=== PATIENT | male | born 1935 | race Caucasian/White ===

== ENCOUNTER → 2016-03-30 | Outpatient (CLI) | payer OTHER ==
[~2016-03-30] MED LIST: ADAL40KI IM; AMLO2.5T PO; ASPCH81X PO; ATEN-173 PO; ATEN25TA PO; ATOR-24 PO; AZAT50TA17 PO; CHOL1TAB52 PO; CLOP1TAB15 PO; CLXOPO OP; DOCU-94 PO; FLM4 PO; IBAN150T PO; NTRGSL/4 UT; OMEP40CA PO; PANT40TA PO; PLV75 PO; POLYSOL4 OPB; PROB1TAB16 PO; PRS5 PO
[2016-03-30 12:32] LABS: CALCIUM 9.4 mg/dl (8.5-10.1)
[2016-03-30 12:42] LABS: CALCIUM URINE 5.5 mg/dl
[2016-03-31 17:39] LABS: GAMMA GLOBULIN 1.4 G/DL (0.8-1.7); TOTAL PROTEIN 6.9 G/DL (6.2-8.3)
== END | disposition home or self-care (01) ==
LOC: C.LAB1850 10:56
PROVIDERS: ATTEND Internal Medicine Rheumatology
DX: Z91.89 Other specified personal risk factors, not elsewhere classified (principal); M81.0 Age-related osteoporosis without current pathological fracture; E61.8 Deficiency of other specified nutrient elements; E55.9 Vitamin D deficiency, unspecified

== ENCOUNTER → 2016-04-11 | Day surgery (SDC) | payer OTHER ==
[2016-03-31 12:45] VITALS: BMI 23.0
[~2016-04-11] VITALS: Ht 167.6 cm; Wt 66.4 kg
[~2016-04-11] MED LIST changes: -ATEN25TA PO; +ATROPINE SULFATE 0.1 MG/ML 5ML SYR IV PRN; +EpHEDrine SULFATE INJ 50 MG/ML AMP IV PRN; +LIDOCAINE HCL 2% 2 ML VIAL (20MG/ML) ONE; -PROB1TAB16 PO; +PROPOFOL IV EMULSION 10 MG/ML 20 ML VIAL IV ONE
[2016-04-11 12:12] VITALS: Ht 167.6 cm; Wt 66.4 kg
--- NOTE | 2016-04-11 13:02 | Endo History and Physical ---
History & Physical Date of Service: Apr 11, 2016. Chief Complaint: ULCERATIVE COLITIS Referring Physician: DR MANUEL ANGEL History of Present Illness For Colonoscopy Past Medical History Hypertension Past Surgical History Hx Cardiac Surgery: Yes (HEART CATH X2, STENT X3; AORTIC VALVE REPLACEMENT) Hx Internal Defibrillator: No Hx Pacemaker: No Hx Abdominal Surgery: Yes (APPY, RONI) Hx of Implantable Prosthesis: No Hx Post-Op Nausea and Vomiting: No Hx Cancer Surgery: No Hx Thoracic Surgery: No Hx Orthopedic: No Hx Urinary Tract Surgery: Yes (KIDNEY STONE REMOVAL WITH BASKET, URINARY STRICTURE REMOVAL) Family History None Social History Smoking Status: Never Smoker Hx Substance Use: No Hx Alcohol Use: No Allergies Coded Allergies: No Known Allergies (Verified , 04/11/16) Current Medications Reported Home Medications Medications Dose Route/Sig Max Daily Dose Days Date Category Plavix (Clopidogrel Bisulfate) 75 Mg Tab 75 Mg PO DAILY 04/11/16 Reported Finasteride 5 Mg Tab 5 Mg PO QAM 03/02/16 Reported Humira Pen (Adalimumab) 40 Mg/0.8 Ml Kit 0.8 Ml IM Q2W 03/02/16 Reported Colace (Docusate Sodium) 100 Mg Cap 1 Cap PO BID 03/02/16 Reported Norvasc (Amlodipine Besylate) 2.5 Mg Tab 2.5 Mg PO BID 03/16/15 Reported Ciloxan 0.3% Oph (Ciprofloxacin Hcl (Ophth)) 0.3 % Oin 0.5 Inch OP BID 01/28/15 Reported Systane (Polyethylene Glycol-Propylene) 1 Yanira Yanira 1 Drops OPB TID 01/28/15 Reported Imuran (Azathioprine) 50 Mg Tab 50 Mg PO QAM 01/28/15 Reported Prilosec (Omeprazole) 40 Mg Capcr 40 Mg PO QAM 01/28/15 Reported Aspirin Chewable (Aspirin) 81 Mg Chew 81 Mg PO QAM 01/31/14 Reported Tamsulosin HCl 0.4 Mg Cap 0.4 Mg PO QAM 01/31/14 Reported Tenormin (Atenolol) 25 Mg Tab 25 Mg PO QAM 01/31/14 Reported Lipitor (Atorvastatin Calcium) 40 Mg Tab 40 Mg PO QAM 01/31/14 Reported Nitrostat (Nitroglycerin) 0.4 Mg Tab 0.4 Mg UT PRN 01/31/14 Reported Vital Signs Weight (Kilograms): 66.36 Height (Feet): 5 Height (Inches): 6 Date Time Temp Pulse Resp B/P Pulse Ox O2 Delivery O2 Flow Rate FiO2 04/11/16 12:11 36.5 76 20 158/80 98 Room Air Physical Exam General Appearance: WD/WN Respiratory/Chest: Respiratory effort: no dyspnea Cardiovascular: Heart Auscultation: RRR Abdomen: Inspection & Palpation: soft Assessment and Plan UC for surveillance colonoscopy
--- NOTE | 2016-04-11 13:35 | Discharge Instructions ---
Endoscopy Patient Instructions Date / Procedure(s) Performed Apr 11, 2016. Colonoscopy Allergy Information Coded Allergies: No Known Allergies (Verified , 04/11/16) Discharge Date / Findings Apr 11, 2016. diverticulosis, surveillance bx done Medication Instructions Stopped Medication(s): ASPIRIN LAST DOSE 04/08/16 CONTINUES ON PLAVIX Restart Stopped Medication(s): resume meds Reported Home Medications Medications Dose Route/Sig Max Daily Dose Days Date Category Plavix (Clopidogrel Bisulfate) 75 Mg Tab 75 Mg PO DAILY 04/11/16 Reported Finasteride 5 Mg Tab 5 Mg PO QAM 03/02/16 Reported Humira Pen (Adalimumab) 40 Mg/0.8 Ml Kit 0.8 Ml IM Q2W 03/02/16 Reported Colace (Docusate Sodium) 100 Mg Cap 1 Cap PO BID 03/02/16 Reported Norvasc (Amlodipine Besylate) 2.5 Mg Tab 2.5 Mg PO BID 03/16/15 Reported Ciloxan 0.3% Oph (Ciprofloxacin Hcl (Ophth)) 0.3 % Oin 0.5 Inch OP BID 01/28/15 Reported Systane (Polyethylene Glycol-Propylene) 1 Yanira Yanira 1 Drops OPB TID 01/28/15 Reported Imuran (Azathioprine) 50 Mg Tab 50 Mg PO QAM 01/28/15 Reported Prilosec (Omeprazole) 40 Mg Capcr 40 Mg PO QAM 01/28/15 Reported Aspirin Chewable (Aspirin) 81 Mg Chew 81 Mg PO QAM 01/31/14 Reported Tamsulosin HCl 0.4 Mg Cap 0.4 Mg PO QAM 01/31/14 Reported Tenormin (Atenolol) 25 Mg Tab 25 Mg PO QAM 01/31/14 Reported Lipitor (Atorvastatin Calcium) 40 Mg Tab 40 Mg PO QAM 01/31/14 Reported Nitrostat (Nitroglycerin) 0.4 Mg Tab 0.4 Mg UT PRN 01/31/14 Reported Provider Instructions Activity Restrictions - No exercising or heavy lifting for 24 hours. - Do not drink alcohol the day of the procedure. - Do not drive a car or operate machinery until the day after the procedure. - Do not make any important decisions or sign important papers in 24 hours after the procedure. Following Day: - Return to full activity which may include returning to work/school. Diet Start your diet with liquids and light foods (jello, soup, juice, toast). Then eat your usual diet if not nauseated. Treatment For Common After Affects For mild abdominal pain, bloating, or excessive gas: - Rest - Eat lightly - Lie on right side Follow-Up Information Follow-up with DR MANUEL ANGEL as scheduled Anesthesia Information What You Should Know You have had a procedure that required some medicine to reduce anxiety and discomfort. This treatment is called moderate sedation. After receiving the treatment, you may be sleepy, but you will be able to breathe on your own. The effects of the treatment may last for several hours. Follow these instructions along with Activity/Diet recommendations noted above: * Do NOT do anything where dizziness or clumsiness would be dangerous. * Rest quietly at home today, then you can be up and about tomorrow. * Have a responsible person stay with you the rest of today. * You may have had an I.V. today. If so, you may take the dressing off later today. Recommendations Call your doctor if: * Trouble breathing * Continuous vomiting for more than 24 hours * Temperature above 101 degrees * Severe abdominal pain or bloating * Pain not relieved by pain medicine ordered * There is increased drainage or redness from any incision * A large amount of rectal bleeding greater than 2-3 tablespoons. (If you had a polyp/s removed or have hemorrhoids, a small amount of blood - from the rectum is to be expected.) * You have any unanswered questions or concerns. IN THE EVENT OF A SERIOUS EMERGENCY, GO TO THE NEAREST EMERGENCY ROOM Your discharge instructions were prepared by provider Baltazar Worthy. Patient Instructions Signature Page Gera Wilde Patient (or Guardian) Signature/Date: I have read and understand the instructions given to me by my caregivers. Caregiver/RN/Doctor Signature/Date: The above-named patient and/or guardian has received patient instructions on this date. + Original Patient Signature Page (only) stays with chart. Please make copy for patient.
--- NOTE | 2016-04-11 13:40 | Anesthesiology Progress Note ---
Anesthesia Post Op Note Date & Time Apr 11, 2016 at 13:40 Vital Signs Pain Intensity: 0 Vital Signs Past 12 Hours Date Time Temp Pulse Resp B/P Pulse Ox O2 Delivery O2 Flow Rate FiO2 04/11/16 12:11 36.5 76 20 158/80 98 Room Air Notes Mental Status: alert / awake / arousable, participated in evaluation Pt Amnestic to Procedure: Yes Nausea / Vomiting: adequately controlled Pain: adequately controlled Airway Patency, RR, SpO2: stable & adequate BP & HR: stable & adequate Hydration State: stable & adequate Anesthetic Complications: no major complications apparent
--- NOTE | 2016-04-11 13:45 | GI REPORT ---
Procedure Date: 04/11/2016 12:59 PM Procedure: Colonoscopy Indications: Follow-up of chronic ulcerative pancolitis Medicines: Propofol total dose 280 mg IV, Lidocaine 40 mg IV Complications: No immediate complications. Estimated Blood Loss: Estimated blood loss was minimal. Procedure: Pre-Anesthesia Assessment: - Prior to the procedure, a History and Physical was performed, and patient medications, allergies and sensitivities were reviewed. The patient's tolerance of previous anesthesia was reviewed. - The risks and benefits of the procedure and the sedation options and risks were discussed with the patient. All questions were answered and informed consent was obtained. After I obtained informed consent, the scope was passed under direct vision. Throughout the procedure, the patient's blood pressure, pulse, and oxygen saturations were monitored continuously. The scope was introduced through the anus and advanced to the cecum, identified by appendiceal orifice and ileocecal valve. The On-site loaner was introduced through the anus and advanced to the cecum, identified by appendiceal orifice and ileocecal valve. The colonoscopy was technically difficult and complex due to bowel stenosis. Successful completion of the procedure was aided by changing endoscopes. The patient tolerated the procedure well. The quality of the bowel preparation was fair. Findings: A benign-appearing, intrinsic moderate stenosis was found in the sigmoid colon and was traversed. Multiple diverticula were found in the sigmoid colon. The cecum appeared normal. Biopsies were taken with a cold forceps for histology. The ascending colon appeared normal. Biopsies were taken with a cold forceps for histology. The hepatic flexure appeared normal. Biopsies were taken with a cold forceps for histology. The transverse colon appeared normal. Biopsies were taken with a cold forceps for histology. The splenic flexure appeared normal. Biopsies were taken with a cold forceps for histology. The descending colon appeared normal. Biopsies were taken with a cold forceps for histology. The sigmoid colon appeared normal. Biopsies were taken with a cold forceps for histology. The rectum appeared normal. Biopsies were taken with a cold forceps for histology. 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 - Diverticulosis in the sigmoid colon. - The cecum is normal. Biopsied. - The ascending colon is normal. Biopsied. - The hepatic flexure is normal. Biopsied. - The transverse colon is normal. Biopsied. - The splenic flexure is normal. Biopsied. - The descending colon is normal. Biopsied. - The sigmoid colon is normal. Biopsied. - The rectum is normal. Biopsied. Recommendation: - Discharge patient to home (ambulatory). - Continue present medications. - Await pathology results. - Return to primary care physician PRN. Baltazar Worthy M.D. Baltazar Worthy MD 04/11/2016 1:45:46 PM This report has been signed electronically. Note Initiated On: 04/11/2016 12:59 PM
[2016-04-11 14:07] VITALS: BP 143/63; PULSE 64; O2SAT 98
== END | disposition home or self-care (01) ==
LOC: C.GI 11:47
PROVIDERS: ATTEND Internal Medicine Gastroenterology
DX: Z09 Encounter for follow-up examination after completed treatment for conditions other than malignant neoplasm (principal); K51.00 Ulcerative (chronic) pancolitis without complications; K56.69 Other intestinal obstruction; K57.30 Diverticulosis of large intestine without perforation or abscess without bleeding; I25.10 Atherosclerotic heart disease of native coronary artery without angina pectoris; I25.2 Old myocardial infarction; E78.5 Hyperlipidemia, unspecified; I10 Essential (primary) hypertension; Z95.2 Presence of prosthetic heart valve; Z90.89 Acquired absence of other organs; Z90.49 Acquired absence of other specified parts of digestive tract; Z98.890 Other specified postprocedural states

== ENCOUNTER → 2016-04-15 | Outpatient (CLI) | payer OTHER ==
[~2016-04-15] MED LIST changes: -ATROPINE SULFATE 0.1 MG/ML 5ML SYR IV PRN; -EpHEDrine SULFATE INJ 50 MG/ML AMP IV PRN; -LIDOCAINE HCL 2% 2 ML VIAL (20MG/ML) ONE; -PLV75 PO; -PROPOFOL IV EMULSION 10 MG/ML 20 ML VIAL IV ONE
[2016-04-15 12:44] LABS: BASO % 0.3 %; BASO ABS # 0.02 K/uL (0-0.2); COMPLETE YES; EOS % 1.2 %; HEMATOCRIT 40.3 % (42-52); IG% 0.2 %; LYMPH % 17.9 %; LYMPH ABS # 1.03 K/uL (1.2-3.4); MEAN CELL VOLUME 91.2 fL (80-100); MEAN CORPUSCULAR HEMOGLOBIN 32.1 pg (25-34); MEAN CORPUSCULAR HGB CONC 35.2 g/dl (32-36); MEAN PLATELET VOLUME 9.1 fL (7.4-10.4); MONO % 10.1 %; NEUT % 70.3 %; PLATELET COUNT 113 K/uL (130-400); RED BLOOD COUNT 4.42 M/uL (4.7-6.1); WHITE BLOOD COUNT 5.77 K/uL (4.8-10.8)
[2016-04-15 12:53] LABS: BLOOD UREA NITROGEN 17 mg/dl (7-18); CALCIUM 9.2 mg/dl (8.5-10.1); CARBON DIOXIDE 31 mmol/L (21-32); CHLORIDE 103 mmol/L (98-107); GLUCOSE 96 mg/dl (70-99); POTASSIUM 4.1 mmol/L (3.5-5.1); SODIUM 141 mmol/L (136-145)
[2016-04-15 13:12] LABS: ALKALINE PHOSPHATASE 77 U/L (45-117); ALT/SGPT 18 U/L (12-78); AST/SGOT 14 U/L (15-37); CHOLESTEROL 157 mg/dl (0-200); CHOLESTEROL/HDL RATIO 2.2; HDL CHOLESTEROL 70 mg/dl; LDL CHOLESTEROL CALCULATED 70 mg/dl; TRIGLYCERIDES 87 mg/dl (0-150); VERY LOW DENSITY LIPOPROT CALC 17 mg/dl
== END | disposition home or self-care (01) ==
LOC: C.LABPBG 11:01
PROVIDERS: ATTEND Family Medicine
DX: I10 Essential (primary) hypertension (principal); K51.90 Ulcerative colitis, unspecified, without complications

== ENCOUNTER → 2016-04-19 | Outpatient (CLI) | payer OTHER | END | disposition home or self-care (01) | LOC: C.LABBC 14:33 | PROVIDERS: ATTEND Family Medicine | DX: D69.6 Thrombocytopenia, unspecified (principal) ==

== ENCOUNTER → 2016-09-26 | Outpatient (CLI) | payer OTHER ==
[2016-09-26 15:48] LABS: BASO % 0.6 %; BASO ABS # 0.03 K/uL (0-0.2); COMPLETE YES; EOS % 1.4 %; HEMATOCRIT 40.8 % (42-52); IG% 0.2 %; LYMPH % 23.3 %; LYMPH ABS # 1.16 K/uL (1.2-3.4); MEAN CELL VOLUME 93.8 fL (80-100); MEAN CORPUSCULAR HEMOGLOBIN 31.7 pg (25-34); MEAN CORPUSCULAR HGB CONC 33.8 g/dl (32-36); MONO % 12.3 %; NEUT % 62.2 %; PLATELET COUNT 130 K/uL (130-400); RED BLOOD COUNT 4.35 M/uL (4.7-6.1); WHITE BLOOD COUNT 4.97 K/uL (4.8-10.8)
== END | disposition home or self-care (01) ==
LOC: C.LAB1850 14:35
PROVIDERS: ATTEND Internal Medicine Rheumatology
DX: D69.6 Thrombocytopenia, unspecified (principal); M81.0 Age-related osteoporosis without current pathological fracture; E55.9 Vitamin D deficiency, unspecified; N25.81 Secondary hyperparathyroidism of renal origin

== ENCOUNTER → 2016-11-21 | Day surgery (SDC) | payer OTHER ==
[2016-11-10 08:40] VITALS: BMI 24.0
[~2016-11-21] VITALS: Ht 167.6 cm; Wt 68.2 kg
[~2016-11-21] MED LIST changes: -CLOP1TAB15 PO; +LIDOCAINE HCL 2% 2 ML VIAL (20MG/ML) ONE; -OMEP40CA PO; +ONDANSETRON INJ 2 MG/ML 2 ML VIAL ONE; +PROPOFOL IV EMULSION 10 MG/ML 20 ML VIAL IV ONE; -PRS5 PO
[2016-11-21 13:29] VITALS: Ht 167.6 cm; Wt 68.2 kg
--- NOTE | 2016-11-21 14:15 | Endo History and Physical ---
History & Physical Date of Service: Nov 21, 2016. Chief Complaint: Dysphagia Referring Physician: Dr. Bj Giraldo History of Present Illness For EGD Past Medical History Hypertension Past Surgical History Hx Cardiac Surgery: Yes (HEART CATH X2, STENT X3; AORTIC VALVE REPLACEMENT) Hx Internal Defibrillator: No Hx Pacemaker: No Hx Abdominal Surgery: Yes (APPY, RONI) Hx of Implantable Prosthesis: No Hx Post-Op Nausea and Vomiting: No Hx Cancer Surgery: No Hx Thoracic Surgery: No Hx Orthopedic: No Hx Urinary Tract Surgery: Yes (KIDNEY STONE REMOVAL WITH BASKET, URINARY STRICTURE REMOVAL) Family History None Social History Smoking Status: Never Smoker Hx Substance Use: No Hx Alcohol Use: No Allergies Coded Allergies: No Known Allergies (Verified , 11/10/16) Current Medications Reported Home Medications Medications Dose Route/Sig Max Daily Dose Days Date Category Boniva (Ibandronate Sodium) 150 Mg Tab 150 Mg PO MONTHLY 11/10/16 Reported D 5000 (Cholecalciferol) 5,000 Unit Tab 1 Tab PO QAM 11/10/16 Reported Protonix (Pantoprazole Sodium) 40 Mg Tab 40 Mg PO QAM 11/10/16 Reported Humira Pen (Adalimumab) 40 Mg/0.8 Ml Kit 0.8 Ml IM Q2W 03/02/16 Reported Colace (Docusate Sodium) 100 Mg Cap 1 Cap PO BID 03/02/16 Reported Norvasc (Amlodipine Besylate) 2.5 Mg Tab 2.5 Mg PO BID 03/16/15 Reported Ciloxan 0.3% Oph (Ciprofloxacin Hcl (Ophth)) 0.3 % Oin 0.5 Inch OP BID 01/28/15 Reported Systane (Polyethylene Glycol-Propylene) 1 Yanira Yanira 1 Drops OPB TID 01/28/15 Reported Imuran (Azathioprine) 50 Mg Tab 50 Mg PO QAM 01/28/15 Reported Aspirin Chewable (Aspirin) 81 Mg Chew 81 Mg PO QAM 01/31/14 Reported Tamsulosin HCl 0.4 Mg Cap 0.4 Mg PO HS 01/31/14 Reported Tenormin (Atenolol) 25 Mg Tab 0.5 Tab PO QAM 01/31/14 Reported Lipitor (Atorvastatin Calcium) 40 Mg Tab 40 Mg PO QAM 01/31/14 Reported Nitrostat (Nitroglycerin) 0.4 Mg Tab 0.4 Mg UT PRN 01/31/14 Reported Vital Signs Weight (Kilograms): 68.18 Height (Feet): 5 Height (Inches): 6 Date Time Temp Pulse Resp B/P (MAP) Pulse Ox O2 Delivery O2 Flow Rate FiO2 11/21/16 13:33 36.6 88 18 164/81 (108) 98 Room Air Physical Exam General Appearance: + thin Respiratory/Chest: Respiratory effort: no dyspnea Cardiovascular: Heart Auscultation: RRR Abdomen: Inspection & Palpation: soft Assessment and Plan Dysphagia for EGD
--- NOTE | 2016-11-21 14:41 | Discharge Instructions ---
Endoscopy Patient Instructions Date / Procedure(s) Performed Nov 21, 2016. EGD Allergy Information Coded Allergies: No Known Allergies (Verified , 11/10/16) Discharge Date / Findings Nov 21, 2016. Normal EGD Medication Instructions Restart Stopped Medication(s): resume meds Reported Home Medications Medications Dose Route/Sig Max Daily Dose Days Date Category Boniva (Ibandronate Sodium) 150 Mg Tab 150 Mg PO MONTHLY 11/10/16 Reported D 5000 (Cholecalciferol) 5,000 Unit Tab 1 Tab PO QAM 11/10/16 Reported Protonix (Pantoprazole Sodium) 40 Mg Tab 40 Mg PO QAM 11/10/16 Reported Humira Pen (Adalimumab) 40 Mg/0.8 Ml Kit 0.8 Ml IM Q2W 03/02/16 Reported Colace (Docusate Sodium) 100 Mg Cap 1 Cap PO BID 03/02/16 Reported Norvasc (Amlodipine Besylate) 2.5 Mg Tab 2.5 Mg PO BID 03/16/15 Reported Ciloxan 0.3% Oph (Ciprofloxacin Hcl (Ophth)) 0.3 % Oin 0.5 Inch OP BID 01/28/15 Reported Systane (Polyethylene Glycol-Propylene) 1 Yanira Yanira 1 Drops OPB TID 01/28/15 Reported Imuran (Azathioprine) 50 Mg Tab 50 Mg PO QAM 01/28/15 Reported Aspirin Chewable (Aspirin) 81 Mg Chew 81 Mg PO QAM 01/31/14 Reported Tamsulosin HCl 0.4 Mg Cap 0.4 Mg PO HS 01/31/14 Reported Tenormin (Atenolol) 25 Mg Tab 0.5 Tab PO QAM 01/31/14 Reported Lipitor (Atorvastatin Calcium) 40 Mg Tab 40 Mg PO QAM 01/31/14 Reported Nitrostat (Nitroglycerin) 0.4 Mg Tab 0.4 Mg UT PRN 01/31/14 Reported Provider Instructions Activity Restrictions - No exercising or heavy lifting for 24 hours. - Do not drink alcohol the day of the procedure. - Do not drive a car or operate machinery until the day after the procedure. - Do not make any important decisions or sign important papers in 24 hours after the procedure. Following Day: - Return to full activity which may include returning to work/school. Diet Start your diet with liquids and light foods (jello, soup, juice, toast). Then eat your usual diet if not nauseated. Treatment For Common After Affects For mild abdominal pain, bloating, or excessive gas: - Rest - Eat lightly - Lie on right side Follow-Up Information Follow-up with Dr. Bj Giraldo as scheduled Anesthesia Information What You Should Know You have had a procedure that required some medicine to reduce anxiety and discomfort. This treatment is called moderate sedation. After receiving the treatment, you may be sleepy, but you will be able to breathe on your own. The effects of the treatment may last for several hours. Follow these instructions along with Activity/Diet recommendations noted above: * Do NOT do anything where dizziness or clumsiness would be dangerous. * Rest quietly at home today, then you can be up and about tomorrow. * Have a responsible person stay with you the rest of today. * You may have had an I.V. today. If so, you may take the dressing off later today. Recommendations Call your doctor if: * Trouble breathing * Continuous vomiting for more than 24 hours * Temperature above 101 degrees * Severe abdominal pain or bloating * Pain not relieved by pain medicine ordered * There is increased drainage or redness from any incision * A large amount of rectal bleeding greater than 2-3 tablespoons. (If you had a polyp/s removed or have hemorrhoids, a small amount of blood - from the rectum is to be expected.) * You have any unanswered questions or concerns. IN THE EVENT OF A SERIOUS EMERGENCY, GO TO THE NEAREST EMERGENCY ROOM Your discharge instructions were prepared by provider Baltazar Worthy. Patient Instructions Signature Page Gera Wilde Patient (or Guardian) Signature/Date: I have read and understand the instructions given to me by my caregivers. Caregiver/RN/Doctor Signature/Date: The above-named patient and/or guardian has received patient instructions on this date. + Original Patient Signature Page (only) stays with chart. Please make copy for patient.
--- NOTE | 2016-11-21 14:44 | Anesthesiology Progress Note ---
Anesthesia Post Op Note Date & Time Nov 21, 2016 at 14:44 Vital Signs Pain Intensity: 0 Vital Signs Past 12 Hours Date Time Temp Pulse Resp B/P (MAP) Pulse Ox O2 Delivery O2 Flow Rate FiO2 11/21/16 13:33 36.6 88 18 164/81 (108) 98 Room Air Notes Mental Status: alert / awake / arousable, participated in evaluation Pt Amnestic to Procedure: Yes Nausea / Vomiting: adequately controlled Pain: adequately controlled Airway Patency, RR, SpO2: stable & adequate BP & HR: stable & adequate Hydration State: stable & adequate Anesthetic Complications: no major complications apparent
--- NOTE | 2016-11-21 14:49 | GI REPORT ---
Procedure Date: 11/21/2016 2:19 PM Procedure: Upper GI endoscopy Indications: Dysphagia Medicines: Zofran 4 mg IV, Propofol total dose 80 mg IV, Lidocaine 60 mg IV Complications: No immediate complications. Estimated Blood Loss: Estimated blood loss: none. Procedure: Pre-Anesthesia Assessment: - Prior to the procedure, a History and Physical was performed, and patient medications, allergies and sensitivities were reviewed. The patient's tolerance of previous anesthesia was reviewed. - The risks and benefits of the procedure and the sedation options and risks were discussed with the patient. All questions were answered and informed consent was obtained. After obtaining informed consent, the endoscope was passed under direct vision. Throughout the procedure, the patient's blood pressure, pulse, and oxygen saturations were monitored continuously. The scope was introduced through the mouth, and advanced to the second part of duodenum. The upper GI endoscopy was accomplished without difficulty. The patient tolerated the procedure well. Findings: The esophagus was normal. The stomach was normal. The examined duodenum was normal. Impression: - Normal esophagus. - Normal stomach. - Normal examined duodenum. - No specimens collected. Recommendation: - Discharge patient to home (ambulatory). - Continue present medications. - Return to primary care physician PRN. Baltazar Worthy M.D. Baltazar Worthy MD 11/21/2016 2:49:09 PM This report has been signed electronically. Note Initiated On: 11/21/2016 2:19 PM I attest to the content of the Intraoperative Record and orders documented therein, exceptions below
[2016-11-21 15:05] VITALS: BP 152/95; PULSE 75; O2SAT 96
== END | disposition home or self-care (01) ==
LOC: C.GI 12:42
PROVIDERS: ATTEND Internal Medicine Gastroenterology
DX: R13.10 Dysphagia, unspecified (principal); I25.10 Atherosclerotic heart disease of native coronary artery without angina pectoris; I10 Essential (primary) hypertension; Z95.2 Presence of prosthetic heart valve; Z90.49 Acquired absence of other specified parts of digestive tract; Z87.442 Personal history of urinary calculi; Z79.82 Long term (current) use of aspirin

== ENCOUNTER 2017-02-25 13:08 | Inpatient (IN) | payer OTHER ==
[~2017-02-25] VITALS: Ht 167.6 cm; Wt 66.4 kg
[~2017-02-25 13:08] MED LIST changes: -LIDOCAINE HCL 2% 2 ML VIAL (20MG/ML) ONE; -ONDANSETRON INJ 2 MG/ML 2 ML VIAL ONE; -PROPOFOL IV EMULSION 10 MG/ML 20 ML VIAL IV ONE
[2017-02-25] MEDS ORDERED: NITROGLYCERIN OINT 2% 1GM PACKET EXT STA (13:15)
[2017-02-25] MEDS ORDERED: NITROGLYCERIN OINT 2% 1GM PACKET ONE (13:22)
--- NOTE | 2017-02-25 13:23 | EMERGENCY ROOM VISIT NOTE ---
History Report prepared by [place]: Jose Manning Under the Supervision of: Dr. Orlando Adan M.D. First contact with patient: 13:10 Stated Complaint: FALL/CHEST PAIN History of Present Illness The patient is an 81 year old male who presents to the Emergency Room with complaints of constant chest pain beginning 1 hour ago. He currently rates his discomfort a 2/10 in severity after receiving nitroglycerin. The patient states his pain was originally a 9/10. [place] began to experience chest pain, abdominal pain, and diaphoresis. The patient notes he is currently only experiencing chest pain. He states he has a history of a stent placement and a heart valve. The patient reports he is not on Coumadin or Plavix. Source of History: patient Onset: 1 hour ago Position: chest Symptom Intensity: 9/10 Timing: constant Modifying Factors (Relieving): other (Nitroglycerin) Associated Symptoms: + diaphoresis, + chest pain, + abdominal pain Review of Systems See HPI for pertinent positives & negatives. A total of 10 systems reviewed and were otherwise negative. Past Medical & Surgical Medical Problems: (1) Bowel obstruction (2) Chest pain (3) Heart disease (4) HTN (hypertension) (5) Kidney disease (6) Skin problem (7) Stomach problems (8) Urinary problem Family History Cancer Gallbladder disease Hypertension Kidney disease Kidney stones Social History Smoking Status: Never Smoker Alcohol Use: none Marital Status: Housing Status: lives with significant other Occupation Status: retired Current/Historical Medications Scheduled Adalimumab (Humira Pen), 0.8 ML IM q2w Amlodipine (Norvasc), 2.5 MG PO BID Aspirin (Aspirin Chewable), 81 MG PO QAM Atenolol (Tenormin), 1 TAB PO QAM Cholecalciferol (Vitamin D3), 1 TAB PO DAILY Docusate Sodium (Colace), 1 CAP PO BID Ibandronate Sodium (Boniva), 150 MG PO MONTHLY Nitroglycerin (Nitrostat), 0.4 MG UT PRN Pantoprazole (Protonix), 40 MG PO QAM Polyethylene Glycol-Propylene (Systane), 1 DROPS OPB TID Tamsulosin HCl (Tamsulosin HCl), 0.4 MG PO HS Tolterodine Tartrate (Detrol LA), 1 CAP PO BID Allergies Coded Allergies: No Known Allergies (Verified , 02/25/17) Physical Exam Vital Signs Date Time Temp Pulse Resp B/P (MAP) Pulse Ox O2 Delivery O2 Flow Rate FiO2 02/25/17 15:02 83 140/70 96 Room Air 02/25/17 14:38 71 23 97 02/25/17 14:31 122/58 02/25/17 14:08 68 25 94 02/25/17 14:01 112/62 02/25/17 13:38 70 98 02/25/17 13:31 137/65 02/25/17 13:30 94 Room Air 02/25/17 13:27 36.6 86 18 135/72 94 Room Air 02/25/17 13:25 126/73 02/25/17 13:18 99 Nasal Cannula 2.0 02/25/17 13:18 93 Room Air 02/25/17 13:17 76 02/25/17 13:12 135/72 Physical Exam GENERAL: Patient is a healthy-appearing well-nourished 81 year old male. HEAD: Normocephalic atraumatic EYES: Ocular movements intact pupils equal and react to light OROPHARYNX mucous membranes are moist no exudates present no erythema or edema present NECK: Supple no nuchal rigidity CHEST: Good equal expansion LUNGS: Clear and equal to auscultation CARDIAC: Normal S1 and S2 ABDOMEN: Soft nontender no guarding BACK: No CVA tenderness EXTREMITIES: No pain upon palpation normal muscle strength in all groups no clubbing cyanosis or edema NEURO: Patient is following commands and answering questions appropriately. Alert and oriented x3 Cranial Nerves 2-12 grossly intact Medical Decision & Procedures ER Provider Diagnostic Interpretation: Radiology results as stated below per my review and radiologist interpretation: CHEST ONE VIEW PORTABLE HISTORY: Atypical CHEST PAIN COMPARISON: Chest 02/25/2017. FINDINGS: The lungs are clear. Cardiac silhouette is normal in size. No pleural effusions. No pneumothorax. IMPRESSION: No acute process. Electronically signed by: Amauri Ortiz M.D. 02/25/2017 2:16 PM Dictated Date/Time: 02/25/2017 2:15 PM CHEST CTA for PULMONARY ARTERIES CT DOSE: 282.21 mGy.cm HISTORY: Atypical chest pain. TECHNIQUE: Multiaxial CT images of the chest were performed following the intravenous administration of contrast to evaluate the pulmonary arteries. Maximal intensity projection images were also obtained. A dose lowering technique was utilized adhering to the principles of ALARA. COMPARISON STUDY: None. FINDINGS: Punctate stone within the upper pole of the left kidney. The visualized liver, spleen, and adrenal glands are unremarkable. No mediastinal or hilar lymphadenopathy. The heart is top normal in size. 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 No pleural or pericardial effusions. Normal caliber thoracic aorta with no evidence for dissection. No filling defects within the pulmonary arteries to suggest pulmonary embolus. No pneumothorax. Small linear density at the left lung apex suggestive of scarring. Groundglass densities at the lung bases likely represent mild dependent change. No focal lung consolidations to suggest pneumonia. The fractures within the visualized osseous structures. IMPRESSION: No evidence for pulmonary embolus. Electronically signed by: Amauri Ortiz M.D. 02/25/2017 3:11 PM Dictated Date/Time: 02/25/2017 3:02 PM Laboratory Results 02/25/17 12:35 Red Blood Count 4.08, Mean Corpuscular Volume 94.4, Mean Corpuscular Hemoglobin 33.3, Mean Corpuscular Hemoglobin Concent 35.3, Mean Platelet Volume 9.4, Neutrophils (%) (Auto) 54.7, Lymphocytes (%) (Auto) 31.6, Monocytes (%) (Auto) 11.1, Eosinophils (%) (Auto) 2.0, Basophils (%) (Auto) 0.3, Neutrophils # (Auto ) 3.58, Lymphocytes # (Auto) 2.07, Monocytes # (Auto) 0.73, Eosinophils # (Auto ) 0.13, Basophils # (Auto) 0.02 02/25/17 12:35 Test 02/25/17 12:35 02/25/17 13:23 02/25/17 13:25 White Blood Count 6.55 K/uL (4.8-10.8) Red Blood Count 4.08 M/uL (4.7-6.1) Hemoglobin 13.6 g/dL (14.0-18.0) Hematocrit 38.5 % (42-52) Mean Corpuscular Volume 94.4 fL (80-100) Mean Corpuscular Hemoglobin 33.3 pg (25-34) Mean Corpuscular Hemoglobin Concent 35.3 g/dl (32-36) Platelet Count 124 K/uL (130-400) Mean Platelet Volume 9.4 fL (7.4-10.4) Neutrophils (%) (Auto) 54.7 % Lymphocytes (%) (Auto) 31.6 % Monocytes (%) (Auto) 11.1 % Eosinophils (%) (Auto) 2.0 % Basophils (%) (Auto) 0.3 % Neutrophils # (Auto) 3.58 K/uL (1.4-6.5) Lymphocytes # (Auto) 2.07 K/uL (1.2-3.4) Monocytes # (Auto) 0.73 K/uL (0.11-0.59) Eosinophils # (Auto) 0.13 K/uL (0-0.5) Basophils # (Auto) 0.02 K/uL (0-0.2) RDW Standard Deviation 43.7 fL (36.4-46.3) RDW Coefficient of Variation 12.7 % (11.5-14.5) Immature Granulocyte % (Auto) 0.3 % Immature Granulocyte # (Auto) 0.02 K/uL (0.00-0.02) Est Creatinine Clear Calc Drug Dose 32.5 ml/min Estimated GFR () 46.5 Estimated GFR (Non- 40.1 BUN/Creatinine Ratio 14.4 (10-20) Calcium Level 8.7 mg/dl (8.5-10.1) Total Bilirubin 0.8 mg/dl (0.2-1) Direct Bilirubin 0.2 mg/dl (0-0.2) Aspartate Amino Transf (AST/SGOT) 14 U/L (15-37) Alanine Aminotransferase (ALT/SGPT) 15 U/L (12-78) Alkaline Phosphatase 55 U/L (45-117) Total Creatine Kinase 75 U/L (39-308) Creatine Kinase MB 1.0 ng/ml (0.5-3.6) Creatine Kinase MB Ratio 1.3 (0-3.0) Troponin I < 0.015 ng/ml (0-0.045) Total Protein 7.1 gm/dl (6.4-8.2) Albumin 3.5 gm/dl (3.4-5.0) Lipase 83 U/L (73-393) Bedside D-Dimer > 450 ng/mlFEU (0-450) Bedside Hemoglobin 12.6 g/dl (14.0-18.0) Bedside Hematocrit 37 % (42-52) Bedside Sodium 138 mEq/L (135-144) Bedside Potassium 4.3 mEq/L (3.3-5.0) Bedside Chloride 99 mEq/L (101-112) Bedside Total CO2 29 mEq/l (24-31) Anion Gap 15.0 mmol/L (16-25) Bedside Blood Urea Nitrogen 27 mg/dl (7-18) Bedside Creatinine 1.6 mg/dl (0.6-1.3) Bedside Glucose (other) 130 mg/dl (70-99) Bedside Ionized Calcium (Navya) 1.18 mmol/l (1.12-1.32) Labs reviewed by ED physician. Medications Administered Medications (Trade) Dose Ordered Sig/Nicol Route Start Time Stop Time Status Last Admin Dose Admin Nitroglycerin (Nitroglycerin 2% Oint) 1 inch Shuame-MED ONCE .ROUTE 02/25/17 13:22 02/25/17 13:23 DC 02/25/17 13:22 1 INCH ECG Indication: chest pain Rate (beats per minute): 68 Rhythm: sinus rhythm Findings: no acute ischemic change, other (premature supraventricular complexes ) ED Course 1315: Past medical records reviewed. The patient was evaluated in room B12B. A complete history and physical examination was performed. 1322: Ordered Nitroglycerin 1in EXT 1519: I discussed the patient's case with Dr. Junior [facility]. The patient will be evaluated for further management and care. Medical Decision Differential diagnosis: Etiologies such as cardiac ischemia, aortic dissection, pulmonary embolism, pneumonia, pneumothorax, musculoskeletal, infections, pericarditis, myocarditis , esophageal rupture, gastrointestinal, as well as others were entertained. This is an 81-year-old male who presents emergency department complaining of chest pain that was relieved by nitroglycerin. [place] the chest pain started. He has a significant coronary artery history therefore he was discussed with the hospitalist service. He was given nitro paste here in the emergency department. Repeat examination revealed improvement patient's symptoms. Medication Reconcilliation Current Medication List: was personally reviewed by me Blood Pressure Screening Patient's blood pressure: Normal blood pressure Blood pressure disposition: Elevated BP felt to be situational Consults Time Called: 1512 Consulting Physician: Dr. Junior [facility] Returned Call: 1519 I discussed the patient's case with Dr. Junior, [facility]. The patient will be evaluated for further management and care. Impression Primary Impression: Chest pain Scribe Attestation The scribe's documentation has been prepared under my direction and personally reviewed by me in its entirety. I confirm that the note above accurately reflects all work, treatment, procedures, and medical decision making performed by me. Departure Information Dispostion Being Evaluated By Hospitalist Referrals Rica Chavez DO (PCP) Problem Qualifiers Primary Impression: Chest pain Chest pain type: chest pain on breathing Qualified Codes: R07.1 - Chest pain on breathing
[2017-02-25 13:27] VITALS: Ht 167.6 cm; Wt 66.4 kg
[2017-02-25 13:41] LABS: BASO % 0.3 %; BASO ABS # 0.02 K/uL (0-0.2); EOS ABS # 0.13 K/uL (0-0.5); HEMATOCRIT 38.5 % (42-52); HEMOGLOBIN 13.6 g/dL (14.0-18.0); IG# 0.02 K/uL (0.00-0.02); LYMPH % 31.6 %; LYMPH ABS # 2.07 K/uL (1.2-3.4); MEAN CELL VOLUME 94.4 fL (80-100); MEAN CORPUSCULAR HEMOGLOBIN 33.3 pg (25-34); MEAN CORPUSCULAR HGB CONC 35.3 g/dl (32-36); MEAN PLATELET VOLUME 9.4 fL (7.4-10.4); MONO % 11.1 %; MONO ABS # 0.73 K/uL (0.11-0.59); NEUT % 54.7 %; NEUT ABS # 3.58 K/uL (1.4-6.5); PLATELET COUNT 124 K/uL (130-400); RED CELL DISTRIBUTION WIDTH CV 12.7 % (11.5-14.5); RED CELL DISTRIBUTION WIDTH SD 43.7 fL (36.4-46.3); WHITE BLOOD COUNT 6.55 K/uL (4.8-10.8)
[2017-02-25 13:46] LABS: ISTAT CREATININE 1.6 mg/dl (0.6-1.3); ISTAT IONIZED CALCIUM 1.18 mmol/l (1.12-1.32); ISTAT POTASSIUM 4.3 mEq/L (3.3-5.0)
[2017-02-25 14:00] LABS: ALBUMIN 3.5 gm/dl (3.4-5.0); ALT/SGPT 15 U/L (12-78); BLOOD UREA NITROGEN 23 mg/dl (7-18); CALCIUM 8.7 mg/dl (8.5-10.1); CARBON DIOXIDE 28 mmol/L (21-32); CREATININE 1.58 mg/dl (0.60-1.40); GLUCOSE 123 mg/dl (70-99); LIPASE 83 U/L (73-393); POTASSIUM 4.2 mmol/L (3.5-5.1); SODIUM 136 mmol/L (136-145)
[2017-02-25 14:06] LABS: ALKALINE PHOSPHATASE 55 U/L (45-117); AST/SGOT 14 U/L (15-37); TOTAL PROTEIN 7.1 gm/dl (6.4-8.2)
[2017-02-25] MEDS ORDERED: OPTIRAY 320 IV PRN (14:15)
--- NOTE | 2017-02-25 14:18 | DIAGNOSTIC IMAGING REPORT ---
CHEST ONE VIEW PORTABLE HISTORY: Atypical CHEST PAIN COMPARISON: Chest 02/25/2017. FINDINGS: The lungs are clear. Cardiac silhouette is normal in size. No pleural effusions. No pneumothorax. IMPRESSION: No acute process. Electronically signed by: Amauri Ortiz M.D. 02/25/2017 2:16 PM Dictated Date/Time: 02/25/2017 2:15 PM
[2017-02-25] MEDS ORDERED: DTRSR/2 PO (14:47)
[2017-02-25] MEDS ORDERED: CHOL20007 PO (14:47)
--- NOTE | 2017-02-25 15:12 | DIAGNOSTIC IMAGING REPORT ---
CHEST CTA for PULMONARY ARTERIES CT DOSE: 282.21 mGy.cm HISTORY: Atypical chest pain. TECHNIQUE: Multiaxial CT images of the chest were performed following the intravenous administration of contrast to evaluate the pulmonary arteries. Maximal intensity projection images were also obtained. A dose lowering technique was utilized adhering to the principles of ALARA. COMPARISON STUDY: None. FINDINGS: Punctate stone within the upper pole of the left kidney. The visualized liver, spleen, and adrenal glands are unremarkable. No mediastinal or hilar lymphadenopathy. The heart is top normal in size. 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 No pleural or pericardial effusions. Normal caliber thoracic aorta with no evidence for dissection. No filling defects within the pulmonary arteries to suggest pulmonary embolus. No pneumothorax. Small linear density at the left lung apex suggestive of scarring. Groundglass densities at the lung bases likely represent mild dependent change. No focal lung consolidations to suggest pneumonia. The fractures within the visualized osseous structures. IMPRESSION: No evidence for pulmonary embolus. Electronically signed by: Amauri Ortiz M.D. 02/25/2017 3:11 PM Dictated Date/Time: 02/25/2017 3:02 PM
[2017-02-25] MEDS ORDERED: MoRPHine SULFATE 2 MG/ML CARP IV PRN (15:30)
[2017-02-25] MEDS ORDERED: ONDANSETRON INJ 2 MG/ML 2 ML VIAL IV PRN (15:30)
[2017-02-25 16:39] VITALS: BP 159/79; PULSE 72; TEMP 36.4; O2SAT 96
[2017-02-25 17:00] VITALS: BP 159/79; TEMP 36.4; O2SAT 96
[2017-02-25] MEDS ORDERED: NITROGLYCERIN OINT 2% 1GM PACKET EXT SCH (18:00)
[2017-02-25] MEDS ORDERED: NURSING VERBAL MED ORDER ONE (18:30)
--- NOTE | 2017-02-25 18:48 | History and Physical ---
History & Physical Date & Time of Service: Feb 25, 2017 at 18:18 Chief Complaint: Chest Pain Primary Care Physician: No Doctor, Assigned History of Present Illness Source: patient, spouse, hospital records 81 yo male with history of CAD with three stents, one remotely at [place] and two more recently prior to TAVR procedure. The patient never had an AR, he just had anginal symptoms and was set up for heart catheterizations. He follows with Dr. Lyon. 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 He has been doing well from a cardiac standpoint, does not typically have anginal symptoms. This morning he [place] back, roughly 3 /4 of a mile and then shoveled a short sidewalk when he got back. He never had any chest pain or pressure while exerting himself. He went inside and ate some lunch and then shortly after eating he developed crushing discomfort with diaphoresis. No associated nausea or dyspnea, the pain did not radiate to his jaw or arm. He took a baby aspirin with no relief. No relief initially with 2 sublingual nitros and then after 3rd nitro he had complete relief. He called EMS and was brought to the ED. He does admit so some occasional chest pressure that he always though was more like reflux. The other day he took a lot of Maalox but it offered no relief and then he tried a nitroglycerin tab and it gave him relief. In the ED his vitals were stable and his lab work was normal, including troponin of < 0.015. EKG showed NSR without ischemic changes. Past Medical/Surgical History CAD with h/o three stents TAVR Ulcerative colitis Medical Problems: (1) Heart disease Status: Chronic (2) HTN (hypertension) Status: Chronic (3) Kidney disease Status: Resolved (4) Skin problem Status: Resolved (5) Stomach problems Status: Resolved (6) Urinary problem Status: Resolved Family History Cancer Gallbladder disease Hypertension Kidney disease Kidney stones Social History Smoking Status: Never Smoker Alcohol Use: none Marital Status: Housing status: lives with significant other Occupational Status: retired Multi-Drug Resistant Organisms History of MDRO: No Allergies Coded Allergies: No Known Allergies (Verified , 02/25/17) Home Medications Scheduled Adalimumab (Humira Pen), 0.8 ML IM q2w Amlodipine (Norvasc), 2.5 MG PO BID Aspirin (Aspirin Chewable), 81 MG PO QAM Atenolol (Tenormin), 1 TAB PO QAM Cholecalciferol (Vitamin D3), 1 TAB PO DAILY Docusate Sodium (Colace), 1 CAP PO BID Ibandronate Sodium (Boniva), 150 MG PO MONTHLY Nitroglycerin (Nitrostat), 0.4 MG UT PRN Pantoprazole (Protonix), 40 MG PO QAM Polyethylene Glycol-Propylene (Systane), 1 DROPS OPB TID Tamsulosin HCl (Tamsulosin HCl), 0.4 MG PO HS Tolterodine Tartrate (Detrol LA), 1 CAP PO BID Review of Systems Constitutional: + sweats, No fever, No chills, No weight loss, No weakness, No fatigue, No problem reported Eyes: No worsening of vision, No eye pain, No redness, No discharge, No diplopia, No problem reported ENT: No hearing loss, No unusual epistaxis, No nasal symptoms, No sore throat, No tinnitus, No dental problems, No trouble swallowing, No problem reported Respiratory: No cough, No sputum, No wheezing, No shortness of breath, No dyspnea on exertion, No dyspnea at rest, No hemoptysis, No problem reported Cardiovascular: + chest pain (described more as pressure), No orthopnea, No PND , No edema, No claudication, No palpitations, No problem reported Abdomen: No pain, No nausea, No vomiting, No diarrhea, No constipation, No GI bleeding, No problem reported Musculoskeletal: No joint pain, No muscle pain, No swelling, No calf pain, No problem reported Genitourinary - Male: No hematuria, No dysuria, No urinary frequency, No urinary urgency Neurologic: No memory loss, No paralysis, No weakness, No numbness/tingling, No vertigo, No balance problems, No problem reported Psychiatric: No depression symptoms, No anhedonism, No anxiety, No insomnia, No substance abuse, No problem reported Endocrine: No fatigue, No excessive thirst, No excessive urination, No problem reported Hematologic / Lymphatic: No abnormal bleeding/bruising, No clotting problems, No swollen lymph nodes, No night sweats, No problem reported Integumentary: No rash, No itch, No new/changing skin lesions, No color change , No bleeding, No problem reported Allergic / Immunologic: No environmental allergies, No seasonal allergies, No pet sensitivities, No food allergies, No hives, No frequent infections, No poor healing, No prolonged convalescence, No problem reported Physical Exam Vital Signs Date Time Temp Pulse Resp B/P (MAP) Pulse Ox O2 Delivery O2 Flow Rate FiO2 02/25/17 17:15 Room Air 02/25/17 17:00 36.4 18 159/79 (105) 96 Room Air 02/25/17 17:00 96 Room Air 02/25/17 16:39 36.4 72 18 159/79 96 Room Air 02/25/17 16:39 78 122/63 92 02/25/17 15:35 101/61 02/25/17 15:33 78 96/59 91 Room Air 02/25/17 15:02 83 140/70 96 Room Air 02/25/17 14:38 71 23 97 02/25/17 14:31 122/58 02/25/17 14:08 68 25 94 02/25/17 14:01 112/62 02/25/17 13:38 70 98 02/25/17 13:31 137/65 02/25/17 13:30 94 Room Air 02/25/17 13:27 36.6 86 18 135/72 94 Room Air 02/25/17 13:25 126/73 02/25/17 13:18 99 Nasal Cannula 2.0 02/25/17 13:18 93 Room Air 02/25/17 13:17 76 02/25/17 13:12 135/72 General Appearance: WD/WN, no apparent distress Head: normocephalic, atraumatic Eyes: normal inspection, EOMI, sclerae normal ENT: normal ENT inspection, hearing grossly normal, pharynx normal Neck: supple, no adenopathy, no JVD, trachea midline Respiratory/Chest: chest non-tender, lungs clear, normal breath sounds, no respiratory distress, no accessory muscle use Cardiovascular: regular rate, rhythm, no edema, no gallop, no JVD, no murmur, normal peripheral pulses Abdomen/GI: normal bowel sounds, non tender, soft, no organomegaly Back: normal inspection, no CVA tenderness, no muscle spasm, normal range of motion Extremities/Musculoskelatal: normal inspection, no calf tenderness, normal capillary refill, no pedal edema, normal range of motion, pelvis stable Neurologic/Psych: online user experience strategist II-XII nml as tested, no motor/sensory deficits, alert, normal mood/affect, normal reflexes, oriented x 3 Skin: normal color, warm/dry, no rash Diagnostics Laboratory Results Results Past 24 Hours Test 02/25/17 12:35 02/25/17 13:23 02/25/17 13:25 02/25/17 17:44 Range/Units White Blood Count 6.55 4.8-10.8 K/uL Red Blood Count 4.08 4.7-6.1 M/uL Hemoglobin 13.6 14.0-18.0 g/dL Hematocrit 38.5 42-52 % Mean Corpuscular Volume 94.4 80-100 fL Mean Corpuscular Hemoglobin 33.3 25-34 pg Mean Corpuscular Hemoglobin Concent 35.3 32-36 g/dl Platelet Count 124 130-400 K/uL Mean Platelet Volume 9.4 7.4-10.4 fL Neutrophils (%) (Auto) 54.7 % Lymphocytes (%) (Auto) 31.6 % Monocytes (%) (Auto) 11.1 % Eosinophils (%) (Auto) 2.0 % Basophils (%) (Auto) 0.3 % Neutrophils # (Auto) 3.58 1.4-6.5 K/uL Lymphocytes # (Auto) 2.07 1.2-3.4 K/uL Monocytes # (Auto) 0.73 0.11-0.59 K/uL Eosinophils # (Auto) 0.13 0-0.5 K/uL Basophils # (Auto) 0.02 0-0.2 K/uL RDW Standard Deviation 43.7 36.4-46.3 fL RDW Coefficient of Variation 12.7 11.5-14.5 % Immature Granulocyte % (Auto) 0.3 % Immature Granulocyte # (Auto) 0.02 0.00-0.02 K/uL Sodium Level 136 136-145 mmol/L Potassium Level 4.2 3.5-5.1 mmol/L Chloride Level 102 98-107 mmol/L Carbon Dioxide Level 28 21-32 mmol/L Anion Gap 6.0 15.0 16-25 mmol/L Blood Urea Nitrogen 23 7-18 mg/dl Creatinine 1.58 0.60-1.40 mg/dl Est Creatinine Clear Calc Drug Dose 32.5 ml/min Estimated GFR () 46.5 Estimated GFR (Non- 40.1 BUN/Creatinine Ratio 14.4 10-20 Random Glucose 123 70-99 mg/dl Calcium Level 8.7 8.5-10.1 mg/dl Total Bilirubin 0.8 0.2-1 mg/dl Direct Bilirubin 0.2 0-0.2 mg/dl Aspartate Amino Transf (AST/SGOT) 14 15-37 U/L Alanine Aminotransferase (ALT/SGPT) 15 12-78 U/L Alkaline Phosphatase 55 45-117 U/L Total Creatine Kinase 75 39-308 U/L Creatine Kinase MB 1.0 0.5-3.6 ng/ml Creatine Kinase MB Ratio 1.3 0-3.0 Troponin I < 0.015 0-0.045 ng/ml Total Protein 7.1 6.4-8.2 gm/dl Albumin 3.5 3.4-5.0 gm/dl Lipase 83 73-393 U/L Bedside D-Dimer > 450 0-450 ng/mlFEU Bedside Hemoglobin 12.6 14.0-18.0 g/dl Bedside Hematocrit 37 42-52 % Bedside Sodium 138 135-144 mEq/L Bedside Potassium 4.3 3.3-5.0 mEq/L Bedside Chloride 99 101-112 mEq/L Bedside Total CO2 29 24-31 mEq/l Bedside Blood Urea Nitrogen 27 7-18 mg/dl Bedside Creatinine 1.6 0.6-1.3 mg/dl Bedside Glucose (other) 130 70-99 mg/dl Bedside Ionized Calcium (Navya) 1.18 1.12-1.32 mmol/l Diagnostic Radiology CTA chest - no PE CXR normal Normal EKG Impression Assessment and Plan 81 yo male who presents with chest pain, pressure after eating and with recent exertion - Chest pain/pressure: initial EKG and troponin negative for ischemia will repeat troponin at 2000 and then 0400 repeat EKG in the AM check resting echocardiogram consult cardiology to see tomorrow since pain improved with nitro, will treat with 2% q6 continue aspirin and Atenolol patient does not take statin according to med rec could represent severe GERD since the pain started after eating will rule out cardiac etiology first - HTN, ulcerative colitis, CKD stage III all chronic and stable Level of Care Telemetry Advanced Directives Existing Living Will: Yes Existing Power of Continuous Loft Operator: Yes ([employer]-daughter) Resuscitation Status FULL RESUSCITATION VTE Prophylaxis VTE Risk Assessment Done? Y/N: Yes Risk Level: Moderate Given or contraindicated: Enoxaparin (Lovenox)SQ
[2017-02-25] MEDS: NITROGLYCERIN OINT 2% 1GM PACKET EXT SCH (20:14)
[2017-02-25] MEDS: TAMSULOSIN HCL 0.4 MG CAP PO SCH (20:17)
[2017-02-25] MEDS: AMLODIPINE BESYLATE 5 MG TAB PO SCH (20:19)
[2017-02-25 20:20] VITALS: BP 119/72; PULSE 85; TEMP 36.7; O2SAT 93
[2017-02-25] MEDS: TOLTERODINE TARTRATE LA 2 MG CAPCR PO SCH (20:20)
[2017-02-25 21:10] LABS: PTT PATIENT 24.5 SECONDS (21.0-31.0)
[2017-02-25] MEDS: ZOLPIDEM TARTRATE 5 MG TAB PO PRN (23:06)
[2017-02-25] MEDS: ACETAMINOPHEN 325 MG TAB PO PRN (23:07)
[2017-02-25 23:22] VITALS: BP 114/67; PULSE 82; TEMP 36.6; O2SAT 93
[2017-02-26] VITALS (7 sets, daily range): BP systolic 95–144; BP diastolic 39–82; PULSE 65–80; TEMP 36.6–36.9; O2SAT 94–96
[2017-02-26] MEDS: NITROGLYCERIN OINT 2% 1GM PACKET EXT SCH ×5 (01:22→20:26)
[2017-02-26] MEDS ORDERED: GUAIFENESIN SUGAR FREE 100 MG/5 ML UDC PO STA (02:16)
[2017-02-26] MEDS ORDERED: GUAIFENESIN SUGAR FREE 100 MG/5 ML UDC PO PRN (02:30)
[2017-02-26 04:28] LABS: BASO % 0.3 %; BASO ABS # 0.02 K/uL (0-0.2); EOS % 1.6 %; EOS ABS # 0.12 K/uL (0-0.5); HEMATOCRIT 36.8 % (42-52); HEMOGLOBIN 12.7 g/dL (14.0-18.0); IG# 0.01 K/uL (0.00-0.02); LYMPH % 21.2 %; LYMPH ABS # 1.56 K/uL (1.2-3.4); MEAN CELL VOLUME 94.4 fL (80-100); MEAN CORPUSCULAR HEMOGLOBIN 32.6 pg (25-34); MEAN CORPUSCULAR HGB CONC 34.5 g/dl (32-36); MEAN PLATELET VOLUME 8.9 fL (7.4-10.4); MONO % 10.9 %; NEUT % 65.9 %; NEUT ABS # 4.85 K/uL (1.4-6.5); PLATELET COUNT 110 K/uL (130-400); RED CELL DISTRIBUTION WIDTH CV 12.6 % (11.5-14.5); RED CELL DISTRIBUTION WIDTH SD 43.1 fL (36.4-46.3); WHITE BLOOD COUNT 7.36 K/uL (4.8-10.8)
[2017-02-26 04:49] LABS: CALCIUM 8.3 mg/dl (8.5-10.1); CREATININE 1.54 mg/dl (0.60-1.40)
[2017-02-26] MEDS: PANTOprazole SOD 40 MG TAB PO SCH (07:53)
[2017-02-26] MEDS: TOLTERODINE TARTRATE LA 2 MG CAPCR PO SCH ×2 (07:53→20:27)
[2017-02-26] MEDS: ASPIRIN 81 MG ECTAB PO SCH (07:54)
[2017-02-26] MEDS: AMLODIPINE BESYLATE 5 MG TAB PO SCH ×2 (07:54→20:28)
[2017-02-26] MEDS: ENOXAPARIN 40 MG/0.4 ML SYR SC SCH (07:58)
--- NOTE | 2017-02-26 12:02 | ECHOCARDIOGRAM REPORT ---
*NOTICE TO RECEIVING CONSTITUTION PARTY AGENCY This information is strictly Confidential and protected under [place] law. [place] law prohibits you from making any further disclosure of this information unless further disclosure is expressly permitted by the written consent of the person to whom it pertains or is authorized by law. A general authorization for the release of medical or other information is not sufficient for this purpose. Hospital accepts no responsibility if the information is made available to any other person, INCLUDING THE PATIENT. Interpretation Summary * Name: MIGUEL GARZA Study Date: 02/26/2017 09:51 AM BP: 124/73 mmHg * Patient Location: [facility] HR: 83 * : 1935 (M/d/yyyy) Gender: Male Height: 66 in * Age: 81 yrs Ethnicity: [place] Weight: 148 lb * Ordering Physician: Andrew Junior * Referring Physician: Self, Referred * Performed By: Rodrigo Longo RDCS * * Reason For Study: Chest pian * BSA: 1.8 m2 * -- Conclusions -- * 1. Normal left ventricular size and systolic function. EF 55-60%. No regional wall motion abnormalities. No left ventricular hypertrophy. Type 1 diastolic dysfunction. * 2. S/P (TAVR) bioprosthetic aortic valve with acceptable transvalvular gradient/velocity. Mild perivalvular leak. * 3. Normal estimated right ventricular systolic pressure; 21 mmHg. * 4. No prior study available for comparison. Procedure Details * A complete two-dimensional transthoracic echocardiogram was performed (2D, M-mode, Doppler and color flow Doppler). * The study was technically adequate. Left Ventricle * Normal left ventricular size and systolic function. EF 55-60%. No regional wall motion abnormalities. No left ventricular hypertrophy. Type 1 diastolic dysfunction. Right Ventricle * The right ventricle is normal in size and function. * The right ventricular systolic function is normal as assessed by tricuspid annular plane systolic excursion (TAPSE) (normal >1.5 cm). Atria * The left atrial size is normal. * Right atrial size is normal. * There is no evidence of atrial septal defect, but resolution does not allow assessment for a patent foramen ovale. Mitral Valve * The mitral valve leaflets appear normal. There is no evidence of stenosis, fluttering, or prolapse. * There is trace mitral regurgitation. Tricuspid Valve * The tricuspid valve is not well visualized, but is grossly normal. * There is no tricuspid stenosis. * There is trace tricuspid regurgitation. Aortic Valve * s/p (TAVR) bioprosthetic aortic valve with acceptable transvalvular gradient/velocity. Mild perivalvular leak. * No hemodynamically significant valvular aortic stenosis. Pulmonic Valve * The pulmonary valve is inadequately visualized, but the Doppler data is adequate for interpretation. * There is no pulmonic valvular stenosis. * Trace pulmonic valvular regurgitation. Great Vessels * The aortic root is normal size. * Aortic arch of normal dimension. * Normal pulmonary venous flow pattern. Pericardium/Pleural * There is no pericardial effusion. Great Vessels * Normal inferior vena cava size and collapsability with sniff indicates a normal right atrial pressure of 3 mmHg MMode 2D Measurements and Calculations IVSd 0.98 cm IVSs 1.5 cm LVIDd 4.7 cm LVIDs 3.0 cm LVPWd 1.0 cm LVPWs 1.4 cm IVS/LVPW 0.96 FS 35.4 % EDV(Teich) 101.3 ml ESV(Teich) 35.6 ml EF(Teich) 64.9 % EDV(cubed) 102.4 ml ESV(cubed) 27.6 ml EF(cubed) 73.1 % % IVS thick 49.5 % % LVPW thick 36.1 % LV mass(C)d 162.9 grams LV mass(C)dI 92.5 grams/m\S\2 LV mass(C)s 145.9 grams LV mass(C)sI 82.9 grams/m\S\2 SV(Teich) 65.7 ml SI(Teich) 37.3 ml/m\S\2 SV(cubed) 74.9 ml SI(cubed) 42.5 ml/m\S\2 Ao root diam 3.1 cm Ao root area 7.7 cm\S\2 LA dimension 3.9 cm asc Aorta Diam 3.5 cm LA/Ao 1.2 LVOT diam 2.3 cm LVOT area 4.2 cm\S\2 LVAd ap4 25.1 cm\S\2 LVLd ap4 8.2 cm EDV(MOD-sp4) 63.4 ml EDV(sp4-el) 64.9 ml LVAs ap4 14.7 cm\S\2 LVLs ap4 6.4 cm ESV(MOD-sp4) 27.8 ml ESV(sp4-el) 28.9 ml EF(MOD-sp4) 56.2 % EF(sp4-el) 55.5 % LVAd ap2 23.8 cm\S\2 LVLd ap2 7.9 cm EDV(MOD-sp2) 57.3 ml EDV(sp2-el) 60.5 ml LVAs ap2 13.8 cm\S\2 LVLs ap2 6.8 cm ESV(MOD-sp2) 24.1 ml ESV(sp2-el) 23.9 ml EF(MOD-sp2) 58.0 % EF(sp2-el) 60.4 % LVLd %diff -3.47 % EDV(MOD-bp) 59.4 ml LVLs %diff 6.1 % ESV(MOD-bp) 25.7 ml EF(MOD-bp) 56.7 % SV(MOD-sp4) 35.6 ml SI(MOD-sp4) 20.2 ml/m\S\2 SV(MOD-sp2) 33.2 ml SI(MOD-sp2) 18.9 ml/m\S\2 SV(MOD-bp) 33.7 ml SI(MOD-bp) 19.1 ml/m\S\2 SV(sp4-el) 36.0 ml SI(sp4-el) 20.5 ml/m\S\2 SV(sp2-el) 36.5 ml SI(sp2-el) 20.7 ml/m\S\2 Doppler Measurements and Calculations MV E max kole 60.9 cm/sec MV A max kole 82.5 cm/sec MV E/A 0.74 MV dec time 0.23 sec Ao V2 max 223.9 cm/sec Ao max PG 20.1 mmHg Ao max PG (full) 14.9 mmHg Ao V2 mean 158.7 cm/sec Ao mean PG 11.5 mmHg Ao mean PG (full) 9.0 mmHg Ao V2 VTI 51.4 cm BRYAN(I,A) 2.0 cm\S\2 BRYAN(I,D) 2.0 cm\S\2 BRYAN(V,A) 2.1 cm\S\2 BRYAN(V,D) 2.1 cm\S\2 AI max kole 436.5 cm/sec AI max PG 76.4 mmHg AI dec slope 247.6 cm/sec\S\2 AI P1/2t 516.3 msec LV V1 max PG 5.1 mmHg LV V1 mean PG 2.5 mmHg LV V1 max 113.5 cm/sec LV V1 mean 70.9 cm/sec LV V1 VTI 25.0 cm SV(Ao) 395.9 ml SI(Ao) 224.9 ml/m\S\2 SV(LVOT) 104.7 ml SI(LVOT) 59.5 ml/m\S\2 PA V2 max 80.9 cm/sec PA max PG 2.6 mmHg TR max kole 214.1 cm/sec RVSP(TR) 21.4 mmHg RAP systole 3.0 mmHg
[2017-02-26] MEDS: ACETAMINOPHEN 325 MG TAB PO PRN ×2 (13:46→23:18)
[2017-02-26] MEDS: SODIUM CHLOR 0.45% + 20MEQ KCL 1,000 ML IV SCH ×2 (14:59→23:19)
--- NOTE | 2017-02-26 15:22 | CARDIOLOGY CONSULTATION ---
DATE OF CONSULTATION: 02/26/2017 TIME: 14:26 p.m. CONSULTING PHYSICIAN: Dr. Andrew Junior. REASON FOR CONSULTATION: Chest pain and history of CAD. PRIMARY BUSINESS INTELLIGENCE CONSULTANT: Dr. Lyon, [facility]. HISTORY OF PRESENT ILLNESS: Mr. Wilde is a pleasant 81-year-old gentleman with history significant for CAD status post PCI and TAVR as well as hypertension and dyslipidemia. He states that he has undergone PCI on 3 separate occasions. One was several years ago at [place] and then, in June 2013, he underwent PCI of PDA at [place] and then, in July of 2013, PCI of mid LAD in [place]. He then underwent TAVR in September of 2015 at [facility] and had nonobstructive CAD, and cardiac catheterization done at that time. He states that he typically walks 1.5-2 miles per day with his dog and does so without exertional symptoms. Yesterday, he walked approximately 1 mile and then shoveled snow for approximately 20 feet. He states that he simply walked behind the shovel mostly pushing the snow. He then went in his house and ate a bowl of soup. Within 10 minutes of going in the house, however, he developed chest pain. He states that the chest pain was severe and involved his entire chest. It felt like a squeezing sensation and he felt woozy. He had diaphoresis, stating that he was drenching wet. He took nitroglycerin x1 without relief. He took a second one without relief. After the third nitroglycerin, every 5 minutes, his pain resolved. There was no associated shortness of breath and no radiation of the pain. He did notice afterwards, however, that his abdomen had a burning sensation across his entire abdomen. By the time he arrived to the Emergency Department, he was completely chest pain free. He has not had any recurrent chest pain, but he did have one episode of epigastric discomfort for approximately 1 minute last night. This was mild compared to his presenting symptoms. He did recall that 2 or 3 nights prior to presentation around bedtime, he had abdominal discomfort and took Mylanta without any relief. He took nitroglycerin, however, and his symptoms resolved. He does not recall having chest pain like he did yesterday, any time in the past. He denies syncope, palpitations, edema, orthopnea, shortness of breath. He denies any recent fevers, chills, melena, hematochezia, hematuria, or other bleeding. He currently feels well. REVIEW OF SYSTEMS: As above and review of systems otherwise negative/unremarkable. PAST MEDICAL HISTORY: 1. CAD status post PCI at [place] many years ago without details available at this time. He underwent PDA PCI in June 2013 and mid LAD PCI in July 2013. 2. Severe aortic stenosis, status post TAVR with a 26-mm pericardial valve in September 2015 at [facility] with resulting mild paravalvular leak. 3. Ulcerative colitis. 4. Dyslipidemia. 5. Hypertension. 6. Acute kidney injury at the time of severe dehydration related to the fluid in 2012. 7. Mild paravalvular leak involving the aortic valve. HOME MEDICATIONS: Include aspirin 81 mg daily, Lipitor 40 mg daily, atenolol. Please see full list. INPATIENT MEDICATIONS: Include aspirin 81 mg daily, atenolol 25 mg daily, amlodipine 2.5 mg p.o. b.i.d., Protonix 40 mg daily, tamsulosin 0.4 mg at bedtime. ALLERGIES: No known drug allergies. SOCIAL HISTORY: Denies tobacco, alcohol or drug abuse. He is a retired schoolteacher. He lives at home with his . They have 3 children. FAMILY HISTORY: Father from heart disease at the age of 45. He also had a stroke in his 30s. PHYSICAL EXAMINATION: VITAL SIGNS: Temperature 36.7 degrees, heart rate 69 beats per minute, respiration rate 20, blood pressure 143/72 mmHg; however, his blood pressure has mostly been normotensive with some mild hypotension as well while hospitalized. Oxygen saturation 94% on room air. Weight is 66.3 kg. GENERAL: No acute distress. He is alert and oriented. HEENT: Anicteric sclerae. NECK: No appreciable JVD. No bruits. Normal carotid upstrokes bilaterally. CARDIAC EXAMINATION: PMI was nonpalpable. There was no ventricular heave. Regular, normal S1, S2, 1/6 early peaking systolic ejection murmur best heard at the right upper sternal border. No diastolic murmur heard at this time. No rubs or gallops. LUNGS: Clear to auscultation bilaterally without wheezes, rales or rhonchi. ABDOMEN: Soft, nontender, nondistended, normoactive bowel sounds, no bruits. EXTREMITIES: No cyanosis or edema. 2+ radial pulses bilaterally. 2+ dorsalis pedis pulses bilaterally. No palpable cords. CHEST: Nontender to palpation. PSYCHIATRIC: Affect appears appropriate. LABORATORY DATA: White blood cell count is 7.36, hemoglobin 12.7, platelets 110. Sodium 134, potassium 4, BUN 27, creatinine 1.54. Initial troponin was undetectable and has since increased to 0.145. INR 1. D-dimer greater than 450. CTA of the chest on 02/25/2017 reported no evidence for pulmonary embolism. Echocardiogram on 02/26/2017: Normal LV size and systolic function. EF 55%-60%. Normal wall motion. No LVH. Type 1 diastolic dysfunction. Bioprosthetic aortic valve with acceptable gradients. Mild paravalvular leak. RVSP 21 mmHg. Presenting ECG, sinus rhythm at 79 beats per minute. PACs. No dynamic ST/T wave abnormalities. ASSESSMENT AND PLAN: 1. Coronary artery disease with angina: His symptoms are concerning for angina as he does have mildly elevated troponins; however, they are not at the level of myocardial infarction. For any recurrent pain or significant increase in troponin, we would recommend starting a heparin drip if no contraindications. Continue aspirin 81 mg daily. Recommend restarting his home dose of atorvastatin, high-intensity statin therapy. We would recommend titration of beta yoshi. Can continue amlodipine. Continue aspirin 81 mg daily indefinitely given his prior percutaneous coronary intervention. 2. Elevated troponin: Not diagnostic of myocardial infarction, but it has become more elevated throughout his hospital stay. Given his angina and elevated troponin, we would recommend cardiac catheterization. Risks and benefits were discussed with him. Therefore, we even discussed the risks; however, he stated that he does not think that he would want to undergo a cardiac catheterization at his age. The rationale was discussed with him. Titrating beta yoshi as noted above. We would keep n.p.o. after midnight with hydration, which has already been ordered by Dr. Aviles, and after he meets with Dr. Lyon, his primary refinery operator vapor recovery unit tomorrow, if he decides to undergo cardiac catheterization, he would be prepared. Otherwise, if he prefers medical therapy, hopefully he has relief of his symptoms with titration of beta yoshi. 3. Hypertension: Blood pressure is slightly elevated now, but it has been mostly normotensive. Recommend titration of beta yoshi as above for coronary artery disease. 4. Aortic valve replacement: Appropriately functioning on echo with mild paravalvular leak, which is reported and known previously. This would not account for his symptoms. 5. Dyslipidemia: Recommend restarting his home dose of atorvastatin. DISPOSITION: The patient care has been discussed with Dr. Aviles, with the primary hospitalist service. Dr. Lyon will resume his cardiology care tomorrow. Thank for allowing me to participate in the care of Mr. Wilde.
--- NOTE | 2017-02-26 15:37 | Progress Note ---
Subjective Date of Service: Feb 26, 2017. Subjective Pt evaluation today including: conversation w/ patient, physical exam, chart review, lab review, review of studies, conversation w/ senior staff consultant, review of inpatient medication list feeling ok no further cp notes that he had indigestion a few weeks ago but in hindsight it didn't go away until he took nitro also notes that he's been way more fatigued the last week or so normally quite active Problem List Medical Problems: (1) Abdominal pain Status: Acute (2) HTN (hypertension) Status: Acute (3) Vomiting Status: Acute Review of Systems .all other ROS otherwise negative except for as above Objective Vital Signs Date Time Temp Pulse Resp B/P (MAP) Pulse Ox O2 Delivery O2 Flow Rate FiO2 02/26/17 15:05 36.7 69 20 144/82 (102) 95 Room Air 02/26/17 12:00 Room Air 02/26/17 10:58 36.7 69 20 143/72 (95) 94 Room Air 02/26/17 08:00 Room Air 02/26/17 07:15 36.9 72 20 124/73 (90) 96 Room Air 02/26/17 04:05 Room Air 02/26/17 03:46 36.8 78 18 104/64 (77) 94 Room Air 02/26/17 01:27 80 95/58 (70) 95/39 (57) 02/26/17 00:05 Room Air 02/25/17 23:22 36.6 82 18 114/67 (83) 93 Room Air 02/25/17 20:20 36.7 85 18 119/72 (88) 93 Room Air 02/25/17 20:05 Room Air 02/25/17 17:15 Room Air 02/25/17 17:00 36.4 18 159/79 (105) 96 Room Air 02/25/17 17:00 96 Room Air 02/25/17 16:39 36.4 72 18 159/79 96 Room Air 02/25/17 16:39 78 122/63 92 02/25/17 15:35 101/61 02/25/17 15:33 78 96/59 91 Room Air Physical Exam General Appearance: no apparent distress Eyes: EOMI ENT: hearing grossly normal Neck: trachea midline Respiratory/Chest: no respiratory distress, no accessory muscle use Extremities: normal range of motion Neurologic/Psychiatric: sweat band separator II-XII nml as tested, alert, normal mood/affect Skin: normal color, warm/dry Laboratory Results Last 24 Hours Test 02/25/17 20:08 02/26/17 04:14 Prothrombin Time 10.7 SECONDS Prothromb Time International Ratio 1.0 Activated Partial Thromboplast Time 24.5 SECONDS Partial Thromboplastin Ratio 0.9 Troponin I 0.050 ng/ml 0.145 ng/ml White Blood Count 7.36 K/uL Red Blood Count 3.90 M/uL Hemoglobin 12.7 g/dL Hematocrit 36.8 % Mean Corpuscular Volume 94.4 fL Mean Corpuscular Hemoglobin 32.6 pg Mean Corpuscular Hemoglobin Concent 34.5 g/dl Platelet Count 110 K/uL Mean Platelet Volume 8.9 fL Neutrophils (%) (Auto) 65.9 % Lymphocytes (%) (Auto) 21.2 % Monocytes (%) (Auto) 10.9 % Eosinophils (%) (Auto) 1.6 % Basophils (%) (Auto) 0.3 % Neutrophils # (Auto) 4.85 K/uL Lymphocytes # (Auto) 1.56 K/uL Monocytes # (Auto) 0.80 K/uL Eosinophils # (Auto) 0.12 K/uL Basophils # (Auto) 0.02 K/uL RDW Standard Deviation 43.1 fL RDW Coefficient of Variation 12.6 % Immature Granulocyte % (Auto) 0.1 % Immature Granulocyte # (Auto) 0.01 K/uL Sodium Level 134 mmol/L Potassium Level 4.0 mmol/L Chloride Level 101 mmol/L Carbon Dioxide Level 29 mmol/L Anion Gap 4.0 mmol/L Blood Urea Nitrogen 27 mg/dl Creatinine 1.54 mg/dl Est Creatinine Clear Calc Drug Dose 33.4 ml/min Estimated GFR () 48.0 Estimated GFR (Non- 41.4 BUN/Creatinine Ratio 17.7 Random Glucose 89 mg/dl Calcium Level 8.3 mg/dl Assessment and Plan NSTEMI/unstable angina -hx and enzymes quite compatible with CAD manifestations -discussed LH - wants to discuss further w primary commercial loan underwriter but leaning enough to cath will prehydrate due to CKD and make NPO p MN -change atenolol to metoprolol; already is on statin. possibly ACEi (if renal function can tolerate) or long acting nitrates would be of benefit as well -currently pain free and stable CKD3 - give gentle IVF in preparation for possible LHC HTN - meds as per CAD as above DVT proph - lovenox
[2017-02-26] MEDS: ZOLPIDEM TARTRATE 5 MG TAB PO PRN (20:26)
[2017-02-26] MEDS: TAMSULOSIN HCL 0.4 MG CAP PO SCH (20:27)
[2017-02-26] MEDS ORDERED: METOPROLOL SUCC 25MG EXT REL TAB PO ONE (21:00)
[2017-02-26] MEDS ORDERED: ATORVASTATIN 40 MG TAB PO SCH (21:00)
[2017-02-27] VITALS (15 sets, daily range): BP systolic 115–156; BP diastolic 62–78; PULSE 66–78; TEMP 36.6–36.9; O2SAT 93–97
[2017-02-27] MEDS: NITROGLYCERIN OINT 2% 1GM PACKET EXT SCH ×2 (00:49→08:22)
[2017-02-27 06:27] LABS: CALCIUM 8.4 mg/dl (8.5-10.1); CREATININE 1.41 mg/dl (0.60-1.40); POTASSIUM 4.3 mmol/L (3.5-5.1)
[2017-02-27] MEDS: ASPIRIN 81 MG ECTAB PO SCH ×2 (07:26→09:30)
[2017-02-27] MEDS: METOPROLOL SUCC 50MG EXT REL TAB PO SCH ×2 (07:26→09:31)
[2017-02-27] MEDS: AMLODIPINE BESYLATE 5 MG TAB PO SCH ×2 (07:26→09:31)
[2017-02-27] MEDS: ENOXAPARIN 40 MG/0.4 ML SYR SC SCH (07:26)
[2017-02-27] MEDS: TOLTERODINE TARTRATE LA 2 MG CAPCR PO SCH ×2 (07:26→09:30)
[2017-02-27] MEDS: PANTOprazole SOD 40 MG TAB PO SCH (07:26)
--- NOTE | 2017-02-27 09:07 | Cardiology Follow-Up ---
Subjective General Date of Service: Feb 27, 2017. Pt evaluation today including: conversation w/ patient, chart review, lab review, review of studies, conversation w/ eco industrial development consultant History of Present Illness The patient is a 81 year old male CP and epigastric pain Allergies Coded Allergies: No Known Allergies (Verified , 02/25/17) Social History Smoking Status: Never Smoker Hx Tobacco Use In Past Year?: No Hx Alcohol Use - Type And Amou: No Hx Substance Use - Type And Am: No Problem List Medical Problems: (1) Abdominal pain Status: Acute (2) HTN (hypertension) Status: Acute (3) Vomiting Status: Acute Review of Systems Respiratory: No cough, No shortness of breath, No dyspnea at rest Cardiac: No chest pain, No edema, No palpitations Additional ROS Details: Dysuria Physical Exam Vital Signs Last Vital Signs Documentation Date Time Temp Pulse Resp B/P (MAP) Pulse Ox O2 Delivery O2 Flow Rate FiO2 02/27/17 07:21 36.9 71 18 133/72 (92) 93 Room Air 02/25/17 13:18 2.0 Physical Exam Constitutional: General Apperance: heathly-appearing Level of Distress: NAD Psychiatric: Mental Status: active & alert, normal mood, normal affect Orientation: to time, to place, to person Lungs: Auscultation: pertinent finding (coarse BS right base that did not diminish with deep breath) Cardiovascular: Heart Auscultation: RRR, no rubs, no gallops, I/ JIGAR Abdomen: Bowel Sounds: normal Inspection & Palpation: soft, non-distended, no tenderness, guarding & rebound Extremities: no edema Assessment and Plan Assessment and Plan IMpression: 1. CP with minimal troponin spill--? cardiac vs GERD with esophageal spasm 1A. CAD status post PCI at [place] many years ago. 1B. PCI of the PDA in June 2013 and mid LAD PCI in July 2013. 1C. No progression of CAD by cath pre TAVR in 2015 2. Severe aortic stenosis, status post TAVR with a 26-mm pericardial valve in September 2015 at [facility] with resulting mild paravalvular leak. 3. Ulcerative colitis. 4. Dyslipidemia. 5. Hypertension. 6. Acute kidney injury at the time of severe dehydration related to the fluid in 2012. 7. Mild paravalvular leak involving the aortic valve. 8. Normal LV fxn with no RWMA 9. EAP CLINICIAN 1.5 with CKF stage III Plan for cath this am prehydrated Risks and benefits discussed in detail with patient, no dye allergy If cath unchanged ? all esophageal spasm as he ate soup on Monday and was eating beef jerky all week Recent EGD was normal. NTG will Tx esophageal spasm and CAD Increase Protonix to BID UA and C&S with burning urine Laboratory Results Last 24 Hours Test 02/26/17 20:45 02/27/17 05:28 Troponin I 0.057 ng/ml Sodium Level 135 mmol/L Potassium Level 4.3 mmol/L Chloride Level 104 mmol/L Carbon Dioxide Level 27 mmol/L Anion Gap 4.0 mmol/L Blood Urea Nitrogen 23 mg/dl Creatinine 1.41 mg/dl Est Creatinine Clear Calc Drug Dose 36.4 ml/min Estimated GFR () 53.4 Estimated GFR (Non- 46.1 BUN/Creatinine Ratio 16.4 Random Glucose 97 mg/dl Calcium Level 8.4 mg/dl
[2017-02-27] MEDS: SODIUM CHLOR 0.45% + 20MEQ KCL 1,000 ML IV SCH (09:17)
[2017-02-27] MEDS ORDERED: FENTANYL CITRATE INJ 50 MCG/1 ML 2 ML VIAL ONE (09:18)
[2017-02-27] MEDS ORDERED: MIDAZOLAM HCL 1 MG/ML 2ML VIAL ONE (09:18)
[2017-02-27] MEDS ORDERED: NITROGLYCERIN/D5W 100MCG/ML 20ML SYR ONE (09:19)
[2017-02-27] MEDS ORDERED: HEPARIN SOD (PORCINE) 1000 UNIT/ML 10 ML VIAL ONE (09:19)
[2017-02-27] MEDS ORDERED: NiCARDipine HCL INJ 2.5 MG/ML 10 ML AMP ONE (09:19)
--- NOTE | 2017-02-27 10:29 | Procedure Note ---
Pre-Mod Sedation Assessment General Date of Moderate Sedation: Feb 27, 2017. Vital Signs: Vital Signs Past 12 Hours Date Time Temp Pulse Resp B/P (MAP) Pulse Ox O2 Delivery O2 Flow Rate FiO2 02/27/17 07:21 36.9 71 18 133/72 (92) 93 Room Air 02/27/17 06:26 Room Air 02/27/17 04:59 36.7 73 20 115/62 (79) 96 Room Air 02/27/17 04:05 Room Air 02/27/17 00:45 71 146/78 (100) 02/27/17 00:05 Room Air 02/27/17 00:05 Room Air 02/26/17 23:17 36.8 65 20 120/64 (82) 95 Room Air Review Cardiovascular: regular rate, rhythm, no edema Abdomen: normal bowel sounds, non tender Lungs: chest non-tender, lungs clear Pre-Sedation Airway Assessment Oral Cavity: Dentures, WNL Able to Visualize Vocal Cords: No Short Thick Neck: No Hx of Sleep Apnea: No Smoking Status: Never Smoker Mallampati Classification: Class III ASA Classification: Class III Procedure Planning Contraindications-for Mod Sed: None Yes Notes The planned sedation has been discussed with the patient and consent obtained. I have identified the patient, determined the appropriateness of sedation and have assessed the patient immediately prior to the procedure. All medicine(s) and interventions are by my order.
--- NOTE | 2017-02-27 10:50 | Procedure Note ---
Post-Mod Sedation Assessment General Date of Moderate Sedation Feb 27, 2017. Vital Signs: Vital Signs Past 12 Hours Date Time Temp Pulse Resp B/P (MAP) Pulse Ox O2 Delivery O2 Flow Rate FiO2 02/27/17 07:21 36.9 71 18 133/72 (92) 93 Room Air 02/27/17 06:26 Room Air 02/27/17 04:59 36.7 73 20 115/62 (79) 96 Room Air 02/27/17 04:05 Room Air 02/27/17 00:45 71 146/78 (100) 02/27/17 00:05 Room Air 02/27/17 00:05 Room Air 02/26/17 23:17 36.8 65 20 120/64 (82) 95 Room Air Review - Discharge Criteria Vital Signs Stable: Yes Alert/Oriented/Conversant: Yes Returned to Baseline Mental St: Yes Nausea Absent/Minimal: Yes Pain/Discomfort/Absent/Minimal: Yes Normal/Baseline Respirations: Yes Active Bleeding?: No Pt Received D/C Instructions: N/A Prescriptions Given: None Specific Proced. D/C Criteria Distal Pulses Present (Cardiac: Yes Groin site assessed-Card Cath: N/A Voided Prior To Discharge: N/A Discharged Patients Adult Escort/Transportation: Yes
[2017-02-27] MEDS ORDERED: SODIUM CHLORIDE 0.9% 1000ML 1,000 ML IV SCH (11:02)
--- NOTE | 2017-02-27 11:02 | Cardiac Catheterization ---
Procedure Note Procedure Date Feb 27, 2017. Pre-Procedure Diagnosis Non STEMI AUC Score 8 Post-Procedure Diagnosis Moderate CAD Procedure(s) Performed Coronary Angiography Internet Salesperson Romaine Country Manager(s) Phyllis Estimated Blood Loss 10 Medication(s) Fentanyl, Heparin, Nitroglycerin, Versed, Lidocaine 1% Summary of Findings Indication: High-risk NSTEMI Access: 6Fr slender right radial artery Catheters: [place] Findings: LM - Luminal irregularities LAD - 20% proximal stenosis; early-mid segment calcified with 30-40% stenosis; patent mid LAD stent with mild in-stent restenosis. 2nd diagonal with 30% ostial stenosis. Circumflex - Small caliber vessel, gives off 2 OMs. Luminal irregularities. RCA - Dominant, large caliber vessel, calcified diffuse 30-40% mid segment disease; patent mid PDA stent with minimal in-stent restenosis. Arterial Closure: TR Band Summary: 1. Mild-moderate non-obstructive coronary artery disease - Patent mid LAD and PDA stents Recommendations: Continued ASCVD risk factor modification ASA, antihypertensives and statin per Dr. Lyon. Hemodynamics Rest Ao: 93// Final Ao: // LV: -- Recommendations Medical therapy and/or Counseling Specimens None Radiation Exposure (mGy) 581 Contrast (mls) 35 Visi Fluids (cc crystalloids) 42 Drains None Anesthesia Moderate Procedural Complication(s) None Disposition PCU ACC Data Cardiac Status Clinical evaluation leading to the procedure CAD Presntation: Non STEMI Anginal Classification: CCS IV Heart Failure: No, NYHA Class: CCS I Cardiogenic Shock w/in 24Hrs: No Cardiac Arrest w/in 24Hrs: No Imaging studies past 6 months: Yes Stress studies past 6 months: No Diagnostic Status: Elective Closure Device Percutaneous Entry Location: Radial Closure Device: Radial Band Recommendations: Medical therapy and/or Counseling Intraprocedure Events Significant Dissection: No Perforation: No
[2017-02-27] MEDS ORDERED: ACETAMINOPHEN 325 MG TAB PO PRN (11:15)
[2017-02-27] MEDS ORDERED: NURSING VERBAL MED ORDER ONE (15:00)
--- NOTE | 2017-02-27 16:38 | Discharge Summary ---
Discharge Summary Date of Service Feb 27, 2017. Discharge Summary Admission Date: Feb 25, 2017 at 15:28 Discharge Date: Feb 27, 2017 Discharge Disposition: Home Principal Diagnosis: Mild-moderate non-obstructive coronary artery disease Procedures: Procedure Note Procedure Date Feb 27, 2017. Pre-Procedure Diagnosis Non STEMI AUC Score 8 Post-Procedure Diagnosis Moderate CAD Procedure(s) Performed Coronary Angiography [employer] Ins[employer] Mechanic(s) Phyllis Estimated Blood Loss 10 Medication(s) Fentanyl, Heparin, Nitroglycerin, Versed, Lidocaine 1% Summary of Findings Indication: High-risk NSTEMI Access: 6Fr slender right radial artery Catheters: [place] Findings: LM - Luminal irregularities LAD - 20% proximal stenosis; early-mid segment calcified with 30-40% stenosis; patent mid LAD stent with mild in-stent restenosis. 2nd diagonal with 30% ostial stenosis. Circumflex - Small caliber vessel, gives off 2 OMs. Luminal irregularities. RCA - Dominant, large caliber vessel, calcified diffuse 30-40% mid segment disease; patent mid PDA stent with minimal in-stent restenosis. Arterial Closure: TR Band Summary: 1. Mild-moderate non-obstructive coronary artery disease - Patent mid LAD and PDA stents Recommendations: Continued ASCVD risk factor modification ASA, antihypertensives and statin per Dr. Lyon. Hemodynamics Rest Ao: 93/42/65 Final Ao: 99/42/66 LV: -- Recommendations Medical therapy and/or Counseling Specimens None Radiation Exposure (mGy) 581 Contrast (mls) 35 Visi Fluids (cc crystalloids) 42 Drains None Anesthesia Moderate Procedural Complication(s) None Disposition PCU ACC Data Cardiac Status Clinical evaluation leading to the procedure CAD Presntation: Non STEMI Anginal Classification: CCS IV Heart Failure: No, NYHA Class: CCS I Cardiogenic Shock w/in 24Hrs: No Cardiac Arrest w/in 24Hrs: No Imaging studies past 6 months: Yes Stress studies past 6 months: No Diagnostic Status: Elective Closure Device Percutaneous Entry Location: Radial Closure Device: Radial Band Recommendations: Medical therapy and/or Counseling Intraprocedure Events Significant Dissection: No Perforation: No <Electronically signed by Alessandro Gavin MD> Consultations: Patient Name: MIGUEL GARZA Admit Date: 02/26/1712/16/17 Med Rec: [id number] Att Phy: Italo Aviles D.O. Acct ID: [id number] Yanni Phy: No Doctor, Assigned Date: 1935 Fam Phy: No Doctor, Assigned Age: 81 Location: [facility] Sex: M Room/Bed: [facility] CC: Jose Daniel Lyon, DO No Doctor, Assigned *NOTICE TO RECEIVING REPUBLICAN/AGENCY This information is strictly Confidential and protected under [place] law. [place] law prohibits you from making any further disclosure of this information unless further disclosure is expressly permitted by the written consent of the person to whom it pertains or is authorized by law. A general authorization for the release of medical or other information is not sufficient for this purpose. Hospital accepts no responsibility if the information is made available to any other person, INCLUDING THE PATIENT. Subjective General Date of Service: Feb 27, 2017. Pt evaluation today including: conversation w/ patient, chart review, lab review, review of studies, conversation w/ payroll consultant History of Present Illness The patient is a 81 year old male CP and epigastric pain Allergies Coded Allergies: No Known Allergies (Verified , 02/25/17) Social History Smoking Status: Never Smoker Hx Tobacco Use In Past Year?: No Hx Alcohol Use - Type And Amou: No Hx Substance Use - Type And Am: No Problem List Medical Problems: (1) Abdominal pain Status: Acute (2) HTN (hypertension) Status: Acute (3) Vomiting Status: Acute Review of Systems Respiratory: No cough, No shortness of breath, No dyspnea at rest Cardiac: No chest pain, No edema, No palpitations Additional ROS Details: Dysuria Physical Exam Vital Signs Last Vital Signs Documentation Date Time Temp Pulse Resp B/P (MAP) Pulse Ox O2 Delivery O2 Flow Rate FiO2 02/27/17 07:21 36.9 71 18 133/72 (92) 93 Room Air 02/25/17 13:18 2.0 Physical Exam Constitutional: General Apperance: heathly-appearing Level of Distress: NAD Psychiatric: Mental Status: active & alert, normal mood, normal affect Orientation: to time, to place, to person Lungs: Auscultation: pertinent finding (coarse BS right base that did not diminish with deep breath) Cardiovascular: Heart Auscultation: RRR, no rubs, no gallops, I/ JIGAR Abdomen: Bowel Sounds: normal Inspection & Palpation: soft, non-distended, no tenderness, guarding & rebound Extremities: no edema Assessment and Plan Assessment and Plan IMpression: 1. CP with minimal troponin spill--? cardiac vs GERD with esophageal spasm 1A. CAD status post PCI at [place] many years ago. 1B. PCI of the PDA in June 2013 and mid LAD PCI in July 2013. 1C. No progression of CAD by cath pre TAVR in 2016 2. 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 3. Ulcerative colitis. 4. Dyslipidemia. 5. Hypertension. 6. Acute kidney injury at the time of severe dehydration related to the fluid in 2012. 7. Mild paravalvular leak involving the aortic valve. 8. Normal LV fxn with no RWMA 9. TEST KITCHEN HOME ECONOMIST 1.5 with CKF stage III Plan for cath this am prehydrated Risks and benefits discussed in detail with patient, no dye allergy If cath unchanged ? all esophageal spasm as he ate soup on Monday and was eating beef jerky all week Recent EGD was normal. NTG will Tx esophageal spasm and CAD Increase Protonix to BID UA and C&S with burning urine Medication Reconciliation New Medications: Pantoprazole (Pantoprazole Sodium) 40 Mg Tab 40 MG PO BID for 30 Days, #60 TAB Continued Medications: Adalimumab (Humira Pen) 40 Mg/0.8 Ml Kit 0.8 ML IM q2w Amlodipine (Norvasc) 2.5 Mg Tab 2.5 MG PO BID Aspirin (Aspirin Chewable) 81 Mg Chew 81 MG PO QAM, TAB Atenolol (Tenormin) 25 Mg Tab 1 TAB PO QAM Cholecalciferol (Vitamin D3) 2,000 Unit Tab 1 TAB PO DAILY for 90 Days, #90 TAB 3 Refills Docusate Sodium (Colace) 100 Mg Cap 1 CAP PO BID Ibandronate Sodium (Boniva) 150 Mg Tab 150 MG PO MONTHLY Nitroglycerin (Nitrostat) 0.4 Mg Tab 0.4 MG UT PRN, BTL Polyethylene Glycol-Propylene (Systane) 1 Yanira Yanira 1 DROPS OPB TID, ML Tamsulosin HCl (Tamsulosin HCl) 0.4 Mg Cap 0.4 MG PO HS Tolterodine Tartrate (Detrol LA) 2 Mg Capcr 1 CAP PO BID for 90 Days, #180 CAP 3 Refills Discontinued Medications: Pantoprazole (Protonix) 40 Mg Tab 40 MG PO QAM Discharge Exam Review of Systems: Constitutional: No fever, No chills ENT: No hearing loss, No unusual epistaxis Respiratory: No cough, No sputum Cardiovascular: No chest pain, No orthopnea Abdomen: No pain, No nausea Neurologic: No memory loss, No paralysis Psychiatric: No depression symptoms, No anhedonism Endocrine: No fatigue Hematologic / Lymphatic: No abnormal bleeding/bruising, No clotting problems Integumentary: No rash Physical Exam: General Appearance: WD/WN, no apparent distress Neck: supple, no adenopathy Respiratory/Chest: chest non-tender, lungs clear, normal breath sounds Cardiovascular: regular rate, rhythm, no edema Abdomen / GI: normal bowel sounds, non tender, soft Extremities: normal inspection, no calf tenderness Skin: normal color Lymphatic: no adenopathy Hospital Course History & Physical Date & Time of Service: Feb 25, 2017 at 18:18 Chief Complaint: Chest Pain Primary Care Physician: No Doctor, Assigned History of Present Illness Source: patient, spouse, hospital records 81 yo male with history of CAD with three stents, one remotely at [place] and two more recently prior to TAVR procedure. The patient never had an UT, he just had anginal symptoms and was set up for heart catheterizations. He follows with Dr. Lyon. 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 He has been doing well from a cardiac standpoint, does not typically have anginal symptoms. This morning he [place] [employer] and back, roughly 3 /4 of a mile and then shoveled a short sidewalk when he got back. He never had any chest pain or pressure while exerting himself. He went inside and ate some lunch and then shortly after eating he developed crushing discomfort with diaphoresis. No associated nausea or dyspnea, the pain did not radiate to his jaw or arm. He took a baby aspirin with no relief. No relief initially with 2 sublingual nitros and then after 3rd nitro he had complete relief. He called EMS and was brought to the ED. He does admit so some occasional chest pressure that he always though was more like reflux. The other day he took a lot of Maalox but it offered no relief and then he tried a nitroglycerin tab and it gave him relief. In the ED his vitals were stable and his lab work was normal, including troponin of < 0.015. EKG showed NSR without ischemic changes. Past Medical/Surgical History CAD with h/o three stents TAVR Ulcerative colitis Medical Problems: (1) Heart disease Status: Chronic (2) HTN (hypertension) Status: Chronic (3) Kidney disease Status: Resolved (4) Skin problem Status: Resolved (5) Stomach problems Status: Resolved (6) Urinary problem Status: Resolved Family History Cancer Gallbladder disease Hypertension Kidney disease Kidney stones Social History Smoking Status: Never Smoker Alcohol Use: none Marital Status: Housing status: lives with significant other Occupational Status: retired Multi-Drug Resistant Organisms History of MDRO: No Allergies Coded Allergies: No Known Allergies (Verified , 02/25/17) Home Medications Scheduled Adalimumab (Humira Pen), 0.8 ML IM q2w Amlodipine (Norvasc), 2.5 MG PO BID Aspirin (Aspirin Chewable), 81 MG PO QAM Atenolol (Tenormin), 1 TAB PO QAM Cholecalciferol (Vitamin D3), 1 TAB PO DAILY Docusate Sodium (Colace), 1 CAP PO BID Ibandronate Sodium (Boniva), 150 MG PO MONTHLY Nitroglycerin (Nitrostat), 0.4 MG UT PRN Pantoprazole (Protonix), 40 MG PO QAM Polyethylene Glycol-Propylene (Systane), 1 DROPS OPB TID Tamsulosin HCl (Tamsulosin HCl), 0.4 MG PO HS Tolterodine Tartrate (Detrol LA), 1 CAP PO BID Review of Systems Constitutional: + sweats, No fever, No chills, No weight loss, No weakness, No fatigue, No problem reported Eyes: No worsening of vision, No eye pain, No redness, No discharge, No diplopia, No problem reported ENT: No hearing loss, No unusual epistaxis, No nasal symptoms, No sore throat, No tinnitus, No dental problems, No trouble swallowing, No problem reported Respiratory: No cough, No sputum, No wheezing, No shortness of breath, No dyspnea on exertion, No dyspnea at rest, No hemoptysis, No problem reported Cardiovascular: + chest pain (described more as pressure), No orthopnea, No PND , No edema, No claudication, No palpitations, No problem reported Abdomen: No pain, No nausea, No vomiting, No diarrhea, No constipation, No GI bleeding, No problem reported Musculoskeletal: No joint pain, No muscle pain, No swelling, No calf pain, No problem reported Genitourinary - Male: No hematuria, No dysuria, No urinary frequency, No urinary urgency Neurologic: No memory loss, No paralysis, No weakness, No numbness/tingling, No vertigo, No balance problems, No problem reported Psychiatric: No depression symptoms, No anhedonism, No anxiety, No insomnia, No substance abuse, No problem reported Endocrine: No fatigue, No excessive thirst, No excessive urination, No problem reported Hematologic / Lymphatic: No abnormal bleeding/bruising, No clotting problems, No swollen lymph nodes, No night sweats, No problem reported Integumentary: No rash, No itch, No new/changing skin lesions, No color change , No bleeding, No problem reported Allergic / Immunologic: No environmental allergies, No seasonal allergies, No pet sensitivities, No food allergies, No hives, No frequent infections, No poor healing, No prolonged convalescence, No problem reported Physical Exam Vital Signs Date Time Temp Pulse Resp B/P (MAP) Pulse Ox O2 Delivery O2 Flow Rate FiO2 02/25/17 17:15 Room Air 02/25/17 17:00 36.4 18 159/79 (105) 96 Room Air 02/25/17 17:00 96 Room Air 02/25/17 16:39 36.4 72 18 159/79 96 Room Air 02/25/17 16:39 78 122/63 92 02/25/17 15:35 101/61 02/25/17 15:33 78 96/59 91 Room Air 02/25/17 15:02 83 140/70 96 Room Air 02/25/17 14:38 71 23 97 02/25/17 14:31 122/58 02/25/17 14:08 68 25 94 02/25/17 14:01 112/62 02/25/17 13:38 70 98 02/25/17 13:31 137/65 02/25/17 13:30 94 Room Air 02/25/17 13:27 36.6 86 18 135/72 94 Room Air 02/25/17 13:25 126/73 02/25/17 13:18 99 Nasal Cannula 2.0 02/25/17 13:18 93 Room Air 02/25/17 13:17 76 12/16/17 13:12 135/72 General Appearance: WD/WN, no apparent distress Head: normocephalic, atraumatic Eyes: normal inspection, EOMI, sclerae normal ENT: normal ENT inspection, hearing grossly normal, pharynx normal Neck: supple, no adenopathy, no JVD, trachea midline Respiratory/Chest: chest non-tender, lungs clear, normal breath sounds, no respiratory distress, no accessory muscle use Cardiovascular: regular rate, rhythm, no edema, no gallop, no JVD, no murmur, normal peripheral pulses Abdomen/GI: normal bowel sounds, non tender, soft, no organomegaly Back: normal inspection, no CVA tenderness, no muscle spasm, normal range of motion Extremities/Musculoskelatal: normal inspection, no calf tenderness, normal capillary refill, no pedal edema, normal range of motion, pelvis stable Neurologic/Psych: combat engineer II-XII nml as tested, no motor/sensory deficits, alert, normal mood/affect, normal reflexes, oriented x 3 Skin: normal color, warm/dry, no rash Diagnostics Laboratory Results Results Past 24 Hours Test 02/25/17 12:35 02/25/17 13:23 02/25/17 13:25 02/25/17 17:44 Range/Units White Blood Count 6.55 4.8-10.8 K/uL Red Blood Count 4.08 4.7-6.1 M/uL Hemoglobin 13.6 14.0-18.0 g/dL Hematocrit 38.5 42-52 % Mean Corpuscular Volume 94.4 80-100 fL Mean Corpuscular Hemoglobin 33.3 25-34 pg Mean Corpuscular Hemoglobin Concent 35.3 32-36 g/dl Platelet Count 124 130-400 K/uL Mean Platelet Volume 9.4 7.4-10.4 fL Neutrophils (%) (Auto) 54.7 % Lymphocytes (%) (Auto) 31.6 % Monocytes (%) (Auto) 11.1 % Eosinophils (%) (Auto) 2.0 % Basophils (%) (Auto) 0.3 % Neutrophils # (Auto) 3.58 1.4-6.5 K/uL Lymphocytes # (Auto) 2.07 1.2-3.4 K/uL Monocytes # (Auto) 0.73 0.11-0.59 K/uL Eosinophils # (Auto) 0.13 0-0.5 K/uL Basophils # (Auto) 0.02 0-0.2 K/uL RDW Standard Deviation 43.7 36.4-46.3 fL RDW Coefficient of Variation 12.7 11.5-14.5 % Immature Granulocyte % (Auto) 0.3 % Immature Granulocyte # (Auto) 0.02 0.00-0.02 K/uL Sodium Level 136 136-145 mmol/L Potassium Level 4.2 3.5-5.1 mmol/L Chloride Level 102 98-107 mmol/L Carbon Dioxide Level 28 21-32 mmol/L Anion Gap 6.0 15.0 16-25 mmol/L Blood Urea Nitrogen 23 7-18 mg/dl Creatinine 1.58 0.60-1.40 mg/dl Est Creatinine Clear Calc Drug Dose 32.5 ml/min Estimated GFR () 46.5 Estimated GFR (Non- 40.1 BUN/Creatinine Ratio 14.4 10-20 Random Glucose 123 70-99 mg/dl Calcium Level 8.7 8.5-10.1 mg/dl Total Bilirubin 0.8 0.2-1 mg/dl Direct Bilirubin 0.2 0-0.2 mg/dl Aspartate Amino Transf (AST/SGOT) 14 15-37 U/L Alanine Aminotransferase (ALT/SGPT) 15 12-78 U/L Alkaline Phosphatase 55 45-117 U/L Total Creatine Kinase 75 39-308 U/L Creatine Kinase MB 1.0 0.5-3.6 ng/ml Creatine Kinase MB Ratio 1.3 0-3.0 Troponin I < 0.015 0-0.045 ng/ml Total Protein 7.1 6.4-8.2 gm/dl Albumin 3.5 3.4-5.0 gm/dl Lipase 83 73-393 U/L Bedside D-Dimer > 450 0-450 ng/mlFEU Bedside Hemoglobin 12.6 14.0-18.0 g/dl Bedside Hematocrit 37 42-52 % Bedside Sodium 138 135-144 mEq/L Bedside Potassium 4.3 3.3-5.0 mEq/L Bedside Chloride 99 101-112 mEq/L Bedside Total CO2 29 24-31 mEq/l Bedside Blood Urea Nitrogen 27 7-18 mg/dl Bedside Creatinine 1.6 0.6-1.3 mg/dl Bedside Glucose (other) 130 70-99 mg/dl Bedside Ionized Calcium (Navya) 1.18 1.12-1.32 mmol/l Diagnostic Radiology CTA chest - no PE CXR normal Normal EKG Impression Assessment and Plan 81 yo male who presents with chest pain, pressure after eating and with recent exertion - Chest pain/pressure: initial EKG and troponin negative for ischemia will repeat troponin at 2000 and then 0400 repeat EKG in the AM check resting echocardiogram consult cardiology to see tomorrow since pain improved with nitro, will treat with 2% q6 continue aspirin and Atenolol patient does not take statin according to med rec could represent severe GERD since the pain started after eating will rule out cardiac etiology first - HTN, ulcerative colitis, CKD stage III all chronic and stable Hospital Course Patient had a troponin peak to 0.1; Patient was scheduled for a cath which was performed: Findings: LM - Luminal irregularities LAD - 20% proximal stenosis; early-mid segment calcified with 30-40% stenosis; patent mid LAD stent with mild in-stent restenosis. 2nd diagonal with 30% ostial stenosis. Circumflex - Small caliber vessel, gives off 2 OMs. Luminal irregularities. RCA - Dominant, large caliber vessel, calcified diffuse 30-40% mid segment disease; patent mid PDA stent with minimal in-stent restenosis. Arterial Closure: TR Band Summary: 1. Mild-moderate non-obstructive coronary artery disease - Patent mid LAD and PDA stents Recommendations: Continued ASCVD risk factor modification ASA, antihypertensives and statin per Dr. Lyon. After cath was essentially negative. Patient was discharged. Risk modifications were provided through counselling and optimal medical therapy. Total Time Spent: Greater than 30 minutes This includes examination of the patient, discharge planning, medication reconciliation, and communication with other providers. Discharge Instructions Please refer to the electronic Patient Visit Report (Discharge Instructions) for additional information. Follow-Up Deedee Ray PA-C on MondayMarch 10 at 11:30 am Additional Copies To Deedee Ray .MICHAEL
--- NOTE | 2017-02-27 16:43 | Discharge Instructions ---
Discharge Instructions Date of Service Feb 27, 2017. Admission Reason for Admission: Chest Pain Discharge Discharge Diagnosis / Problem: Atypical chest pain Discharge Goals Goal(s): Decrease discomfort Activity Recommendations Activity Limitations: resume your previous activity . Instructions / Follow-Up Instructions / Follow-Up risk advisor [facility]: I arrange a follow up appointment with Deedee Ray PA-C on MondayMarch 10 at 11:30 am. This info was added to the DC instructions. Hold off Beef jerky and fatty foods. Current Hospital Diet Patient's current hospital diet: AHA Diet (Heart Healthy) Discharge Diet Recommended Diet: AHA Diet (Heart Healthy) Pending Studies Studies pending at discharge: no Medical Emergencies . Who to Call and When: Medical Emergencies: If at any time you feel your situation is an emergency, please call 911 immediately. . Non-Emergent Contact Non-Emergency issues call your: Primary Care Provider Call Non-Emergent contact if: you have any medication questions . . "Provider Documentation" section prepared by Jong Horton. . VTE Core Measure Inpt VTE Proph given/why not?: Enoxaparin (Lovenox)SQ
[2017-02-27] MEDS ORDERED: PRT40 PO (17:10)
[2017-02-27] MEDS ORDERED: PANTOprazole SOD 40 MG TAB PO SCH (21:00)
[2017-03-16] MEDS ORDERED: PANT40TA PO (09:15)
[2017-03-16] MEDS ORDERED: FESO4TAB PO (09:15)
[2017-03-16] MEDS ORDERED: CHOL20009 PO (09:15)
[2017-03-16] MEDS ORDERED: CHOL1TAB52 PO (09:15)
[2017-03-16] MEDS ORDERED: ATOR-24 PO (09:15)
== END 2017-02-27 17:20 | disposition home or self-care (01) | DRG 287 ==
LOC: EDBD 13:08 → C.EDB 13:10 → C.MED 15:28 → ENRESERV 16:02 → OBSVTOIN 02-26 15:31 → ENRESERV 02-27 10:42 → C.2T 02-27 12:24
PROVIDERS: ADMIT Internal Medicine; ATTEND Internal Medicine Sports Medicine
PROC: B211YZZ Fluoroscopy of Multiple Coronary Arteries using Other Contrast (ICD-10-PCS; principal; 2017-02-27 09:16)
DX: I25.110 Atherosclerotic heart disease of native coronary artery with unstable angina pectoris (principal); K51.90 Ulcerative colitis, unspecified, without complications; E78.5 Hyperlipidemia, unspecified; I12.9 Hypertensive chronic kidney disease with stage 1 through stage 4 chronic kidney disease, or unspecified chronic kidney disease; N18.3 Chronic kidney disease, stage 3 (moderate); Z79.82 Long term (current) use of aspirin; Z98.61 Coronary angioplasty status; Z82.49 Family history of ischemic heart disease and other diseases of the circulatory system; Z84.1 Family history of disorders of kidney and ureter; Z82.3 Family history of stroke; Z95.2 Presence of prosthetic heart valve; Z79.899 Other long term (current) drug therapy

== ENCOUNTER → 2017-03-10 | Outpatient (CLI) | payer OTHER ==
[~2017-03-10] MED LIST changes: -AZAT50TA17 PO; +CHOL20007 PO; +CHOL20009 PO; -CLXOPO OP; +DTRSR/2 PO; +FESO4TAB PO; +HYDR-5688 PO; +MECL1TAB42 PO; +PANT1TAB4 PO
[2017-03-10 16:45] LABS: BASO % 0.3 %; BASO ABS # 0.02 K/uL (0-0.2); EOS % 1.1 %; EOS ABS # 0.07 K/uL (0-0.5); HEMATOCRIT 41.4 % (42-52); HEMOGLOBIN 14.4 g/dL (14.0-18.0); IG# 0.01 K/uL (0.00-0.02); LYMPH % 22.4 %; LYMPH ABS # 1.45 K/uL (1.2-3.4); MEAN CELL VOLUME 94.7 fL (80-100); MEAN CORPUSCULAR HGB CONC 34.8 g/dl (32-36); MEAN PLATELET VOLUME 9.3 fL (7.4-10.4); MONO % 7.9 %; MONO ABS # 0.51 K/uL (0.11-0.59); NEUT % 68.1 %; PLATELET COUNT 129 K/uL (130-400); RED CELL DISTRIBUTION WIDTH CV 12.6 % (11.5-14.5); RED CELL DISTRIBUTION WIDTH SD 43.4 fL (36.4-46.3); WHITE BLOOD COUNT 6.46 K/uL (4.8-10.8)
--- NOTE | 2017-03-16 12:06 | CODING QUERY MEDICAL NECESSITY ---
SUPPORTING DIAGNOSIS NEEDED A supporting diagnosis is required for the test/procedure performed on this patient in order for us to be reimbursed by the patient's insurance. Please provide a supporting diagnosis for the following test/procedure listed below next to the test name along with your signature. *If there is no additional diagnosis for this patient that would support the following test/procedure please document that below next to the test/procedure. Test(s)/Procedure(s) that require a supporting diagnosis: * C-REACTIVE PROTEIN HIGHSENS (CARDIO) DIAGNOSIS: Provider Signature: Date: Thank you Candis [email or web address] Information Management Once completed, please kindly fax back to [phone] For questions please call [phone]
== END | disposition home or self-care (01) ==
LOC: C.LABBC 15:27
PROVIDERS: ATTEND Optometrist
DX: G45.3 Amaurosis fugax (principal); I25.10 Atherosclerotic heart disease of native coronary artery without angina pectoris

== ENCOUNTER → 2017-04-06 | Outpatient (CLI) | payer OTHER ==
[~2017-04-06] MED LIST changes: -CHOL20007 PO; -HYDR-5688 PO; -MECL1TAB42 PO; -PANT1TAB4 PO
== END | disposition home or self-care (01) ==
LOC: C.LABPBG 10:41
PROVIDERS: ATTEND Physician Assistant
DX: R76.8 Other specified abnormal immunological findings in serum (principal)

== ENCOUNTER → 2017-04-10 | Day surgery (SDC) | payer OTHER ==
[2017-03-16 09:17] VITALS: Ht 166.4 cm; Wt 67.3 kg
[~2017-04-10] VITALS: Ht 166.4 cm; Wt 67.3 kg
[~2017-04-10] MED LIST changes: +500ML BSS 0.3ML EPI 1:1000PF IRRIG ONE; +ACETAMINOPHEN 325 MG TAB PO PRN; +AMVISC PLUS 0.8ML SYRINGE INT OCU ONE; +ATROPINE SULFATE 0.1 MG/ML 5ML SYR IV PRN; +BRIMONIDINE TART 0.2% OP SOLN PER DROP CHARGE ONE; +BSS FLUSH ONE; +ENDOCOAT 0.85ML SYRINGE INT OCU ONE; +EpHEDrine SULFATE INJ 50 MG/ML AMP IV PRN; +EpINEphrine INJ 1MG/ML AMP 1 MG/ML AMP ONE; +LIDOCAINE 4% OP SOLN DROP CHARGE ONE; +LIDOCAINE 4% OP SOLN DROP CHARGE OPL SCH; +LIDOCAINE HCL 1% MPF 2 ML VIAL ONE; +MIDAZOLAM HCL 1 MG/ML 2ML VIAL ONE; +MIX: 3ML BSS AND 1ML EPI(PF) TOP ONE; +MOXIFLOXACIN OPH SOLN PER DROP CHARGE ONE; +POVIDONE-IODINE OP SOLN 30 ML BTL ONE; +PROPARACAINE 0.5% OP SOLN PER DROP CHARGE OPL SCH; +TOBRAMYCIN/DEXAMETHASONE OPH OINT PER APPLN CHARGE ONE
[2017-04-10] MEDS: PHENYLEPHRINE HCL 2.5% OP SOLN PER DROP CHARGE OPL SCH ×2 (08:52→08:57)
[2017-04-10] MEDS: TROPICAMIDE 1% OP SOLN PER DROP CHARGE OPL SCH ×2 (08:53→08:58)
[2017-04-10] MEDS: CYCLOPENTOLATE HCL 1% OP SOLN PER DROP CHARGE OPL SCH ×2 (08:54→08:59)
[2017-04-10] MEDS: KETOROLAC 0.5% OP SOLN PER DROP CHARGE OPL SCH ×2 (08:55→09:00)
[2017-04-10] MEDS: MOXIFLOXACIN OPH SOLN PER DROP CHARGE OPL SCH ×2 (08:56→09:03)
--- NOTE | 2017-04-10 09:51 | History & Physical Bridge - SC ---
H&P Re-Evaluation Bridge Note: I have examined the patient, reviewed the History & Physical and in the interval since the performance of the History & Physical I have noted the following changes of clinical significance: No changes noted
--- NOTE | 2017-04-10 10:20 | [facility] Operative Report ---
Operative Report Operative Date Apr 10, 2017. Pre-Operative Diagnosis Complex Left Eye Cataract Post-Operative Diagnosis Same Procedure(s) Performed Left Cataract Phacoemulsification With Intraocular Lens Implant Surgeon Dr. Fide Red Clinical Training Coordinator Surgeon(s) None Estimated Blood Loss 0 Findings cataract left eye Fluids (cc crystalloids) see anesthesia record Specimens None Drains none Anesthesia local with sedation Complication(s) None Disposition Recovery Room / PACU Implants [id number] 21.0 Indications decreased vision left eye Description of Procedure After informed consent was obtained in the holding area the patient was wheeled back to the operating room where cardiac monitoring leads and oxygen by nasal cannula was administered by Anesthesia. Gentle IV sedation was given, and the patient's left eye was prepped and draped in usual sterile fashion. A wire lid speculum was placed into the left eye and the operating microscope was swung into position. Using 0.12 forceps and a Supersharp blade a paracentesis port was made 2 o'clock hours away from the 3 o'clock position of the patient's left eye. 1% non-preserved Lidocaine was then injected into the anterior chamber for anesthesia. Flomax mix was then injected into the anterior chamber. A 2.0 mm keratotome blade was then used to make a shelved clear corneal incision at the 3 o'clock position of the left eye. Amvisc was injected into the anterior chamber and a Maylugin ring was injected and placed to open the pupil. A cystotome and Utrata forceps were used to perform a curvilinear capsulorrhexis. BSS on a hydrodissection cannula was used to hydrodissect the lens nucleus away from the capsular bag. The phacoemulsification handpiece was then used in a stop and chop fashion to remove the lens nucleus. The irrigation and aspiration handpiece was then used to remove the residual cortical material. Amvisc was injected into the capsular bag and anterior chamber and a [employer]ch [employer] Lomb MX60 21.0 Diopter intraocular lens was injected into the capsular bag. The Maylugin ring was removed from the eye. Irrigation and aspiration handpiece was used to remove the residual viscoelastic material. The wounds were hydrated and noted to be watertight. The wire lid speculum was removed from the eye. Vigamox, Brimonidine, and TobraDex ointment were placed on the eye and it was shielded. It should be noted that EndoCoat was used extensively during the case to protect the cornea endothelium. DISPOSITION: The patient tolerated the procedure well and was wheeled to the post anesthesia care unit in stable condition. I attest to the content of the Intraoperative Record and any orders documented therein. Any exceptions are noted below. I attest to the content of the Intraoperative Record and any orders documented therein. Any exceptions are noted below.
[2017-04-10 10:21] VITALS: TEMP 36.4
--- NOTE | 2017-04-10 10:22 | Discharge Instructions-SurgCtr ---
Discharge Instructions Date of Service Apr 10, 2017. Visit Reason for Visit: Cataract Left Eye Discharge Discharge Diagnosis / Problem: cataract left eye Discharge Goals Goal(s): Improve function Activity Recommendations Activity Limitations: per Instructions/Follow-up section Lifting Limitations: no more than 5 pounds Anesthesia . Post Anesthesia Instructions: If you have had General Anesthesia or IV Sedation: * Do not drive today. * Resume driving when surgeon permits. * Do not make important decisions or sign legal documents today. * Call surgeon for: 1. Temperature elevations greater than 101 degrees F. 2. Uncontrollable pain. 3. Excessive bleeding. 4. Persistent nausea and vomiting. 5. Medication intolerance (nausea, vomiting or rash). * For nausea and vomiting use only clear liquids such as: tea, soda, bouillon until nausea subsides, then gradually increase diet as tolerated. * If you have any concerns or questions, call your surgeon's office. If physician is unavailable and it is an emergency, call 911 or go to the nearest emergency room. . Instructions / Follow-Up Instructions / Follow-Up ACTIVITY RECOMMENDATIONS: * Light activities * You may walk outside, read, watch television. * Mild irritation and blurred vision are common for the first few days, redness around the white part of the eye is common. MEDICATIONS: Resume previous medications unless instructed otherwise by your surgeon. Eye drops (today and tomorrow): Cipro - one drop in operative eye every 2 hours while awake Prednisolone 1% - one drop in operative eye every 2 hours while awake Ilevro - one drop operative eye 1 times daily SPECIAL CARE INSTRUCTIONS: * If any problems or concerns, please call Dr. Red's office at . * Keep plastic shield taped over eye to sleep at night. * Keep plastic shield taped over eye except to administer eye drops. * Keep plastic shield on until office visit the following day. FOLLOW UP VISIT: Follow-up with Dr. Red in the [place] office as scheduled. If not already scheduled, please call the office at . Diet Recommendations Home Diet: resume previous diet Procedures Procedures Performed: Left Cataract Phacoemulsification With Intraocular Lens Implant Pending Studies Studies pending at discharge: no Medical Emergencies . Who to Call and When: Medical Emergencies: If at any time you feel your situation is an emergency, please call 911 immediately. . Non-Emergent Contact Non-Emergency issues call your: Film Processing Shift Supervisor . . "Provider Documentation" section prepared by Ra Red. .
[2017-04-10 10:45] VITALS: PULSE 62; O2SAT 98
--- NOTE | 2017-04-10 10:53 | Anesthesia Progress Nt - [facility] ---
Anesthesia Post Op Note Date & Time Apr 10, 2017 at 10:53 Vital Signs Pain Intensity: 0 Vital Signs Past 12 Hours Date Time Temp Pulse Resp B/P (MAP) Pulse Ox O2 Delivery O2 Flow Rate FiO2 04/10/17 10:45 62 16 176/76 (109) 98 Room Air 04/10/17 10:21 36.4 71 12 160/79 (106) 96 Room Air 04/10/17 08:32 36.4 72 18 156/76 (102) 97 Room Air Notes Mental Status: alert / awake / arousable, participated in evaluation Pt Amnestic to Procedure: Yes Nausea / Vomiting: adequately controlled Pain: adequately controlled Airway Patency, RR, SpO2: stable & adequate BP & HR: stable & adequate Hydration State: stable & adequate Anesthetic Complications: no major complications apparent
[2017-04-10 10:55] VITALS: BP 159/83
== END | disposition home or self-care (01) ==
LOC: X.SURG 08:16
PROVIDERS: ATTEND Ophthalmology
DX: H25.12 Age-related nuclear cataract, left eye (principal); I25.10 Atherosclerotic heart disease of native coronary artery without angina pectoris; I10 Essential (primary) hypertension; K21.9 Gastro-esophageal reflux disease without esophagitis; K44.9 Diaphragmatic hernia without obstruction or gangrene; E78.00 Pure hypercholesterolemia, unspecified; K51.90 Ulcerative colitis, unspecified, without complications; Z90.49 Acquired absence of other specified parts of digestive tract; Z85.828 Personal history of other malignant neoplasm of skin; Z95.2 Presence of prosthetic heart valve

== ENCOUNTER → 2017-04-18 | Outpatient (CLI) | payer OTHER ==
[~2017-04-18] MED LIST changes: -500ML BSS 0.3ML EPI 1:1000PF IRRIG ONE; -ACETAMINOPHEN 325 MG TAB PO PRN; -AMVISC PLUS 0.8ML SYRINGE INT OCU ONE; -ATROPINE SULFATE 0.1 MG/ML 5ML SYR IV PRN; -BRIMONIDINE TART 0.2% OP SOLN PER DROP CHARGE ONE; -BSS FLUSH ONE; -ENDOCOAT 0.85ML SYRINGE INT OCU ONE; -EpHEDrine SULFATE INJ 50 MG/ML AMP IV PRN; -EpINEphrine INJ 1MG/ML AMP 1 MG/ML AMP ONE; -LIDOCAINE 4% OP SOLN DROP CHARGE ONE; -LIDOCAINE 4% OP SOLN DROP CHARGE OPL SCH; -LIDOCAINE HCL 1% MPF 2 ML VIAL ONE; -MIDAZOLAM HCL 1 MG/ML 2ML VIAL ONE; -MIX: 3ML BSS AND 1ML EPI(PF) TOP ONE; -MOXIFLOXACIN OPH SOLN PER DROP CHARGE ONE; -POVIDONE-IODINE OP SOLN 30 ML BTL ONE; -PROPARACAINE 0.5% OP SOLN PER DROP CHARGE OPL SCH; -TOBRAMYCIN/DEXAMETHASONE OPH OINT PER APPLN CHARGE ONE
== END | disposition home or self-care (01) ==
LOC: C.LABPBG 14:30
PROVIDERS: ATTEND Physician Assistant
DX: G45.3 Amaurosis fugax (principal)

== ENCOUNTER → 2017-05-09 | Outpatient (CLI) | payer OTHER | END | disposition home or self-care (01) | LOC: C.LAB1850 10:32 | PROVIDERS: ATTEND Internal Medicine Rheumatology | DX: Z91.89 Other specified personal risk factors, not elsewhere classified (principal); E55.9 Vitamin D deficiency, unspecified; N25.81 Secondary hyperparathyroidism of renal origin; R76.8 Other specified abnormal immunological findings in serum ==

== ENCOUNTER → 2017-05-12 | Outpatient (CLI) | payer OTHER ==
[2017-05-12 16:42] LABS: BASO % 0.4 %; BASO ABS # 0.02 K/uL (0-0.2); EOS % 1.5 %; EOS ABS # 0.08 K/uL (0-0.5); HEMATOCRIT 40.9 % (42-52); HEMOGLOBIN 14.2 g/dL (14.0-18.0); IG# 0.02 K/uL (0.00-0.02); LYMPH % 23.3 %; LYMPH ABS # 1.28 K/uL (1.2-3.4); MEAN CELL VOLUME 92.3 fL (80-100); MEAN CORPUSCULAR HEMOGLOBIN 32.1 pg (25-34); MEAN CORPUSCULAR HGB CONC 34.7 g/dl (32-36); MEAN PLATELET VOLUME 8.9 fL (7.4-10.4); MONO % 10.9 %; NEUT % 63.5 %; PLATELET COUNT 148 K/uL (130-400); RED CELL DISTRIBUTION WIDTH CV 12.5 % (11.5-14.5); RED CELL DISTRIBUTION WIDTH SD 42.2 fL (36.4-46.3)
[2017-05-12 17:12] LABS: BLOOD UREA NITROGEN 21 mg/dl (7-18); CALCIUM 9.1 mg/dl (8.5-10.1); CARBON DIOXIDE 29 mmol/L (21-32); CREATININE 1.41 mg/dl (0.60-1.40); GLUCOSE 99 mg/dl (70-99); POTASSIUM 4.3 mmol/L (3.5-5.1); SODIUM 136 mmol/L (136-145)
== END | disposition home or self-care (01) ==
LOC: C.LABPBG 12:11
PROVIDERS: ATTEND Family Medicine
DX: R42 Dizziness and giddiness (principal)

== ENCOUNTER → 2017-06-05 | Day surgery (SDC) | payer OTHER ==
[2017-05-09 14:33] VITALS: Ht 166.4 cm; Wt 67.3 kg
[~2017-06-05] VITALS: Ht 166.4 cm; Wt 67.3 kg
[~2017-06-05] MED LIST changes: +500ML BSS 0.3ML EPI 1:1000PF IRRIG ONE; +ACETAMINOPHEN 325 MG TAB PO PRN; +AMVISC PLUS 0.8ML SYRINGE INT OCU ONE; +ATROPINE SULFATE 0.1 MG/ML 5ML SYR IV PRN; +BRIMONIDINE TART 0.2% OP SOLN PER DROP CHARGE ONE; +BSS FLUSH ONE; +ENDOCOAT 0.85ML SYRINGE INT OCU ONE; +EpINEphrine INJ 1MG/ML AMP 1 MG/ML AMP ONE; +FENTANYL CITRATE INJ 50 MCG/1 ML 2 ML VIAL ONE; +LACTATED RINGER'S 1000ML 500 ML IV SCH; +LIDOCAINE 4% OP SOLN DROP CHARGE ONE; +LIDOCAINE 4% OP SOLN DROP CHARGE OPR SCH; +LIDOCAINE HCL 1% MPF 2 ML VIAL ONE; +MIDAZOLAM HCL 1 MG/ML 2ML VIAL ONE; +MIX: 3ML BSS AND 1ML EPI(PF) TOP ONE; +MOXIFLOXACIN OPH SOLN PER DROP CHARGE ONE; +POVIDONE-IODINE OP SOLN 30 ML BTL ONE; +PROPARACAINE 0.5% OP SOLN PER DROP CHARGE OPR SCH; +TOBRAMYCIN/DEXAMETHASONE OPH OINT PER APPLN CHARGE ONE
[2017-06-05] MEDS: PHENYLEPHRINE HCL 2.5% OP SOLN PER DROP CHARGE OPR SCH ×2 (10:37→10:42)
[2017-06-05] MEDS: TROPICAMIDE 1% OP SOLN PER DROP CHARGE OPR SCH ×2 (10:38→10:43)
[2017-06-05] MEDS: CYCLOPENTOLATE HCL 1% OP SOLN PER DROP CHARGE OPR SCH ×2 (10:39→10:44)
[2017-06-05] MEDS: KETOROLAC 0.5% OP SOLN PER DROP CHARGE OPR SCH ×2 (10:40→10:45)
[2017-06-05] MEDS: MOXIFLOXACIN OPH SOLN PER DROP CHARGE OPR SCH ×2 (10:41→10:52)
--- NOTE | 2017-06-05 12:14 | [facility] Post Operative Brief Note ---
Immediate Operative Summary Operative Date Jun 05, 2017. Pre-Operative Diagnosis Cataract Right Eye Post-Operative Diagnosis same as preop Procedure(s) Performed Right Cataract Phacoemulsification With Intraocular Lens Implant Surgeon Dr. Red Educational Technology Specialist Surgeon(s) none Estimated Blood Loss 0ml Findings Consistent with Post-Op Diagnosis Fluids (cc crystalloids) see anesthesia record Specimens none Drains None Anesthesia Type MAC Complication(s) none Disposition Accompanied Pt To Recovery: no Disposition: Recovery Room / PACU
--- NOTE | 2017-06-05 12:16 | Discharge Instructions-[facility]urgCtr ---
Discharge Instructions Date of Service Jun 05, 2017. Visit Reason for Visit: Cataract Right Eye Discharge Discharge Diagnosis / Problem: cataract right eye Discharge Goals Goal(s): Improve function Activity Recommendations Activity Limitations: per Instructions/Follow-up section Lifting Limitations: no more than 5 pounds Anesthesia . Post Anesthesia Instructions: If you have had General Anesthesia or IV Sedation: * Do not drive today. * Resume driving when surgeon permits. * Do not make important decisions or sign legal documents today. * Call surgeon for: 1. Temperature elevations greater than 101 degrees F. 2. Uncontrollable pain. 3. Excessive bleeding. 4. Persistent nausea and vomiting. 5. Medication intolerance (nausea, vomiting or rash). * For nausea and vomiting use only clear liquids such as: tea, soda, bouillon until nausea subsides, then gradually increase diet as tolerated. * If you have any concerns or questions, call your surgeon's office. If physician is unavailable and it is an emergency, call 911 or go to the nearest emergency room. . Instructions / Follow-Up Instructions / Follow-Up ACTIVITY RECOMMENDATIONS: * Light activities * You may walk outside, read, watch television. * Mild irritation and blurred vision are common for the first few days, redness around the white part of the eye is common. MEDICATIONS: Resume previous medications unless instructed otherwise by your surgeon. Eye drops (today and tomorrow): Cipro - one drop in operative eye every 2 hours while awake Prednisolone 1% - one drop in operative eye every 2 hours while awake Ilevro - one drop operative eye 1 times daily SPECIAL CARE INSTRUCTIONS: * If any problems or concerns, please call Dr. Red's office at . * Keep plastic shield taped over eye to sleep at night. * Keep plastic shield taped over eye except to administer eye drops. * Keep plastic shield on until office visit the following day. FOLLOW UP VISIT: Follow-up with Dr. Red in the [place] office as scheduled. If not already scheduled, please call the office at . Diet Recommendations Home Diet: resume previous diet Procedures Procedures Performed: Right Cataract Phacoemulsification With Intraocular Lens Implant Pending Studies Studies pending at discharge: no Medical Emergencies . Who to Call and When: Medical Emergencies: If at any time you feel your situation is an emergency, please call 911 immediately. . Non-Emergent Contact Non-Emergency issues call your: Concrete Pavement Installer . . "Provider Documentation" section prepared by Ra Red. .
[2017-06-05 12:17] VITALS: TEMP 36.4
--- NOTE | 2017-06-05 12:19 | [facility] Operative Report ---
Operative Report Operative Date Jun 05, 2017. Pre-Operative Diagnosis Cataract Right Eye Post-Operative Diagnosis same as preop Procedure(s) Performed Right Cataract Phacoemulsification With Intraocular Lens Implant Surgeon Dr. Red Supervisor Mapping Surgeon(s) none Estimated Blood Loss 0ml Findings cataract right eye Fluids see anesthesia record Specimens none Drains None Anesthesia Type MAC Complication(s) none Disposition no Recovery Room / PACU Indications decreased vision right eye Description of Procedure After informed consent was obtained in the holding area the patient was wheeled back to the operating room where cardiac monitoring leads and oxygen by nasal cannula was administered by Anesthesia. Gentle IV sedation was given, and the patient's right eye was prepped and draped in usual sterile fashion. A wire lid speculum was placed into the right eye and the operating microscope was swung into position. Using 0.12 forceps and a Supersharp blade a paracentesis port was made 2 o'clock hours away from the 9 o'clock position of the patient's right eye. 1% non-preserved Lidocaine was then injected into the anterior chamber for anesthesia. Flomax mix was injected into the anterior chamber. A 2.0 mm keratotome blade was then used to make a shelved clear corneal incision at the 9 o'clock position of the right eye. Endocoat was injected into the anterior chamber. Pupillary dilation was insufficient. A Maylugin ring was injected into the anterior chamber to dilate the pupil sufficiently. Amvisc was injected into the anterior chamber and a cystotome and Utrata forceps were used to perform a curvilinear capsulorrhexis. BSS on a hydrodissection cannula was used to hydrodissect the lens nucleus away from the capsular bag. The phacoemulsification handpiece was then used in a stop and chop fashion to remove the lens nucleus. The irrigation and aspiration handpiece was then used to remove the residual cortical material. Amvisc was injected into the capsular bag and anterior chamber and a [employer]ch [employer] Lomb MX60 20.5 Diopter intraocular lens was injected into the capsular bag. The Maylugin ring was disengaged from the iris and it was retracted from the eye. Irrigation and aspiration handpiece was used to remove the residual viscoelastic material. The wounds were hydrated and noted to be watertight. The wire lid speculum was removed from the eye. Vigamox, Brimonidine, and TobraDex ointment were placed on the eye and it was shielded. It should be noted that EndoCoat was used extensively during the case to protect the cornea endothelium. DISPOSITION: The patient tolerated the procedure well and was wheeled to the post anesthesia care unit in stable condition. I attest to the content of the Intraoperative Record and any orders documented therein. Any exceptions are noted below. I attest to the content of the Intraoperative Record and any orders documented therein. Any exceptions are noted below.
--- NOTE | 2017-06-05 12:23 | Anesthesia Progress Nt - [facility] ---
Anesthesia Post Op Note Date & Time Jun 05, 2017 at 12:23 Vital Signs Pain Intensity: 0 Vital Signs Past 12 Hours Date Time Temp Pulse Resp B/P (MAP) Pulse Ox O2 Delivery O2 Flow Rate FiO2 06/05/17 12:17 36.4 63 16 170/80 (110) 98 Room Air 06/05/17 10:28 36.4 71 22 152/82 (105) 97 Room Air Notes Mental Status: alert / awake / arousable, participated in evaluation Pt Amnestic to Procedure: Yes Nausea / Vomiting: adequately controlled Pain: adequately controlled Airway Patency, RR, SpO2: stable & adequate BP & HR: stable & adequate Hydration State: stable & adequate Anesthetic Complications: no major complications apparent
[2017-06-05 12:42] VITALS: BP 146/60; PULSE 64; O2SAT 96
== END | disposition home or self-care (01) ==
LOC: X.SURG 09:59
PROVIDERS: ATTEND Ophthalmology
DX: H25.11 Age-related nuclear cataract, right eye (principal); I25.10 Atherosclerotic heart disease of native coronary artery without angina pectoris; I12.9 Hypertensive chronic kidney disease with stage 1 through stage 4 chronic kidney disease, or unspecified chronic kidney disease; N18.9 Chronic kidney disease, unspecified; K51.90 Ulcerative colitis, unspecified, without complications; Z90.49 Acquired absence of other specified parts of digestive tract; Z79.82 Long term (current) use of aspirin; Z85.828 Personal history of other malignant neoplasm of skin

== ENCOUNTER → 2017-06-07 | Outpatient (CLI) | payer OTHER ==
[~2017-06-07] MED LIST changes: -500ML BSS 0.3ML EPI 1:1000PF IRRIG ONE; -ACETAMINOPHEN 325 MG TAB PO PRN; -AMVISC PLUS 0.8ML SYRINGE INT OCU ONE; -ATROPINE SULFATE 0.1 MG/ML 5ML SYR IV PRN; -BRIMONIDINE TART 0.2% OP SOLN PER DROP CHARGE ONE; -BSS FLUSH ONE; -ENDOCOAT 0.85ML SYRINGE INT OCU ONE; -EpINEphrine INJ 1MG/ML AMP 1 MG/ML AMP ONE; -FENTANYL CITRATE INJ 50 MCG/1 ML 2 ML VIAL ONE; -LACTATED RINGER'S 1000ML 500 ML IV SCH; -LIDOCAINE 4% OP SOLN DROP CHARGE ONE; -LIDOCAINE 4% OP SOLN DROP CHARGE OPR SCH; -LIDOCAINE HCL 1% MPF 2 ML VIAL ONE; -MIDAZOLAM HCL 1 MG/ML 2ML VIAL ONE; -MIX: 3ML BSS AND 1ML EPI(PF) TOP ONE; -MOXIFLOXACIN OPH SOLN PER DROP CHARGE ONE; -POVIDONE-IODINE OP SOLN 30 ML BTL ONE; -PROPARACAINE 0.5% OP SOLN PER DROP CHARGE OPR SCH; -TOBRAMYCIN/DEXAMETHASONE OPH OINT PER APPLN CHARGE ONE
[2017-06-07 17:57] LABS: BLOOD UREA NITROGEN 23 mg/dl (7-18); CALCIUM 9.2 mg/dl (8.5-10.1); CARBON DIOXIDE 29 mmol/L (21-32); CREATININE 1.29 mg/dl (0.60-1.40); GLUCOSE 129 mg/dl (70-99); POTASSIUM 3.7 mmol/L (3.5-5.1); SODIUM 138 mmol/L (136-145)
== END | disposition home or self-care (01) ==
LOC: C.LABPBG 15:27
PROVIDERS: ATTEND Family Medicine
DX: N28.9 Disorder of kidney and ureter, unspecified (principal); R41.3 Other amnesia

== ENCOUNTER → 2017-07-04 | Outpatient (CLI) | payer OTHER ==
[~2017-07-04] MED LIST changes: +GADAVIST IV PRN
--- NOTE | 2017-07-04 11:56 | DIAGNOSTIC IMAGING REPORT ---
MRI OF THE BRAIN COMBO CLINICAL HISTORY: Memory loss. COMPARISON STUDY: CT of the brain dated 03/02/2016. TECHNIQUE: MRI of the brain was performed utilizing various T1 and T2-weighted sequences in the axial, sagittal, and coronal planes. Contrast-enhanced sequences were acquired following the administration of 6.5 cc of Gadavist. 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 There is no hemorrhage or mass effect. There is no restricted diffusion to suggest acute ischemia. No enhancing mass lesion is identified on the postcontrast images. [place]-white matter differentiation is preserved. No extra-axial fluid collection is seen. The cerebellar tonsils are normal in configuration. Ventricles, sulci, and cisterns: Prominent secondary to involutional change. Pituitary and sella: Unremarkable. Intracranial vasculature: Normal flow voids are maintained at the skull base. Orbits: The bony orbits are grossly intact. Orbital contents are normal in appearance noting bilateral ocular lens implants. Sinuses and mastoids: Mild mucosal thickening is seen within the maxillary antra. Mucosal thickening is also seen within the anterior right ethmoid sinuses. The remaining paranasal sinuses and the mastoid air cells are clear. Calvarium: Unremarkable. Cervical cord: Partially visualized cervical spinal cord is normal in morphology and signal intensity. IMPRESSION: No acute intracranial abnormality. Electronically signed by: Pawel Scott M.D. 07/04/2017 11:55 AM Dictated Date/Time: 07/04/2017 11:49 AM
== END | disposition home or self-care (01) ==
LOC: C.MRI 10:13
PROVIDERS: ATTEND Family Medicine
DX: R41.3 Other amnesia (principal)

== ENCOUNTER → 2017-10-26 | Outpatient (CLI) | payer OTHER ==
[~2017-10-26] MED LIST changes: -ATEN-173 PO; -CHOL20009 PO; -GADAVIST IV PRN; +HYDR-5688 PO
== END | disposition home or self-care (01) ==
LOC: C.LABPBG 10:29
PROVIDERS: ATTEND Internal Medicine Rheumatology
DX: K21.9 Gastro-esophageal reflux disease without esophagitis (principal); M81.0 Age-related osteoporosis without current pathological fracture; E61.8 Deficiency of other specified nutrient elements; E55.9 Vitamin D deficiency, unspecified

== ENCOUNTER 2018-06-26 10:41 | Observation (INO) ==
[2018-06-26] MEDS ORDERED: ONDANSETRON INJ 2 MG/ML 2 ML VIAL IV STA (10:57)
[2018-06-26] MEDS ORDERED: MoRPHine SULFATE 2 MG/ML CARP IV STA (10:57)
--- NOTE | 2018-06-26 11:04 | Emergency Department Note ---
Entered by Marisol Bruce acting as a scribe for Trenton Ernst MD History of Present Illness General Chief complaint: Testicular Pain Stated complaint: TESTICULAR PAIN Time Seen by Provider: 06/26/18 10:47 Source: patient and family History of Present Illness Provider complaint: testicular pain Onset (ago): day(s) (last night) Location: genitals (right testicle) Maximum Pain Intensity: 6 Quality: + other (pain) Exacerbated By: + movement (walking) Associated symptoms: + headaches, + nausea/vomiting (nausea) and + other (burning with urination); no chest pain and no shortness of breath The patient is an 82 year old male who presents to the Emergency Room with complaints of right testicular pain beginning last night. He rates his pain at a 5/10 and states that walking exacerbates his pain. The patient states that he saw a provider in [place] and was told that he may his testicle may be twisted. He states that he has had burning with urination and reports having a UTI recently and was on antibiotics. He reports having nausea but denies chest pain and shortness of breath. The patient reports a history of a valve rep lacement and stents but states that he is not on a blood thinner. Per , the patient did have a headache this morning. Home Medications Home Medications Medication Instructions Recorded Confirmed Type Humira 1 dose SUBCUT UD 05/05/18 06/26/18 History atorvastatin 20 mg PO QAM 05/05/18 06/26/18 History docusate sodium [Colace] 100 mg PO BID 05/05/18 06/26/18 History memantine 5 mg PO BID 05/05/18 06/26/18 History pantoprazole [Protonix] 40 mg PO QAM 05/05/18 06/26/18 History tamsulosin [Flomax] 0.4 mg PO QAM 05/05/18 06/26/18 History amlodipine 2.5 mg PO BID 06/26/18 06/26/18 History cholecalciferol (vitamin D3) 0 unit PO QDL 06/26/18 06/26/18 History [Vitamin D3] cyanocobalamin (vitamin B-12) 0 mcg PO QDL 06/26/18 06/26/18 History [Vitamin B-12] hydrocodone-acetaminophen 1 tab PO BID PRN 06/26/18 06/26/18 History naproxen sodium [Aleve] 440 mg PO Q12H PRN 06/26/18 06/26/18 History olmesartan 40 mg PO QAM 06/26/18 06/26/18 History sulfamethoxazole-trimethoprim 1 tab PO BID 14 Days #28 tab 06/26/18 Rx [Bactrim] Allergies Allergy/AdvReac Type Severity Reaction Status Date / Time No Known Allergies Allergy Verified 06/26/18 11:23 Past Med/Surg History Medical History HTN (hypertension) (Chronic) Heart disease (Chronic) Social History Preferred Language: Kazakh Communication Ability: Impaired Communication Ability Comment: uses b/l h/a that are being repaired Health Education Specialist Required: No Beliefs That Will Affect Care: Rastafarian Current Living Situation: Spouse Other Information That Helps Us Care for You: No Feels Safe at Home: Yes Safety Concerns: Feels Safe At This Time Smoking Status: Never smoker Hx Alcohol Use: No Hx Substance Use: No Review of Systems See HPI for pertinent positives & negatives. and A total of 10 systems reviewed and were otherwise negative Physical Exam Vital Signs Vital Signs - 24 hr 06/26/18 10:43 06/26/18 11:22 06/26/18 12:34 Temperature 36.4 C L Temperature Source Oral Sepsis Recent Fever Within 48 Hours No Sepsis New/Unexplained Change in Mental Status No Sepsis Action Taken by Nursing No Action Required Pulse Rate 91 H Pulse Rate [Finger] 76 Respiratory Rate 20 16 Respiratory Effort / Characteristics Non-Labored Spontaneous Blood Pressure 132/77 Blood Pressure [Left Arm] 113/55 L Blood Pressure Mean 95 Blood Pressure Mean [Left Arm] 74 Blood Pressure Position Sitting Blood Pressure Position [Left Arm] Pulse Oximetry 96 96 92 Oxygen Delivery Method Room Air Room Air Room Air 06/26/18 13:59 06/26/18 14:25 06/26/18 15:14 Temperature Temperature Source Sepsis Recent Fever Within 48 Hours Sepsis New/Unexplained Change in Mental Status Sepsis Action Taken by Nursing Pulse Rate Pulse Rate [Finger] 64 Respiratory Rate 18 Respiratory Effort / Characteristics Non-Labored Blood Pressure Blood Pressure [Left Arm] 120/64 Blood Pressure Mean Blood Pressure Mean [Left Arm] 82 Blood Pressure Position Blood Pressure Position [Left Arm] Pulse Oximetry 94 Oxygen Delivery Method Room Air Room Air Room Air 06/26/18 15:35 Temperature 36.5 C Temperature Source Oral Sepsis Recent Fever Within 48 Hours Sepsis New/Unexplained Change in Mental Status Sepsis Action Taken by Nursing Pulse Rate Pulse Rate [Finger] 84 Respiratory Rate 18 Respiratory Effort / Characteristics Blood Pressure Blood Pressure [Left Arm] 149/69 H Blood Pressure Mean Blood Pressure Mean [Left Arm] 95 Blood Pressure Position Blood Pressure Position [Left Arm] Lying Pulse Oximetry 97 Oxygen Delivery Method Room Air General: Non-ill appearing older male in no acute distress. HEENT: Normal cephalic atraumatic. Pupils are equal round and reactive to light. Extraocular movements are intact. Oropharynx is pink with moist mucous membranes. No swelling of the mouth lips or tongue. Neck: Supple with a midline trachea. No meningeal signs or stiffness, no JVD or bruits. No Stridor. Chest: Clear to auscultation bilaterally. No wheezes or rhonchi. No increased work of breathing. Heart: regular rate and rhythm. Abdomen: Soft nontender, nondistended without rebound guarding or rigidity. Extremities: No cyanosis clubbing or edema. No calf tenderness or assymetry Spine/Back. Non tender to palpation. No CVA tenderness Skin: Good turgor without rashes. Neurologic exam: Cranial nerves two through 12 are intact. Motor and sensation are intact and symmetrical throughout. : Right testicle is moderately swollen with tenderness proximally around the epididymis. There is some firmness. There is no hernia. No redness to the scrotum or discoloration. There are no penile lesions. No penile discharge. Course 1049: The patient was evaluated in room C10, and a complete history and physical examination were performed. 1258: I checked on the patient. He is feeling better with the Morphine. The pharmacist is looking for recommendations for medication for epididymitis. 1320: I updated the patient who verbalized agreement and understanding of the treatment plan. 1330: I discussed the patient's case with Dr. Elodia Sanchez who will eval uate the patient for further management. Consultations Consultation #1: Dr. Elodia Sanchez Time: 13:30 Administered Medications Discontinued Medications Ceftriaxone Sodium (Rocephin) Confirm Administered Dose 1,000 mg .ROUTE .[facility] Stop: 06/26/18 13:45 Last Admin: 06/26/18 13:58 Dose: 1,000 mg Documented by: [id number] Ceftriaxone Sodium 1,000 mg/ (Dextrose) 60 mls @ 100 mls/hr IV NOW STA Stop: 06/26/18 13:46 Last Admin: 06/26/18 13:58 Dose: Not Given Documented by: [id number] Sodium Chloride (Nss 1000ml) 1,000 mls @ 999 mls/hr IV .Q1H1M ONE Stop: 06/26/18 14:11 Last Infusion: 06/26/18 14:44 Dose: 0 mls/hr Documented by: [id number] Admin: 06/26/18 13:58 Dose: 999 mls/hr Documented by: [id number] Morphine Sulfate (Morphine Sulfate) 2 mg IV NOW STA Stop: 06/26/18 10:58 Last Admin: 06/26/18 11:18 Dose: 2 mg Documented by: [id number] Ondansetron HCl (Zofran) 4 mg IV NOW STA Stop: 06/26/18 10:58 Last Admin: 06/26/18 11:19 Dose: 4 mg Documented by: [id number] Medical Decision Making Differential Diagnosis The patient is an 82 year old male who presents to the Emergency Room with complaints of testicular pain. Differentials include testicular torsion, hernia, epididymitis, and janneth gangrene. Medical Records Attestation: I reviewed the patient's medical records. Home Medications Current Medication List: was personally reviewed by me Laboratory Data Attestation: I reviewed the patient's lab results. Result diagrams: 06/26/18 11:09 06/26/18 11:09 Lab Results 06/26/18 06/26/18 06/26/18 Range/Units 11:09 11:09 11:15 WBC 17.64 H (4.8-10.8) K/uL RBC 4.60 L (4.7-6.1) M/uL Hgb 15.1 (14.0-18.0) g/dL Hct 42.2 (42-52) % MCV 91.7 (80-100) fL MCH 32.8 (25-34) pg MCHC 35.8 (32-36) g/dL RDW Std Deviation 42.6 (36.4-46.3) fL RDW Coeff of Tahmina 12.8 (11.5-14.5) % Plt Count 145 (130-400) K/uL MPV 8.7 (7.4-10.4) fL Immature Gran % (Auto) 0.4 % Neut % (Auto) 85.3 % Lymph % (Auto) 5.0 % [place] % (Auto) 9.2 % Eos % (Auto) 0.0 % Baso % (Auto) 0.1 % Immature Gran # (Auto) 0.07 H (0.00-0.02) K/uL Neut # (Auto) 15.06 H (1.4-6.5) K/uL Lymph # (Auto) 0.88 L (1.2-3.4) K/uL [place] # (Auto) 1.62 H (0.11-0.59) K/uL Eos # (Auto) 0.00 (0-0.5) K/uL Baso # (Auto) 0.01 (0-0.2) K/uL Sodium 133 L (136-145) mmol/L Potassium 3.8 (3.5-5.1) mmol/L Chloride 99 (98-107) mmol/L Carbon Dioxide 26 (21-32) mmol/L Anion Gap 7.0 (3-11) BUN 23 H (7-18) mg/dl Creatinine 1.48 H (0.6-1.4) mg/dl Est Cr Clr Drug Dosing 32.9 ml/min Est GFR ( Amer) 50.0 Est GFR (Non-Af Amer) 43.1 BUN/Creatinine Ratio 15.3 (10-20) Glucose 110 H (70-99) mg/dl Lactate (0.4-2.0) mmol/L Calcium 9.8 (8.5-10.1) mg/dl Total Bilirubin 1.2 H (0.2-1) mg/dl AST 12 L (15-37) U/L ALT 18 (12-78) U/L Alkaline Phosphatase 97 (45-117) U/L Total Protein 8.5 H (6.4-8.2) gm/dl Albumin 3.7 (3.4-5.0) gm/dl Globulin 4.8 H (2.5-4.0) gm/dl Albumin/Globulin Ratio 0.8 L (0.9-2) Lipase 47 L (73-393) U/L Urine Color Urine Appearance (Clear) Urine pH (4.5-7.5) POC Urine pH 5 (4.5-7.5) Ur Specific Ol[place] (1.000-1.030) Urine Protein (Negative) POC Urine Protein Negative (Negative) Urine Glucose (UA) (Negative) POC Ur Glucose (UA) Normal (Normal) Urine Ketones (Negative) POC Urine Ketones Negative (Negative) Urine Blood (Negative) POC Urine Blood 250 H (Negative) Urine Nitrite (Negative) POC Urine Nitrite Positive H (Negative) Urine Bilirubin (Negative) POC Urine Bilirubin Negative (Negative) Urine Urobilinogen (Negative) POC Urine Urobilinogen Normal (Normal) Ur Leukocyte Esterase (Negative) POC U Leukocyte Esteras 2+ H (Negative) Urine WBC (Auto) (0-5) /hpf Urine RBC (Auto) (0-4) /hpf U Hyaline Cast (Auto) (0-5) /lpf U Epithel Cells (Auto) (0-5) /lpf Urine Bacteria (Auto) (Negative) 06/26/18 06/26/18 Range/Units 11:15 13:34 WBC (4.8-10.8) K/uL RBC (4.7-6.1) M/uL Hgb (14.0-18.0) g/dL Hct (42-52) % MCV (80-100) fL MCH (25-34) pg MCHC (32-36) g/dL RDW Std Deviation (36.4-46.3) fL RDW Coeff of Tahmina (11.5-14.5) % Plt Count (130-400) K/uL MPV (7.4-10.4) fL Immature Gran % (Auto) % Neut % (Auto) % Lymph % (Auto) % [place] % (Auto) % Eos % (Auto) % Baso % (Auto) % Immature Gran # (Auto) (0.00-0.02) K/uL Neut # (Auto) (1.4-6.5) K/uL Lymph # (Auto) (1.2-3.4) K/uL [place] # (Auto) (0.11-0.59) K/uL Eos # (Auto) (0-0.5) K/uL Baso # (Auto) (0-0.2) K/uL Sodium (136-145) mmol/L Potassium (3.5-5.1) mmol/L Chloride (98-107) mmol/L Carbon Dioxide (21-32) mmol/L Anion Gap (3-11) BUN (7-18) mg/dl Creatinine (0.6-1.4) mg/dl Est Cr Clr Drug Dosing ml/min Est GFR ( Amer) Est GFR (Non-Af Amer) BUN/Creatinine Ratio (10-20) Glucose (70-99) mg/dl Lactate 0.9 (0.4-2.0) mmol/L Calcium (8.5-10.1) mg/dl Total Bilirubin (0.2-1) mg/dl AST (15-37) U/L ALT (12-78) U/L Alkaline Phosphatase (45-117) U/L Total Protein (6.4-8.2) gm/dl Albumin (3.4-5.0) gm/dl Globulin (2.5-4.0) gm/dl Albumin/Globulin Ratio (0.9-2) Lipase (73-393) U/L Urine Color Dark Yellow Urine Appearance Cloudy H (Clear) Urine pH 5.0 (4.5-7.5) POC Urine pH (4.5-7.5) Ur Specific [place] 1.018 (1.000-1.030) Urine Protein Negative (Negative) POC Urine Protein (Negative) Urine Glucose (UA) Negative (Negative) POC Ur Glucose (UA) (Normal) Urine Ketones Negative (Negative) POC Urine Ketones (Negative) Urine Blood 2+ H (Negative) POC Urine Blood (Negative) Urine Nitrite Positive H (Negative) POC Urine Nitrite (Negative) Urine Bilirubin Negative (Negative) POC Urine Bilirubin (Negative) Urine Urobilinogen Negative (Negative) POC Urine Urobilinogen (Normal) Ur Leukocyte Esterase 3+ H (Negative) POC U Leukocyte Esteras (Negative) Urine WBC (Auto) >30 H (0-5) /hpf Urine RBC (Auto) 5-10 H (0-4) /hpf U Hyaline Cast (Auto) 1-5 (0-5) /lpf U Epithel Cells (Auto) 0-5 (0-5) /lpf Urine Bacteria (Auto) 4+ H (Negative) Imaging Data Radiologist's Impression: Radiology results as stated below per my review and the radiologist's interpretation: US scrotum/testicle HISTORY: Pain. Edema. rt test swelling COMPARISON: None. FINDINGS: Right testis: Maximum linear dimension 5.7 cm. Heterogeneous architecture of the right epididymis with mild hyperemia. Left testis: Maximum linear dimension 5.4 cm. Small hydrocele. Normal vascular flow. IMPRESSION: 1. Findings consistent with right epididymitis. 2. Small bilateral hydroceles. 3. Normal testes bilaterally The above report was generated using voice recognition software. It may contain grammatical, syntax or spelling errors. Electronically signed by: Jesse Stovall M.D. 06/26/2018 12:10 PM Blood Pressure Blood Pressure Findings: Low blood pressure Blood Pressure Disposition: further management by hospitalist [facility] Narrative This patient comes in as described above. he has had right testicular pain and swelling since last evening. it was very bad overnight and he saw his primary care provider who referred him here for possible testicular torsion. On exam, it is swollen and I think he most likely has epididymitis. there is no evidence suggest hernia he has not no fever or other systemic complaints. IV access established he was given morphine 2 mg IV and Zofran 4 mg IV. He is not driving. But work and urine was obtained I did an ultrasound as well. Upon reassessment he was feeling much better the pain was more controlled in his testicle. He did have a mild headache initially which is now gone as well. He is afebrile but his white count is elevated at 17. I did obtain blood work and blood cultures. Lactic acid was not significantly elevated. He does have some mild elevation of BUN and creatinine. His urinalysis also does appear possibly infected as well. He was given IV Rocephin for antibiotic coverage for UTI also epididymitis is ultrasound suggested this as well. Given his age and comorbidities as well as elevated white count and need for pain medicine, I do think he needs to be admitted/observed. I have consulted Dr. Junior from [facility] hospitalist group and he saw the patient ER for these measures. Impression & Plan Epididymitis, Urinary tract infection Discharge Plan Visit Data *Final* Discharge Date/Time: 06/26/18 14:25 Chief Complaint: Testicular Pain Stated Complaint: TESTICULAR PAIN ED Provider: Trenton Ernst Discharge Problem: Epididymitis, Urinary tract infection Patient Disposition: Being Evaluated by Hospitalist Condition: Good Discharge Instructions Interventions: ED Discharge Assessment Last Done: 06/26/18 14:25 The scribe's documentation has been prepared under my direction and personally reviewed by me in its entirety. I confirm that the note above accurately reflects all work, treatment, procedures, and medical decision making performed by me.
[2018-06-26 11:26] LABS: Basophils # (auto) 0.01 K/uL (0-0.2); Basophils % (auto) 0.1 %; Hematocrit (blood only) 42.2 % (42-52); Hemoglobin 15.1 g/dL (14.0-18.0); Immature Granulocytes # (auto) 0.07 K/uL (0.00-0.02); Immature Granulocytes % (auto) 0.4 %; Lymphocytes # (auto) 0.88 K/uL (1.2-3.4); Mean Corpuscular Hgb Conc 35.8 g/dL (32-36); Mean Corpuscular Volume 91.7 fL (80-100); Mean Platelet Volume 8.7 fL (7.4-10.4); Monocytes # (auto) 1.62 K/uL (0.11-0.59); Monocytes % (auto) 9.2 %; Neutrophils # (auto) 15.06 K/uL (1.4-6.5); Neutrophils % (auto) 85.3 %; Platelet Count 145 K/uL (130-400); RDW Coefficient of Variation 12.8 % (11.5-14.5); RDW Standard Deviation 42.6 fL (36.4-46.3); White Blood Count 17.64 K/uL (4.8-10.8)
[2018-06-26 11:43] LABS: Albumin Level 3.7 gm/dl (3.4-5.0); BUN Creatinine Ratio 15.3 (10-20); Calcium 9.8 mg/dl (8.5-10.1); Creatinine Clr Calc Pharmacy 32.9 ml/min; Est GFR (Non-African American) 43.1; Potassium 3.8 mmol/L (3.5-5.1)
[2018-06-26 11:45] LABS: Appearance Urine Cloudy (Clear); Bacteria Urine Automated 4+ (Negative); Bilirubin Urine Negative (Negative); Blood Urine 2+ (Negative); Color Urine Dark Yellow; Epithelial Cell Urine Auto 0-5 /lpf (0-5); Glucose Urine UA Negative (Negative); Ketones Urine Negative (Negative); Leukocyte Esterase Urine 3+ (Negative); Nitrite Urine Positive (Negative); Protein Urine Negative (Negative); Specific Gravity Urine 1.018 (1.000-1.030); Urobilinogen Urine Negative (Negative); WBC Urine Automated >30 /hpf (0-5)
[2018-06-26 11:46] LABS: Albumin Globulin Ratio 0.8 (0.9-2); Bilirubin,Total 1.2 mg/dl (0.2-1); Globulin 4.8 gm/dl (2.5-4.0); Total Protein 8.5 gm/dl (6.4-8.2)
--- NOTE | 2018-06-26 12:11 | Ultrasound Report ---
US scrotum/testicle HISTORY: Pain. Edema. rt test swelling COMPARISON: None. FINDINGS: Right testis: Maximum linear dimension 5.7 cm. Heterogeneous architecture of the right epididymis wit h mild hyperemia. Left testis: Maximum linear dimension 5.4 cm. Small hydrocele. Normal vascular flow. IMPRESSION: 1. Findings consistent with right epididymitis. 2. Small bilateral hydroceles. 3. Normal testes bilaterally The above report was generated using voice recognition software. It may contain grammatical, syntax or spelling errors. Electronically signed by: Jesse Stovall M.D. 06/26/2018 12:10 PM
[2018-06-26] MEDS ORDERED: cefTRIAXone SODIUM 1,000 MG in DEXTROSE 5% 50 ML IV STA (13:11)
[2018-06-26] MEDS ORDERED: SODIUM CHLORIDE 0.9% 1000ML 1,000 ML IV ONE (13:11)
[2018-06-26] MEDS ORDERED: cefTRIAXone SODIUM 1000MG/50ML D5W ONE (13:44)
[2018-06-26] MEDS ORDERED: MAGNESIUM HYDROXIDE SUSP 30 ML UDC PO PRN ×2 (13:51→15:51)
[2018-06-26] MEDS ORDERED: ACETAMINOPHEN 325 MG TAB PO PRN ×2 (13:51→15:51)
[2018-06-26] MEDS ORDERED: ALUMINUM/MAGNESIUM SUSP 30 ML UDC PO PRN ×2 (13:51→15:51)
[2018-06-26] MEDS ORDERED: ONDANSETRON INJ 2 MG/ML 2 ML VIAL IV PRN ×2 (13:51→15:51)
[2018-06-26] MEDS ORDERED: NAPROXEN 375 MG TAB PO PRN (15:51)
[2018-06-26] MEDS ORDERED: HYDROCODONE/ACETAMINOPHEN 7.5/325MG TAB PO PRN (15:51)
--- NOTE | 2018-06-26 16:21 | Medical Student H&P ---
Date of Service June 26, 2018 Mr. Wilde is an 82-year-old male with a pmhx of BPH, urethral stricture, ulcerative colitis, HTN, hypercholesterolemia, lumbar disc degeneration and mild dementia who presented to the [facility] ED with a c/o right testicular pain and pain with urination. #Right testicular pain-pain began yesterday at 3:30 pm and became worse over the course of the night. He stated that his pain was a 12/10. He described it as pulsating and then became more constant. It is worse with walking. He took hydrocodone prescribed for his lumbar disc generation and his gave him 2 Aleeves which did not relieve the pain. He notes that the ED gave him a shot of morphine, which helped. He denies fevers but reports feeling chilled last night. He also reports having a headache last night. He notes that he has diffuse abdominal pain, but this is constant and due to his UC. He also has back pain from lumbar degeneration and does not note any new quality to the pain. No nausea or vomiting. He denies having had these symptoms before. Pain with urination-he notes burning with urination and urgency. He has trouble starting a stream and has mild dribbling and incontinence on his way to the bathroom. He denies any blood in his urine or new onset flank pain. Pt. was hospitalized on 05/05/2018 for a UTI. He was first tried on Cipro, Levaquin and u ltimately completed a 10 day course of Cefdinir based on his culture results which was positive for E. coli. Pt mentions that he never felt completely back to normal after having finished the course of antibiotics to now but is unsure about the exact timeline of these sx. Additionally, he denies any feelings of pressure in his rectum or prostate area. Assessment & Plan (1) Urinary tract infection: To clarifyepididymitis with leukocytosis (see attending attestation below) Pt's complaint of dysuria, urgency and frequency, pmhx of BPH and urinary stricture as well as positive leukocyte esterase, nitrites, and blood in urine point to UTI infection. Absence of new back pain, nausea or vomiting rule out pyelonephritis. Pt. also has h/o UTIs which grew e.coli. Given age group and past infection can treat as such. His last cultures were resistant to Cipro and Levaquin and so Bactrim would be good alternative. Pt. also has epididymitis as confirmed by ultrasound as well as physical exam which leads to longer course of abx. Negative prostate exam makes prostatitis unlikely. -Bactrim called to pharmacy. Take b.i.d for 2 weeks. -Patient was given a script to get CBC and BMP prior to making appt with PCP -Make appointment and follow up with PCP on Monday or early next week -Can elevate scrotum when sitting or lying to reduce pain and welling Hematuria presence: without hematuria Urinary tract infection type: acute cystitis Qualified Code(s): N30.00 - Acute cystitis without hematuria (2) Epididymitis: History of Present Illness Primary Care Provider: Rica Chavez DO Allergies Allergy/AdvReac Type Severity Reaction Status Date / Time No Known Allergies Allergy Verified 06/26/18 11:23 Home Medications Home Medications Medication Instructions Recorded Confirmed Type Humira 1 dose SUBCUT UD 05/05/18 06/26/18 History atorvastatin 20 mg PO QAM 05/05/18 06/26/18 History docusate sodium [Colace] 100 mg PO BID 05/05/18 06/26/18 History memantine 5 mg PO BID 05/05/18 06/26/18 History pantoprazole [Protonix] 40 mg PO QAM 05/05/18 06/26/18 History tamsulosin [Flomax] 0.4 mg PO QAM 05/05/18 06/26/18 History amlodipine 2.5 mg PO BID 06/26/18 06/26/18 History cholecalciferol (vitamin D3) 0 unit PO QDL 06/26/18 06/26/18 History [Vitamin D3] cyanocobalamin (vitamin B-12) 0 mcg PO QDL 06/26/18 06/26/18 History [Vitamin B-12] hydrocodone-acetaminophen 1 tab PO BID PRN 06/26/18 06/26/18 History naproxen sodium [Aleve] 440 mg PO Q12H PRN 06/26/18 06/26/18 History olmesartan 40 mg PO QAM 06/26/18 06/26/18 History sulfamethoxazole-trimethoprim 1 tab PO BID 14 Days #28 tab 06/26/18 Rx [Bactrim] Past Med/Surg History Medical History HTN (hypertension) (Chronic) Heart disease (Chronic) Social History Preferred Language: Armenian Beliefs That Will Affect Care: Jew Current Living Situation: Spouse Other Information That Helps Us Care for You: No Feels Safe at Home: Yes Safety Concerns: Feels Safe At This Time Smoking Status: Never smoker Hx Alcohol Use: No Hx Substance Use: No Review of Systems All systems reviewed & are unremarkable except as noted in HPI & below Physical Exam Vital Signs (Past 24 Hours): Last Vital Signs Temp 36.5 C 06/26/18 15:35 Pulse 84 06/26/18 15:35 Resp 18 06/26/18 15:35 BP 149/69 H 06/26/18 15:35 Pulse Ox 97 06/26/18 15:35 Constitutional: WD/WN, vitals as above Eyes: PERRL, conjunctivae normal, anicteric sclerae Respiratory: normal respiratory effort, lungs clear to auscultation Cardiovascular: RRR, no murmur, no edema Faint heart sounds Gastrointestinal (Abdomen): normal bowel sounds, soft, nontender, no hepatosplenomegaly Musculoskeletal: no cyanosis or clubbing, extremities motor strength 5/5 Skin: no rashes, warm and dry Psychiatric: A+Ox3, euthymic affect Genitourinary: Right testicle and epididymis is moderately swollen and tender. Bilateral erythema of scrotum. Prostate exam was negative. Supervising Attestation I personally examined the patient and verified all singh points of history and exam, discussed case, and agree with decision making with Arnulfo Ruiz [id number] Right testicular pain starting over the last couple days and worsening. He has a hard time telling if he ever truly get better from his urinary tract infection in April. On certain lines of questioning it sounds like he had a period of a few weeks in between where he was feeling okay, other lines of questioning it sounds like a degree of urinary urgency and/or hesitancy persisted since He does feel okay with the idea of going home with close outpatient follow-up. Review of systems otherwise negative except for as above In general he is awake and alert pleasant no distress. HEENT normal cephalic atraumatic mucous members are moist. Breathing is unlabored no accessory muscle use. Skin shows no rashes no pallor or icterus. No diaphoresis. Genitourinary exam shows a degree of a reddened scrotum without any notable tenderness and no crepitus. It seems this is probably improved from even earlier, based on prior descriptions. Rectal exam shows a somewhat enlarged prostate that feels nonnodular, is not boggy and is not tender. Patient tolerated well. Stool is brown. Neuro shows no focal deficits. Epididymitis with leukocytosisER had concerns about admission due to the patient's age and leukocytosis, fortunately after a dose of Rocephin it seems like he is already starting to get better. In review of the guidelines given that if fluoroquinolone would not be safe and less its last option given his risk for aneurysmal disease, will utilize Bactrim renal dosing for approximately 14 days. Will ask for him to be seen by urology in follow-up, as well he does not have symptoms or exam findings consistent with prostatitis, his to urinary tract infections in fairly short order with question of whether or not he actually felt better in between does beg the question of could there be a degree of prostatitis at play. At this point will treat with the Bactrim for 2 weeks, but if needed it can be extended further. He is stable for discharge. We will ask that he have a basic metabolic panel and CBC done in the near future to follow his leukocytosis, and follow his renal function on Bactrim. He does appear to have probably CKD stage III which is chronic and stable. He is stable for discharge to home.
[2018-06-26] MEDS ORDERED: DOCUSATE SODIUM 100 MG CAP PO SCH (21:00)
[2018-06-26] MEDS ORDERED: AMLODIPINE BESYLATE 5 MG TAB PO SCH (21:00)
[2018-06-27] MEDS ORDERED: ATORVASTATIN 20 MG TAB PO SCH (09:00)
[2018-06-27] MEDS ORDERED: OLMESARTAN MEDOXOMIL 40 MG TAB PO SCH (09:00)
[2018-06-27] MEDS ORDERED: PANTOprazole 40 MG TAB PO SCH (09:00)
[2018-06-27] MEDS ORDERED: TAMSULOSIN HCL 0.4 MG CAP PO SCH (09:00)
--- NOTE | 2018-06-30 20:18 | Discharge Summary ---
Date of Service June 30, 2018 Principal Diagnosis epididymitis Discharge Data Allergies Allergy/AdvReac Type Severity Reaction Status Date / Time No Known Allergies Allergy Verified 06/26/18 11:23 Consultations 06/26/18 14:05 ED Decision to Admit Stat Ordered Studies 06/26/18 10:57 US scrotum/testicle Stat Hospital Course (1) Urinary tract infection: To clarifyepididymitis with leukocytosis (see attending attestation below) Pt's complaint of dysuria, urgency and frequency, pmhx of BPH and urinary stricture as well as positive leukocyte esterase, nitrites, and blood in urine point to UTI infection. Absence of new back pain, nausea or vomiting rule out pyelonephritis. Pt. also has h/o UTIs which grew e.coli. Given age group and past infection can treat as such. His last cultures were resistant to Cipro and Levaquin and so Bactrim would be good alternative. Pt. also has epididymitis as confirmed by ultrasound as well as physical exam which leads to longer course of abx. Negative prostate exam makes prostatitis unlikely. -Bactrim called to pharmacy. Take b.i.d for 2 weeks. -Patient was given a script to get CBC and BMP prior to making appt with PCP -Make appointment and follow up with PCP on Monday or early next week -Can elevate scrotum when sitting or lying to reduce pain and welling (2) Epididymitis: Total Time Total Time Spent Total Time Spent (In Minutes): >30 Discharge Plan Discharge Items Patient Disposition: Home - Self-Care Reason For Visit: TESTICULAR PAIN Discharge Diagnosis: Epidydmitis Condition: Good Discharge Goals: Decrease discomfort and Diagnostic testing Activity: Resume your previous activity Non-emergency contact: Primary Care Provider and Urologist Call non-emergency contact if: your symptoms worsen and your pain is not controlled Follow-up/Referrals: Rica Chavez, [Primary Care Provider] - Diet: Heart Healthy Addtl Provider Instructions: You have been diagnosed with an infection of your epididymis. 1) Please slate picker your antibiotic from the pharmacy and take it as prescribed 2) We will give you a prescription to get blood work done. Please get this blood work done prior to seeing your PCP later this week 3) Please phone your PCP tomorrow to make an appointment for later this week. If she feels like you need to see a urologist then you can get her to organize this for you. 4) Please continue to drink plenty of fluids as this will help clear your infection 5) If you have worsening pain, fever, chills or nausea then please return to the hospital Prescriptions: New sulfamethoxazole-trimethoprim [Bactrim] 400-80 mg tablet 1 tab PO BID 14 Days Qty: 28 RF: 0 Continued atorvastatin 20 mg Tablet 20 mg PO QAM RF: 0 tamsulosin [Flomax] 0.4 mg Capsule 0.4 mg PO QAM RF: 0 pantoprazole [Protonix] 40 mg Tablet,Delayed Release (Dr/Ec) 40 mg PO QAM RF: 0 docusate sodium [Colace] 100 mg Capsule 100 mg PO BID RF: 0 Humira 10 mg/0.2 mL Syringe Kit 1 dose SUBCUT UD RF: 0 memantine 5 mg tablet 5 mg PO BID RF: 0 cyanocobalamin (vitamin B-12) [Vitamin B-12] 1,000 mcg Tablet PO QDL RF: 0 amlodipine 2.5 mg tablet 2.5 mg PO BID RF: 0 hydrocodone-acetaminophen 7.5-325 mg tablet 1 tab PO BID PRN (Reason: Pain) RF: 0 naproxen sodium [Aleve] 220 mg Tablet 440 mg PO Q12H PRN (Reason: Pain) RF: 0 cholecalciferol (vitamin D3) [Vitamin D3] 1,000 unit Capsule PO QDL RF: 0 olmesartan 40 mg tablet 40 mg PO QAM RF: 0 Stand-Alone Forms: [facility]/Other Patient Handouts: Epididymitis Dc Discharge Orders: Discharge Order (Routine); Ordered 06/26/18 Ordered By: Raymond Del Cid Admission Data Admit Date/Time: 06/26/18 14:01 Attending Provider: Italo Aviles Admit Provider: Raymond Del Cid Primary Care Provider: Rica Chavez Other Providers: Andrew Junior Service: Medical Other Interventions: Discharge Summary Assessment (RN) Last Done: 06/26/18 18:58 DC Date/Time DO NOT enter until pt leaves facility: 06/26/18 19:13 Supervising Physician Co-Signing Physician Notes see H&P for more details - seen and then discharged home same visit
== END 2018-06-26 19:13 | disposition home or self-care (01) ==
LOC: 4W 10:41 → ED 10:41 → 4W 14:25

== ENCOUNTER 2018-10-22 09:22 | Observation (INO) ==
[2018-10-22] MEDS ORDERED: methylPREDNISolone 60 MG in SYRINGE 1 ML IV STA (09:54)
[2018-10-22] MEDS ORDERED: MECLIZINE HCL 25 MG TAB PO STA (09:54)
[2018-10-22] MEDS ORDERED: DiphenhydrAMINE HCL 50 MG/ML VIAL IV STA (09:54)
[2018-10-22] MEDS ORDERED: SODIUM CHLORIDE 0.9% 250 ML IV ONE (09:54)
[2018-10-22] MEDS ORDERED: SODIUM CHLORIDE 0.9% 1000ML 1,000 ML IV ONE (10:44)
[2018-10-22 10:53] LABS: Basophils # (auto) 0.01 K/uL (0-0.2); Basophils % (auto) 0.1 %; Eosinophils # (auto) 0.07 K/uL (0-0.5); Hematocrit (blood only) 42.2 % (42-52); Hemoglobin 15.1 g/dL (14.0-18.0); Immature Granulocytes # (auto) 0.01 K/uL (0.00-0.02); Immature Granulocytes % (auto) 0.1 %; Lymphocytes # (auto) 1.16 K/uL (1.2-3.4); Lymphocytes % (auto) 17.2 %; Mean Corpuscular Hgb Conc 35.8 g/dL (32-36); Mean Corpuscular Volume 90.2 fL (80-100); Mean Platelet Volume 8.7 fL (7.4-10.4); Monocytes # (auto) 0.65 K/uL (0.11-0.59); Monocytes % (auto) 9.6 %; Neutrophils # (auto) 4.86 K/uL (1.4-6.5); Platelet Count 136 K/uL (130-400); RDW Coefficient of Variation 12.4 % (11.5-14.5); RDW Standard Deviation 40.8 fL (36.4-46.3); Red Blood Count 4.68 M/uL (4.7-6.1); White Blood Count 6.76 K/uL (4.8-10.8)
[2018-10-22 11:10] LABS: Alanine Aminotransferase 18 U/L (12-78); Albumin Level 3.7 gm/dl (3.4-5.0); BUN Creatinine Ratio 14.5 (10-20); Blood Urea Nitrogen 21 mg/dl (7-18); Calcium 9.3 mg/dl (8.5-10.1); Carbon Dioxide 27 mmol/L (21-32); Chloride 104 mmol/L (98-107); Creatinine Clr Calc Pharmacy 34.7 ml/min; Est GFR (African American) 51.8; Est GFR (Non-African American) 44.7; Glucose 104 mg/dl (70-99); Potassium 4.3 mmol/L (3.5-5.1); Sodium 139 mmol/L (136-145)
[2018-10-22 11:20] LABS: Partial Thromboplastin Ratio 0.9; Partial Thromboplastin Time 24.1 Seconds (21.0-31.0); Prothrombin Time 10.7 Seconds (9.0-12.0)
[2018-10-22 11:26] LABS: Alkaline Phosphatase 70 U/L (45-117); Aspartate Aminotransferase 14 U/L (15-37); Bilirubin,Total 0.7 mg/dl (0.2-1); Globulin 3.7 gm/dl (2.5-4.0); Total Protein 7.4 gm/dl (6.4-8.2); Troponin I < 0.015 ng/ml (0-0.045)
--- NOTE | 2018-10-22 11:30 | CT Scan Report ---
CT SCAN OF THE BRAIN WITHOUT IV CONTRAST CLINICAL HISTORY: Vertigo. COMPARISON STUDY: CT of the brain dated 03/02/2016. TECHNIQUE: Unenhanced axial CT scan of the brain is performed from the vertex to the skull base. A do se lowering technique was utilized adhering to the principles of ALARA. CT DOSE: 537.48 mGy.cm FINDINGS: Brain parenchyma: There are age-related involutional changes noting moderate subcortical and periven tricular microangiopathic change. There is no hemorrhage, mass effect, or evidence of acute territori al ischemia by CT criteria. 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 Gr ay-white matter differentiation is preserved. No extra-axial fluid collection is seen. Ventricles, sulci, cisterns: Prominent secondary to involutional change. Intracranial vasculature: There is atherosclerotic calcification of the cavernous carotid and vertebr al arteries. Calvarium: Unremarkable. Sinuses and mastoids: The visualized paranasal sinuses are clear. The mastoid air cells are well pneu matized. Orbits: The bony orbits are grossly intact. There are bilateral ocular lens implants. IMPRESSION: There is no hemorrhage, mass effect, or evidence of acute territorial ischemia by CT rudi dooley. Electronically signed by: Pawel Scott M.D. 10/22/2018 11:28 AM
[2018-10-22] MEDS ORDERED: HydrALAZINE HCL 20 MG/ML VIAL IV STA (11:51)
[2018-10-22] MEDS ORDERED: ONDANSETRON INJ 2 MG/ML 2 ML VIAL IV STA (11:51)
[2018-10-22] MEDS ORDERED: LORazepam 0.5 MG/1 ML VIAL IV STA (11:54)
[2018-10-22 12:24] LABS: Appearance Urine Cloudy (Clear); Bacteria Urine Automated Negative (Negative); Bilirubin Urine Negative (Negative); Blood Urine Negative (Negative); Cast Urine Automated 0 /lpf (0-5); Color Urine Yellow; Epithelial Cell Urine Auto 0-5 /lpf (0-5); Glucose Urine UA Negative (Negative); Ketones Urine Negative (Negative); Leukocyte Esterase Urine Negative (Negative); Nitrite Urine Negative (Negative); Protein Urine Negative (Negative); RBC Urine Automated 0-4 /hpf (0-4); Specific Gravity Urine 1.016 (1.000-1.030); Urobilinogen Urine Negative (Negative)
--- NOTE | 2018-10-22 14:10 | History & Physical Report ---
Date of Service October 22, 2018 Assessment & Plan (1) BPPV (benign paroxysmal positional vertigo): Admit to observation on telemetry Vital signs every 4 hours Continue meclizine QID Continue Benadryl as needed Neurology consult MRI brain MRA head pending DVT prophylaxis with heparin 5000 units every 12 Full code Present on Admission?: Yes (2) Visual disturbance: Consult ophthalmology for diplopia. Possibly due to middle cerebral artery aneurysm. Not clear etiology. 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 Neurology consult pending Present on Admission?: Yes (5) Hypercholesterolemia: Stable continue atorvastatin 40 mg p.o. daily Present on Admission?: Yes (6) Coronary artery disease: Stable continue aspirin, amlodipine 2.5 mg tablet, losartan 100 mg tablet, nitroglycerin 0.4 mg sublingual. Present on Admission?: Yes (7) HTN (hypertension): As the above. Heart healthy low-sodium diet Present on Admission?: Yes History of Present Illness Chief Complaint: severe vertigo Primary Care Provider: Rica Chavez DO Patient is 83 years old male with a past medical history of hypertension, aortic stenosis benign positional vertigo, dementia, coronary artery disease, was brought by his for severe vertigo that has been ongoing since Monday it is not improving. Patient white. patient has double vision. And that is also worsening. Patient does not have any other complaint is resting in the bed and he is cooperative alert and oriented x3. Patient is hard of hearing. Good p.o. intake. Patient said the situation improved since he had meclizine earlier this morning given by the ER physician. Labs are reviewed levels on cells count 6.76, hemoglobin 15.1 hematocrit 42.2 platelets 136 , PT 10.7 INR 1.0 APTT 24.1 , sodium 139 potassium 4.3 chloride 104 anion gap 8 BUN 21 creatinine 1.43 GFR 34.7 BUN/creatinine 14.5 magnesium 2 calcium 9.3 AST 14 ALT 18 patient sinus rhythm with occasional Premature ventricular complexes, troponin [address] of the head there is no hemorrhaging, mass affect or evidence of acute territorial ischemia by the CT criteria. EKG: Sinus rhythm with occasional premature ventricular complexes. Allergies Allergy/AdvReac Type Severity Reaction Status Date / Time No Known Allergies Allergy Verified 10/22/18 10:56 Home Medications Home Medications Medication Instructions Recorded Confirmed Type adalimumab 10 mg/0.2 mL 10 mg SUBCUT UD #2 ea 09/17/18 10/22/18 Rx subcutaneous syringe kit amlodipine 2.5 mg tablet 2.5 mg PO BID #60 tab 09/17/18 10/22/18 Rx aspirin 325 mg tablet 325 mg PO DAILY #30 tab 09/17/18 10/22/18 Rx atorvastatin 40 mg tablet 40 mg PO DAILY #30 tab 09/17/18 10/22/[address]-ER 9 mg 9 mg PO DAILY #30 ea 09/17/18 10/22/18 Rx tablet,delayed and extended release cholecalciferol (vitamin D3) 5,000 5,000 units PO DAILY #30 tab 09/17/1810/22 Rx unit tablet docusate sodium 100 mg capsule 100 mg PO BID #30 cap 09/17/18 10/22/18 Rx hydrocodone 7.5 mg-acetaminophen 1 tab PO BID PRN #30 tab 09/17/18 10/22/18 Rx 325 mg tablet losartan 100 mg tablet 100 mg PO DAILY #30 tab 09/17/18 10/22/18 Rx naproxen sodium 220 mg tablet 440 mg PO Q12H PRN #60 tab 09/17/18 10/22/18 Rx nitroglycerin 0.4 mg sublingual 0.4 mg SL .COMPLEX PRN #90 tab 09/17/18 10/22/18 Rx tablet pantoprazole 40 mg tablet,delayed 40 mg PO QAM #30 tab 09/17/18 10/22/18 Rx release propylene glycol 0.6 % eye drops 1 drops OP DAILY #10 ml 09/17/18 10/22/18 Rx tamsulosin 0.4 mg capsule 0.4 mg PO QAM #30 cap 09/17/18 10/22/18 Rx tolterodine 2 mg tablet 2 mg PO BID #60 tab 09/17/18 10/22/18 Rx Past Med/Surg History Medical History Chronic kidney disease, stage 3 (moderate) Urethral stricture Thrombocytopenia Hearing loss 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, left eye Vitamin D deficiency Urge incontinence of urine Ulcerative colitis Secondary hyperparathyroidism Osteoporosis Middle cerebral artery aneurysm Lumbar degenerative disc disease Hypercholesterolemia Dementia Coronary artery disease Benign prostatic hyperplasia with urinary obstruction BPPV (benign paroxysmal positional vertigo) Aortic stenosis Acid reflux Kidney stones HTN (hypertension) HTN (hypertension) (Chronic) Heart disease (Chronic) Renal insufficiency Surgical History H/O aortic valve replacement History of appendectomy History of cataract surgery History of cholecystectomy History of colon surgery Family History Other Breast cancer Hypertension Social History Preferred Language: Brazilian Communication Ability: Impaired Brake Mechanic Required: No Beliefs That Will Affect Care: Restoration Restoration Beliefs: "I'm a believer" Current Living Situation: Spouse Other Information That Helps Us Care for You: No Feels Safe at Home: Yes Safety Concerns: Feels Safe At This Time Smoking Status: Never smoker Second Hand Exposure: No ; Hx Alcohol Use: No Hx Substance Use: No Seatbelt Use: always Review of Systems Review of Systems: All systems reviewed & are unremarkable except as noted in HPI & below Physical Exam Constitutional: WD/WN, vitals as above well developed and + frail appearing Eyes: PERRL, conjunctivae normal, anicteric sclerae ENMT: external ear and nose normal, oropharynx normal (Hard of hearing) Neck: trachea midline, no thyromegaly Respiratory: normal respiratory effort, lungs clear to auscultation Cardiovascular: RRR, no murmur, no edema Chest (Breasts): normal inspection/palpation of breasts Gastrointestinal (Abdomen): normal bowel sounds, soft, nontender, no hepatosplenomegaly Musculoskeletal: no cyanosis or clubbing, extremities motor strength 5/5 Skin: no rashes, warm and dry Neurologic: PERRL, EOMI, accommodation nl, no face palsy, no dysarthria awake Gait: + ataxic gait Coordination: + abnormal [id number] test Alert and oriented x3 cooperative. Psychiatric: A+Ox3, euthymic affect Genitourinary: no testicular masses, no penis abnormality Lymphatic: no cervical or axillary lymphadenopathy Results & Data Vital Signs (Past 12 Hours) Vital Signs Temp Pulse Pulse Resp BP BP Pulse Ox 10/22/18 13:30 85 21 93 10/22/18 13:25 85 20 92 10/22/18 13:20 84 21 92 10/22/18 13:15 85 22 93 10/22/18 13:10 89 25 H 96 10/22/18 13:05 97 H 19 94 10/22/18 13:00 87 14 161/88 H 95 10/22/18 12:55 87 23 95 10/22/18 12:50 85 20 94 10/22/18 12:45 83 21 94 10/22/18 12:40 81 15 96 10/22/18 12:35 88 21 94 10/22/18 12:30 83 19 138/80 94 10/22/18 12:25 84 17 94 10/22/18 12:20 80 19 95 10/22/18 12:17 79 18 161/69 H 94 10/22/18 12:15 74 18 93 10/22/18 12:11 77 19 150/75 H 92 10/22/18 12:10 69 18 94 10/22/18 12:07 73 21 176/81 H 95 10/22/18 12:05 70 19 95 10/22/18 12:00 71 20 169/78 H 95 10/22/18 11:55 72 23 96 10/22/18 11:51 72 19 95 10/22/18 11:49 74 79 19 203/88 H 203/88 H 97 10/22/18 11:48 82 16 201/83 H 97 10/22/18 11:45 66 14 96 10/22/18 11:40 74 15 97 10/22/18 11:35 70 19 10/22/18 11:30 89 84 22 167/88 H 94 10/22/18 11:28 75 23 10/22/18 11:10 76 18 95 10/22/18 11:05 73 19 97 10/22/18 11:00 73 19 162/85 H 95 10/22/18 10:56 79 80 18 167/88 H 167/88 H 94 10/22/18 10:55 79 18 95 10/22/18 10:50 79 18 93 10/22/18 10:45 76 17 94 10/22/18 10:40 82 27 H 93 10/22/18 10:39 77 18 144/82 H 93 10/22/18 10:38 76 24 144/82 H 93 10/22/18 10:37 72 18 95 10/22/18 10:35 82 15 117/91 95 10/22/18 10:34 70 19 93 10/22/18 10:33 77 21 91 10/22/18 10:32 80 19 93 10/22/18 10:31 76 19 97 10/22/18 10:30 82 20 98 10/22/18 10:29 80 19 96 10/22/18 10:28 74 19 93 10/22/18 10:26 74 21 158/74 H 97 10/22/18 09:24 36.3 C L 94 H 20 164/84 H 99 Code Status & VTE Plan Code Status Full code VTE Prophylaxis Plan VTE Prophylaxis will be ordered: Yes PG Care Time/CCT Total # of Minutes Spent Total Time Spent with Patient: Total time spent is greater than 50% in coordination of care (as documented) at patient's floor/unit and/or counseling patient:
[2018-10-22] MEDS ORDERED: LORazepam 1 MG/2 ML VIAL IV STA (14:35)
--- NOTE | 2018-10-22 14:42 | Emergency Department Note ---
Entered by Caridad Pérez acting as a scribe for History of Present Illness General Chief complaint: Vertigo Stated complaint: DIZZY Time Seen by Provider: 10/22/18 09:40 Source: patient and family () Mode of arrival: wheelchair Limitations: no limitations History of Present Illness Onset (ago): day(s) 2 Location: head Radiation: non-radiation Pain Consistency: + constant Maximum Pain Intensity: 0 Exacerbated By: + movement (positional changes) Associated symptoms: + nausea/vomiting (+nausea, -vomiting) Treatments prior to arrival: none The patient is an 83 year old male who presents to the ED with complaints of intermittent vertigo for the past 2 days. He states his symptoms started when he first laid down to go to bed 2 days ago. He describes seeing pictures on the wall of his home "going up and down". Positional changes worsen his symptoms and make him feel "unstable". His states his eyes "go back forth" during episodes of dizziness. The patient has been nauseous but has not vomited. He notes he has also experienced double vision, but states he has experienced vision issues since undergoing cataract surgery last year. He did see his eye doctor, Dr. Red, last week before his symptoms started and states he was referred to Dr. 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 The patient has never had a stroke before. He is not on daily blood thinners. His notes he has undergone valve replacement surgery and has [address]. The patient admits he has experienced vertigo in the past, but states "this is a lot worse than the first episode". Home Medications Home Medications Medication Instructions Recorded Confirmed Type adalimumab 10 mg/0.2 mL 10 mg SUBCUT UD #2 ea 09/17/18 10/22/18 Rx subcutaneous syringe kit amlodipine 2.5 mg tablet 2.5 mg PO BID #60 tab 09/17/18 10/22/18 Rx aspirin 325 mg tablet 325 mg PO DAILY #30 tab 09/17/18 10/22/18 Rx atorvastatin 40 mg tablet 40 mg PO DAILY #30 tab 09/17/18 10/22/[address]-ER 9 mg 9 mg PO DAILY #30 ea 09/17/18 10/22/18 Rx tablet,delayed and extended release cholecalciferol (vitamin D3) 5,000 5,000 units PO DAILY #30 tab 09/17/18 0 10/22/18 Rx unit tablet docusate sodium 100 mg capsule 100 mg PO BID #30 cap 09/17/18 10/22/18 Rx hydrocodone 7.5 mg-acetaminophen 1 tab PO BID PRN #30 tab 09/17/18 10/22/18 Rx 325 mg tablet losartan 100 mg tablet 100 mg PO DAILY #30 tab 09/17/18 10/22/18 Rx naproxen sodium 220 mg tablet 440 mg PO Q12H PRN #60 tab 09/17/18 10/22/18 Rx nitroglycerin 0.4 mg sublingual 0.4 mg SL .COMPLEX PRN #90 tab 09/17/18 10/22/18 Rx tablet pantoprazole 40 mg tablet,delayed 40 mg PO QAM #30 tab 09/17/18 10/22/18 Rx release propylene glycol 0.6 % eye drops 1 drops OP DAILY #10 ml 09/17/18 10/22/18 Rx tamsulosin 0.4 mg capsule 0.4 mg PO QAM #30 cap 09/17/18 10/22/18 Rx tolterodine 2 mg tablet 2 mg PO BID #60 tab 09/17/18 10/22/18 Rx Allergies Allergy/AdvReac Type Severity Reaction Status Date / Time No Known Allergies Allergy Verified 10/22/18 10:56 Past Med/Surg History Medical History Chronic kidney disease, stage 3 (moderate) Urethral stricture Thrombocytopenia Hearing loss 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, left eye Vitamin D deficiency Urge incontinence of urine Ulcerative colitis Secondary hyperparathyroidism Osteoporosis Middle cerebral artery aneurysm Lumbar degenerative disc disease Hypercholesterolemia Dementia Coronary artery disease Benign prostatic hyperplasia with urinary obstruction BPPV (benign paroxysmal positional vertigo) Aortic stenosis Acid reflux Kidney stones HTN (hypertension) HTN (hypertension) (Chronic) Heart disease (Chronic) Renal insufficiency Surgical History H/O aortic valve replacement History of appendectomy History of cataract surgery History of cholecystectomy History of colon surgery Family History Other Breast cancer Hypertension Social History Preferred Language: Syriac Communication Ability: Impaired Pharmacy District Manager Required: No Beliefs That Will Affect Care: Jain Jain Beliefs: "I'm a believer" Current Living Situation: Spouse Other Information That Helps Us Care for You: No Feels Safe at Home: Yes Safety Concerns: Feels Safe At This Time Smoking Status: Never smoker Second Hand Exposure: No ; Hx Alcohol Use: No Hx Substance Use: No Seatbelt Use: always Review of Systems See HPI for pertinent positives & negatives. and A total of 10 systems reviewed and were otherwise negative Physical Exam Vital Signs Vital Signs - 24 hr 10/22/18 09:24 10/22/18 10:26 10/22/18 10:27 Temperature 36.3 C L Temperature Source Oral Sepsis Recent Fever Within 48 Hours No Sepsis Action Taken by Nursing No Action Required Pulse Rate - Lying 77 Pulse Rate - Sitting 80 Pulse Rate 94 H 74 Pulse Rate [Apical] Pulse Rate from SpO2 Sensor 73 Pulse Rhythm [Apical] Pulse Strength [Apical] Respiratory Rate 20 21 Respiratory Effort / Characteristics Non-Labored Respiratory Depth Normal Respiratory Pattern Blood Pressure - Lying 158/74 H Blood Pressure - Sitting 117/91 Blood Pressure 164/84 H 158/74 H Blood Pressure [Left Arm] Blood Pressure Mean 110 102 Blood Pressure Mean [Left Arm] Blood Pressure Position [Left Arm] Pulse Oximetry 99 97 Oxygen Delivery Method Room Air Oxygen Flow Rate 10/22/18 10:28 10/22/18 10:29 10/22/18 10:30 Temperature Temperature Source Sepsis Recent Fever Within 48 Hours Sepsis Action Taken by Nursing Pulse Rate - Lying Pulse Rate - Sitting Pulse Rate 74 80 82 Pulse Rate [Apical] Pulse Rate from SpO2 Sensor 72 80 79 Pulse Rhythm [Apical] Pulse Strength [Apical] Respiratory Rate 19 19 20 Respiratory Effort / Characteristics Respiratory Depth Respiratory Pattern Blood Pressure - Lying Blood Pressure - Sitting Blood Pressure Blood Pressure [Left Arm] Blood Pressure Mean Blood Pressure Mean [Left Arm] Blood Pressure Position [Left Arm] Pulse Oximetry 93 96 98 Oxygen Delivery Method Oxygen Flow Rate 10/22/18 10:31 10/22/18 10:32 10/22/18 10:33 Temperature Temperature Source Sepsis Recent Fever Within 48 Hours Sepsis Action Taken by Nursing Pulse Rate - Lying Pulse Rate - Sitting Pulse Rate 76 80 77 Pulse Rate [Apical] Pulse Rate from SpO2 Sensor 74 75 76 Pulse Rhythm [Apical] Pulse Strength [Apical] Respiratory Rate 19 19 21 Respiratory Effort / Characteristics Respiratory Depth Respiratory Pattern Blood Pressure - Lying Blood Pressure - Sitting Blood Pressure Blood Pressure [Left Arm] Blood Pressure Mean Blood Pressure Mean [Left Arm] Blood Pressure Position [Left Arm] Pulse Oximetry 97 93 91 Oxygen Delivery Method Oxygen Flow Rate 10/22/18 10:34 10/22/18 10:35 10/22/18 10:37 Temperature Temperature Source Sepsis Recent Fever Within 48 Hours Sepsis Action Taken by Nursing Pulse Rate - Lying Pulse Rate - Sitting Pulse Rate 70 82 72 Pulse Rate [Apical] Pulse Rate from SpO2 Sensor 71 80 75 Pulse Rhythm [Apical] Pulse Strength [Apical] Respiratory Rate 19 15 18 Respiratory Effort / Characteristics Respiratory Depth Respiratory Pattern Blood Pressure - Lying Blood Pressure - Sitting Blood Pressure 117/91 Blood Pressure [Left Arm] Blood Pressure Mean 99 Blood Pressure Mean [Left Arm] Blood Pressure Position [Left Arm] Pulse Oximetry 93 95 95 Oxygen Delivery Method Oxygen Flow Rate 10/22/18 10:38 10/22/18 10:39 10/22/18 10:40 Temperature Temperature Source Sepsis Recent Fever Within 48 Hours Sepsis Action Taken by Nursing Pulse Rate - Lying Pulse Rate - Sitting Pulse Rate 76 82 Pulse Rate [Apical] 77 Pulse Rate from SpO2 Sensor 76 70 Pulse Rhythm [Apical] Regular Pulse Strength [Apical] Normal Respiratory Rate 24 18 27 H Respiratory Effort / Characteristics Non-Labored Spontaneous Respiratory Depth Normal Respiratory Pattern Regular Blood Pressure - Lying Blood Pressure - Sitting Blood Pressure 144/82 H Blood Pressure [Left Arm] 144/82 H Blood Pressure Mean 102 Blood Pressure Mean [Left Arm] 102 Blood Pressure Position [Left Arm] Lying Pulse Oximetry 93 93 93 Oxygen Delivery Method Room Air Oxygen Flow Rate 10/22/18 10:45 10/22/18 10:50 10/22/18 10:55 Temperature Temperature Source Sepsis Recent Fever Within 48 Hours Sepsis Action Taken by Nursing Pulse Rate - Lying Pulse Rate - Sitting Pulse Rate 76 79 79 Pulse Rate [Apical] Pulse Rate from SpO2 Sensor 66 76 77 Pulse Rhythm [Apical] Pulse Strength [Apical] Respiratory Rate 17 18 18 Respiratory Effort / Characteristics Respiratory Depth Respiratory Pattern Blood Pressure - Lying Blood Pressure - Sitting Blood Pressure Blood Pressure [Left Arm] Blood Pressure Mean Blood Pressure Mean [Left Arm] Blood Pressure Position [Left Arm] Pulse Oximetry 94 93 95 Oxygen Delivery Method Oxygen Flow Rate 10/22/18 10:56 10/22/18 11:00 10/22/18 11:05 Temperature Temperature Source Sepsis Recent Fever Within 48 Hours Sepsis Action Taken by Nursing Pulse Rate - Lying Pulse Rate - Sitting Pulse Rate 79 73 73 Pulse Rate [Apical] 80 Pulse Rate from SpO2 Sensor 74 72 74 Pulse Rhythm [Apical] Regular Pulse Strength [Apical] Normal Respiratory Rate 18 19 19 Respiratory Effort / Characteristics Non-Labored Spontaneous Respiratory Depth Normal Respiratory Pattern Regular Blood Pressure - Lying Blood Pressure - Sitting Blood Pressure 167/88 H 162/85 H Blood Pressure [Left Arm] 167/88 H Blood Pressure Mean 114 110 Blood Pressure Mean [Left Arm] 114 Blood Pressure Position [Left Arm] Lying Pulse Oximetry 94 95 97 Oxygen Delivery Method Room Air Oxygen Flow Rate 10/22/18 11:10 10/22/18 11:28 10/22/18 11:30 Temperature Temperature Source Sepsis Recent Fever Within 48 Hours Sepsis Action Taken by Nursing Pulse Rate - Lying Pulse Rate - Sitting Pulse Rate 76 75 89 Pulse Rate [Apical] 84 Pulse Rate from SpO2 Sensor 70 Pulse Rhythm [Apical] Regular Pulse Strength [Apical] Normal Respiratory Rate 18 23 22 Respiratory Effort / Characteristics Non-Labored Spontaneous Respiratory Depth Normal Respiratory Pattern Regular Blood Pressure - Lying Blood Pressure - Sitting Blood Pressure Blood Pressure [Left Arm] 167/88 H Blood Pressure Mean Blood Pressure Mean [Left Arm] 114 Blood Pressure Position [Left Arm] Lying Pulse Oximetry 95 94 Oxygen Delivery Method Room Air Oxygen Flow Rate 10/22/18 11:35 10/22/18 11:40 10/22/18 11:45 Temperature Temperature Source Sepsis Recent Fever Within 48 Hours Sepsis Action Taken by Nursing Pulse Rate - Lying Pulse Rate - Sitting Pulse Rate 70 74 66 Pulse Rate [Apical] Pulse Rate from SpO2 Sensor 73 65 Pulse Rhythm [Apical] Pulse Strength [Apical] Respiratory Rate 19 15 14 Respiratory Effort / Characteristics Respiratory Depth Respiratory Pattern Blood Pressure - Lying Blood Pressure - Sitting Blood Pressure Blood Pressure [Left Arm] Blood Pressure Mean Blood Pressure Mean [Left Arm] Blood Pressure Position [Left Arm] Pulse Oximetry 97 96 Oxygen Delivery Method Oxygen Flow Rate 10/22/18 11:48 10/22/18 11:49 10/22/18 11:51 Temperature Temperature Source Sepsis Recent Fever Within 48 Hours Sepsis Action Taken by Nursing Pulse Rate - Lying Pulse Rate - Sitting Pulse Rate 82 74 72 Pulse Rate [Apical] 79 Pulse Rate from SpO2 Sensor 81 75 72 Pulse Rhythm [Apical] Regular Pulse Strength [Apical] Normal Respiratory Rate 16 19 19 Respiratory Effort / Characteristics Non-Labored Spontaneous Respiratory Depth Normal Respiratory Pattern Regular Blood Pressure - Lying Blood Pressure - Sitting Blood Pressure 201/83 H 203/88 H Blood Pressure [Left Arm] 203/88 H Blood Pressure Mean 122 126 Blood Pressure Mean [Left Arm] 126 Blood Pressure Position [Left Arm] Lying Pulse Oximetry 97 97 95 Oxygen Delivery Method Room Air Oxygen Flow Rate 10/22/18 11:55 10/22/18 12:00 10/22/18 12:05 Temperature Temperature Source Sepsis Recent Fever Within 48 Hours Sepsis Action Taken by Nursing Pulse Rate - Lying Pulse Rate - Sitting Pulse Rate 72 71 70 Pulse Rate [Apical] Pulse Rate from SpO2 Sensor 69 72 71 Pulse Rhythm [Apical] Pulse Strength [Apical] Respiratory Rate 23 20 19 Respiratory Effort / Characteristics Respiratory Depth Respiratory Pattern Blood Pressure - Lying Blood Pressure - Sitting Blood Pressure 169/78 H Blood Pressure [Left Arm] Blood Pressure Mean 108 Blood Pressure Mean [Left Arm] Blood Pressure Position [Left Arm] Pulse Oximetry 96 95 95 Oxygen Delivery Method Oxygen Flow Rate 10/22/18 12:07 10/22/18 12:10 10/22/18 12:11 Temperature Temperature Source Sepsis Recent Fever Within 48 Hours Sepsis Action Taken by Nursing Pulse Rate - Lying Pulse Rate - Sitting Pulse Rate 73 69 77 Pulse Rate [Apical] Pulse Rate from SpO2 Sensor 72 69 77 Pulse Rhythm [Apical] Pulse Strength [Apical] Respiratory Rate 21 18 19 Respiratory Effort / Characteristics Respiratory Depth Respiratory Pattern Blood Pressure - Lying Blood Pressure - Sitting Blood Pressure 176/81 H 150/75 H Blood Pressure [Left Arm] Blood Pressure Mean 112 100 Blood Pressure Mean [Left Arm] Blood Pressure Position [Left Arm] Pulse Oximetry 95 94 92 Oxygen Delivery Method Oxygen Flow Rate 10/22/18 12:15 10/22/18 12:17 10/22/18 12:20 Temperature Temperature Source Sepsis Recent Fever Within 48 Hours Sepsis Action Taken by Nursing Pulse Rate - Lying Pulse Rate - Sitting Pulse Rate 74 79 80 Pulse Rate [Apical] Pulse Rate from SpO2 Sensor 72 78 78 Pulse Rhythm [Apical] Pulse Strength [Apical] Respiratory Rate 18 18 19 Respiratory Effort / Characteristics Respiratory Depth Respiratory Pattern Blood Pressure - Lying Blood Pressure - Sitting Blood Pressure 161/69 H Blood Pressure [Left Arm] Blood Pressure Mean 99 Blood Pressure Mean [Left Arm] Blood Pressure Position [Left Arm] Pulse Oximetry 93 94 95 Oxygen Delivery Method Oxygen Flow Rate 10/22/18 12:25 10/22/18 12:30 10/22/18 12:35 Temperature Temperature Source Sepsis Recent Fever Within 48 Hours Sepsis Action Taken by Nursing Pulse Rate - Lying Pulse Rate - Sitting Pulse Rate 84 83 88 Pulse Rate [Apical] Pulse Rate from SpO2 Sensor 83 82 77 Pulse Rhythm [Apical] Pulse Strength [Apical] Respiratory Rate 17 19 21 Respiratory Effort / Characteristics Respiratory Depth Respiratory Pattern Blood Pressure - Lying Blood Pressure - Sitting Blood Pressure 138/80 Blood Pressure [Left Arm] Blood Pressure Mean 99 Blood Pressure Mean [Left Arm] Blood Pressure Position [Left Arm] Pulse Oximetry 94 94 94 Oxygen Delivery Method Oxygen Flow Rate 10/22/18 12:40 10/22/18 12:45 10/22/18 12:50 Temperature Temperature Source Sepsis Recent Fever Within 48 Hours Sepsis Action Taken by Nursing Pulse Rate - Lying Pulse Rate - Sitting Pulse Rate 81 83 85 Pulse Rate [Apical] Pulse Rate from SpO2 Sensor 81 84 85 Pulse Rhythm [Apical] Pulse Strength [Apical] Respiratory Rate 15 21 20 Respiratory Effort / Characteristics Respiratory Depth Respiratory Pattern Blood Pressure - Lying Blood Pressure - Sitting Blood Pressure Blood Pressure [Left Arm] Blood Pressure Mean Blood Pressure Mean [Left Arm] Blood Pressure Position [Left Arm] Pulse Oximetry 96 94 94 Oxygen Delivery Method Oxygen Flow Rate 10/22/18 12:55 10/22/18 13:00 10/22/18 13:05 Temperature Temperature Source Sepsis Recent Fever Within 48 Hours Sepsis Action Taken by Nursing Pulse Rate - Lying Pulse Rate - Sitting Pulse Rate 87 87 97 H Pulse Rate [Apical] Pulse Rate from SpO2 Sensor 83 90 97 H Pulse Rhythm [Apical] Pulse Strength [Apical] Respiratory Rate 23 14 19 Respiratory Effort / Characteristics Respiratory Depth Respiratory Pattern Blood Pressure - Lying Blood Pressure - Sitting Blood Pressure 161/88 H Blood Pressure [Left Arm] Blood Pressure Mean 112 Blood Pressure Mean [Left Arm] Blood Pressure Position [Left Arm] Pulse Oximetry 95 95 94 Oxygen Delivery Method Oxygen Flow Rate 10/22/18 13:10 10/22/18 13:15 10/22/18 13:20 Temperature Temperature Source Sepsis Recent Fever Within 48 Hours Sepsis Action Taken by Nursing Pulse Rate - Lying Pulse Rate - Sitting Pulse Rate 89 85 84 Pulse Rate [Apical] Pulse Rate from SpO2 Sensor 86 83 83 Pulse Rhythm [Apical] Pulse Strength [Apical] Respiratory Rate 25 H 22 21 Respiratory Effort / Characteristics Respiratory Depth Respiratory Pattern Blood Pressure - Lying Blood Pressure - Sitting Blood Pressure Blood Pressure [Left Arm] Blood Pressure Mean Blood Pressure Mean [Left Arm] Blood Pressure Position [Left Arm] Pulse Oximetry 96 93 92 Oxygen Delivery Method Oxygen Flow Rate 10/22/18 13:25 10/22/18 13:30 10/22/18 13:45 Temperature Temperature Source Sepsis Recent Fever Within 48 Hours Sepsis Action Taken by Nursing Pulse Rate - Lying Pulse Rate - Sitting Pulse Rate 85 85 86 Pulse Rate [Apical] Pulse Rate from SpO2 Sensor 84 90 87 Pulse Rhythm [Apical] Pulse Strength [Apical] Respiratory Rate 20 21 21 Respiratory Effort / Characteristics Respiratory Depth Respiratory Pattern Blood Pressure - Lying Blood Pressure - Sitting Blood Pressure Blood Pressure [Left Arm] Blood Pressure Mean Blood Pressure Mean [Left Arm] Blood Pressure Position [Left Arm] Pulse Oximetry 92 93 91 Oxygen Delivery Method Oxygen Flow Rate 10/22/18 14:00 10/22/18 14:15 10/22/18 14:22 Temperature Temperature Source Sepsis Recent Fever Within 48 Hours Sepsis Action Taken by Nursing Pulse Rate - Lying Pulse Rate - Sitting Pulse Rate 88 91 H Pulse Rate [Apical] 92 H Pulse Rate from SpO2 Sensor 90 92 H Pulse Rhythm [Apical] Pulse Strength [Apical] Respiratory Rate 23 24 17 Respiratory Effort / Characteristics Respiratory Depth Respiratory Pattern Regular Blood Pressure - Lying Blood Pressure - Sitting Blood Pressure 134/74 Blood Pressure [Left Arm] 134/74 Blood Pressure Mean 94 Blood Pressure Mean [Left Arm] 94 Blood Pressure Position [Left Arm] Pulse Oximetry 92 94 96 Oxygen Delivery Method Nasal Cannula Oxygen Flow Rate 2 10/22/18 14:30 10/22/18 14:45 Temperature Temperature Source Sepsis Recent Fever Within 48 Hours Sepsis Action Taken by Nursing Pulse Rate - Lying Pulse Rate - Sitting Pulse Rate 89 93 H Pulse Rate [Apical] Pulse Rate from SpO2 Sensor 88 92 H Pulse Rhythm [Apical] Pulse Strength [Apical] Respiratory Rate 21 16 Respiratory Effort / Characteristics Respiratory Depth Respiratory Pattern Blood Pressure - Lying Blood Pressure - Sitting Blood Pressure 116/54 L Blood Pressure [Left Arm] Blood Pressure Mean 74 Blood Pressure Mean [Left Arm] Blood Pressure Position [Left Arm] Pulse Oximetry 91 93 Oxygen Delivery Method Oxygen Flow Rate GENERAL: Patient is in no acute distress. HEENT: No acute trauma, normocephalic atraumatic, mucous membranes moist, no nasal congestion, no scleral icterus. NECK: No stridor, no adenopathy, no meningismus, trachea is midline. LUNGS: Clear to auscultation bilaterally, no wheeze, no rhonchi, breath sounds equal. HEART: Without murmurs gallops or rubs, regular rate and rhythm. ABDOMEN: Soft, nontender, bowel sounds positive, no hernias, no peritonitis. EXTREMITIES: No cyanosis or edema, full range of motion of all the joints without pain or difficulty, no signs for acute trauma. NEUROLOGIC: Oriented x 3, no acute motor or sensory deficits, no focal weakness. No speech slur or facial droop, no cerebellar dysfunction, no pronator drift. SKIN: No rash, no jaundice, no diaphoresis. Course 0944: The patient was evaluated in room B8 and a complete history and physical were performed. 1043: Nursing informed me the patients orthostatic vital signs are positive. 1155: I reevaluated the patient. He states he feels the same and has vomited. I discussed my recommendation he remain in the hospital for further evaluation and management and he verbalized complete understanding and agreement. 1200: I discussed the patients [facility] The patient will be further evaluated. Consultations Consultation #1: I discussed the patients case with Dr. Guillermina Ross, [facility]. The patient will be further evaluated. Time: 12:00 Administered Medications Discontinued Medications Diphenhydramine HCl (Benadryl) 12.5 mg IV NOW STA Stop: 10/22/18 09:55 Last Admin: 10/22/18 10:51 Dose: 12.5 mg Documented by: [id number] Hydralazine HCl (Hydralazine Hcl) 10 mg IV NOW STA Stop: 10/22/18 11:52 Last Admin: 10/22/18 12:06 Dose: 10 mg Documented by: [id number] Sodium Chloride (Nss) 250 mls @ 999 mls/hr IV .Q16M ONE Stop: 10/22/18 10:09 Last Infusion: 10/22/18 11:05 Dose: 0 mls/hr Documented by: [id number] Admin: 10/22/18 10:49 Dose: 999 mls/hr Documented by: [id number] Methylprednisolone 60 mg/ (Syringe) 1.96 mls @ 1.5 mls/min IV NOW STA Stop: 10/22/18 09:55 Last Admin: 10/22/18 10:53 Dose: Not Given Documented by: [id number] Sodium Chloride (Nss 1000ml) 1,000 mls @ 999 mls/hr IV .Q1H1M ONE Stop: 10/22/18 11:44 Last Infusion: 10/22/18 11:51 Dose: 0 mls/hr Documented by: [id number] Admin: 10/22/18 10:50 Dose: 999 mls/hr Documented by: [id number] Lorazepam (Ativan) 0.5 mg in 1 mls @ 1 mls/min IV NOW STA Stop: 10/22/18 11:55 Last Admin: 10/22/18 12:04 Dose: 1 mls/min Documented by: [id number] Lorazepam (Ativan) 1 mg in 2 mls @ 2 mls/min IV NOW STA Stop: 10/22/18 14:36 Last Admin: 10/22/18 14:44 Dose: 2 mls/min Documented by: [id number] Meclizine HCl (Antivert) 25 mg PO NOW STA Stop: 10/22/18 09:55 Last Admin: 10/22/18 10:49 Dose: 25 mg Documented by: [id number] Methylprednisolone (Solumedrol) Confirm Administered Dose 80 mg .ROUTE .STK-MED ONE Stop: 10/22/18 10:46 Last Admin: 10/22/18 10:53 Dose: 60 mg Documented by: [id number] Ondansetron HCl (Zofran) 4 mg IV NOW STA Stop: 10/22/18 11:52 Last Admin: 10/22/18 12:04 Dose: 4 mg Documented by: [id number] Medical Decision Making Differential Diagnosis The differential diagnoses considered include stroke, TIA, vertigo, dehydration, electrolyte imbalance, anemia, UTI, infection, dysrhythmia. Medical Records Attestation: I reviewed the patient's medical records. Home Medications Current Medication List: was personally reviewed by me Laboratory Data Attestation: I reviewed the patient's lab results. Result diagrams: 10/22/18 10:35 10/22/18 10:35 Lab Results 10/22/18 10/22/18 10/22/18 Range/Units 10:35 10:35 10:35 WBC 6.76 (4.8-10.8) K/uL RBC 4.68 L (4.7-6.1) M/uL Hgb 15.1 (14.0-18.0) g/dL Hct 42.2 (42-52) % MCV 90.2 (80-100) fL MCH 32.3 (25-34) pg MCHC 35.8 (32-36) g/dL RDW Std Deviation 40.8 (36.4-46.3) fL RDW Coeff of [place] 12.4 (11.5-14.5) % Plt Count 136 (130-400) K/uL MPV 8.7 (7.4-10.4) fL Immature Gran % (Auto) 0.1 % Neut % (Auto) 72.0 % Lymph % (Auto) 17.2 % [place] % (Auto) 9.6 % Eos % (Auto) 1.0 % Baso % (Auto) 0.1 % Immature Gran # (Auto) 0.01 (0.00-0.02) K/uL Neut # (Auto) 4.86 (1.4-6.5) K/uL Lymph # (Auto) 1.16 L (1.2-3.4) K/uL [place] # (Auto) 0.65 H (0.11-0.59) K/uL Eos # (Auto) 0.07 (0-0.5) K/uL Baso # (Auto) 0.01 (0-0.2) K/uL PT 10.7 (9.0-12.0) Seconds INR 1.0 (0.9-1.1) APTT 24.1 (21.0-31.0) Seconds PTT Ratio 0.9 Sodium 139 (136-145) mmol/L Potassium 4.3 (3.5-5.1) mmol/L Chloride 104 (98-107) mmol/L Carbon Dioxide 27 (21-32) mmol/L Anion Gap 8.0 (3-11) BUN 21 H (7-18) mg/dl Creatinine 1.43 H (0.6-1.4) mg/dl Est Cr Clr Drug Dosing 34.7 ml/min Est GFR ( Amer) 51.8 Est GFR (Non-Af Amer) 44.7 BUN/Creatinine Ratio 14.5 (10-20) Glucose 104 H (70-99) mg/dl Calcium 9.3 (8.5-10.1) mg/dl Magnesium 2.0 (1.8-2.4) mg/dl Total Bilirubin 0.7 (0.2-1) mg/dl AST 14 L (15-37) U/L ALT 18 (12-78) U/L Alkaline Phosphatase 70 (45-117) U/L Troponin I < 0.015 (0-0.045) ng/ml Total Protein 7.4 (6.4-8.2) gm/dl Albumin 3.7 (3.4-5.0) gm/dl Globulin 3.7 (2.5-4.0) gm/dl Albumin/Globulin Ratio 1.0 (0.9-2) Urine Color Urine Appearance (Clear) Urine pH (4.5-7.5) Ur Specific [place] (1.000-1.030) Urine Protein (Negative) Urine Glucose (UA) (Negative) Urine Ketones (Negative) Urine Blood (Negative) Urine Nitrite (Negative) Urine Bilirubin (Negative) Urine Urobilinogen (Negative) Ur Leukocyte Esterase (Negative) Urine WBC (Auto) (0-5) /hpf Urine RBC (Auto) (0-4) /hpf U Hyaline Cast (Auto) (0-5) /lpf U Epithel Cells (Auto) (0-5) /lpf Urine Bacteria (Auto) (Negative) 10/22/18 Range/Units 12:10 WBC (4.8-10.8) K/uL RBC (4.7-6.1) M/uL Hgb (14.0-18.0) g/dL Hct (42-52) % MCV (80-100) fL MCH (25-34) pg MCHC (32-36) g/dL RDW Std Deviation (36.4-46.3) fL RDW Coeff of [place] (11.5-14.5) % Plt Count (130-400) K/uL MPV (7.4-10.4) fL Immature Gran % (Auto) % Neut % (Auto) % Lymph % (Auto) % [place] % (Auto) % Eos % (Auto) % Baso % (Auto) % Immature Gran # (Auto) (0.00-0.02) K/uL Neut # (Auto) (1.4-6.5) K/uL Lymph # (Auto) (1.2-3.4) K/uL [place] # (Auto) (0.11-0.59) K/uL Eos # (Auto) (0-0.5) K/uL Baso # (Auto) (0-0.2) K/uL PT (9.0-12.0) Seconds INR (0.9-1.1) APTT (21.0-31.0) Seconds PTT Ratio Sodium (136-145) mmol/L Potassium (3.5-5.1) mmol/L Chloride (98-107) mmol/L Carbon Dioxide (21-32) mmol/L Anion Gap (3-11) BUN (7-18) mg/dl Creatinine (0.6-1.4) mg/dl Est Cr Clr Drug Dosing ml/min Est GFR ( Amer) Est GFR (Non-Af Amer) BUN/Creatinine Ratio (10-20) Glucose (70-99) mg/dl Calcium (8.5-10.1) mg/dl Magnesium (1.8-2.4) mg/dl Total Bilirubin (0.2-1) mg/dl AST (15-37) U/L ALT (12-78) U/L Alkaline Phosphatase (45-117) U/L Troponin I (0-0.045) ng/ml Total Protein (6.4-8.2) gm/dl Albumin (3.4-5.0) gm/dl Globulin (2.5-4.0) gm/dl Albumin/Globulin Ratio (0.9-2) Urine Color Yellow Urine Appearance Cloudy A (Clear) Urine pH 8.0 H (4.5-7.5) Ur Specific [place] 1.016 (1.000-1.030) Urine Protein Negative (Negative) Urine Glucose (UA) Negative (Negative) Urine Ketones Negative (Negative) Urine Blood Negative (Negative) Urine Nitrite Negative (Negative) Urine Bilirubin Negative (Negative) Urine Urobilinogen Negative (Negative) Ur Leukocyte Esterase Negative (Negative) Urine WBC (Auto) 1-5 (0-5) /hpf Urine RBC (Auto) 0-4 (0-4) /hpf U Hyaline Cast (Auto) 0 (0-5) /lpf U Epithel Cells (Auto) 0-5 (0-5) /lpf Urine Bacteria (Auto) Negative (Negative) Imaging Data Radiologist's Impression: Radiology results as stated below per my review and the radiologist's interpretation: CT SCAN OF THE BRAIN WITHOUT IV CONTRAST CLINICAL HISTORY: Vertigo. COMPARISON STUDY: CT of the brain dated 03/02/2016. TECHNIQUE: Unenhanced axial CT scan of the brain is performed from the vertex to the skull base. A dose lowering technique was utilized adhering to the principles of ALARA. CT DOSE: 537.48 mGy.cm FINDINGS: Brain parenchyma: There are age-related involutional changes noting moderate subcortical and periventricular microangiopathic change. There is no hemorrhage, mass effect, or evidence of acute territorial ischemia by CT criteria. 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 [place]-white matter differentiation is preserved. No extra-axial fluid collection is seen. Ventricles, sulci, cisterns: Prominent secondary to involutional change. Intracranial vasculature: There is atherosclerotic calcification of the cavernous carotid and vertebral arteries. Calvarium: Unremarkable. Sinuses and mastoids: The visualized paranasal sinuses are clear. The mastoid air cells are well pneumatized. Orbits: The bony orbits are grossly intact. There are bilateral ocular lens implants. IMPRESSION: There is no hemorrhage, mass effect, or evidence of acute territorial ischemia by CT criteria. Electronically signed by: Pawel Scott M.D. 10/22/2018 11:28 AM ECG Data Attestation: I personally reviewed and interpreted this ECG as follows: Indication: weakness (Vertigo) Rate (beats per minute): 73 Rhythm: sinus rhythm Findings: + PVC; no ST elevation Blood Pressure Blood Pressure Findings: Elevated blood pressure Blood Pressure Disposition: further management by hospitalist [facility] Narrative There is no leukocytosis or concerning anemia. No coagulopathy. Creatinine is somewhat elevated but at about his typical baseline. There is no liver enzyme elevation. EKG shows a sinus rhythm, no acute ischemia. Cardiac enzyme testing x1 is not consistent with acute cardiac injury. Urinalysis does not show infection. Orthostatic vital signs were positive. Brain CT shows no acute bleed or mass-effect. On exam, the patient did not have any focal neurologic findings. The patient received IV saline, he received IV Solu-Medrol, IV Zofran and IV Benadryl. During his ED stay, his blood pressure increased and he did require dose of IV hydralazine, he had forgotten to take his daily morning BP meds. He did receive a dose of IV Ativan 0.5 mg. The patient still feels poorly. He has not vomited despite his above meds. He is having difficulty with dizziness and spinning and feels off balance at times. The patient's presentation is consistent with vertigo although, a posterior circulation stroke is still a possibility. As he is not improved, I do think a hospital stay is warranted. I spoke to the patient and case management. Further work-up for potential stroke is indicated. The on-call hospitalist was consulted. Of note, the patient is not a TPA candidate as his symptoms have been ongoing for 3 days. Of note, the patient was being transferred upstairs when the nurses called me asking for Ativan. The patient had been ordered for an MRI and required Ativan to help with his claustrophobia. He was written to receive 1 mg IV. Impression & Plan Weakness, Orthostasis, Visual disturbance, Dizziness, Vomiting Discharge Plan Visit Data Chief Complaint: Vertigo Stated Complaint: DIZZY ED Provider: Pawel Calloway Discharge Problem: Weakness, Orthostasis, Visual disturbance, Dizziness, Vomiting Patient Disposition: Being Evaluated by Hospitalist Discharge Instructions Interventions: ED Discharge Assessment Last Done: 10/22/18 16:01 Forms Stand Alone Forms: My [facility] Prescriptions Prescriptions: No Action Humira 10 mg/0.2 mL syringe kit 10 mg SUBCUT UD Qty: 2 RF: 5 aspirin 325 mg tablet 325 mg PO DAILY Qty: 30 RF: 5 atorvastatin 40 mg tablet 40 mg PO DAILY Qty: 30 RF: 5 budesonide [Uceris] 9 mg tablet,delayed and ext.release 9 mg PO DAILY Qty: 30 RF: 5 cholecalciferol (vitamin D3) 5,000 unit tablet 5,000 units PO DAILY Qty: 30 RF: 5 docusate sodium [Colace] 100 mg capsule 100 mg PO BID Qty: 30 RF: 5 losartan 100 mg tablet 100 mg PO DAILY Qty: 30 RF: 5 naproxen sodium [Aleve] 220 mg tablet 440 mg PO Q12H PRN (Reason: Pain) Qty: 60 RF: 0 nitroglycerin 0.4 mg tablet, sublingual 0.4 mg SL .COMPLEX PRN (Reason: chest pain) Qty: 90 RF: 0 propylene glycol 0.6 % drops 1 drops OP DAILY Qty: 10 RF: 0 tamsulosin [Flomax] 0.4 mg capsule 0.4 mg PO QAM Qty: 30 RF: 5 tolterodine 2 mg tablet 2 mg PO BID Qty: 60 RF: 5 amlodipine 2.5 mg tablet 2.5 mg PO BID Qty: 60 RF: 5 hydrocodone-acetaminophen 7.5-325 mg tablet 1 tab PO BID PRN (Reason: Pain) Qty: 30 RF: 0 pantoprazole [Protonix] 40 mg tablet,delayed release (DR/EC) 40 mg PO QAM Qty: 30 RF: 5 Referrals Referrals: Rica Chavez DO [Primary Care Provider] - The scribe's documentation has been prepared under my direction and personally reviewed by me in its entirety. I confirm that the note above accurately reflects all work, treatment, procedures, and medical decision making performed by me.
--- NOTE | 2018-10-22 15:48 | Magnetic Resonance Report ---
MR ANGIOGRAM OF THE BRAIN CLINICAL HISTORY: Vertigo. COMPARISON STUDY: CT angiogram of the brain dated 06/22/2018.. TECHNIQUE: 3-D [id number] MR angiography of the intracranial circulation is performed. 3-D tumble views are created and assessed. IV contrast was not administered for this examination. The examinati on is degraded by motion artifact. FINDINGS: The internal carotid arteries are widely patent bilaterally, as are the anterior and middl e cerebral arteries. The vertebrobasilar system and posterior cerebral arteries are widely patent. Th e left vertebral artery is dominant. There is no high-grade stenosis or focal vessel cutoff seen th roughout the intracranial circulation. 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 IMPRESSION: 1. The intracranial vessels are patent. 2. 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 Electronically signed by: Pawel Scott M.D. 10/22/2018 3:46 PM
--- NOTE | 2018-10-22 15:49 | Magnetic Resonance Report ---
MR brain wo con CLINICAL HISTORY: 83 years-old Male presenting with severe vertigo since Monday, slight headache, i ntermittent blurred vision. TECHNIQUE: Multisequence, multiplanar MR imaging of the brain was performed without the use of intrav enous contrast. IV contrast: None. COMPARISON: None. FINDINGS: Localizer images: Unremarkable. Normal midline sagittal structures. Proportional ventricular and sulcal prominence, likely age-relate d parenchymal volume loss. No restricted diffusion or hemorrhage. Periventricular and subcortical whi te matter T2/FLAIR hyperintensity, nonspecific but likely indicative of chronic small vessel ischemic change. Old infarcts in the cerebellar hemispheres. No mass effect or midline shift. No extra-axial fluid collection. T2 skull base flow voids preserved. Bone marrow signal intensity within the calvarium within normal limits. Bilateral [place] lenses are a bsent. IMPRESSION: 1. 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 No acute intracrani al pathology. Electronically signed by: Vikram Alvarado M.D. 10/22/2018 3:48 PM
[2018-10-22] MEDS ORDERED: NITROGLYCERIN SL 0.4 MG/TAB TAB SL PRN (17:23)
[2018-10-22] MEDS ORDERED: POLYETHYLENE (MIRALAX) 17 GM PACK PO PRN (17:23)
[2018-10-22] MEDS ORDERED: NAPROXEN 250 MG TAB PO PRN (17:23)
[2018-10-22] MEDS ORDERED: ADALIMUMAB 10 MG SQ SCH (17:23)
[2018-10-22] MEDS ORDERED: DiphenhydrAMINE HCL 50 MG/ML VIAL IV PRN (17:23)
[2018-10-22] MEDS ORDERED: MECLIZINE HCL 25 MG TAB PO PRN (17:23)
[2018-10-22] MEDS ORDERED: ACETAMINOPHEN 325 MG TAB PO PRN (17:23)
[2018-10-22] MEDS: SODIUM CHLORIDE 0.9% 1000ML 1,000 ML IV SCH (17:59)
[2018-10-22] MEDS: FAMOTIDINE 20 MG in SYRINGE 3 ML IV SCH (19:36)
[2018-10-22] MEDS: AMLODIPINE BESYLATE 5 MG TAB PO SCH (21:37)
[2018-10-22] MEDS: TOLTERODINE TARTRATE 2 MG TAB PO SCH (21:37)
[2018-10-22] MEDS: HEPARIN SOD 5,000 UNIT/0.5 ML VIAL SQ SCH (21:38)
[2018-10-22] MEDS: DOCUSATE SODIUM 100 MG CAP PO SCH (21:39)
[2018-10-22] MEDS: ZOLPIDEM TARTRATE 5 MG TAB PO PRN (21:42)
[2018-10-22] MEDS: HYDROCODONE/ACETAMINOPHEN 7.5/325MG TAB PO PRN (21:42)
[2018-10-23 06:01] LABS: Eosinophils # (auto) 0.01 K/uL (0-0.5); Eosinophils % (auto) 0.1 %; Hematocrit (blood only) 37.8 % (42-52); Hemoglobin 13.1 g/dL (14.0-18.0); Immature Granulocytes # (auto) 0.01 K/uL (0.00-0.02); Immature Granulocytes % (auto) 0.1 %; Lymphocytes # (auto) 1.46 K/uL (1.2-3.4); Lymphocytes % (auto) 13.1 %; Mean Corpuscular Hgb Conc 34.7 g/dL (32-36); Mean Corpuscular Volume 90.6 fL (80-100); Mean Platelet Volume 8.6 fL (7.4-10.4); Monocytes # (auto) 1.09 K/uL (0.11-0.59); Monocytes % (auto) 9.8 %; Neutrophils # (auto) 8.56 K/uL (1.4-6.5); Neutrophils % (auto) 76.9 %; Platelet Count 129 K/uL (130-400); RDW Coefficient of Variation 12.2 % (11.5-14.5); RDW Standard Deviation 40.9 fL (36.4-46.3); Red Blood Count 4.17 M/uL (4.7-6.1); White Blood Count 11.13 K/uL (4.8-10.8)
[2018-10-23 06:37] LABS: Albumin Level 3.1 gm/dl (3.4-5.0); BUN Creatinine Ratio 19.9 (10-20); Calcium 8.5 mg/dl (8.5-10.1); Est GFR (African American) 46.9; Est GFR (Non-African American) 40.5; Potassium 4.2 mmol/L (3.5-5.1)
[2018-10-23 06:42] LABS: Bilirubin,Total 0.5 mg/dl (0.2-1); Globulin 3.2 gm/dl (2.5-4.0); Total Protein 6.3 gm/dl (6.4-8.2)
[2018-10-23] MEDS: AMLODIPINE BESYLATE 5 MG TAB PO SCH ×2 (08:09→20:47)
[2018-10-23] MEDS: LOSARTAN POTASSIUM 50 MG TAB PO SCH (08:10)
[2018-10-23] MEDS: ATORVASTATIN 40 MG TAB PO SCH (08:10)
[2018-10-23] MEDS: DOCUSATE SODIUM 100 MG CAP PO SCH ×2 (08:10→20:46)
[2018-10-23] MEDS: CHOLECALCIFEROL 1,000 UNITS TAB PO SCH (08:10)
[2018-10-23] MEDS: ASPIRIN 325 MG ECTAB PO SCH (08:11)
[2018-10-23] MEDS: TAMSULOSIN HCL 0.4 MG CAP PO SCH (08:11)
[2018-10-23] MEDS: TOLTERODINE TARTRATE 2 MG TAB PO SCH ×2 (08:11→20:47)
[2018-10-23] MEDS: ARTIFICIAL TEARS OP SCH (08:11)
[2018-10-23] MEDS: HEPARIN SOD 5,000 UNIT/0.5 ML VIAL SQ SCH ×2 (08:12→20:44)
[2018-10-23] MEDS: FAMOTIDINE 20 MG in SYRINGE 3 ML IV SCH (08:15)
[2018-10-23] MEDS: SODIUM CHLORIDE 0.9% 1000ML 1,000 ML IV SCH (09:24)
--- NOTE | 2018-10-23 11:26 | Neurology Consultation ---
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 He is better this morning but has left gaze nystagmus particularly in the left eye and balance issues (including feeling like he is falling to the left). MRI of the brain shows no acute stroke although he has mild to moderate old small vessel ischemic changes. I suspect he has a left inner ear origin to his acute vertigo. Otherwise he has no focal neurologic findings, meningeal signs or ence phalopathy. Patient has 2 very small aneurysms including a 3 mm aneurysm at the bifurcation of the right middle cerebral artery and a 2.5 mm aneurysm at the terminus of the left internal carotid artery. He has seen neurosurgeons this spring who wanted to follow this and felt that no surgical procedure was warranted. MR angiography of the head this hospitalization showed no change in the aneurysms compared to previous studies. There were no new vascular stenoses or other anomalies. I do not believe these two small aneurysms have anything to do with any of his symptoms including his intermittent double vision. Patient does not have any double vision currently and no other eye findings. Patient has a history of mild dementia, mostly short-term. He did fairly well today with his memory. He has risk factors for stroke including hypertension and dyslipidemia. Recommendations: 1. Use meclizine 25 mg as needed. This seems to help him. I do not believe we needing thing stronger like benzodiazepines for his vertigo. 2. Increase activity slowly with out of bed to chair and physical therapy to help with balance issues. 3. Nothing needs to be done further regarding his cerebral aneurysms and he is scheduled for repeat CT angiography at [facility] in the spring. 4. I see no need for additional neurologic testing or treatment changes at this time. 5. Patient follows with Dr. Rivera as an outpatient. Overall, I spent a total of 70 minutes with this case including review of records, review of MRI films, direct evaluation the patient at bedside, and d iscussion of the case with the patient at bedside, nursing staff at bedside, and Dr. Arroyo, including differential diagnosis and treatment options. History of Present Illness Reason for Consultation: Patient is an 83-year-old, who I was asked to see at the request of , for neurologic consultation regarding acute vertigo and other issues Requesting Physician: Dr. Ross Attending Physician: Pratik Arroyo History of Present Illness Patient has a history of short-term memory loss and early dementia, followed by Dr. Rivera since the summer. He initiated donepezil but this gave him side effects. In January of 2018, the patient was put on Namenda 5 mg twice daily. This was held in May of 2018 when he saw her the last time, because of dizziness that was going on for months. He is not on any medication for dementia currently and was doing well with the dizziness until recently. In January of 2018 he had a 30 second episode of vision loss in the left eye consistent with amaurosis fugax. MRI of the brain showed no acute changes but some cerebral aneurysms were noted at the bifurcation of the middle cerebral artery and the supraclinoid portion of the left internal carotid artery. He was referred to Dr. Rodriguez at [facility]. They did CT angiography and found a 3 mm aneurysm of the stable nature at the bifurcation of the right m iddle cerebral artery, and a 2.5 mm aneurysm at the terminus of the left internal carotid artery. Since these were small and stable, and given his advanced age, they elected to follow him. He is due for repeat CT angiography in the spring at [facility]. He has been on a 325 mg aspirin tablet daily. Patient has had some intermittent double vision for the last 2 weeks. These episodes come and go briefly and are mostly vertical in nature. On the evening of October 20, when he went to lay down to go to sleep he had the onset of vertigo. There was some nausea. When he got up on October 21 he states that he stayed in bed and relaxed most of the day because of some intermittent vertigo. When he finally got himself to bed in the evening of October 21 vertigo became worse. He awoke in the morning of October 22 with significant vertigo worsened with position changes. He had nausea without vomiting. He had no new weakness or numbness of the arms and legs, and had no pain. He had no headache and no new speech or memory problems. He was not confused. His gait was very difficult. He arrived October 22 at 0924 in the emergency room with a temperature of 36.3 , pulse 94, respiratory 20, blood pressure 164/84, and O2 saturation 99%. Neurologic examination was described as unremarkable. CBC was unremarkable and a Chem profile showed an elevated BUN and creatinine. Urinalysis was unremarkable. CT scan of the head was unremarkable. MRI of the brain showed mild to moderate old small vessel ischemic disease and some old cerebellar lacunes. There were no acute strokes. There was sole-tn-[id number] generalized atrophy as well. I reviewed these films. MR angiography of the head showed the 2 aneurysms as described above unchanged from previous MR angiography. The patient had a repeat CBC which showed a white count of 11 and a Chem profile with BUN of 31 and creatinine 1.5. Overnight the patient has had normal sinus rhythm with a few PVCs on monitor. He has had no new events and feels a little better this morning with his dizziness. Meclizine can help. He does have some trouble ambulating because of lightheadedness/dizziness. He has no ear pain or tinnitus but feels pulled a little bit to the left when he gets up and tries to walk. A pressure this morning was 136/60 Allergies Allergy/AdvReac Type Severity Reaction Status Date / Time No Known Allergies Allergy Verified 10/22/18 10:56 Home Medications Home Medications Medication Instructions Recorded Confirmed Type adalimumab 10 mg/0.2 mL 10 mg SUBCUT UD #2 ea 09/17/18 10/22/18 Rx subcutaneous syringe kit amlodipine 2.5 mg tablet 2.5 mg PO BID #60 tab 09/17/18 10/22/18 Rx aspirin 325 mg tablet 325 mg PO DAILY #30 tab 09/17/18 10/22/18 Rx atorvastatin 40 mg tablet 40 mg PO DAILY #30 tab 09/17/18 10/22/[address]-ER 9 mg 9 mg PO DAILY #30 ea 09/17/18 10/22/18 Rx tablet,delayed and extended release cholecalciferol (vitamin D3) 5,000 5,000 units PO DAILY #30 tab 09/17/18 10/22/18 Rx unit tablet docusate sodium 100 mg capsule 100 mg PO BID #30 cap 09/17/18 10/22/18 Rx hydrocodone 7.5 mg-acetaminophen 1 tab PO BID PRN #30 tab 09/17/18 10/22/18 Rx 325 mg tablet losartan 100 mg tablet 100 mg PO DAILY #30 tab 09/17/18 10/22/18 Rx naproxen sodium 220 mg tablet 440 mg PO Q12H PRN #60 tab 09/17/18 10/22/18 Rx nitroglycerin 0.4 mg sublingual 0.4 mg SL .COMPLEX PRN #90 tab 09/17/18 10/22/18 Rx tablet pantoprazole 40 mg tablet,delayed 40 mg PO QAM #30 tab 09/17/18 10/22/18 Rx release propylene glycol 0.6 % eye drops 1 drops OP DAILY #10 ml 09/17/18 10/22/18 Rx tamsulosin 0.4 mg capsule 0.4 mg PO QAM #30 cap 09/17/18 10/22/18 Rx tolterodine 2 mg tablet 2 mg PO BID #60 tab 09/17/18 10/22/18 Rx Patient History Medical History Chronic kidney disease, stage 3 (moderate) Urethral stricture Thrombocytopenia Hearing loss 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, left eye Vitamin D deficiency Urge incontinence of urine Ulcerative colitis Secondary hyperparathyroidism Osteoporosis Middle cerebral artery aneurysm Lumbar degenerative disc disease Hypercholesterolemia Dementia Coronary artery disease Benign prostatic hyperplasia with urinary obstruction BPPV (benign paroxysmal positional vertigo) Aortic stenosis Acid reflux Kidney stones HTN (hypertension) HTN (hypertension) (Chronic) Heart disease (Chronic) Renal insufficiency Surgical History H/O aortic valve replacement S/P cataract surgery History of appendectomy History of cataract surgery History of cholecystectomy History of colon surgery Family History Mother , age 84 of unknown causes No problems noted. 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[place] [employer] Feels Safe at Home: Yes Smoking Status: Never smoker Second Hand Exposure: No ; Hx Alcohol Use: No Hx Substance Use: No Seatbelt Use: always Review of Systems Constitutional: + fatigue; no fever and no weakness Eyes: no diplopia (No double vision this morning), no eye pain and no worsening vision Ear, Nose, Mouth, Throat: + hearing loss and + dizziness; no ear pain, no tinnitus, no snoring, no hoarseness and no dysphagia Respiratory: no cough and no dyspnea Cardiovascular: no chest pain, no palpitations and no lightheadedness Gastrointestinal: no abdominal pain, no nausea and no vomiting Genitourinary: no dysuria and no urinary incontinence Musculoskeletal: + back pain; no neck pain, no radicular pain, no joint pain and no myalgia Integumentary: no rash and no lesions Neurologic: + gait abnormality, + dizziness and + memory loss; no localized weakness, no generalized weakness, no tingling, no numbness, no tremor(s), no abnormal movements, no headache(s), no abnormal speech and no confusion Psychiatric: no depression, no irritability, no anxiety, no difficulty concentrating, no confusion and no hallucinations Endocrine: + fatigue; no flushing Hematologic / Lymphatic: no easy bleeding and no easy bruising Allergy / Immunological: no urticaria and no problem reported Physical Exam Physical Exam: The patient is right-handed for eating, writing, and kicking a ball. He is left-handed for batting and throwing. The patient is awake, alert, and attentive. Speech is normal without any aphasia or dysarthria. he can name objects, repeat phrases, and has normal spontaneous speech. Mentation and thought processes are intact, with orientation to person, place and time, and normal fund of knowledge. Attention and concentration are normal. Mood and affect are normal and appropriate. General appearance and grooming are normal. Short and long-term memory are intact to conversation although short-term memory can be impaired at times. The discs are sharp with positive venous pulsations bilaterally. There are no exudates, hemorrhages, or blood vessel changes seen. Pupils are 3 mm bilaterally and reactive to light. Extraocular eye muscles are intact, with some nystagmus upon left gaze particularly in the left eye (fast component in the direction of the gaze). Visual acuity and visual tellez seem normal grossly to confrontation. There are no deficits to sensation in the face in all 3 distributions of the fifth cranial nerve bilaterally. Corneal reflexes are positive bilaterally. Facial strength and symmetry was normal bilaterally. Hearing is decreased bilaterally. Palate moves well without asymmetry. There is normal sternocleidomastoid and trapezius (shoulder shrug) strength bilaterally. Tongue is midline with good strength bilaterally. Neck has a full range of motion without discomfort. There are no cervical bruits bilaterally. There are no cranial or ocular bruits. Heart is without murmur. There is a regular rhythm and rate. Cervical, thoracic, and lumbar spine are nontender to palpation. Gait very slow and tentative and seems off balance. He is narrow base and stance with feet together eyes open is hard as he feels he is swaying some to the left. With outstretched arms there is no drift. There are no resting, postural, or action tremors. There is no ataxia with finger to nose testing. There is good facility in the hands. No other abnormal involuntary movements are noted. Motor strength is 5/5 diffusely in the arms bilaterally including deltoids, biceps, triceps, brachioradialis, wrist flexors and extensors, shell core and molding supervisor, and intrinsic hand muscles. Motor strength is 5/5 diffusely in the legs bilaterally including hip flexors, quadriceps, hamstrings, gastrocnemius, tibialis anterior, tibialis posterior, and Peroneii muscles. Toe extensors are normal and there is good bulk in the extensor digitorum brevis muscles bilaterally. The limbs have good tone without rigidity or spasticity. There is no atrophy noted in the muscles. Muscle bulk is normal, there is no tenderness to palpation, no myotonia to percussion, and no fasciculations seen. Sensory examination is intact to touch and pin throughout all 4 limbs diffusely. Reflexes are 1/4 in the biceps, triceps, brachioradialis, quadriceps, and Achilles tendons bilaterally. There is no clonus bilaterally. Toes are downgoing with plantar stimulation bilaterally. Peripheral pulses are present and of normal quality distally in all 4 limbs. There is no peripheral edema noted in the limbs. Results & Data Vital Signs (Past 12 Hours) Vital Signs Temp Pulse Resp BP Pulse Ox 10/23/18 07:39 36.5 C 79 20 136/68 96 10/23/18 04:30 36.8 C 75 20 144/71 H 96 10/23/18 00:00 36.6 C 87 17 119/67 95 Diagnostic Findings [facility], [place] [phone] Magnetic Resonance Report Patient: MIGUEL GARZA Date: 10/22/18 MR#: [id number]: [address] [facility] [address] Acct ID:[id number]: [address] Date: 1935[facility] Zip: [place] [address] Age: 83Location: ED Sex: M Room/Bed: Att Phy: Diagnosis: DIZZY Yanni Phy: Rica Chavez, DOService Date: 10/22/18 [facility] Phy: Interpreting Phy: Vikram Alvarado MD Admit Phy: Ordering Phy: Guillermina Ross MD cc: ~ MR brain wo con CLINICAL HISTORY: 83 years-old Male presenting with severe vertigo since Monday, slight headache, intermittent blurred vision. TECHNIQUE: Multisequence, multiplanar MR imaging of the brain was performed without the use of intravenous contrast. IV contrast: None. COMPARISON: None. FINDINGS: Localizer images: Unremarkable. Normal midline sagittal structures. Proportional ventricular and sulcal prominence, likely age-related parenchymal volume loss. No restricted diffusion or hemorrhage. Periventricular and subcortical white matter T2/FLAIR hyperintensity, nonspecific but likely indicative of chronic small vessel ischemic change. Old infarcts in the cerebellar hemispheres. No mass effect or midline shift. No extra-axial fluid collection. T2 skull base flow voids preserved. Bone marrow signal intensity within the calvarium within normal limits. Bilateral [place] lenses are absent. IMPRESSION: 1. 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 No acute intracranial pathology. Electronically signed by: Vikram Alvarado M.D. 10/22/2018 3:48 PM [facility], [place] [phone] Magnetic Resonance Report Patient: MIGUEL GARZAmit Date: 10/22/18 MR#: [id number]: [address] [facility] Acct ID:[id number]: [address] Date: 1935[facility] Zip: [place] [id number] Age: 83Location: ED Sex: M Room/Bed: Att Phy: Diagnosis: DIZZY Yanni Phy: Rica Chavez, DOService Date: 10/22/18 [facility] Phy: Interpreting Phy: Pawel Scott MD Admit Phy: Ordering Phy: Guillermina Ross MD cc: ~ MR ANGIOGRAM OF THE BRAIN CLINICAL HISTORY: Vertigo. COMPARISON STUDY: CT angiogram of the brain dated 06/22/2018.. TECHNIQUE: 3-D akct-ib-ptoorz MR angiography of the intracranial circulation is performed. 3-D tumble views are created and assessed. IV contrast was not administered for this examination. The examination is degraded by motion artifact. FINDINGS: The internal carotid arteries are widely patent bilaterally, as are the anterior and middle cerebral arteries. The vertebrobasilar system and posterior cerebral arteries are widely patent. The left vertebral artery is dominant. There is no high-grade stenosis or focal vessel cutoff seen throughout the intracranial circulation. 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 IMPRESSION: 1. The intracranial vessels are patent. 2. 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 Electronically signed by: Pawel Scott M.D. 10/22/2018 3:46 PM PG Care Time/CCT Total # of Minutes Spent Total Time Spent with Patient: 70 min. Total time spent is greater than 50% in coordination of care (as documented) at patient's floor/unit and/or counseling patient:
[2018-10-23] MEDS ORDERED: Nursing to Pharmacy Communication ONE (19:15)
[2018-10-23] MEDS: ZOLPIDEM TARTRATE 5 MG TAB PO PRN (20:43)
--- NOTE | 2018-10-23 20:58 | Hospitalist Progress Note ---
Date of Service October 23, 2018 Assessment & Plan (1) BPPV (benign paroxysmal positional vertigo): Given his negative work-up Dr Woodard feels this is BPV, likely from the left ear. Symptoms/events are short c/w BPV. Has old cerebellar CVAs on MRI - these are incidental findings. Treat w/ meclizine prn. Have PT see - vestibular evaluation requested. By report has ataxia - this may be due to old cerebellar strokes - again PT/OT evals. Present on Admission?: Yes (2) Visual disturbance: Extraocular movements are normal. Previous MRA neck in 02/27 was normal. MRI brain w/o occipital lobe stroke or abnormalities. Saw Dr Red last week - will contact his office tomorrow for update on that visit. Dr Woodard did not see any abnormalities on his exam either today. (3) Chronic kidney disease, stage 3 (moderate): Cr stable. BMP am. (4) Middle cerebral artery aneurysm: Chronic. Stable. Previously seen by [facility] for this -- no Rx at this time. Routine surveillance with [facility]. Not playing any role in his symptoms. (5) Hypercholesterolemia: Stable continue atorvastatin 40 mg p.o. daily. (6) Coronary artery disease: Stable. No ischemic symptoms but consider echo in light of various presenting symptoms. Will contact Dr Lyon for additional information. Continue aspirin, amlodipine 2.5 mg tablet, losartan 100 mg tablet, nitroglycerin 0.4 mg sublingual prn. (7) HTN (hypertension): controlled (8) H/O aortic valve replacement: noted consider echo (9) Dementia: seems to have underlying dementia process will speak with Dr Lyon and/or PCP about this (10) Ulcerative colitis: no symptoms/flares at this time (11) DVT prophylaxis: heparin 5000 BID await PT/OT evals to ensure safe for d/c home Subjective patient is poor historian. he shifts from symptom to symptom and it is difficult to follow him. however, he has had the following- 3-4 episodes of left eye double vision. last 1-2 weeks? vertical double vision - saw President Wisam on TV and there "were 2 of him stacked on top of one another." He has not had double vision at same time as the vertigo. Vertigo spells are <60 seconds in duration - brought on by head movements. This is improved. he mentions he saw Dr Lyon from cardiology last week. he saw Dr Lyon because of visual disturbance in left eye? had echo? He states Dr Lyon sent [facility]. He cannot recall the details of Dr Red's visit. "I don't know what he thought." Review of Systems Constitutional: no fever, no chills, no fatigue and no anorexia Respiratory: no cough and no dyspnea Cardiovascular: no chest pain Physical Exam Constitutional: + thin; no acute distress Eyes: PERRL and + nystagmus (minimal - with leftward gaze); no conjunctival abnormality ENMT: external ear and nose normal, oropharynx normal Respiratory: normal respiratory effort, lungs clear to auscultation Cardiovascular: Rate/Rhythm: regular rate and regular rhythm Heart Sounds: normal S1 and normal S2 Vessels: posterior tibial pulses present and dorsalis pedis pulses present; no JVD Extremities: no edema Gastrointestinal (Abdomen): normal bowel sounds, soft, nontender, no hepatosplenomegaly Neurologic: + confused; no focal motor deficits Coordination: normal gasiam-xj-kncg test Psychiatric: Orientation: alert, oriented to person and oriented to place; + not oriented to time Results & Data Vital Signs (Past 12 Hours) Vital Signs Temp Pulse Resp BP BP Pulse Ox 10/23/18 19:43 36.7 C 86 18 152/72 H 99 10/23/18 15:16 36.4 C L 82 18 152/58 H 97 10/23/18 12:08 36.4 C L 82 18 167/76 H 95 Laboratory Results Laboratory Results - last 24 hr 10/23/18 10/23/18 05:42 05:42 WBC 11.13 H RBC 4.17 L Hgb 13.1 L Hct 37.8 L MCV 90.6 MCH 31.4 MCHC 34.7 RDW Std Deviation 40.9 RDW Coeff of Tahmina 12.2 Plt Count 129 L MPV 8.6 Immature Gran % (Auto) 0.1 Neut % (Auto) 76.9 Lymph % (Auto) 13.1 Ocean % (Auto) 9.8 Eos % (Auto) 0.1 Baso % (Auto) 0.0 Immature Gran # (Auto) 0.01 Neut # (Auto) 8.56 H Lymph # (Auto) 1.46 Ocean # (Auto) 1.09 H Eos # (Auto) 0.01 Baso # (Auto) 0.00 Sodium 141 Potassium 4.2 Chloride 108 H Carbon Dioxide 27 Anion Gap 6.0 BUN 31 H Creatinine 1.55 H Est Cr Clr Drug Dosing 32.0 Est GFR ( Amer) 46.9 Est GFR (Non-Af Amer) 40.5 BUN/Creatinine Ratio 19.9 Glucose 102 H Calcium 8.5 Total Bilirubin 0.5 AST 11 L ALT 14 Alkaline Phosphatase 58 NT-Pro-B Natriuret Pep 249 Total Protein 6.3 L Albumin 3.1 L Globulin 3.2 Albumin/Globulin Ratio 1.0 PG Care Time/CCT Total # of Minutes Spent Total Time Spent with Patient: Total time spent is greater than 50% in coordination of care (as documented) at patient's floor/unit and/or counseling patient: (1) BPPV (benign paroxysmal positional vertigo) Laterality: left Qualified Code(s): H81.12 - Benign paroxysmal vertigo, left ear (2) Coronary artery disease Coronary Disease-Associated Artery/Lesion type: [place] artery [place] vs. transplanted heart: [place] heart Associated angina: without angina Qualified Code(s): I25.10 - Atherosclerotic heart disease of [place] coronary artery without angina pectoris (3) HTN (hypertension) Hypertension type: essential hypertension Qualified Code(s): I10 - Essential (primary) hypertension (4) Dementia Dementia type: unspecified type Dementia behavioral disturbance: without behavioral disturbance Qualified Code(s): F03.90 - Unspecified dementia without behavioral disturbance (5) Ulcerative colitis Ulcerative colitis location: unspecified ulcerative colitis location Digestive disease complication type: without complication Qualified Code(s): K51.90 - Ulcerative colitis, unspecified, without complications
[2018-10-24] MEDS: HYDROCODONE/ACETAMINOPHEN 7.5/325MG TAB PO PRN (03:57)
[2018-10-24 07:22] LABS: Basophils # (auto) 0.02 K/uL (0-0.2); Basophils % (auto) 0.4 %; Eosinophils # (auto) 0.14 K/uL (0-0.5); Eosinophils % (auto) 2.5 %; Hematocrit (blood only) 37.9 % (42-52); Hemoglobin 12.8 g/dL (14.0-18.0); Immature Granulocytes # (auto) 0.01 K/uL (0.00-0.02); Immature Granulocytes % (auto) 0.2 %; Lymphocytes # (auto) 1.59 K/uL (1.2-3.4); Lymphocytes % (auto) 28.6 %; Mean Corpuscular Hgb Conc 33.8 g/dL (32-36); Mean Corpuscular Volume 91.5 fL (80-100); Monocytes # (auto) 0.55 K/uL (0.11-0.59); Monocytes % (auto) 9.9 %; Neutrophils # (auto) 3.24 K/uL (1.4-6.5); Neutrophils % (auto) 58.4 %; Platelet Count 115 K/uL (130-400); RDW Coefficient of Variation 12.4 % (11.5-14.5); RDW Standard Deviation 41.8 fL (36.4-46.3); Red Blood Count 4.14 M/uL (4.7-6.1); White Blood Count 5.55 K/uL (4.8-10.8)
[2018-10-24 07:59] LABS: BUN Creatinine Ratio 18.5 (10-20); Calcium 8.6 mg/dl (8.5-10.1); Creatinine Clr Calc Pharmacy 31.2 ml/min; Est GFR (African American) 52.2
[2018-10-24 08:02] LABS: Albumin Globulin Ratio 0.9 (0.9-2); Bilirubin,Total 0.4 mg/dl (0.2-1); Globulin 3.2 gm/dl (2.5-4.0); Total Protein 6.2 gm/dl (6.4-8.2)
[2018-10-24] MEDS: ASPIRIN 325 MG ECTAB PO SCH (08:37)
[2018-10-24] MEDS: HEPARIN SOD 5,000 UNIT/0.5 ML VIAL SQ SCH (08:37)
[2018-10-24] MEDS: LOSARTAN POTASSIUM 50 MG TAB PO SCH (08:39)
[2018-10-24] MEDS: TAMSULOSIN HCL 0.4 MG CAP PO SCH (08:39)
[2018-10-24] MEDS: ATORVASTATIN 40 MG TAB PO SCH (08:40)
[2018-10-24] MEDS: TOLTERODINE TARTRATE 2 MG TAB PO SCH (08:40)
[2018-10-24] MEDS: CHOLECALCIFEROL 1,000 UNITS TAB PO SCH (08:40)
[2018-10-24] MEDS: AMLODIPINE BESYLATE 5 MG TAB PO SCH (08:40)
[2018-10-24] MEDS: DOCUSATE SODIUM 100 MG CAP PO SCH (08:40)
[2018-10-24] MEDS ORDERED: FAMOTIDINE 20 MG TAB PO SCH (09:00)
[2018-10-24] MEDS: ARTIFICIAL TEARS OP SCH (09:39)
[2018-10-24] MEDS ORDERED: BUDESONIDE EC 3 MG CAP PO SCH (11:00)
--- NOTE | 2018-10-24 21:59 | Discharge Summary ---
Date of Service October 24, 2018 Admission HPI Per Admitting Provider 83yo male with history of dementia, CKD stage 3, ulcerative colitis, CAD, and aortic stenosis who presented with vertigo and intermittent double vision for the last 2 weeks. The double vision episodes were coming and going briefly and were mostly vertical in nature. On the evening of October 20, when he went to lay down to go to sleep, he had the onset of vertigo. There was some nausea. When he got up on October 21 he states that he stayed in bed and relaxed most of the day because of some intermittent vertigo. When he finally got himself to bed in the evening of October 21 vertigo became worse. He awoke in the morning of October 22 with significant vertigo worsened with position changes. He had nausea without vomiting. He had no new weakness or numbness of the arms and legs, and had no pain. He had no headache and no new speech or memory problems. He was not confused. His gait was very difficult. Patient has a history of short-term memory loss and early dementia, followed by Dr. Rivera since the summer. He initiated donepezil but this gave him side effects. In January of 2018, the patient was put on Namenda 5 mg twice daily. This was held in May of 2018 when he saw her the last time, because of dizziness that was going on for months. He is not on any medication for dementia currently and was doing well with the dizziness until recently. In January of 2018 he had a 30 second episode of vision loss in the left eye consistent with amaurosis fugax. MRI of the brain showed no acute changes but some cerebral aneurysms were noted at the bifurcation of the middle cerebral artery and the supraclinoid portion of the left internal carotid artery. He was referred to Dr. Rodriguez at [facility]. 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 Since these were small and stable, and given his advanced age, they elected to follow him. He is due for repeat CT angiography in the spring at [facility]. He has been on a 325 mg aspirin tablet daily. Principal Diagnosis vertigo - suspected to be peripheral in origin Discharge Exam Constitutional + thin; no acute distress Eyes PERRL and + nystagmus (minimal - with leftward gaze); no conjunctival abnormality ENMT external ear and nose normal, oropharynx normal Respiratory normal respiratory effort, lungs clear to auscultation Cardiovascular Rate/Rhythm: regular rate and regular rhythm Heart Sounds: normal S1 and normal S2 Vessels: posterior tibial pulses present and dorsalis pedis pulses present; no JVD Extremities: no edema Gastrointestinal (Abdomen) normal bowel sounds, soft, nontender, no hepatosplenomegaly Neurologic deep tendon reflexes 2+ bilaterally and + confused (minimal); no focal motor deficits Coordination: normal [id number] test Psychiatric Orientation: alert, oriented to person and oriented to place; + not oriented to time Discharge Data Allergies Allergy/AdvReac Type Severity Reaction Status Date / Time No Known Allergies Allergy Verified 10/22/18 10:56 Consultations neurology - Valerio Woodard MD PT, OT Ordered Studies 1. CT head - IMPRESSION: There is no hemorrhage, mass effect, or evidence of acute territorial ischemia by CT criteria. Chronic lacunar infarct right cerebellar hemisphere. 2. MRI brain - no acute findings. 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 3. MRA brain - IMPRESSION: 1. The intracranial vessels are patent. 2. 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 4. echocardiogram - * EF 55-60% * AVR - acceptable transvalvular gradiant; mild AI/leak Hospital Course (1) BPPV (benign paroxysmal positional vertigo): Given his negative work-up (no acute stroke on MRI brain) Dr Woodard from neurology felt that his symptoms were from the left inner ear, perhaps BPV. 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 They were present on 02/2018 MRI brain. Symptoms improved with use of PRN meclizine and time. 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 He was prescribed meclizine at discharge. PT/OT were consulted and cleared the patient for discharge home with his . However he was advised NOT to drive in light of intermittent vertigo and diplopia. (2) Visual disturbance: Extraocular movements were full and normal during the hospital stay with the exception of mild horizontal nystagmus. Previous MRA neck in 02/2018 was normal. MRI brain w/o occipital lobe stroke or abnormalities. Saw Dr Red, ophthamology, on 10/16/18 due to intermittent episodes of diplopia. Visual exam was fully normal during that visit. Double vision was thought to be due to "phoria." According to records, just to be on safe side, Dr Red sent testing for myasthenia gravis including acetylcholine receptor blocking antibody, acetylcholine binding antibody, and anti-smooth muscle antibody. These tests are found in his [facility] chart and are negative. f/u with Dr Red was scheduled for 6 weeks later. (3) Middle cerebral artery aneurysm: Chronic. Stable. Previously seen by [facility] for this -- no Rx at this time. Routine surveillance with [facility]. Not playing any role in his symptoms. (4) Chronic kidney disease, stage 3 (moderate): Cr stable during the hospitalization. Discharge Cr - 1.4. (5) Hypercholesterolemia: Stable; continue atorvastatin 40 mg p.o. daily. (6) Coronary artery disease: Stable. No ischemic symptoms while here. Echo w/o any wall motion abnormalities. Sees Dr Jose Daniel Lyon at [facility]. He will continue aspirin, amlodipine 2.5 mg tablet, losartan 100 mg tablet, nitroglycerin 0.4 mg sublingual prn. (7) HTN (hypertension): controlled during the stay (8) H/O aortic valve replacement: echo with preserved EF and good AVR function (see echo report). echo was UNCHANGED from prior echo. (9) Dementia: known, followed by Dr Trenton Rivera. getting worse over the last year. (10) Ulcerative colitis: no symptoms/flares at this time. remains on adalimumab. Total Time Total Time Spent Total Time Spent (In Minutes): 40 Total Time Includes: Examination of the Patient, Discharge Planning, Medication Reconciliation and Communication With Other Providers Discharge Plan Discharge Items Patient Disposition: Home - Home Health Services Reason For Visit: SEVERE VERTIGO Discharge Diagnosis: vertigo - resolved. suspected to be from the inner ear. Condition: Good Discharge Goals: Diagnostic testing and Therapeutic intervention Activity: As commented below Activity Comment: for the next 3-4 days please take it easy; no strenuous activities Driving/Machine Use Comment: no driving for at least 1 week Non-emergency contact: Primary Care Provider and Neurologist Call non-emergency contact if: you have any medication questions, your symptoms worsen and your temperature is above 100.5 Follow-up/Referrals: Trenton Rivera MD [Physician] - (see Dr Rivera within 2 weeks if possible ) Rica Chavez DO [Primary Care Provider] - 11/08/18 9:20 am (see Dr Chavez within 1 week) Diet: Heart Healthy and Low Fat Addtl Provider Instructions: You were treated for vertigo with standard vertigo medications. Your vertigo resolved and your balance/walking improved. An MRI of the brain showed OLD strokes in the cerebellum (balance center). We do not know when these old strokes occurred. The neurologist did not feel that the old strokes found were related to your vertigo spells. We performed an echocardiogram of the heart and it was UNCHANGED from 2017. The recent double vision did not occur while you were hospitalized. The exact cause of the double vision was uncertain. If you have recurrent vertigo please take a meclizine tablet. You can take these every 6 hours as needed. If the vertigo does not improve with meclizine, or it persists, please seek medical attention right away. I would like for you to have a physical therapist come to your home to do a safety evaluation. I will ask our social workers to set this up for you. Follow-up - see separate section. Return to [facility] if - * you have worsening vertigo not responding to your medications * you have loss of the ability to speak, swallow, or have weakness of an arm or leg * you have severe balance problems * you have numbness of an arm or leg * you have chest pain or shortness of breath * you have double vision that is not resolving * any other concerns Prescriptions: New meclizine 12.5 mg tablet 12.5 mg PO Q6H PRN (Reason: dizziness or vertigo) Qty: 30 RF: 0 Continued Humira 10 mg/0.2 mL syringe kit 10 mg SUBCUT UD Qty: 2 RF: 5 aspirin 325 mg tablet 325 mg PO DAILY Qty: 30 RF: 5 atorvastatin 40 mg tablet 40 mg PO DAILY Qty: 30 RF: 5 budesonide [Uceris] 9 mg tablet,delayed and ext.release 9 mg PO DAILY Qty: 30 RF: 5 cholecalciferol (vitamin D3) 5,000 unit tablet 5,000 units PO DAILY Qty: 30 RF: 5 docusate sodium [Colace] 100 mg capsule 100 mg PO BID Qty: 30 RF: 5 losartan 100 mg tablet 100 mg PO DAILY Qty: 30 RF: 5 naproxen sodium [Aleve] 220 mg tablet 440 mg PO Q12H PRN (Reason: Pain) Qty: 60 RF: 0 nitroglycerin 0.4 mg tablet, sublingual 0.4 mg SL .COMPLEX PRN (Reason: chest pain) Qty: 90 RF: 0 propylene glycol 0.6 % drops 1 drops OP DAILY Qty: 10 RF: 0 tamsulosin [Flomax] 0.4 mg capsule 0.4 mg PO QAM Qty: 30 RF: 5 tolterodine 2 mg tablet 2 mg PO BID Qty: 60 RF: 5 amlodipine 2.5 mg tablet 2.5 mg PO BID Qty: 60 RF: 5 hydrocodone-acetaminophen 7.5-325 mg tablet 1 tab PO BID PRN (Reason: Pain) Qty: 30 RF: 0 pantoprazole [Protonix] 40 mg tablet,delayed release (DR/EC) 40 mg PO QAM Qty: 30 RF: 5 Stand-Alone Forms: [facility] Discharge Orders: Discharge Order (Routine); Ordered 10/24/18 Ordered By: Pratik Arroyo Admission Data Admit Date/Time: 10/22/18 14:08 Attending Provider: Pratik Arroyo Admit Provider: Guillermina Ross Primary Care Provider: Rica Chavez Other Providers: Guillermina Ross ; Trenton Rivera Service: Telemetry Other Interventions: Discharge Summary Assessment (RN) Last Done: 10/24/18 19:09 Pending Studies at Discharge: No DC Date/Time DO NOT enter until pt leaves facility: 10/24/18 19:39
== END 2018-10-24 19:39 | disposition home health service (06) ==
LOC: 2S 09:22 → ED 09:22 → SUATTDRO 14:08 → 2S 16:01

== ENCOUNTER 2019-11-10 07:46 | Inpatient (IN) ==
[2019-11-10] MEDS ORDERED: FAMOTIDINE 20MG IV PUSH 20 MG/5 ML SYR IV STA (08:15)
[2019-11-10] MEDS ORDERED: GI COCKTAIL ED USE PO ONE (08:15)
[2019-11-10 08:23] LABS: Basophils # (auto) 0.01 K/uL (0-0.2); Basophils % (auto) 0.1 %; Eosinophils # (auto) 0.05 K/uL (0-0.5); Eosinophils % (auto) 0.5 %; Hematocrit (blood only) 41.9 % (42-52); Hemoglobin 14.6 g/dL (14.0-18.0); Immature Granulocytes # (auto) 0.01 K/uL (0.00-0.02); Immature Granulocytes % (auto) 0.1 %; Lymphocytes # (auto) 0.98 K/uL (1.2-3.4); Lymphocytes % (auto) 9.6 %; Mean Corpuscular Hemoglobin 33.4 pg (25-34); Mean Corpuscular Hgb Conc 34.8 g/dL (32-36); Mean Corpuscular Volume 95.9 fL (80-100); Mean Platelet Volume 8.3 fL (7.4-10.4); Monocytes # (auto) 0.66 K/uL (0.11-0.59); Monocytes % (auto) 6.5 %; Neutrophils # (auto) 8.47 K/uL (1.4-6.5); Neutrophils % (auto) 83.2 %; Platelet Count 161 K/uL (130-400); RDW Coefficient of Variation 12.8 % (11.5-14.5); RDW Standard Deviation 44.6 fL (36.4-46.3); Red Blood Count 4.37 M/uL (4.7-6.1); White Blood Count 10.18 K/uL (4.8-10.8)
[2019-11-10] MEDS ORDERED: ONDANSETRON INJ 2 MG/ML 2 ML VIAL IV STA ×2 (08:33→10:12)
--- NOTE | 2019-11-10 08:37 | Emergency Department Note ---
Impression & Plan SBO (small bowel obstruction), Nausea, Abdominal pain ED Provider Note Provider: Eduardo Lowe MD DATE OF SERVICE: 11/09/2019 CHIEF COMPLAINT: Reflux HISTORY OF PRESENT ILLNESS: Patient is a 84-year-old gentleman with a history of heartburn, sacroiliitis, CKD, hyperlipidemia, kidney stones presenting here today stating that his reflux is acting up and is very bad. Patient states that he was up all night with it and has not take anything at home for it. Also reports he is have some abdominal and right lower back pain. Denies constipation. Patient was seen here yesterday for similar complaints of heartburn and back pain although he initially does not remember this. Endorses nausea but denies vomiting. Patient denies any fever or trauma. Patient denies chest pain or shortness of breath. Denies headache or neurological symptoms. Denies blood in his stool. Denies any numbness or tingling in the lower extremities. Denies trauma. REVIEW OF SYSTEMS: A total of 10 review of systems was obtained and negative except as stated above in the HPI. PAST MEDICAL HISTORY: As noted above MEDICATIONS: Reviewed home medication list of the patient SOCIAL HISTORY: Retired, lives at home with PHYSICAL EXAM: GENERAL: alert and oriented to person in no acute distress on stretcher Head: normocephalic and atraumatic EYES: No injection, discharge or icterus. PERRL NECK: Trachea midline. Supple. ENT: Mucous membranes pink and moist. Pharynx without erythema or exudate. LUNGS: Airway patent. No retractions. Breath sounds clear with good air entry bilaterally. HEART: Regular rate and rhythm. No chest wall tenderness ABDOMEN: Soft with some slight epigastric tenderness and a small ventral hernia appreciated easily reducible. BACK: Slight right lower flank tenderness. SKIN: Acyanotic, warm, dry, without rashes EXTREMITIES: Without swelling, tenderness or deformity NEUROLOGICAL: No focal deficits. No aphasia. No facial droop or slurred speech. EK beats. Normal sinus rhythm. No PVCs. No acute ST segment elevation or depression. Normal QTC. Normal axis. CONTINUOUS CARDIAC MONITORING: was ordered and showed a heart rate of 92 bpm in normal sinus rhythm Patient's hypertension was referred to the hospitalist PDMP was checked without noted issue. HOSPITAL COURSE: 807 Patient was first seen and H&P performed. 101 reevaluated patient is feeling quite anxious. Updated with laboratory findings. 1148 updated and reevaluated the patient. Still having nausea symptoms. Discussed the findings of SBO. He is agreeable to trial of NG tube placement. He has me update his via phone as we done. The hospitalist will be contacted. Patient's laboratory studies and imaging reviewed. Differential includes Appendicitis, infections, diverticulitis, UTI, obstruction, mesenteric ischemia, aortic pathology, inflammatory bowel disease, renal colic, PUD, pancreatitis, biliary pathology, hernia, volvulus, constipation, as well as other pathologies. IMPRESSION/MEDICAL DECISION MAKING: Patient was seen and treated here yesterday for similar complaints. Patient was treated with Zofran, morphine, Pepcid, and Tylenol as well as a GI cocktail with improvement of symptoms. Laboratory studies and EKG yesterday were unremarkable. Patient has an easily reducible small ventral hernia I do not believe likely contributing to symptoms. Neurologically intact in lower extremities. Does have some slight confusion regarding recent events. Given t his and unclear exact baseline dementia is listed in the chart CT of the head was completed without acute finding. Does also have a history of aneurysm he reports that he is following with Val for. Denies any headache. Doubt an acute rupture but again scan was completed without finding of this. Notes indicate he follows with neurology for his mild dementia and this is likely present. CT abdomen pelvis however shows a small bowel obstruction with mild proximal small bowel wall thickening. No evidence of pneumatosis. Seems consistent likely the patient's complaint of reflux and nausea and constipation. Discussed with the patient and he was updated. Feel an NG tube would be beneficial as was ordered if he is able to tolerate. Patient did become a little bit anxious prior to this and was given small Benadryl with good improvement of his symptoms. Feel the patient requires further inpatient observation and treatment given the small bowel obstruction. Will consult the hospitalist. He has made to update his family via phone. Patient denies a history of bowel obstruction but states he said prior appendectomy. Discussed with the she states he does have some memory issues and has actually been suffering with constipation for two weeks. Pain for just about the past week according to her. She also reports that he is on Humira for ulcerative colitis. DIAGNOSIS: Small bowel obstruction, nausea, abdominal pain DISPOSITION: Hospitalist will evaluate Patient was agreeable with this plan. 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 Aortic stenosis Benign prostatic hyperplasia with urinary obstruction Chronic kidney disease, stage 3 (moderate) Coronary artery disease Dementia Hearing loss Heart disease HTN (hypertension) HTN (hypertension) Hypercholesterolemia Kidney stones Lumbar degenerative disc disease Middle cerebral artery aneurysm Osteoporosis Renal insufficiency Sacroiliitis Secondary hyperparathyroidism Thrombocytopenia Ulcerative colitis (2004) Urethral stricture Urge incontinence of urine Vitamin D deficiency Surgical History H/O aortic valve replacement (09/24/15) Transfemoral TAVR History of appendectomy History of cataract surgery (2017) L eye Mar 2017, R eye May 2017 History of cholecystectomy History of colon surgery S/P coronary artery stent placement (06/2013) R PDA S/P coronary artery stent placement (07/2013) Mid LAD Family History Mother , age 84 of unknown causes No problems noted. 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[place] [employer] Feels Safe at Home: Yes Dental Care, Regularly: Yes Physical Activity Frequency: 3-4 Times per Week Physical Activity Frequency Comment: walk Seatbelt Use: always Sunscreen Use: No Allergies Allergies Allergy/AdvReac Type Severity Reaction Status Date / Time No Known Allergies Allergy Verified 11/10/19 08:33 Home Meds Home Medications Medication Instructions Recorded Confirmed aspirin [Aspir-81] 81 mg PO QAM 03/14/19 11/10/19 atorvastatin 40 mg PO QAM 03/14/19 11/10/19 budesonide [Uceris] 9 mg PO QAM 03/14/19 11/10/19 cholecalciferol (vitamin D3) 5,000 units PO QAM 03/14/19 11/10/19 psyllium seed (sugar) oral powder 1 tbs PO DAILY PRN 09/25/19 11/10/19 solifenacin [Vesicare] 5 mg PO QAM 10/03/19 11/10/19 tamsulosin [Flomax] 0.4 mg PO HS 10/03/19 11/10/19 adalimumab [Humira(CF) Pen] 0 mg SUBCUT Q14D 11/09/19 11/10/19 Previous Rx's Medication Instructions Recorded pantoprazole 40 mg tablet,delayed 40 mg PO QAM #90 tab 06/14/19 release amlodipine 2.5 mg tablet 7.5 mg PO HS #90 tab 06/24/19 losartan 100 mg tablet 100 mg PO QAM #90 tab 07/24/19 docusate sodium [Colace] 100 mg PO BID #60 cap 10/03/19 lidocaine [Lidoderm] 1 patch TOP DAILY #15 ea 10/03/19 sennosides [Senokot] 8.6 mg PO HS #30 tab 10/03/19 hydrocodone 7.5 mg-acetaminophen 1 tab PO BID PRN #30 tab 11/05/19 325 mg tablet famotidine [Pepcid] 20 mg PO BID 42 Days #84 tab 11/09/19 Results & Data (ED) Vital Signs Vital Signs - 24 hr 11/10/19 07:51 11/10/19 08:06 11/10/19 08:12 Temperature 36.3 C L Temperature Source Oral Pulse Rate 96 H 80 Pulse Rate [Apical] 78 Pulse Rate from SpO2 Sensor 79 Respiratory Rate 18 18 20 Respiratory Effort / Characteristics Non-Labored Spontaneous Respiratory Depth Normal Respiratory Pattern Regular Blood Pressure 151/73 H 150/80 H Blood Pressure [Left Arm] 150/80 H Blood Pressure Mean 99 118 Blood Pressure Mean [Left Arm] 103 Pulse Oximetry 98 93 93 Oxygen Delivery Method Room Air Room Air Sepsis Recent Fever Within 48 Hours No Sepsis New/Unexplained Change in Mental Status No Sepsis Action Taken by Nursing No Action Required 11/10/19 08:14 11/10/19 08:16 11/10/19 08:30 Temperature Temperature Source Pulse Rate 79 78 83 Pulse Rate [Apical] Pulse Rate from SpO2 Sensor 79 83 Respiratory Rate 21 20 20 Respiratory Effort / Characteristics Respiratory Depth Respiratory Pattern Blood Pressure 130/78 Blood Pressure [Left Arm] Blood Pressure Mean 96 Blood Pressure Mean [Left Arm] Pulse Oximetry 94 93 97 Oxygen Delivery Method Room Air Sepsis Recent Fever Within 48 Hours Sepsis New/Unexplained Change in Mental Status Sepsis Action Taken by Nursing 11/10/19 08:31 11/10/19 09:00 11/10/19 09:30 Temperature Temperature Source Pulse Rate 83 80 87 Pulse Rate [Apical] Pulse Rate from SpO2 Sensor 84 80 86 Respiratory Rate 21 17 17 Respiratory Effort / Characteristics Respiratory Depth Respiratory Pattern Blood Pressure 151/72 H 167/78 H Blood Pressure [Left Arm] Blood Pressure Mean 126 116 Blood Pressure Mean [Left Arm] Pulse Oximetry 96 92 91 Oxygen Delivery Method Sepsis Recent Fever Within 48 Hours Sepsis New/Unexplained Change in Mental Status Sepsis Action Taken by Nursing 11/10/19 09:31 11/10/19 10:00 11/10/19 10:01 Temperature Temperature Source Pulse Rate 83 103 H 107 H Pulse Rate [Apical] Pulse Rate from SpO2 Sensor 84 105 H 106 H Respiratory Rate 18 18 24 Respiratory Effort / Characteristics Respiratory Depth Respiratory Pattern Blood Pressure 153/91 H Blood Pressure [Left Arm] Blood Pressure Mean 118 Blood Pressure Mean [Left Arm] Pulse Oximetry 92 97 97 Oxygen Delivery Method Sepsis Recent Fever Within 48 Hours Sepsis New/Unexplained Change in Mental Status Sepsis Action Taken by Nursing 11/10/19 10:02 11/10/19 10:30 11/10/19 10:31 Temperature Temperature Source Pulse Rate 112 H 84 89 Pulse Rate [Apical] Pulse Rate from SpO2 Sensor 113 H 84 90 Respiratory Rate 20 20 21 Respiratory Effort / Characteristics Respiratory Depth Respiratory Pattern Blood Pressure 190/85 H Blood Pressure [Left Arm] Blood Pressure Mean 96 Blood Pressure Mean [Left Arm] Pulse Oximetry 96 97 96 Oxygen Delivery Method Sepsis Recent Fever Within 48 Hours Sepsis New/Unexplained Change in Mental Status Sepsis Action Taken by Nursing 11/10/19 10:32 11/10/19 11:00 11/10/19 11:01 Temperature Temperature Source Pulse Rate 96 H 83 86 Pulse Rate [Apical] Pulse Rate from SpO2 Sensor 95 H 84 85 Respiratory Rate 17 17 20 Respiratory Effort / Characteristics Respiratory Depth Respiratory Pattern Blood Pressure 173/82 H Blood Pressure [Left Arm] Blood Pressure Mean 118 Blood Pressure Mean [Left Arm] Pulse Oximetry 96 93 93 Oxygen Delivery Method Sepsis Recent Fever Within 48 Hours Sepsis New/Unexplained Change in Mental Status Sepsis Action Taken by Nursing 11/10/19 11:31 11/10/19 11:35 11/10/19 12:00 Temperature Temperature Source Pulse Rate 88 80 81 Pulse Rate [Apical] Pulse Rate from SpO2 Sensor 89 80 81 Respiratory Rate 20 20 20 Respiratory Effort / Characteristics Respiratory Depth Respiratory Pattern Blood Pressure 203/86 H 203/86 H 165/74 H Blood Pressure [Left Arm] Blood Pressure Mean 125 123 106 Blood Pressure Mean [Left Arm] Pulse Oximetry 94 95 94 Oxygen Delivery Method Sepsis Recent Fever Within 48 Hours Sepsis New/Unexplained Change in Mental Status Sepsis Action Taken by Nursing 11/10/19 12:01 11/10/19 12:30 11/10/19 12:31 Temperature Temperature Source Pulse Rate 81 104 H 103 H Pulse Rate [Apical] Pulse Rate from SpO2 Sensor 81 104 H 103 H Respiratory Rate 20 21 22 Respiratory Effort / Characteristics Respiratory Depth Respiratory Pattern Blood Pressure 194/101 H Blood Pressure [Left Arm] Blood Pressure Mean 148 Blood Pressure Mean [Left Arm] Pulse Oximetry 94 94 92 Oxygen Delivery Method Sepsis Recent Fever Within 48 Hours Sepsis New/Unexplained Change in Mental Status Sepsis Action Taken by Nursing 11/10/19 12:59 11/10/19 13:00 11/10/19 13:01 Temperature Temperature Source Pulse Rate 94 H 87 96 H Pulse Rate [Apical] Pulse Rate from SpO2 Sensor 94 H 88 95 H Respiratory Rate 20 21 22 Respiratory Effort / Characteristics Respiratory Depth Respiratory Pattern Blood Pressure 163/85 H 171/85 H Blood Pressure [Left Arm] Blood Pressure Mean 118 126 Blood Pressure Mean [Left Arm] Pulse Oximetry 94 94 94 Oxygen Delivery Method Sepsis Recent Fever Within 48 Hours Sepsis New/Unexplained Change in Mental Status Sepsis Action Taken by Nursing 11/10/19 13:30 11/10/19 13:31 Temperature Temperature Source Pulse Rate 83 82 Pulse Rate [Apical] Pulse Rate from SpO2 Sensor 82 82 Respiratory Rate 19 17 Respiratory Effort / Characteristics Respiratory Depth Respiratory Pattern Blood Pressure 130/56 L Blood Pressure [Left Arm] Blood Pressure Mean 90 Blood Pressure Mean [Left Arm] Pulse Oximetry 93 94 Oxygen Delivery Method Sepsis Recent Fever Within 48 Hours Sepsis New/Unexplained Change in Mental Status Sepsis Action Taken by Nursing Laboratory Data Result diagrams: 11/10/19 08:05 11/10/19 08:05 Lab Results 11/10/19 11/10/19 11/10/19 Range/Units 08:05 08:05 11:31 WBC 10.18 (4.8-10.8) K/uL RBC 4.37 L (4.7-6.1) M/uL Hgb 14.6 (14.0-18.0) g/dL Hct 41.9 L (42-52) % MCV 95.9 (80-100) fL MCH 33.4 (25-34) pg MCHC 34.8 (32-36) g/dL RDW Std Deviation 44.6 (36.4-46.3) fL RDW Coeff of [place] 12.8 (11.5-14.5) % Plt Count 161 (130-400) K/uL MPV 8.3 (7.4-10.4) fL Immature Gran % (Auto) 0.1 % Neut % (Auto) 83.2 % Lymph % (Auto) 9.6 % [place] % (Auto) 6.5 % Eos % (Auto) 0.5 % Baso % (Auto) 0.1 % Neut # (Auto) 8.47 H (1.4-6.5) K/uL Lymph # (Auto) 0.98 L (1.2-3.4) K/uL [place] # (Auto) 0.66 H (0.11-0.59) K/uL Eos # (Auto) 0.05 (0-0.5) K/uL Baso # (Auto) 0.01 (0-0.2) K/uL Immature Gran # (Auto) 0.01 (0.00-0.02) K/uL Sodium 139 (136-145) mmol/L Potassium 3.6 (3.5-5.1) mmol/L Chloride 103 (98-107) mmol/L Carbon Dioxide 29 (21-32) mmol/L Anion Gap 6.0 (3-11) BUN 18 (7-18) mg/dl Creatinine 1.35 (0.6-1.4) mg/dl Est Cr Clr Drug Dosing 35.3 ml/min Est GFR ( Amer) 55.1 Est GFR (Non-Af Amer) 47.5 BUN/Creatinine Ratio 13.3 (10-20) Glucose 120 H (70-99) mg/dl Calcium 9.8 (8.5-10.1) mg/dl Total Bilirubin 1.0 (0.2-1) mg/dl AST 17 (15-37) U/L ALT 14 (12-78) U/L Alkaline Phosphatase 64 (45-117) U/L Troponin I < 0.015 (0-0.045) ng/ml Total Protein 7.1 (6.4-8.2) gm/dl Albumin 3.4 (3.4-5.0) gm/dl Globulin 3.7 (2.5-4.0) gm/dl Albumin/Globulin Ratio 0.9 (0.9-2) Lipase 31 L (73-393) U/L Urine Color Yellow Urine Appearance Clear (Clear) Urine pH 7.5 (4.5-7.5) Ur Specific [place] 1.034 H (1.000-1.030) Urine Protein Negative (Negative) Urine Glucose (UA) Negative (Negative) Urine Ketones Trace H (Negative) Urine Blood Negative (Negative) Urine Nitrite Negative (Negative) Urine Bilirubin Negative (Negative) Urine Urobilinogen Negative (Negative) Ur Leukocyte Esterase Negative (Negative) Administered Medications Discontinued Medications Al Hydrox/Mg Hydrox/Simethicone (Gi Cocktail Ed Use) 1 dose PO ONE ONE Stop: 11/10/19 08:16 Last Admin: 11/10/19 08:28 Dose: 1 dose Documented by: [id number] Diphenhydramine HCl (Diphenhydramine Hcl 50 Mg/Ml Vial) 25 mg IV NOW STA Stop: 11/10/19 10:13 Last Admin: 11/10/19 10:18 Dose: 25 mg Documented by: [id number] Famotidine (Pepcid 20mg Iv Push) 20 mg in 5 mls @ 2.5 mls/min IV NOW STA Stop: 11/10/19 08:16 Last Admin: 11/10/19 08:28 Dose: 2.5 mls/min Documented by: [id number] Ioversol (Ioversol 100ml) 93 ml IV ONCE ONE Stop: 11/10/19 08:39 Last Admin: 11/10/19 08:38 Dose: 93 ml Documented by: [id number] Ondansetron HCl (Ondansetron Inj 2 Mg/Ml 2 Ml Vial) 4 mg IV NOW STA Stop: 11/10/19 08:34 Last Admin: 11/10/19 08:38 Dose: 4 mg Documented by: [id number] Ondansetron HCl (Ondansetron Inj 2 Mg/Ml 2 Ml Vial) 4 mg IV NOW STA Stop: 11/10/19 10:13 Last Admin: 11/10/19 10:18 Dose: 4 mg Documented by: [id number] Discharge Plan Visit Data Chief Complaint: GI Assessment Stated Complaint: ACID REFLUX ED Provider: Eduardo Lowe Discharge Problem: SBO (small bowel obstruction), Nausea, Abdominal pain Patient Disposition: Being Evaluated by Hospitalist Discharge Instructions Interventions: ED Discharge Assessment Last Done: 11/10/19 13:36 Forms Stand Alone Forms: [facility] Prescriptions Prescriptions: No Action Metamucil (sugar) Powder 1 tbs PO DAILY PRN (Reason: Pain) RF: 0 pantoprazole [Protonix] 40 mg tablet,delayed release (DR/EC) 40 mg PO QAM Qty: 90 RF: 1 amlodipine 2.5 mg tablet 7.5 mg PO HS Qty: 90 RF: 5 losartan 100 mg tablet 100 mg PO QAM Qty: 90 RF: 1 hydrocodone-acetaminophen 7.5-325 mg tablet 1 tab PO BID PRN (Reason: Pain) Qty: 30 RF: 0 aspirin [Aspir-81] 81 mg Tablet,Delayed Release (Dr/Ec) 81 mg PO QAM RF: 0 atorvastatin 40 mg tablet 40 mg PO QAM RF: 0 cholecalciferol (vitamin D3) 5,000 unit tablet 5,000 units PO QAM RF: 0 budesonide [Uceris] 9 mg tablet,delayed and ext.release 9 mg PO QAM RF: 0 tamsulosin [Flomax] 0.4 mg capsule 0.4 mg PO HS RF: 0 solifenacin [Vesicare] 5 mg tablet 5 mg PO QAM RF: 0 sennosides [Senokot] 8.6 mg tablet 8.6 mg PO HS Qty: 30 RF: 0 docusate sodium [Colace] 100 mg capsule 100 mg PO BID Qty: 60 RF: 0 lidocaine [Lidoderm] 5 % adhesive patch,medicated 1 patch TOP DAILY Qty: 15 RF: 0 Humira(CF) Pen 40 mg/0.4 mL pen injector kit 0 mg SUBCUT Q14D RF: 0 famotidine [Pepcid] 20 mg tablet 20 mg PO BID 42 Days Qty: 84 RF: 0 Referrals Referrals: Rica Chavez DO [Primary Care Provider] - Discharge Problem: Abdominal pain Qualifiers: Abdominal location: generalized Qualified Code(s): R10.84 - Generalized abdominal pain
[2019-11-10] MEDS ORDERED: IOVERSOL 100ml IV ONE (08:38)
[2019-11-10 08:41] LABS: Alanine Aminotransferase 14 U/L (12-78); Albumin Level 3.4 gm/dl (3.4-5.0); Aspartate Aminotransferase 17 U/L (15-37); BUN Creatinine Ratio 13.3 (10-20); Blood Urea Nitrogen 18 mg/dl (7-18); Calcium 9.8 mg/dl (8.5-10.1); Carbon Dioxide 29 mmol/L (21-32); Chloride 103 mmol/L (98-107); Creatinine Clr Calc Pharmacy 35.3 ml/min; Est GFR (African American) 55.1; Est GFR (Non-African American) 47.5; Glucose 120 mg/dl (70-99); Lipase 31 U/L (73-393); Potassium 3.6 mmol/L (3.5-5.1); Sodium 139 mmol/L (136-145)
[2019-11-10 08:46] LABS: Albumin Globulin Ratio 0.9 (0.9-2); Alkaline Phosphatase 64 U/L (45-117); Globulin 3.7 gm/dl (2.5-4.0); Total Protein 7.1 gm/dl (6.4-8.2); Troponin I < 0.015 ng/ml (0-0.045)
--- NOTE | 2019-11-10 08:52 | XRay Report ---
XR chest 1V portable CLINICAL HISTORY: Pain, radiating to the abdomen. Possible reflux. COMPARISON STUDY: 11/09/2019 FINDINGS: The cardiac and mediastinal contours are normal. There is no evidence of focal pulmonary co nsolidation. There is no evidence of failure. There is persistent blunting of the left lateral costop hrenic angle. IMPRESSION: 1. Stable blunting of the left lateral costophrenic angle. No evidence of failure. No evidence of foc al pulmonary consolidation ACT 112: Negative or not required by law. Electronically signed by: Ugo Nina M.D. 11/10/2019 8:51 AM
[2019-11-10] MEDS ORDERED: DiphenhydrAMINE HCL 50 MG/ML VIAL IV STA (10:12)
--- NOTE | 2019-11-10 10:28 | Electrocardiogram Report ---
Test Reason : Blood Pressure : / mmHG Vent. Rate : 080 BPM Atrial Rate : 080 BPM P-R Int : 166 ms QRS Dur : 066 ms QT Int : 368 ms P-R-T Axes : 058 015 044 degrees QTc Int : 424 ms Normal sinus rhythm Normal ECG When compared with ECG of 09-NOV-2019 20:40, (unconfirmed) No significant change was found Confirmed by Jose Daniel Lyon ([id number]) on 11/10/2019 10:28:05 AM Referred By: REFERRED SELF Confirmed By:Jose Daniel Lyon
--- NOTE | 2019-11-10 11:25 | CT Scan Report ---
CT head/brain wo con CLINICAL HISTORY: confusion COMPARISON STUDY: Adenoid second 2019 TECHNIQUE: Axial CT of the brain is performed from the vertex to the skull base. IV contrast was not administered for this examination. A dose lowering technique was utilized adhering to the principles of ALARA. CT DOSE: 638.56 mGycm FINDINGS: No intra or extra-axial mass lesions are visualized. There is no CT evidence of acute cortical infarc tion. There is no evidence of midline shift. There is no acute hemorrhage. No calvarial fractures ar e visualized. There are patchy white matter hypodensities likely on a small vessel basis. 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 There is an old left a subtle ganglia lacunar infarct. There is no evidence of pathologic ventricular dilatation. There is no evidence of acute sinusitis IMPRESSION: No acute intracranial findings ACT 112: Negative or not required by law. Electronically signed by: Ugo Nina M.D. 11/10/2019 11:23 AM
--- NOTE | 2019-11-10 11:37 | CT Scan Report ---
CT abd pelvis IV con only CLINICAL HISTORY: nausea, vomiting, heartburn, R lower flank pain COMPARISON STUDY: 10/02/2018 TECHNIQUE: The patient was scanned in a dynamic helical fashion during intravenous administration of 93 cc of Optiray 320 A dose lowering technique was utilized adhering to the principles of ALARA. CT DOSE: 885.29 mGycm FINDINGS: Lower chest: There are basilar atelectatic changes. Liver: No focal hepatic masses are visualized. There is mild central biliary ductal prominence. Gallbladder: Not visualized presumed surgically absent. The common bile duct is mildly dilated measur ing 11 mm. Spleen: Normal in size and attenuation. Pancreas: Unremarkable. Adrenal glands: There is an 8 mm left adrenal nodule. Kidneys: There are bilateral renal cortical cysts, the largest of which is located on the right measu ring 37 mm. There is left-sided nephrolithiasis. There is no hydronephrosis. Bowel: The stomach is distended. There are dilated proximal small bowel loops with minimal wall thick ening. The distal small bowel is of normal caliber. The findings are consistent with a proximal small bowel obstruction. There is extensive colonic diverticulosis. There is no evidence of acute divertic ulitis. By history the appendix is surgically absent Peritoneum: There is no intraperitoneal free air or abdominal ascites. Vasculature: The abdominal aorta is normal in course and caliber. Adenopathy: None. Pelvic viscera: The prostate is enlarged. There are bladder diverticula consistent with chronic bladd er outlet obstruction. Skeletal structures: No destructive osseous lesions are seen. IMPRESSION: 1. Small bowel obstruction with mild proximal small bowel wall thickening. No evidence of pneumatosis . No evidence of portal venous gas 2. Surgically absent gallbladder with mild dilatation of the common bile duct 3. Diverticulosis. No evidence of acute diverticulitis 4. Left-sided nephrolithiasis 5. Prostatomegaly and evidence of chronic bladder outlet obstruction ACT 112: Negative or not required by law. Electronically signed by: Ugo Nina M.D. 11/10/2019 11:36 AM
[2019-11-10 11:44] LABS: Appearance Urine Clear (Clear); Bilirubin Urine Negative (Negative); Blood Urine Negative (Negative); Color Urine Yellow; Glucose Urine UA Negative (Negative); Ketones Urine Trace (Negative); Leukocyte Esterase Urine Negative (Negative); Nitrite Urine Negative (Negative); Protein Urine Negative (Negative); Specific Gravity Urine 1.034 (1.000-1.030); Urobilinogen Urine Negative (Negative); pH Urine 7.5 (4.5-7.5)
--- NOTE | 2019-11-10 12:10 | History & Physical Report ---
Date of Service November 10, 2019 Assessment & Plan (1) SBO (small bowel obstruction): Patient presents with acute small bowel obstruction. NG tube attempting to be placed in the emergency department. Patient's had prior abdominal surgery including cholecystectomy and appendectomy. Conservative management will be undertaken as patient's laboratories are relatively stable. Surgical consultation will be undertaken Patient typically follows with Dr. Worthy for his ulcerative colitis taking furosemide and Humira would be some concern that his bowel obstruction could be related to changes based upon his ulcerative colitis however CT is pinpointing and proximal small bowel not distal small bowel. We will involve Dr. Worthy. This point patient typically takes budesonide which has little systemic absorption at this point time we will not start systemic steroids but will check an a.m. cortisol to assess the suppression of his adrenal axis and if his a.m. cortisol is suppressed on 11/10 consideration for parenteral steroids could be undertaken (2) Cerebrovascular disease: Patient typically takes aspirin and antihypertensive medications along with atorvastatin for secondary risk prevention patient will be n.p.o. will control blood pressure via parenteral means (3) Chronic kidney disease, stage 3 (moderate): Patient's kidney function is stable at this time he will be hydrated with fluids as he is now n.p.o. his ARB will be held (4) H/O aortic valve replacement: (5) HTN (hypertension): Traditionally taking amlodipine 7.5 and losartan will use enalapril AT IV scheduled with PRN hydralazine for backup blood pressure control (6) Benign prostatic hyperplasia with urinary obstruction: Patient typically is on Vesicare and Flomax course these will be held as he is n.p.o. if he has urinary issues consideration of Marr catheter could be undertaken (7) DVT prophylaxis: SCDs for DVT prevention History of Present Illness Primary Care Provider: Rica Chavez DO 84-year-old gentleman with a history of heartburn, sacroiliitis, CKD, hyperlipidemia, kidney stones presenting here today stating that his reflux is acting up and is very bad. Patient states that he was up all night with it and has not take anything at home for it. Also reports he is have some abdominal and right lower back pain ( he has chronic back pain usually using hydrocodone and lidoderm) . 2 weeks of constipation. Patient was seen in the Er 11/09/19 for similar complaints of heartburn and back pain although he initially does not remember this. Endorses nausea but denies vomiting. An NG tube was placed in the emergency department and promptly drained almost 800 cc of a liquid looking like pea soup. Patient felt relieved Abdomen exam is nonacute abdomen there is hypoactive bowel sounds is soft and mildly tender Allergies Allergy/AdvReac Type Severity Reaction Status Date / Time No Known Allergies Allergy Verified 11/10/19 08:33 Home Medications Home Medications Medication Instructions Recorded Confirmed Type aspirin [Aspir-81] 81 mg PO QAM 03/14/19 11/10/19 History atorvastatin 40 mg PO QAM 03/14/19 11/10/19 History budesonide [Uceris] 9 mg PO QAM 03/14/19 11/10/19 History cholecalciferol (vitamin D3) 5,000 units PO QAM 03/14/19 11/10/19 History pantoprazole 40 mg tablet,delayed 40 mg PO QAM #90 tab 06/14/19 11/10/19 Rx release amlodipine 2.5 mg tablet 7.5 mg PO HS #90 tab 06/24/19 11/10/19 Rx losartan 100 mg tablet 100 mg PO QAM #90 tab 07/24/19 11/10/19 Rx psyllium seed (sugar) oral powder 1 tbs PO DAILY PRN 09/25/19 11/10/19 History docusate sodium [Colace] 100 mg PO BID #60 cap 10/03/19 11/10/19 Rx lidocaine [Lidoderm] 1 patch TOP DAILY #15 ea 10/03/19 11/10/19 Rx sennosides [Senokot] 8.6 mg PO HS #30 tab 10/03/19 11/10/19 Rx solifenacin [Vesicare] 5 mg PO QAM 10/03/19 11/10/19 History tamsulosin [Flomax] 0.4 mg PO HS 10/03/19 11/10/19 History hydrocodone 7.5 mg-acetaminophen 1 tab PO BID PRN #30 tab 11/05/19 11/10/19 Rx 325 mg tablet adalimumab [Humira(CF) Pen] 0 mg SUBCUT Q14D 11/09/19 11/10/19 History famotidine [Pepcid] 20 mg PO BID 42 Days #84 tab 11/09/19 11/10/19 Rx 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 Aortic stenosis Benign prostatic hyperplasia with urinary obstruction Chronic kidney disease, stage 3 (moderate) Coronary artery disease Dementia Hearing loss Heart disease HTN (hypertension) HTN (hypertension) Hypercholesterolemia Kidney stones Lumbar degenerative disc disease Middle cerebral artery aneurysm Osteoporosis Renal insufficiency Sacroiliitis Secondary hyperparathyroidism Thrombocytopenia Ulcerative colitis (2004) Urethral stricture Urge incontinence of urine Vitamin D deficiency Surgical History H/O aortic valve replacement (09/24/15) Transfemoral TAVR History of appendectomy History of cataract surgery (2017) L eye Mar 2017, R eye May 2017 History of cholecystectomy History of colon surgery S/P coronary artery stent placement (06/2013) R PDA S/P coronary artery stent placement (07/2013) Mid LAD Family History Mother , age 84 of unknown causes No problems noted. 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 [employer] Feels Safe at Home: Yes Dental Care, Regularly: Yes Physical Activity Frequency: 3-4 Times per Week Physical Activity Frequency Comment: walk Seatbelt Use: always Sunscreen Use: No Review of Systems Review of Systems: Mild to moderate distress and fatigue no headache, blurry or double vision no speech or swallowing issues no chest pain, pressure or palpitations no shortness of breath, cough or wheezes Prehospital abdominal pain, with nausea but no vomiting, 2 preceding weeks of constipation no dysuria, hematuria or frequency no focal joint pain or swelling Chronic daily back pain, but no CVA tenderness or radicular pain no bruising, bleeding or rashes no focal signs of weakness or numbness or altered sensation no complaints or anxiety or depression does have some memory impairment. Physical Exam Physical Exam: The patient appeared in mild to moderate distress but normally developed. Vital signs as documented. Head exam is normocephalic atraumatic no scleral icterus Neck is without JVD, thyromegaly, or carotid bruits. Lungs are clear to auscultation, no focal loss of breath sounds Cardiac exam, Rhythm is regular.. No murmurs, rubs or gallops. Abdominal exam reveals absent bowel sounds, soft no real focal areas of tenderness guarding or rebound Extremities are nonedematous and both pedal pulses are normal. Neurologic exam is alert and oriented x2, no focal loss of strength or sensation Skin is without bruises or rashes Psychologically is with concern for memory loss Results & Data Results & Data ([facility]) Vital Signs (Past 12 Hours) Vital Signs Temp Pulse Pulse Resp BP BP Pulse Ox 11/10/19 11:31 88 20 203/86 H 94 11/10/19 11:01 86 20 93 11/10/19 11:00 83 17 173/82 H 93 11/10/19 10:32 96 H 17 96 11/10/19 10:31 89 21 190/85 H 96 11/10/19 10:30 84 20 97 11/10/19 10:02 112 H 20 96 11/10/19 10:01 107 H 24 153/91 H 97 11/10/19 10:00 103 H 18 97 11/10/19 09:31 83 18 92 11/10/19 09:30 87 17 167/78 H 91 11/10/19 09:00 80 17 151/72 H 92 11/10/19 08:31 83 21 96 11/10/19 08:30 83 20 130/78 97 11/10/19 08:16 78 20 93 11/10/19 08:14 79 21 94 11/10/19 08:12 78 20 150/80 H 93 11/10/19 08:06 80 18 150/80 H 93 11/10/19 07:51 97.3 F L 96 H 18 151/[address]domen Pelvis 11/10/19 IMPRESSION: 1. Small bowel obstruction with mild proximal small bowel wall thickening. No evidence of pneumatosis. No evidence of portal venous gas 2. Surgically absent gallbladder with mild dilatation of the common bile duct 3. Diverticulosis. No evidence of acute diverticulitis 4. Left-sided nephrolithiasis 5. Prostatomegaly and evidence of chronic bladder outlet obstruction Ct head 11/10/19 no acute intracranial abnormality Chest x-ray 11/10/2019 stable blunting of left lateral costophrenic angle no evidence of failure or consolidation EKG 11/10/2019 normal sinus rhythm no significant change compared to 1 day prior PG Care Time/CCT Total # of Minutes Spent Total Time Spent with Patient: Total time spent is greater than 50% in coordination of care (as documented) at patient's floor/unit and/or counseling patient: Coding Level of Care Code 69324 Initial Inpt Care Lvl 3 Diagnoses SBO (small bowel obstruction) K56.609 Cerebrovascular disease I67.9 Chronic kidney disease, stage 3 (moderate) N18.3 H/O aortic valve replacement Z95.2 HTN (hypertension) I10 Hypertension type: essential hypertension Benign prostatic hyperplasia with urinary obstruction N40.1; N13.8 DVT prophylaxis Z29.9 (1) HTN (hypertension) Hypertension type: essential hypertension Qualified Code(s): I10 - Essential (primary) hypertension
--- NOTE | 2019-11-10 13:21 | XRay Report ---
XR KUB/Abdomen 1 view CLINICAL HISTORY: Confirmation of NG tube placement COMPARISON STUDY: 03/16/2015 FINDINGS: There is renal contrast enhancement secondary to a prior CT scan. There is no pathologic maurice wel dilatation. There is a nasogastric tube with its tip at the esophagogastric junction. IMPRESSION: Nasogastric tube is positioned with its tip at the level of the esophagogastric junction ACT 112: Negative or not required by law. Electronically signed by: Ugo Nina M.D. 11/10/2019 1:20 PM
[2019-11-10] MEDS ORDERED: PROMETHAZINE HCL 12.5 MG in SODIUM CHLORIDE 0.9% 50 ML IV PRN (13:49)
[2019-11-10] MEDS ORDERED: ONDANSETRON INJ 2 MG/ML 2 ML VIAL IV PRN (13:49)
[2019-11-10] MEDS: SODIUM CHLORIDE 0.9% 1000ML 1,000 ML IV SCH ×2 (14:40→23:48)
[2019-11-10] MEDS: ENALAPRILAT 0.625 MG in SYRINGE 9.5 ML IV SCH ×2 (15:07→21:17)
--- NOTE | 2019-11-10 16:19 | Gastrointestinal Consultation ---
Date of Consultation November 10, 2019 Assessment & Plan (1) SBO (small bowel obstruction): continue NG suction with hope that obstruction will resolve. If obstruction fails to improve or worsens then surgery consult recommended. . GERD hx continue PPI ulcerative colitis--stable on Humira and uceris which can be resumed as outpt constipation---may need some miralax once SBO resolved. bladder obstruciton--chronic--per hospitalist adrenal nodule on CT --per hospitalist I am going off service tomorrow [address] Worthy is assuming GI care then. History of Present Illness Reason for Consultation: small bowel obstruction Requesting Physician: DR Hutchison Attending Physician: Vernon Hutchison MD History of Present Illness CC nausea HPI Reviewed recent data in this EMR and [facility] EMR. Pt sees DR Worthy and most recent OV was 03/27/19. Pt with ulcerative colitis since 2005 treated with Humira since 2016 and was also on Uceris. Pt with stable UC then and per patient UC stable recently also. Pt is having current problem with memory but states he has constipation recently and about 6 weeks ago had to manually disimpact to move his bowels. Over unclear timeframe he has been having nausea and vomiting. Minor abd pain. He came to ER yesterday complaining of nausea and gerd and then came to ER again today. CT a/p today showed proximal SBO, adrenal adenoma, diverticulosis, chronic bladder outlet obstruction. NG placed and beard return of 800 ml of fluid. NG currently draining yellow material. No abd pain at present. Allergies Allergy/AdvReac Type Severity Reaction Status Date / Time No Known Allergies Allergy Verified 11/10/19 08:33 Home Medications Home Medications Medication Instructions Recorded Confirmed Type aspirin [Aspir-81] 81 mg PO QAM 03/14/19 11/10/19 History atorvastatin 40 mg PO QAM 03/14/19 11/10/19 History budesonide [Uceris] 9 mg PO QAM 03/14/19 11/10/19 History cholecalciferol (vitamin D3) 5,000 units PO QAM 03/14/19 11/10/19 History pantoprazole 40 mg tablet,delayed 40 mg PO QAM #90 tab 06/14/19 11/10/19 Rx release amlodipine 2.5 mg tablet 7.5 mg PO HS #90 tab 06/24/19 11/10/19 Rx losartan 100 mg tablet 100 mg PO QAM #90 tab 07/24/19 11/10/19 Rx psyllium seed (sugar) oral powder 1 tbs PO DAILY PRN 09/25/19 11/10/19 History docusate sodium [Colace] 100 mg PO BID #60 cap 10/03/19 11/10/19 Rx lidocaine [Lidoderm] 1 patch TOP DAILY #15 ea 10/03/19 11/10/19 Rx sennosides [Senokot] 8.6 mg PO HS #30 tab 10/03/19 11/10/19 Rx solifenacin [Vesicare] 5 mg PO QAM 10/03/19 11/10/19 History tamsulosin [Flomax] 0.4 mg PO HS 10/03/19 11/10/19 History hydrocodone 7.5 mg-acetaminophen 1 tab PO BID PRN #30 tab 11/05/19 11/10/19 Rx 325 mg tablet adalimumab [Humira(CF) Pen] 0 mg SUBCUT Q14D 11/09/19 11/10/19 History famotidine [Pepcid] 20 mg PO BID 42 Days #84 tab 11/09/19 11/10/19 Rx Patient History Medical History (Updated 11/10/19 @ 12:08 by Vernon Hutchison MD) Acid reflux Amaurosis fugax, 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 Aortic stenosis Benign prostatic hyperplasia with urinary obstruction Chronic kidney disease, stage 3 (moderate) Coronary artery disease Dementia Hearing loss Heart disease HTN (hypertension) HTN (hypertension) Hypercholesterolemia Kidney stones Lumbar degenerative disc disease Middle cerebral artery aneurysm Osteoporosis Renal insufficiency Sacroiliitis Secondary hyperparathyroidism Thrombocytopenia Ulcerative colitis (2004) Urethral stricture Urge incontinence of urine Vitamin D deficiency Surgical History H/O aortic valve replacement (09/24/15) Transfemoral TAVR History of appendectomy History of cataract surgery (2017) L eye Mar 2017, R eye May 2017 History of cholecystectomy History of colon surgery S/P coronary artery stent placement (06/2013) R PDA S/P coronary artery stent placement (07/2013) Mid LAD Family History Mother , age 84 of unknown causes No problems noted. 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[employer] [facility] Feels Safe at Home: No Is there a partner from a previous relationship who is making you feel unsafe now?: No Any Concerns about Your Family Situation: No Would You Like to Speak to Someone About Your Situation: No Dental Care, Regularly: Yes Physical Activity Frequency: 3-4 Times per Week Physical Activity Frequency Comment: walk Seatbelt Use: always Sunscreen Use: No Review of Systems Review of Systems: All systems reviewed & are unremarkable except as noted in HPI & below Physical Exam Constitutional: WD/WN, vitals as above Eyes: PERRL, conjunctivae normal, anicteric sclerae ENMT: external ear and nose normal Neck: normal visual inspection and trachea midline Respiratory: normal respiratory effort, lungs clear to auscultation Cardiovascular: RRR, no murmur, no edema Gastrointestinal (Abdomen): diminished bowel sounds, abdomenn moderately distended and tympanitic, no guarding nor rebound, Musculoskeletal: no cyanosis or clubbing, extremities motor strength 5/5 Neurologic: PERRL, EOMI, accommodation nl, no face palsy, no dysarthria Psychiatric: decrease memory but awake and alert Results & Data ([facility]) Vital Signs (Past 12 Hours) Vital Signs Temp Pulse Pulse Pulse Resp BP BP 11/10/19 15:19 36.8 C 77 18 11/10/19 14:00 36.7 C 84 16 11/10/19 13:31 82 17 11/10/19 13:30 83 19 130/56 L 11/10/19 13:01 96 H 22 11/10/19 13:00 87 21 171/85 H 11/10/19 12:59 94 H 20 163/85 H 11/10/19 12:31 103 H 22 11/10/19 12:30 104 H 21 194/101 H 11/10/19 12:01 81 20 11/10/19 12:00 81 20 165/74 H 11/10/19 11:35 80 20 203/86 H 11/10/19 11:31 88 20 203/86 H 11/10/19 11:01 86 20 11/10/19 11:00 83 17 173/82 H 11/10/19 10:32 96 H 17 11/10/19 10:31 89 21 190/85 H 11/10/19 10:30 84 20 11/10/19 10:02 112 H 20 11/10/19 10:01 107 H 24 153/91 H 11/10/19 10:00 103 H 18 11/10/19 09:31 83 18 11/10/19 09:30 87 17 167/78 H 11/10/19 09:00 80 17 151/72 H 11/10/19 08:31 83 21 11/10/19 08:30 83 20 130/78 11/10/19 08:16 78 20 11/10/19 08:14 79 21 11/10/19 08:12 78 20 150/80 H 11/10/19 08:06 80 18 150/80 H 11/10/19 07:51 36.3 C L 96 H 18 151/73 H BP Pulse Ox 11/10/19 15:19 168/72 H 96 11/10/19 14:00 191/83 H 95 11/10/19 13:31 94 11/10/19 13:30 93 11/10/19 13:01 94 11/10/19 13:00 94 11/10/19 12:59 94 11/10/19 12:31 92 11/10/19 12:30 94 11/10/19 12:01 94 11/10/19 12:00 94 11/10/19 11:35 95 11/10/19 11:31 94 11/10/19 11:01 93 11/10/19 11:00 93 11/10/19 10:32 96 11/10/19 10:31 96 11/10/19 10:30 97 11/10/19 10:02 96 11/10/19 10:01 97 11/10/19 10:00 97 11/10/19 09:31 92 11/10/19 09:30 91 11/10/19 09:00 92 11/10/19 08:31 96 11/10/19 08:30 97 11/10/19 08:16 93 11/10/19 08:14 94 11/10/19 08:12 93 11/10/19 08:06 93 11/10/19 07:51 98
[2019-11-10] MEDS: MoRPHine SULFATE 4 MG/ML 1 ML CARP\\VIAL IV PRN (18:19)
[2019-11-10] MEDS: CHLORASEPTIC 1.4% SOLN 180 ML BTL MT PRN (21:15)
[2019-11-10] MEDS ORDERED: LORazepam 1 MG/2 ML VIAL IV ONE (21:15)
[2019-11-10] MEDS: PANTOprazole 40 MG in SYRINGE 0 ML IV SCH (21:15)
[2019-11-11] MEDS: CHLORASEPTIC 1.4% SOLN 180 ML BTL MT PRN ×4 (00:10→17:47)
[2019-11-11] MEDS: MoRPHine SULFATE 2 MG/ML CARP IV PRN ×2 (00:12→21:25)
[2019-11-11] MEDS: ENALAPRILAT 0.625 MG in SYRINGE 9.5 ML IV SCH ×3 (06:41→21:15)
[2019-11-11 07:09] LABS: Basophils # (auto) 0.01 K/uL (0-0.2); Basophils % (auto) 0.1 %; Eosinophils # (auto) 0.08 K/uL (0-0.5); Eosinophils % (auto) 0.9 %; Hematocrit (blood only) 37.1 % (42-52); Hemoglobin 12.7 g/dL (14.0-18.0); Immature Granulocytes # (auto) 0.01 K/uL (0.00-0.02); Immature Granulocytes % (auto) 0.1 %; Lymphocytes # (auto) 1.12 K/uL (1.2-3.4); Lymphocytes % (auto) 13.3 %; Mean Corpuscular Hemoglobin 32.5 pg (25-34); Mean Corpuscular Hgb Conc 34.2 g/dL (32-36); Mean Corpuscular Volume 94.9 fL (80-100); Monocytes # (auto) 0.85 K/uL (0.11-0.59); Monocytes % (auto) 10.1 %; Neutrophils # (auto) 6.37 K/uL (1.4-6.5); Neutrophils % (auto) 75.5 %; Platelet Count 108 K/uL (130-400); RDW Coefficient of Variation 12.9 % (11.5-14.5); RDW Standard Deviation 44.7 fL (36.4-46.3); Red Blood Count 3.91 M/uL (4.7-6.1); White Blood Count 8.44 K/uL (4.8-10.8)
[2019-11-11 07:51] LABS: Albumin Globulin Ratio 0.9 (0.9-2); Albumin Level 2.9 gm/dl (3.4-5.0); BUN Creatinine Ratio 18.4 (10-20); Bilirubin,Total 1.2 mg/dl (0.2-1); Calcium 8.7 mg/dl (8.5-10.1); Creatinine Clr Calc Pharmacy 43.7 ml/min; Est GFR (African American) 71.4; Est GFR (Non-African American) 61.6; Globulin 3.2 gm/dl (2.5-4.0); Potassium 3.7 mmol/L (3.5-5.1); Total Protein 6.1 gm/dl (6.4-8.2)
[2019-11-11 07:59] LABS: Thyroid Stimulating Hormone 0.771 uIu/ml (0.300-4.500)
[2019-11-11] MEDS: LIDOCAINE 5% 1 PATCH TD SCH (08:40)
[2019-11-11] MEDS: SODIUM CHLORIDE 0.9% 1000ML 1,000 ML IV SCH ×2 (08:41→18:36)
[2019-11-11] MEDS: PANTOprazole 40 MG in SYRINGE 0 ML IV SCH ×2 (08:41→21:10)
--- NOTE | 2019-11-11 08:50 | Gastroenterology Progress Note ---
Date of Service November 11, 2019 Assessment & Plan (1) SBO (small bowel obstruction): SBO -- continue NG suction with hope that obstruction will resolve. If obstruction fails to improve or worsens then surgery consult recommended. Will repeat KUB this morning. GERD -- hx continue PPI ulcerative colitis -- stable on Humira and uceris which can be resumed as outpatient constipation -- may need some Miralax once SBO resolved. bladder obstruction -- chronic--per hospitalist adrenal nodule on CT -- per hospitalist Please refer to supervising physician addendum for further recommendations. Admission and Anticipated Discharge Date Admission Date: November 10, 2019 Subjective The patient is an [id number]-male with a past medical history of Acid reflux, Aneurysm of internal carotid artery, Aortic stenosis, Benign prostatic hyperplasia with urinary obstruction, Chronic kidney disease, stage 3 (moderate), Coronary artery disease, Dementia, Hearing loss, HTN, H ypercholesterolemia, Kidney stones, Lumbar degenerative disc disease, Middle cerebral artery aneurysm, Osteoporosis, Renal insufficiency, Sacroiliitis, Secondary hyperparathyroidism, Thrombocytopenia, Ulcerative colitis (2004) that present to the ED on 11/09/2019 and 11/10/[address] abdomen pelvis however shows a small bowel obstruction with mild proximal small bowel wall thickening, adrenal adenoma, diverticulosis, chronic bladder outlet obstruction. No evidence of pneumatosis. Subsequently admitted NPO with NGT to drainage. On exam/interview today, the patient was sleeping on entry to the room. Patient is hard of hearing and has some confusion at baseline. States he wants the NGT out as early as possible. NGT to suction and draining brown fluid. He is also asking for a glass of water. He denies nausea, vomiting, abdominal pain. NPO since admission. States to bowel movement since admission. Review of Systems Review of Systems: All systems reviewed & are unremarkable except as noted in HPI & below Physical Exam Constitutional: WD/WN, vitals as above Eyes: PERRL, conjunctivae normal, anicteric sclerae ENMT: external ear and nose normal Neck: normal visual inspection and trachea midline Respiratory: normal respiratory effort, lungs clear to auscultation Cardiovascular: RRR, no murmur, no edema Gastrointestinal (Abdomen): + bowel sounds, abdomen moderately distended and tympanitic, no guarding nor rebound, NGT intact left nare with brown drainage noted Musculoskeletal: no cyanosis or clubbing, extremities motor strength 5/5 Neurologic: PERRL, EOMI, accommodation nl, no face palsy, no dysarthria Psychiatric: decrease memory but awake and alert Results & Data ([facility]) Vital Signs (Past 12 Hours) Vital Signs Temp Pulse Pulse Resp BP BP Pulse Ox 11/11/19 07:19 36.8 C 76 18 154/70 H 93 11/11/19 06:42 74 170/77 H 11/10/19 23:37 37.0 C 65 18 149/62 H 94 11/10/19 21:15 80 175/78 H Laboratory Results - last 24 hr 11/10/19 11/11/19 11/11/19 11:31 07:01 07:01 WBC 8.44 RBC 3.91 L Hgb 12.7 L Hct 37.1 L MCV 94.9 MCH 32.5 MCHC 34.2 RDW Std Deviation 44.7 RDW Coeff of Tahmina 12.9 Plt Count 108 L MPV 8.0 Immature Gran % (Auto) 0.1 Neut % (Auto) 75.5 Lymph % (Auto) 13.3 [place] % (Auto) 10.1 Eos % (Auto) 0.9 Baso % (Auto) 0.1 Neut # (Auto) 6.37 Lymph # (Auto) 1.12 L [place] # (Auto) 0.85 H Eos # (Auto) 0.08 Baso # (Auto) 0.01 Immature Gran # (Auto) 0.01 Sodium 142 Potassium 3.7 Chloride 108 H Carbon Dioxide 27 Anion Gap 7.0 BUN 20 H Creatinine 1.09 Est Cr Clr Drug Dosing 43.7 Est GFR ( Amer) 71.4 Est GFR (Non-Af Amer) 61.6 BUN/Creatinine Ratio 18.4 Glucose 78 Calcium 8.7 Total Bilirubin 1.2 H AST 11 L ALT 12 Alkaline Phosphatase 53 Total Protein 6.1 L Albumin 2.9 L Globulin 3.2 Albumin/Globulin Ratio 0.9 TSH 0.771 Cortisol AM Sample Urine Color Yellow Urine Appearance Clear Urine pH 7.5 Ur Specific [place] 1.034 H Urine Protein Negative Urine Glucose (UA) Negative Urine Ketones Trace H Urine Blood Negative Urine Nitrite Negative Urine Bilirubin Negative Urine Urobilinogen Negative Ur Leukocyte Esterase Negative 11/11/19 07:01 WBC RBC Hgb Hct MCV MCH MCHC RDW Std Deviation RDW Coeff of [place] Plt Count MPV Immature Gran % (Auto) Neut % (Auto) Lymph % (Auto) [place] % (Auto) Eos % (Auto) Baso % (Auto) Neut # (Auto) Lymph # (Auto) [place] # (Auto) Eos # (Auto) Baso # (Auto) Immature Gran # (Auto) Sodium Potassium Chloride Carbon Dioxide Anion Gap BUN Creatinine Est Cr Clr Drug Dosing Est GFR ( Amer) Est GFR (Non-Af Amer) BUN/Creatinine Ratio Glucose Calcium Total Bilirubin AST ALT Alkaline Phosphatase Total Protein Albumin Globulin Albumin/Globulin Ratio TSH Cortisol AM Sample 18.55 Urine Color Urine Appearance Urine pH Ur Specific [place] Urine Protein Urine Glucose (UA) Urine Ketones Urine Blood Urine Nitrite Urine Bilirubin Urine Urobilinogen Ur Leukocyte Esterase
--- NOTE | 2019-11-11 09:52 | XRay Report ---
KUB CLINICAL HISTORY: Small bowel obstruction. COMPARISON STUDY: CT of the abdomen and pelvis November 10, 2019. KUB November 10, 2019. FINDINGS: A 3 mm left renal calculus is noted. There is mild levoscoliosis of the lumbar spine. Contr ast within the bladder from recent contrast-enhanced CT. Tip of nasogastric tube projects over the ga stroesophageal junction. Small bowel dilatation has resolved. IMPRESSION: 1. Interval resolution of small bowel dilatation. 2. Tip of nasogastric tube projects over the gastroesophageal junction. 3. 3 mm left renal calculus. ACT 112: Negative or not required by law. Electronically signed by: Rick Greenwood M.D. 11/11/2019 9:51 AM
--- NOTE | 2019-11-11 15:10 | Progress Notes ---
DATE: 11/11/2019 Addendum to Opal Mondragon's note: I saw the patient today. Unfortunately, the patient is getting demented and is unable to give a lot of details. He did say that he has not moved his bowels for the last 2 days, but cannot remember prior to that. He thought that he was passing just a little bit of gas. The patient continues to have some drainage out of the nasogastric tube, but his KUB today shows that there is really a paucity of gas in the small intestine indicating that he has been decompressed significantly. His ulcerative colitis is being treated with Humira and is inactive at this time. Abdomen is pretty soft. There are no masses or tenderness. There is a right upper quadrant scar from previous cholecystectomy. IMPRESSION: The patient has small-bowel obstruction, possibly from adhesions. His ulcerative colitis is inactive and should not involve the small intestine. A surgical consultation has been obtained and I would consider clamping his nasogastric tube overnight to see how he does and if he does okay, trying him on a trial of liquids tomorrow. If his bowel obstruction does not resolve, he may require a surgical intervention.
--- NOTE | 2019-11-11 16:31 | Hospitalist Progress Note ---
Date of Service November 11, 2019 Assessment & Plan (1) SBO (small bowel obstruction): Patient presents with acute small bowel obstruction. Patient's had prior abdominal surgery including cholecystectomy and appendectomy patient feels better with NG tube to low intermittent suction still no flatus, no BM but abdomen is less distended, no nausea KUB today with resolution of small bowel dilation will consult general surgery to follow in case he does not open up labs stable today continue NSS to keep patient hydrated (2) Cerebrovascular disease: Patient typically takes aspirin and antihypertensive medications along with atorvastatin for secondary risk prevention patient will be n.p.o. will control blood pressure via parenteral means BP is 160's systolic, monitor daily (3) Chronic kidney disease, stage 3 (moderate): Patient's kidney function is stable at this time he will be hydrated with fluids as he is now n.p.o. his ARB will be held Cr is at baseline, making adequate urine (4) H/O aortic valve replacement: (5) HTN (hypertension): Traditionally taking amlodipine 7.5 and losartan will use enalapril IV scheduled with PRN hydralazine for backup blood pressure control BP adequately controlled today (6) Benign prostatic hyperplasia with urinary obstruction: Patient typically is on Vesicare and Flomax course these will be held as he is n.p.o. if he has urinary issues consideration of Marr catheter could be undertaken (7) [place] [facility] [place] Admission and Anticipated Discharge Date Admission Date: November 10, 2019 Subjective no flatus or BM today, NGT still in place with suction he denies abdominal pain, nausea, fever appreciate note from GI will ask general surgery to follow patient in case he does not improve with conservative measures patient agrees with general surgery consult reviewed labs, stable personally viewed KUB, improvement of small bowel dilation Review of Systems Review of Systems: All systems reviewed & are unremarkable except as noted in Subjective Respiratory: no cough and no dyspnea Cardiovascular: no chest pain and no edema Gastrointestinal: + constipation (and obstipation); no abdominal pain, no nausea, no vomiting and no diarrhea/loose stools Psychiatric: + anxiety Physical Exam Constitutional: WD/WN, vitals as above Eyes: PERRL, conjunctivae normal, anicteric sclerae ENMT: external ear and nose normal, oropharynx normal Neck: trachea midline, no thyromegaly Respiratory: normal respiratory effort, lungs clear to auscultation Cardiovascular: RRR, no murmur, no edema Gastrointestinal (Abdomen): Inspection/Auscultation: + abdomen distended (mildly) and + hypoactive bowel sounds Percussion/Palpation: abdomen soft; abdomen nontender, no guarding, abdomen not rigid, no hernia and no ascites Results & Data Results & Data ([facility]) Vital Signs (Past 12 Hours) Vital Signs Temp Pulse Pulse Resp BP BP Pulse Ox 11/11/19 15:47 36.5 C 74 18 178/76 H 96 11/11/19 13:39 83 162/68 H 11/11/19 07:19 36.8 C 76 18 154/70 H 93 11/11/19 06:42 74 170/77 H Laboratory Results Laboratory Results - last 24 hr 11/11/19 11/11/19 11/11/19 07:01 07:01 07:01 WBC 8.44 RBC 3.91 L Hgb 12.7 L Hct 37.1 L MCV 94.9 MCH 32.5 MCHC 34.2 RDW Std Deviation 44.7 RDW Coeff of Tahmina 12.9 Plt Count 108 L MPV 8.0 Immature Gran % (Auto) 0.1 Neut % (Auto) 75.5 Lymph % (Auto) 13.3 Keith % (Auto) 10.1 Eos % (Auto) 0.9 Baso % (Auto) 0.1 Neut # (Auto) 6.37 Lymph # (Auto) 1.12 L Keith # (Auto) 0.85 H Eos # (Auto) 0.08 Baso # (Auto) 0.01 Immature Gran # (Auto) 0.01 Sodium 142 Potassium 3.7 Chloride 108 H Carbon Dioxide 27 Anion Gap 7.0 BUN 20 H Creatinine 1.09 Est Cr Clr Drug Dosing 43.7 Est GFR ( Amer) 71.4 Est GFR (Non-Af Amer) 61.6 BUN/Creatinine Ratio 18.4 Glucose 78 Calcium 8.7 Total Bilirubin 1.2 H AST 11 L ALT 12 Alkaline Phosphatase 53 Total Protein 6.1 L Albumin 2.9 L Globulin 3.2 Albumin/Globulin Ratio 0.9 TSH 0.771 Cortisol AM Sample 18.55 Diagnostic Findings KUB CLINICAL HISTORY: Small bowel obstruction. COMPARISON STUDY: CT of the abdomen and pelvis November 10, 2019. KUB November 10, 2019. FINDINGS: A 3 mm left renal calculus is noted. There is mild levoscoliosis of the lumbar spine. Contrast within the bladder from recent contrast-enhanced CT. Tip of nasogastric tube projects over the gastroesophageal junction. Small bowel dilatation has resolved. IMPRESSION: 1. Interval resolution of small bowel dilatation. 2. Tip of nasogastric tube projects over the gastroesophageal junction. 3. 3 mm left renal calculus. Medications Administered Current Inpatient Medications Hydralazine HCl (Hydralazine Hcl 20 Mg/Ml Vial) 10 mg IV Q8 PRN PRN Reason: Blood Pressure - High Stop: 12/10/19 13:48 Enalaprilat 0.625 mg/ Syringe 10 mls @ 2 mls/min IV Q8 [place] Stop: 12/10/19 14:59 Last Admin: 11/11/19 13:40 Dose: 2 mls/min Documented by: Sodium Chloride (Nss 1000ml) 1,000 mls @ 100 mls/hr IV .Q10H [place] Stop: 12/10/19 13:48 Last Admin: 11/11/19 08:41 Dose: 100 mls/hr Documented by: Promethazine HCl 12.5 mg/ (Sodium Chloride) 50.5 mls @ 202 mls/hr IV Q6H PRN PRN Reason: Nausea And Vomiting Stop: 12/10/19 13:48 Pantoprazole Sodium 40 mg/ (Syringe) 10 mls @ 5 mls/min IV BID [place] Stop: 12/10/19 20:59 Last Admin: 11/11/19 08:41 Dose: 5 mls/min Documented by: Lidocaine (Lidocaine 5% 1 Patch) 1 patch TD DAILY [place] Stop: 12/11/19 08:59 Last Admin: 11/11/19 08:40 Dose: 1 patch Documented by: Miscellaneous (Remove Lidoderm Patch) 1 ea N/A DAILY@2100 [place] Stop: 12/10/19 20:59 Last Admin: 11/10/19 21:17 Dose: Not Given Documented by: Morphine Sulfate (Morphine Sulfate 2 Mg/Ml Carp) 2 mg IV Q4 PRN PRN Reason: Pain Stop: 11/24/19 13:48 Last Admin: 11/11/19 00:12 Dose: 2 mg Documented by: Morphine Sulfate (Morphine Sulfate 4 Mg/Ml 1 Ml Carp\Vial) 4 mg IV Q4 PRN PRN Reason: Pain Stop: 11/24/19 13:48 Last Admin: 11/10/19 18:19 Dose: 4 mg Documented by: Ondansetron HCl (Ondansetron Inj 2 Mg/Ml 2 Ml Vial) 4 mg IV Q6H PRN PRN Reason: Nausea Stop: 12/10/19 13:48 Phenol (Chloraseptic 1.4% Soln 180 Ml Btl) 2 sprays MT Q2HWA PRN PRN Reason: Sore Throat Stop: 12/10/19 20:19 Last Admin: 11/11/19 13:40 Dose: 2 sprays Documented by: PG Care Time/CCT Total # of Minutes Spent Total Time Spent with Patient: Total time spent is greater than 50% in coor dination of care (as documented) at patient's floor/unit and/or counseling patient: Coding Level of Care Code 86653 Subseq Hosp Care Lvl 2 Diagnoses SBO (small bowel obstruction) K56.609 Cerebrovascular disease I67.9 Chronic kidney disease, stage 3 (moderate) N18.3 H/O aortic valve replacement Z95.2 HTN (hypertension) I10 Hypertension type: essential hypertension Benign prostatic hyperplasia with urinary obstruction N40.1; N13.8 DVT prophylaxis Z29.9 (1) HTN (hypertension) Hypertension type: essential hypertension Qualified Code(s): I10 - Essential (primary) hypertension
[2019-11-11] MEDS ORDERED: LORazepam 0.5 MG/1 ML VIAL IV STA (17:33)
--- NOTE | 2019-11-11 17:47 | Surgery Consultation ---
Date of Consultation November 11, 2019 Assessment & Plan (1) SBO (small bowel obstruction): This patient has nausea vomiting and CT evidence of small bowel obstruction. Agree with NG tube decompression. Hopefully this will resolve spontaneously. Would continue with n.p.o. There is no evidence of peritonitis at the present time. Consider enema as patient does have history of requiring personal digital evacuation of his rectum. There is no indication for surgical intervention immediately. History of Present Illness Reason for Consultation: I have been asked by Dr. Junior to see this 84-year-old male who was admitted with a complaint of vomiting and exacerbation of his reflux. He was not a very good historian. Much of the history was obtained from the chart. He stated that he had been vomiting through the night. He had no hematemesis. He does not think he had a bowel movement in 4 to 5 days. He has had difficulty with constipation in the past. He stated that there have been 1 or 2 occasions where he had to evacuate his rectum digitally. An NG tube was placed with evacuation of 800 cc of fluid that gave him some relief. He has not had vomiting since. He felt like earlier he was going to have a bowel movement but ultimately did not. He denies abdominal pain at present. He has a history of ulcerative colitis. Dr. Worthy felt that this is now under good control and is not contributing to the small bowel obstruction. Requesting Physician: Andrew Junior DO Attending Physician: Andrew Junior DO Allergies Allergy/AdvReac Type Severity Reaction Status Date / Time No Known Allergies Allergy Verified 11/10/19 08:33 Home Medications Home Medications Medication Instructions Recorded Confirmed Type aspirin [Aspir-81] 81 mg PO QAM 03/14/19 11/10/19 History atorvastatin 40 mg PO QAM 03/14/19 11/10/19 History budesonide [Uceris] 9 mg PO QAM 03/14/19 11/10/19 History cholecalciferol (vitamin D3) 5,000 units PO QAM 03/14/19 11/10/19 History pantoprazole 40 mg tablet,delayed 40 mg PO QAM #90 tab 06/14/19 11/10/19 Rx release amlodipine 2.5 mg tablet 7.5 mg PO HS #90 tab 06/24/19 11/10/19 Rx losartan 100 mg tablet 100 mg PO QAM #90 tab 07/24/19 11/10/19 Rx psyllium seed (sugar) oral powder 1 tbs PO DAILY PRN 09/25/19 11/10/19 History docusate sodium [Colace] 100 mg PO BID #60 cap 10/03/19 11/10/19 Rx lidocaine [Lidoderm] 1 patch TOP DAILY #15 ea 10/03/19 11/10/19 Rx sennosides [Senokot] 8.6 mg PO HS #30 tab 10/03/19 11/10/19 Rx solifenacin [Vesicare] 5 mg PO QAM 10/03/19 11/10/19 History tamsulosin [Flomax] 0.4 mg PO HS 10/03/19 11/10/19 History hydrocodone 7.5 mg-acetaminophen 1 tab PO BID PRN #30 tab 11/05/19 11/10/19 Rx 325 mg tablet adalimumab [Humira(CF) Pen] 0 mg SUBCUT Q14D 11/09/19 11/10/19 History famotidine [Pepcid] 20 mg PO BID 42 Days #84 tab 11/09/19 11/10/19 Rx Patient History Medical History (Updated 11/11/19 @ 13:49 by Hyginex Sc) Acid reflux Amaurosis fugax, 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 Aortic stenosis Benign prostatic hyperplasia with urinary obstruction Chronic kidney disease, stage 3 (moderate) Coronary artery disease Dementia Hearing loss Heart disease HTN (hypertension) HTN (hypertension) Hypercholesterolemia Kidney stones Lumbar degenerative disc disease Middle cerebral artery aneurysm Osteoporosis Renal insufficiency Sacroiliitis Secondary hyperparathyroidism Thrombocytopenia Ulcerative colitis (2004) Urethral stricture Urge incontinence of urine Vitamin D deficiency Surgical History H/O aortic valve replacement (09/24/15) Transfemoral TAVR History of appendectomy History of cataract surgery (2017) L eye Mar 2017, R eye May 2017 History of cholecystectomy History of colon surgery S/P coronary artery stent placement (06/2013) R PDA S/P coronary artery stent placement (07/2013) Mid LAD Family History Mother , age 84 of unknown causes No problems noted. 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 [place] Feels Safe at Home: No Is there a partner from a previous relationship who is making you feel unsafe now?: No Any Concerns about Your Family Situation: No Would You Like to Speak to Someone About Your Situation: No Dental Care, Regularly: Yes Physical Activity Frequency: 3-4 Times per Week Physical Activity Frequency Comment: walk Seatbelt Use: always Sunscreen Use: No Physical Exam Constitutional: no acute distress Neck: trachea midline Respiratory: normal respiratory effort, lungs clear to auscultation Cardiovascular: Rate/Rhythm: regular rate and regular rhythm Gastrointestinal (Abdomen): Inspection/Auscultation: abdomen not distended Percussion/Palpation: abdomen soft; abdomen nontender Decreased bowel sounds but pitch is normal Skin: no rashes, warm and dry Lymphatic: no cervical lymphadenopathy Results & Data ([facility]) Vital Signs (Past 12 Hours) Vital Signs Temp Pulse Pulse Resp BP BP Pulse Ox 11/11/19 15:47 36.5 C 74 18 178/76 H 96 11/11/19 13:39 83 162/68 H 11/11/19 07:19 36.8 C 76 18 154/70 H 93 11/11/19 06:42 74 170/77 H Laboratory Results 11/11/19 11/11/19 11/11/19 Range/Units 07:01 07:01 07:01 WBC 8.44 (4.8-10.8) K/uL RBC 3.91 L (4.7-6.1) M/uL Hgb 12.7 L (14.0-18.0) g/dL Hct 37.1 L (42-52) % MCV 94.9 (80-100) fL MCH 32.5 (25-34) pg MCHC 34.2 (32-36) g/dL RDW Std Deviation 44.7 (36.4-46.3) fL RDW Coeff of Tahmina 12.9 (11.5-14.5) % Plt Count 108 L (130-400) K/uL MPV 8.0 (7.4-10.4) fL Immature Gran % (Auto) 0.1 % Neut % (Auto) 75.5 % Lymph % (Auto) 13.3 % Maries % (Auto) 10.1 % Eos % (Auto) 0.9 % Baso % (Auto) 0.1 % Neut # (Auto) 6.37 (1.4-6.5) K/uL Lymph # (Auto) 1.12 L (1.2-3.4) K/uL Maries # (Auto) 0.85 H (0.11-0.59) K/uL Eos # (Auto) 0.08 (0-0.5) K/uL Baso # (Auto) 0.01 (0-0.2) K/uL Immature Gran # (Auto) 0.01 (0.00-0.02) K/uL Sodium 142 (136-145) mmol/L Potassium 3.7 (3.5-5.1) mmol/L Chloride 108 H (98-107) mmol/L Carbon Dioxide 27 (21-32) mmol/L Anion Gap 7.0 (3-11) BUN 20 H (7-18) mg/dl Creatinine 1.09 (0.6-1.4) mg/dl Est Cr Clr Drug Dosing 43.7 ml/min Est GFR ( Amer) 71.4 Est GFR (Non-Af Amer) 61.6 BUN/Creatinine Ratio 18.4 (10-20) Glucose 78 (70-99) mg/dl Calcium 8.7 (8.5-10.1) mg/dl Total Bilirubin 1.2 H (0.2-1) mg/dl AST 11 L (15-37) U/L ALT 12 (12-78) U/L Alkaline Phosphatase 53 (45-117) U/L Total Protein 6.1 L (6.4-8.2) gm/dl Albumin 2.9 L (3.4-5.0) gm/dl Globulin 3.2 (2.5-4.0) gm/dl Albumin/Globulin Ratio 0.9 (0.9-2) TSH 0.771 (0.300-4.500) uIu/ml Cortisol AM Sample 18.55 (4.3-22.4) mcg/dl Diagnostic Findings CT abd pelvis IV con only CLINICAL HISTORY: nausea, vomiting, heartburn, R lower flank pain COMPARISON STUDY: 10/02/2018 TECHNIQUE: The patient was scanned in a dynamic helical fashion during intravenous administration of 93 cc of Optiray 320 A dose lowering technique was utilized adhering to the principles of ALARA. CT DOSE: 885.29 mGycm FINDINGS: Lower chest: There are basilar atelectatic changes. Liver: No focal hepatic masses are visualized. There is mild central biliary ductal prominence. Gallbladder: Not visualized presumed surgically absent. The common bile duct is mildly dilated measuring 11 mm. Spleen: Normal in size and attenuation. Pancreas: Unremarkable. Adrenal glands: There is an 8 mm left adrenal nodule. Kidneys: There are bilateral renal cortical cysts, the largest of which is located on the right measuring 37 mm. There is left-sided nephrolithiasis. There is no hydronephrosis. Bowel: The stomach is distended. There are dilated proximal small bowel loops with minimal wall thickening. The distal small bowel is of normal caliber. The findings are consistent with a proximal small bowel obstruction. There is extensive colonic diverticulosis. There is no evidence of acute diverticulitis. By history the appendix is surgically absent Peritoneum: There is no intraperitoneal free air or abdominal ascites. Vasculature: The abdominal aorta is normal in course and caliber. Adenopathy: None. Pelvic viscera: The prostate is enlarged. There are bladder diverticula consistent with chronic bladder outlet obstruction. Skeletal structures: No destructive osseous lesions are seen. IMPRESSION: 1. Small bowel obstruction with mild proximal small bowel wall thickening. No evidence of pneumatosis. No evidence of portal venous gas 2. Surgically absent gallbladder with mild dilatation of the common bile duct 3. Diverticulosis. No evidence of acute diverticulitis 4. Left-sided nephrolithiasis 5. Prostatomegaly and evidence of chronic bladder outlet obstruction
[2019-11-11] MEDS ORDERED: MIRTAZAPINE TAB 15 MG TAB PO ONE (22:43)
[2019-11-11] MEDS ORDERED: LORazepam 0.5 MG/1 ML VIAL IV ONE (23:15)
[2019-11-12] MEDS: MoRPHine SULFATE 2 MG/ML CARP IV PRN (03:00)
[2019-11-12] MEDS: SODIUM CHLORIDE 0.9% 1000ML 1,000 ML IV SCH ×2 (04:36→14:46)
[2019-11-12] MEDS: ENALAPRILAT 0.625 MG in SYRINGE 9.5 ML IV SCH ×3 (05:36→21:33)
[2019-11-12] MEDS: CHLORASEPTIC 1.4% SOLN 180 ML BTL MT PRN (05:36)
[2019-11-12 06:14] LABS: Basophils # (auto) 0.01 K/uL (0-0.2); Basophils % (auto) 0.1 %; Eosinophils # (auto) 0.11 K/uL (0-0.5); Eosinophils % (auto) 1.5 %; Hematocrit (blood only) 36.1 % (42-52); Hemoglobin 12.5 g/dL (14.0-18.0); Immature Granulocytes # (auto) 0.01 K/uL (0.00-0.02); Immature Granulocytes % (auto) 0.1 %; Lymphocytes % (auto) 18.9 %; Mean Corpuscular Hemoglobin 32.4 pg (25-34); Mean Corpuscular Hgb Conc 34.6 g/dL (32-36); Mean Corpuscular Volume 93.5 fL (80-100); Mean Platelet Volume 8.6 fL (7.4-10.4); Monocytes % (auto) 10.8 %; Neutrophils # (auto) 5.08 K/uL (1.4-6.5); Neutrophils % (auto) 68.6 %; Platelet Count 122 K/uL (130-400); RDW Coefficient of Variation 12.6 % (11.5-14.5); RDW Standard Deviation 42.6 fL (36.4-46.3); Red Blood Count 3.86 M/uL (4.7-6.1); White Blood Count 7.41 K/uL (4.8-10.8)
[2019-11-12 06:42] LABS: Albumin Level 2.8 gm/dl (3.4-5.0); BUN Creatinine Ratio 27.3 (10-20); Calcium 8.5 mg/dl (8.5-10.1); Est GFR (African American) 89.9; Est GFR (Non-African American) 77.6; Potassium 3.3 mmol/L (3.5-5.1)
[2019-11-12 06:44] LABS: Albumin Globulin Ratio 0.9 (0.9-2); Bilirubin,Total 1.1 mg/dl (0.2-1); Globulin 3.2 gm/dl (2.5-4.0)
--- NOTE | 2019-11-12 08:10 | Gastroenterology Progress Note ---
Date of Service November 12, 2019 Assessment & Plan (1) SBO (small bowel obstruction): SBO -- continue NG suction with hope that obstruction will resolve. KUB yesterday with resolution of small bowel dilation. Patient reports passing some flatus this morning. Surgical consult 11/11/[address] Farrell - no indication for surgical intervention immediately. ulcerative colitis -- stable on Humira and uceris which can be resumed as outpatient - follows with Dr. Worthy Please refer to supervising physician addendum for further recommendations. Admission and Anticipated Discharge Date Admission Date: November 10, 2019 Subjective The patient is an [id number]-male with a past medical history of Acid reflux, Aneurysm of internal carotid artery, Aortic stenosis, Benign prostatic hyperplasia with urinary obstruction, Chronic kidney disease, stage 3 (moderate), Coronary artery disease, Dementia, Hearing loss, HTN, Hypercholesterolemia, Kidney stones, Lumbar degenerative disc disease, Middle cerebral artery aneurysm, Osteoporosis, Renal insufficiency, Sacroiliitis, Secondary hyperparathyroidism, Thrombocytopenia, Ulcerative colitis (2004) that present to the ED on 11/09/2019 and 11/10/[address] abdomen pelvis however shows a small bowel obstruction with mild proximal small bowel wall thickening, adrenal adenoma, diverticulosis, chronic bladder outlet obstruction. No evidence of pneumatosis. Subsequently admitted NPO with NGT to drainage. On exam/interview today, the patient was sleeping on entry to the room. Patient is hard of hearing and has some confusion at baseline. States he is tired and feeling a little rough this morning. States NGT is uncomfortable and he would like it out. NGT to LIS with scant drainage noted. He denies nausea, vomiting, abdominal pain. NPO since admission. States no bowel movement since admission. Reports passing some flatus this morning. Review of Systems Review of Systems: All systems reviewed & are unremarkable except as noted in HPI & below Physical Exam Constitutional: WD/WN, vitals as above Eyes: PERRL, conjunctivae normal, anicteric sclerae Neck: normal visual inspection and trachea midline Respiratory: normal respiratory effort, lungs clear to auscultation Cardiovascular: RRR, no murmur, no edema Gastrointestinal (Abdomen): hypoactive bowel sounds, abdomen mildly distended and tympanitic, no guarding nor rebound, NGT intact left nare to LIS with mini mal drainage noted, states passed gas with me in room this morning Musculoskeletal: no cyanosis or clubbing, extremities motor strength 5/5 Neurologic: PERRL, EOMI, accommodation nl, no face palsy, no dysarthria Results & Data ([facility]) Vital Signs (Past 12 Hours) Vital Signs Temp Pulse Pulse Resp BP BP Pulse Ox 11/12/19 07:21 36.8 C 81 16 173/67 H 94 11/12/19 05:24 78 166/68 H 11/11/19 23:00 36.6 C 69 18 152/67 H 97 11/11/19 21:10 74 165/68 H 11/11/19 20:22 72 186/54 H Laboratory Results - last 24 hr 11/11/19 11/12/19 11/12/19 07:01 05:39 05:39 WBC 7.41 RBC 3.86 L Hgb 12.5 L Hct 36.1 L MCV 93.5 MCH 32.4 MCHC 34.6 RDW Std Deviation 42.6 RDW Coeff of Tahmina 12.6 Plt Count 122 L MPV 8.6 Immature Gran % (Auto) 0.1 Neut % (Auto) 68.6 Lymph % (Auto) 18.9 [place] % (Auto) 10.8 Eos % (Auto) 1.5 Baso % (Auto) 0.1 Neut # (Auto) 5.08 Lymph # (Auto) 1.40 [place] # (Auto) 0.80 H Eos # (Auto) 0.11 Baso # (Auto) 0.01 Immature Gran # (Auto) 0.01 Sodium 141 Potassium 3.3 L Chloride 109 H Carbon Dioxide 24 Anion Gap 8.0 BUN 25 H Creatinine 0.90 Est Cr Clr Drug Dosing 53.0 Est GFR ( Amer) 89.9 Est GFR (Non-Af Amer) 77.6 BUN/Creatinine Ratio 27.3 H Glucose 64 L Calcium 8.5 Total Bilirubin 1.1 H AST 13 L ALT 11 L Alkaline Phosphatase 51 Total Protein 6.0 L Albumin 2.8 L Globulin 3.2 Albumin/Globulin Ratio 0.9 Cortisol AM Sample 18.55 11/11/2019: KUB demonstrated interval resolution of small bowel dilatation.
[2019-11-12] MEDS: LIDOCAINE 5% 1 PATCH TD SCH ×2 (08:45→08:50)
[2019-11-12] MEDS: PANTOprazole 40 MG in SYRINGE 0 ML IV SCH ×2 (08:45→21:33)
[2019-11-12] MEDS ORDERED: LORazepam 0.5 MG/1 ML VIAL IV STA (11:34)
[2019-11-12] MEDS ORDERED: ACETAMINOPHEN 1,000 MG/100 ML VIAL IV STA (11:34)
[2019-11-12] MEDS ORDERED: bisacodyL 10 MG SUPP PR STA (12:54)
--- NOTE | 2019-11-12 13:32 | Surgery Progress Note ---
Date of Service November 12, 2019 Assessment & Plan (1) SBO (small bowel obstruction): KUB 11/11/2019 showed resolution of small bowel dilatation +nausea today only one episode of flatus History of constipation with manual stool evacuation Plan: No acute surgical intervention required at this time continue NGT to LIS OOB to chair and ambulate Dulcolax suppository now will follow Dr. Farrell has seen and examined pt, agrees with above. Admission and Anticipated Discharge Date Admission Date: November 10, 2019 Supervising Physician Co-Signing Physician Notes I interviewed and examined this patient I agree with the above note. The KUB from yesterday showed no small bowel dilatation. He did pass a small amount of flatus. I would attempt a suppository to try to stimulate bowel function. I do not feel there is any need for at this time surgical intervention at this time. There is no peritonitis. Subjective "not feeling great today, having upset stomach" passed gas one time, no bowel movement no abdominal pain no nausea Physical Exam Constitutional: WD/WN, vitals as above no acute distress and not ill appearing Respiratory: normal respiratory effort; no respiratory distress Gastrointestinal (Abdomen): Inspection/Auscultation: abdomen normal to inspection and + abdominal surgical scar (RUQ cholecystectomy scar, RLQ appendectomy scar); abdomen not distended Percussion/Palpation: + abdomen tender (mild RUQ) and abdomen soft; no guarding and abdomen not rigid Skin: no rashes, warm and dry Psychiatric: A+Ox3, euthymic affect Results & Data ([facility]) Vital Signs (Past 12 Hours) Vital Signs Temp Pulse Resp BP Pulse Ox 11/12/19 07:21 36.8 C 81 16 173/67 H 94 11/12/19 05:24 78 166/68 H Laboratory Results 11/12/19 11/12/19 Range/Units 05:39 05:39 WBC 7.41 (4.8-10.8) K/uL RBC 3.86 L (4.7-6.1) M/uL Hgb 12.5 L (14.0-18.0) g/dL Hct 36.1 L (42-52) % MCV 93.5 (80-100) fL MCH 32.4 (25-34) pg MCHC 34.6 (32-36) g/dL RDW Std Deviation 42.6 (36.4-46.3) fL RDW Coeff of Tahmina 12.6 (11.5-14.5) % Plt Count 122 L (130-400) K/uL MPV 8.6 (7.4-10.4) fL Immature Gran % (Auto) 0.1 % Neut % (Auto) 68.6 % Lymph % (Auto) 18.9 % [place] % (Auto) 10.8 % Eos % (Auto) 1.5 % Baso % (Auto) 0.1 % Neut # (Auto) 5.08 (1.4-6.5) K/uL Lymph # (Auto) 1.40 (1.2-3.4) K/uL [place] # (Auto) 0.80 H (0.11-0.59) K/uL Eos # (Auto) 0.11 (0-0.5) K/uL Baso # (Auto) 0.01 (0-0.2) K/uL Immature Gran # (Auto) 0.01 (0.00-0.02) K/uL Sodium 141 (136-145) mmol/L Potassium 3.3 L (3.5-5.1) mmol/L Chloride 109 H (98-107) mmol/L Carbon Dioxide 24 (21-32) mmol/L Anion Gap 8.0 (3-11) BUN 25 H (7-18) mg/dl Creatinine 0.90 (0.6-1.4) mg/dl Est Cr Clr Drug Dosing 53.0 ml/min Est GFR ( Amer) 89.9 Est GFR (Non-Af Amer) 77.6 BUN/Creatinine Ratio 27.3 H (10-20) Glucose 64 L (70-99) mg/dl Calcium 8.5 (8.5-10.1) mg/dl Total Bilirubin 1.1 H (0.2-1) mg/dl AST 13 L (15-37) U/L ALT 11 L (12-78) U/L Alkaline Phosphatase 51 (45-117) U/L Total Protein 6.0 L (6.4-8.2) gm/dl Albumin 2.8 L (3.4-5.0) gm/dl Globulin 3.2 (2.5-4.0) gm/dl Albumin/Globulin Ratio 0.9 (0.9-2)
[2019-11-12] MEDS ORDERED: LORazepam 0.25 MG/0.5 ML VIAL IV ONE (18:03)
[2019-11-12] MEDS ORDERED: Nursing to Pharmacy Communication SCH (18:15)
[2019-11-12] MEDS ORDERED: LORazepam 0.5 MG/1 ML VIAL IV ONE (18:30)
[2019-11-12] MEDS: MIRTAZAPINE TAB 15 MG TAB PO PRN (21:55)
--- NOTE | 2019-11-12 22:06 | Hospitalist Progress Note ---
Date of Service November 12, 2019 Assessment & Plan (1) SBO (small bowel obstruction): SBO likely due to peritoneal adhesions Patient presents with acute small bowel obstruction. Patient's had prior abdominal surgery including cholecystectomy and appendectomy patient feels better with NG tube to low intermittent suction + flatus on 11/11 had a BM after suppository on 11/11 will clamp NG tube this evening, allow sips and ice chips follow up with general surgery tomorrow (2) Cerebrovascular disease: Patient typically takes aspirin and antihypertensive medications along with atorvastatin for secondary risk prevention patient will be n.p.o. will control blood pressure via parenteral means, use Vasotec and Hydralazine BP is 160's systolic, monitor daily (3) Chronic kidney disease, stage 3 (moderate): Patient's kidney function is stable at this time he will be hydrated with fluids as he is now n.p.o. his ARB will be held Cr is at baseline, making adequate urine (4) H/O aortic valve replacement: (5) HTN (hypertension): Traditionally taking amlodipine 7.5 and losartan will use enalapril IV scheduled with PRN hydralazine for backup blood pressure control BP adequately controlled today (6) Benign prostatic hyperplasia with urinary obstruction: Patient typically is on Vesicare and Flomax course these will be held as he is n.p.o. if he has urinary issues consideration of Marr catheter could be undertaken (7) DVT prophylaxis: SCDs for DVT prevention Admission and Anticipated Discharge Date Admission Date: November 10, 2019 Subjective patient feeling better, admits to getting anxious but the Ativan helps a lot + flatus this morning appreciate note from surgery, recommend Dulcolax suppository spoke with RN later in the evening, he had a decent sized BM after the suppository will allow ice chips and sips, clamp NG tube this evening Review of Systems Review of Systems: All systems reviewed & are unremarkable except as noted in Subjective Constitutional: no fever, no chills, no sweats, no fatigue and no weakness Respiratory: no cough and no dyspnea Cardiovascular: no chest pain and no edema Gastrointestinal: no abdominal pain, no nausea, no vomiting, no constipation (resolved with suppository) and no diarrhea/loose stools Psychiatric: + anxiety Physical Exam Constitutional: WD/WN, vitals as above Eyes: PERRL, conjunctivae normal, anicteric sclerae ENMT: external ear and nose normal, oropharynx normal Neck: trachea midline, no thyromegaly Respiratory: normal respiratory effort, lungs clear to auscultation Cardiovascular: RRR, no murmur, no edema Gastrointestinal (Abdomen): Inspection/Auscultation: abdomen normal to inspection and normal bowel sounds Percussion/Palpation: abdomen soft; abdomen nontender, no guarding, abdomen not rigid, no hernia and no ascites Musculoskeletal: no cyanosis or clubbing, extremities motor strength 5/5 Skin: no rashes, warm and dry Neurologic: patellar DTR's 2+ bilat, sensation intact and PERRL, EOMI, accommodation nl, no face palsy, no dysarthria Psychiatric: Orientation: alert and oriented x 3 Mood: + anxious mood Lymphatic: no cervical or axillary lymphadenopathy Results & Data Results & Data ([facility]) Vital Signs (Past 12 Hours) Vital Signs Temp Pulse Pulse Resp BP BP Pulse Ox 11/12/19 21:34 168/77 H 11/12/19 15:28 36.7 C 65 16 177/68 H 97 11/12/19 14:07 74 172/73 H Laboratory Results Laboratory Results - last 24 hr 11/12/19 11/12/19 05:39 05:39 WBC 7.41 RBC 3.86 L Hgb 12.5 L Hct 36.1 L MCV 93.5 MCH 32.4 MCHC 34.6 RDW Std Deviation 42.6 RDW Coeff of Tahmina 12.6 Plt Count 122 L MPV 8.6 Immature Gran % (Auto) 0.1 Neut % (Auto) 68.6 Lymph % (Auto) 18.9 [place] % (Auto) 10.8 Eos % (Auto) 1.5 Baso % (Auto) 0.1 Neut # (Auto) 5.08 Lymph # (Auto) 1.40 [place] # (Auto) 0.80 H Eos # (Auto) 0.11 Baso # (Auto) 0.01 Immature Gran # (Auto) 0.01 Sodium 141 Potassium 3.3 L Chloride 109 H Carbon Dioxide 24 Anion Gap 8.0 BUN 25 H Creatinine 0.90 Est Cr Clr Drug Dosing 53.0 Est GFR ( Amer) 89.9 Est GFR (Non-Af Amer) 77.6 BUN/Creatinine Ratio 27.3 H Glucose 64 L Calcium 8.5 Total Bilirubin 1.1 H AST 13 L ALT 11 L Alkaline Phosphatase 51 Total Protein 6.0 L Albumin 2.8 L Globulin 3.2 Albumin/Globulin Ratio 0.9 Medications Administered Current Inpatient Medications Hydralazine HCl (Hydralazine Hcl 20 Mg/Ml Vial) 10 mg IV Q8 PRN PRN Reason: Blood Pressure - High Stop: 12/10/19 13:48 Enalaprilat 0.625 mg/ Syringe 10 mls @ 2 mls/min IV Q8 [place] Stop: 12/10/19 14:59 Last Admin: 11/12/19 21:33 Dose: 2 mls/min Documented by: Sodium Chloride (Nss 1000ml) 1,000 mls @ 100 mls/hr IV .Q10H [place] Stop: 12/10/19 13:48 Last Infusion: 11/12/19 22:03 Dose: 100 mls/hr Documented by: Promethazine HCl 12.5 mg/ (Sodium Chloride) 50.5 mls @ 202 mls/hr IV Q6H PRN PRN Reason: Nausea And Vomiting Stop: 12/10/19 13:48 Pantoprazole Sodium 40 mg/ (Syringe) 10 mls @ 5 mls/min IV BID [place] Stop: 12/10/19 20:59 Last Admin: 11/12/19 21:33 Dose: 5 mls/min Documented by: Lidocaine (Lidocaine 5% 1 Patch) 1 patch TD DAILY [place] Stop: 12/11/19 08:59 Last Admin: 11/12/19 08:50 Dose: 1 patch Documented by: Mirtazapine (Mirtazapine Tab 15 Mg Tab) 15 mg PO HS PRN PRN Reason: Insomnia Stop: 12/12/19 20:59 Last Admin: 11/12/19 21:55 Dose: 15 mg Documented by: Miscellaneous (Remove Lidoderm Patch) 1 ea N/A DAILY@2100 [place] Stop: 12/10/19 20:59 Last Admin: 11/12/19 21:33 Dose: 1 ea Documented by: Morphine Sulfate (Morphine Sulfate 2 Mg/Ml Carp) 2 mg IV Q4 PRN PRN Reason: Pain Stop: 11/24/19 13:48 Last Admin: 11/12/19 03:00 Dose: 2 mg Documented by: Morphine Sulfate (Morphine Sulfate 4 Mg/Ml 1 Ml Carp\Vial) 4 mg IV Q4 PRN PRN Reason: Pain Stop: 11/24/19 13:48 Last Admin: 11/10/19 18:19 Dose: 4 mg Documented by: Ondansetron HCl (Ondansetron Inj 2 Mg/Ml 2 Ml Vial) 4 mg IV Q6H PRN PRN Reason: Nausea Stop: 12/10/19 13:48 Phenol (Chloraseptic 1.4% Soln 180 Ml Btl) 2 sprays MT Q2HWA PRN PRN Reason: Sore Throat Stop: 12/10/19 20:19 Last Admin: 11/12/19 05:36 Dose: 2 sprays Documented by: PG Care Time/CCT Total # of Minutes Spent Total Time Spent with Patient: Total time spent is greater than 50% in coordination of care (as documented) at patient's floor/unit and/or counseling patient: Coding Level of Care Code 42833 Subseq Hosp Care Lvl 2 Diagnoses SBO (small bowel obstruction) K56.609 Cerebrovascular disease I67.9 Chronic kidney disease, stage 3 (moderate) N18.3 H/O aortic valve replacement Z95.2 HTN (hypertension) I10 Hypertension type: essential hypertension Benign prostatic hyperplasia with urinary obstruction N40.1; N13.8 DVT prophylaxis Z29.9 (1) HTN (hypertension) Hypertension type: essential hypertension Qualified Code(s): I10 - Essential (primary) hypertension
[2019-11-13] MEDS: SODIUM CHLORIDE 0.9% 1000ML 1,000 ML IV SCH (00:55)
[2019-11-13] MEDS: MoRPHine SULFATE 4 MG/ML 1 ML CARP\\VIAL IV PRN ×3 (00:58→19:07)
[2019-11-13] MEDS: CHLORASEPTIC 1.4% SOLN 180 ML BTL MT PRN (05:27)
[2019-11-13] MEDS: ENALAPRILAT 0.625 MG in SYRINGE 9.5 ML IV SCH ×3 (05:29→21:19)
[2019-11-13 06:09] LABS: Basophils # (auto) 0.01 K/uL (0-0.2); Basophils % (auto) 0.2 %; Eosinophils # (auto) 0.16 K/uL (0-0.5); Eosinophils % (auto) 2.5 %; Hematocrit (blood only) 33.9 % (42-52); Hemoglobin 11.9 g/dL (14.0-18.0); Lymphocytes # (auto) 1.41 K/uL (1.2-3.4); Lymphocytes % (auto) 22.1 %; Mean Corpuscular Hemoglobin 32.4 pg (25-34); Mean Corpuscular Hgb Conc 35.1 g/dL (32-36); Mean Corpuscular Volume 92.4 fL (80-100); Mean Platelet Volume 8.7 fL (7.4-10.4); Monocytes # (auto) 0.75 K/uL (0.11-0.59); Monocytes % (auto) 11.7 %; Neutrophils # (auto) 4.06 K/uL (1.4-6.5); Neutrophils % (auto) 63.5 %; Platelet Count 120 K/uL (130-400); RDW Coefficient of Variation 12.5 % (11.5-14.5); RDW Standard Deviation 42.5 fL (36.4-46.3); Red Blood Count 3.67 M/uL (4.7-6.1); White Blood Count 6.39 K/uL (4.8-10.8)
[2019-11-13 07:06] LABS: Albumin Globulin Ratio 0.8 (0.9-2); Albumin Level 2.5 gm/dl (3.4-5.0); BUN Creatinine Ratio 22.7 (10-20); Bilirubin,Total 0.9 mg/dl (0.2-1); Calcium 8.2 mg/dl (8.5-10.1); Creatinine Clr Calc Pharmacy 58.1 ml/min; Est GFR (African American) 93.5; Est GFR (Non-African American) 80.6; Globulin 3.1 gm/dl (2.5-4.0); Potassium 3.3 mmol/L (3.5-5.1); Total Protein 5.6 gm/dl (6.4-8.2)
[2019-11-13] MEDS ORDERED: DEXTROSE 50% 50 ML SYRINGE IV STA (07:12)
[2019-11-13] MEDS: D5W AND 1/2NSS 1,000 ML IV SCH ×2 (07:24→19:08)
[2019-11-13] MEDS: HydrALAZINE HCL 20 MG/ML VIAL IV PRN (07:52)
[2019-11-13] MEDS: LIDOCAINE 5% 1 PATCH TD SCH (08:16)
[2019-11-13] MEDS: PANTOprazole 40 MG in SYRINGE 0 ML IV SCH ×2 (08:17→21:19)
[2019-11-13] MEDS: POTASSIUM CHLORIDE / WTR 10 MEQ/100 ML PLCT IV SCH ×2 (09:26→13:05)
--- NOTE | 2019-11-13 10:09 | Surgery Progress Note ---
Date of Service November 13, 2019 Assessment & Plan (1) SBO (small bowel obstruction): Patient clinically is much better He has active bowel sounds without high-pitched sounds. He thinks that he moves his bowels but is not sure. NG has been clamped. Would get upper GI small bowel follow-through to confirm resolution of small bowel obstruction and will await results. Admission and Anticipated Discharge Date Admission Date: November 10, 2019 Subjective the NG tubePatient's most significant complaints today are irritating his nose and the burning from the potassium in his IV. Has no abdominal pain Denies nausea and vomiting Has no fever or chills Past some flatus Thinks that he had a small bowel movement yesterday but cannot remember Physical Exam Gastrointestinal (Abdomen): Inspection/Auscultation: abdomen normal to inspection and normal bowel sounds; abdomen not distended Percussion/Palpation: abdomen soft; abdomen nontender Results & Data ([facility]) Vital Signs (Past 12 Hours) Vital Signs Temp Pulse Pulse Resp BP Pulse Ox 11/13/19 08:16 80 173/67 H 11/13/19 07:48 36.5 C 69 20 199/75 H 96 11/13/19 05:28 68 14 193/77 H 96 11/12/19 23:30 36.4 C L 66 20 167/61 H 96 Laboratory Results 11/13/19 11/13/19 11/13/19 Range/Units 07:34 05:16 05:16 WBC 6.39 (4.8-10.8) K/uL RBC 3.67 L (4.7-6.1) M/uL Hgb 11.9 L (14.0-18.0) g/dL Hct 33.9 L (42-52) % MCV 92.4 (80-100) fL MCH 32.4 (25-34) pg MCHC 35.1 (32-36) g/dL RDW Std Deviation 42.5 (36.4-46.3) fL RDW Coeff of Tahmina 12.5 (11.5-14.5) % Plt Count 120 L (130-400) K/uL MPV 8.7 (7.4-10.4) fL Immature Gran % (Auto) 0.0 % Neut % (Auto) 63.5 % Lymph % (Auto) 22.1 % [place] % (Auto) 11.7 % Eos % (Auto) 2.5 % Baso % (Auto) 0.2 % Neut # (Auto) 4.06 (1.4-6.5) K/uL Lymph # (Auto) 1.41 (1.2-3.4) K/uL [place] # (Auto) 0.75 H (0.11-0.59) K/uL Eos # (Auto) 0.16 (0-0.5) K/uL Baso # (Auto) 0.01 (0-0.2) K/uL Immature Gran # (Auto) 0.00 (0.00-0.02) K/uL Sodium 142 (136-145) mmol/L Potassium 3.3 L (3.5-5.1) mmol/L Chloride 111 H (98-107) mmol/L Carbon Dioxide 23 (21-32) mmol/L Anion Gap 8.0 (3-11) BUN 19 H (7-18) mg/dl Creatinine 0.82 (0.6-1.4) mg/dl Est Cr Clr Drug Dosing 58.1 ml/min Est GFR ( Amer) 93.5 Est GFR (Non-Af Amer) 80.6 BUN/Creatinine Ratio 22.7 H (10-20) Glucose 52 L* (70-99) mg/dl POC Glucose 121 H (70-99) mg/dl Calcium 8.2 L (8.5-10.1) mg/dl Total Bilirubin 0.9 (0.2-1) mg/dl AST 12 L (15-37) U/L ALT 10 L (12-78) U/L Alkaline Phosphatase 44 L (45-117) U/L Total Protein 5.6 L (6.4-8.2) gm/dl Albumin 2.5 L (3.4-5.0) gm/dl Globulin 3.1 (2.5-4.0) gm/dl Albumin/Globulin Ratio 0.8 L (0.9-2)
--- NOTE | 2019-11-13 12:18 | Fluoroscopy Report ---
[place] small bowel follow through CLINICAL HISTORY: 84 years-old Male with SBO. Follow-up study in a patient with small bowel obstruct ion TECHNIQUE: Oral barium was administered to the patient and serial radiographs of the abdomen were pe rformed. COMPARISON STUDY: CT abdomen and pelvis 11/10/2019 FLUOROSCOPY TIME: 0.6 minutes. 13 images were submitted. FINDINGS: Manager Configuration radiograph of the abdomen demonstrates multiple nondistended loops of air-filled sma ll and large bowel scattered throughout the abdomen. Enteric tube is noted with distal tip projected over the proximal gastric lumen distribution. Lumbar levoscoliosis with multilevel degenerative scott es. Vascular calcifications of the pelvis. Upon the administration of oral barium contrast, there is prompt opacification of the gastric lumen a nd proximal small bowel. Transit to the large bowel occurred at approximately 20 minutes. Subsequen tly, spot fluoroscopic images of the abdomen were obtained and demonstrate freely movable bowel in al l four abdominal quadrants. There is resolution of the previously noted small bowel dilation. Moderat e fecal retention. Mild diverticulosis of the ileum. The terminal ileum appears unremarkable. IMPRESSION: 1. Resolution of the previously described small bowel obstruction. 2. Ileal diverticulosis. 3. Moderate fecal retention. ACT 112: Negative or not required by law. The above report was generated using voice recognition software. It may contain grammatical, syntax o r spelling errors. Electronically signed by: Sunday Chilel M.D. 11/13/2019 12:16 PM
--- NOTE | 2019-11-13 14:32 | Hospitalist Progress Note ---
Date of Service November 13, 2019 Assessment & Plan (1) SBO (small bowel obstruction): SBO likely due to peritoneal adhesions Patient presents with acute small bowel obstruction. Patient's had prior abdominal surgery including cholecystectomy and appendectomy patient feels better with NG tube to low intermittent suction + flatus on 11/11 had a BM after suppository on 11/11 and then several more BM small bowel follow through today with no signs of obstruction NG tube removed, clear liquids, encourage activity advance diet as tolerated (2) Cerebrovascular disease: resume Losartan, Norvasc, aspirin now that he can take PO (3) Chronic kidney disease, stage 3 (moderate): Cr is stable, making urine, electrolytes stable resume Losartan check BMP daily (4) H/O aortic valve replacement: (5) HTN (hypertension): resume Norvasc and Losartan (6) Benign prostatic hyperplasia with urinary obstruction: resume Vesicare and Flomax (7) Ulcerative colitis: stable, in remission resume Budesonide takes Humira outpatient (8) DVT prophylaxis: [facility] for DVT prevention Admission and Anticipated Discharge Date Admission Date: November 10, 2019 Subjective patient doing a lot better small bowel follow through with no signs of obstruction, has stool in the colon several BM this morning, most recent was loose ordered NG tube removed, started on clear liquids appreciate surgery recommendations less anxiety now that NG tube out encourage him to be active around the room some hypoglycemia this morning, treated with dextrose and D5 stop D5 now that he is drinking Review of Systems Review of Systems: All systems reviewed & are unremarkable except as noted in Subjective Gastrointestinal: no abdominal pain, no nausea, no vomiting, no constipation and no diarrhea/loose stools Physical Exam Constitutional: WD/WN, vitals as above Eyes: PERRL, conjunctivae normal, anicteric sclerae ENMT: external ear and nose normal, oropharynx normal Neck: trachea midline, no thyromegaly Respiratory: normal respiratory effort, lungs clear to auscultation Cardiovascular: RRR, no murmur, no edema Gastrointestinal (Abdomen): Inspection/Auscultation: abdomen normal to inspection and normal bowel sounds Percussion/Palpation: abdomen soft; abdomen nontender, no guarding, abdomen not rigid, no hernia and no ascites Musculoskeletal: no cyanosis or clubbing, extremities motor strength 5/5 Skin: no rashes, warm and dry Neurologic: patellar DTR's 2+ bilat, sensation intact and PERRL, EOMI, accommodation nl, no face palsy, no dysarthria Psychiatric: Orientation: alert and oriented x 3 Mood: + anxious mood Lymphatic: no cervical or axillary lymphadenopathy Results & Data Results & Data ([facility]) Vital Signs (Past 12 Hours) Vital Signs Temp Pulse Pulse Resp BP Pulse Ox 11/13/19 08:16 80 173/67 H 11/13/19 07:48 36.5 C 69 20 199/75 H 96 11/13/19 05:28 68 14 193/77 H 96 Laboratory Results Laboratory Results - last 24 hr 11/13/19 11/13/19 11/13/19 05:16 05:16 07:34 WBC 6.39 RBC 3.67 L Hgb 11.9 L Hct 33.9 L MCV 92.4 MCH 32.4 MCHC 35.1 RDW Std Deviation 42.5 RDW Coeff of Tahmina 12.5 Plt Count 120 L MPV 8.7 Immature Gran % (Auto) 0.0 Neut % (Auto) 63.5 Lymph % (Auto) 22.1 [place] % (Auto) 11.7 Eos % (Auto) 2.5 Baso % (Auto) 0.2 Neut # (Auto) 4.06 Lymph # (Auto) 1.41 [place] # (Auto) 0.75 H Eos # (Auto) 0.16 Baso # (Auto) 0.01 Immature Gran # (Auto) 0.00 Sodium 142 Potassium 3.3 L Chloride 111 H Carbon Dioxide 23 Anion Gap 8.0 BUN 19 H Creatinine 0.82 Est Cr Clr Drug Dosing 58.1 Est GFR ( Amer) 93.5 Est GFR (Non-Af Amer) 80.6 BUN/Creatinine Ratio 22.7 H Glucose 52 L* POC Glucose 121 H Calcium 8.2 L Total Bilirubin 0.9 AST 12 L ALT 10 L Alkaline Phosphatase 44 L Total Protein 5.6 L Albumin 2.5 L Globulin 3.1 Albumin/Globulin Ratio 0.8 L Medications Administered Current Inpatient Medications Amlodipine Besylate (Amlodipine Besylate 5 Mg Tab) 7.5 mg PO HS [place] Stop: 12/14/19 20:59 Amlodipine Besylate (Amlodipine Besylate 5 Mg Tab) 5 mg PO NOW ONE Stop: 11/13/19 22:04 Aspirin (Aspirin 81 Mg Ectab) 81 mg PO QAM [place] Stop: 12/14/19 08:59 Atorvastatin Calcium (Atorvastatin 40 Mg Tab) 40 mg PO QAM [facility] Stop: 12/14/19 08:59 Famotidine (Famotidine 20 Mg Tab) 20 mg PO BID [facility] Stop: 12/14/19 08:59 Hydralazine HCl (Hydralazine Hcl 20 Mg/Ml Vial) 10 mg IV Q8 PRN PRN Reason: Blood Pressure - High Stop: 12/10/19 13:48 Last Admin: 11/13/19 07:52 Dose: 10 mg Documented by: Promethazine HCl 12.5 mg/ (Sodium Chloride) 50.5 mls @ 202 mls/hr IV Q6H PRN PRN Reason: Nausea And Vomiting Stop: 12/10/19 13:48 Lidocaine (Lidocaine 5% 1 Patch) 1 patch TD DAILY [facility] Stop: 12/11/19 08:59 Last Admin: 11/13/19 08:16 Dose: 1 patch Documented by: Losartan Potassium (Losartan Potassium 50 Mg Tab) 100 mg PO [facility] Stop: 12/14/19 08:59 Mirtazapine (Mirtazapine Tab 15 Mg Tab) 15 mg PO HS PRN PRN Reason: Insomnia Stop: 12/12/19 20:59 Last Admin: 11/12/19 21:55 Dose: 15 mg Documented by: Miscellaneous (Remove Lidoderm Patch) 1 ea N/A DAILY@2100 [facility] Stop: 12/10/19 20:59 Last Admin: 11/13/19 21:20 Dose: 1 ea Documented by: Morphine Sulfate (Morphine Sulfate 2 Mg/Ml Carp) 2 mg IV Q4 PRN PRN Reason: Pain Stop: 11/24/19 13:48 Last Admin: 11/12/19 03:00 Dose: 2 mg Documented by: Morphine Sulfate (Morphine Sulfate 4 Mg/Ml 1 Ml Carp\Vial) 4 mg IV Q4 PRN PRN Reason: Pain Stop: 11/24/19 13:48 Last Admin: 11/13/19 19:07 Dose: 4 mg Documented by: Non-Formulary Medication ([facility] [[facility]]) [facility] Stop: 12/14/19 08:59 Ondansetron HCl (Ondansetron Inj 2 Mg/Ml 2 Ml Vial) 4 mg IV Q6H PRN PRN Reason: Nausea Stop: 12/10/19 13:48 Pantoprazole Sodium (Pantoprazole 40 Mg Tab) 40 mg PO QAM [place] Stop: 12/14/19 08:59 Phenol (Chloraseptic 1.4% Soln 180 Ml Btl) 2 sprays MT Q2HWA PRN PRN Reason: Sore Throat Stop: 12/10/19 20:19 Last Admin: 11/13/19 05:27 Dose: 2 sprays Documented by: Tamsulosin HCl (Tamsulosin Hcl 0.4 Mg Cap) 0.4 mg PO HS [facility] Stop: 12/14/19 20:59 PG Care Time/CCT Total # of Minutes Spent Total Time Spent with Patient: Total time spent is greater than 50% in coordination of care (as documented) at patient's floor/unit and/or counseling patient: Coding Level of Care Code 61924 Subseq Hosp Care Lvl 3 Diagnoses SBO (small bowel obstruction) K56.609 Cerebrovascular disease I67.9 Chronic kidney disease, stage 3 (moderate) N18.3 H/O aortic valve replacement Z95.2 HTN (hypertension) I10 Hypertension type: essential hypertension Benign prostatic hyperplasia with urinary obstruction N40.1; N13.8 Ulcerative colitis K51.90 Ulcerative colitis location: unspecified ulcerative colitis location Digestive disease complication type: without complication DVT prophylaxis Z29.9 (1) HTN (hypertension) Hypertension type: essential hypertension Qualified Code(s): I10 - Essential (primary) hypertension (2) Ulcerative colitis Ulcerative colitis location: unspecified ulcerative colitis location Digestive disease complication type: without complication Qualified Code(s): K51.90 - Ulcerative colitis, unspecified, without complications
[2019-11-13] MEDS: bisacodyL 10 MG SUPP PR STA ×2 (15:00→16:44)
[2019-11-13] MEDS: MIRTAZAPINE TAB 15 MG TAB PO PRN (22:19)
[2019-11-13] MEDS ORDERED: AMLODIPINE BESYLATE 5 MG TAB PO ONE (23:00)
[2019-11-14] MEDS: HydrALAZINE HCL 20 MG/ML VIAL IV PRN (00:52)
[2019-11-14] MEDS: ACETAMINOPHEN 325 MG TAB PO PRN ×3 (02:57→23:44)
[2019-11-14 06:37] LABS: Basophils # (auto) 0.02 K/uL (0-0.2); Basophils % (auto) 0.4 %; Eosinophils # (auto) 0.11 K/uL (0-0.5); Eosinophils % (auto) 1.9 %; Hematocrit (blood only) 37.4 % (42-52); Hemoglobin 12.7 g/dL (14.0-18.0); Immature Granulocytes # (auto) 0.01 K/uL (0.00-0.02); Immature Granulocytes % (auto) 0.2 %; Lymphocytes % (auto) 21.2 %; Mean Corpuscular Hemoglobin 31.3 pg (25-34); Mean Corpuscular Volume 92.1 fL (80-100); Mean Platelet Volume 8.5 fL (7.4-10.4); Monocytes # (auto) 0.79 K/uL (0.11-0.59); Neutrophils # (auto) 3.52 K/uL (1.4-6.5); Neutrophils % (auto) 62.3 %; Platelet Count 131 K/uL (130-400); RDW Coefficient of Variation 12.6 % (11.5-14.5); RDW Standard Deviation 42.8 fL (36.4-46.3); Red Blood Count 4.06 M/uL (4.7-6.1); White Blood Count 5.65 K/uL (4.8-10.8)
[2019-11-14 07:19] LABS: Albumin Level 2.5 gm/dl (3.4-5.0); Calcium 8.5 mg/dl (8.5-10.1); Creatinine Clr Calc Pharmacy 52.4 ml/min; Est GFR (African American) 88.8; Est GFR (Non-African American) 76.6; Potassium 2.9 mmol/L (3.5-5.1)
[2019-11-14 07:27] LABS: Albumin Globulin Ratio 0.8 (0.9-2); Bilirubin,Total 0.9 mg/dl (0.2-1); Globulin 3.3 gm/dl (2.5-4.0); Total Protein 5.8 gm/dl (6.4-8.2)
[2019-11-14] MEDS: BUDESONIDE EC 3 MG CAP PO SCH (07:40)
[2019-11-14] MEDS: PANTOprazole 40 MG TAB PO SCH (07:41)
[2019-11-14] MEDS: LOSARTAN POTASSIUM 50 MG TAB PO SCH (07:41)
[2019-11-14] MEDS: FAMOTIDINE 20 MG TAB PO SCH ×2 (07:42→20:37)
[2019-11-14] MEDS: ASPIRIN 81 MG ECTAB PO SCH (07:42)
[2019-11-14] MEDS: LIDOCAINE 5% 1 PATCH TD SCH (07:43)
[2019-11-14] MEDS: ATORVASTATIN 40 MG TAB PO SCH (07:43)
[2019-11-14] MEDS: POTASSIUM CHLORIDE / WTR 10 MEQ/100 ML PLCT IV SCH ×2 (08:48→10:30)
[2019-11-14] MEDS: POTASSIUM CHLORIDE 20 MEQ TABCR PO SCH ×3 (09:11→20:34)
--- NOTE | 2019-11-14 11:15 | Surgery Progress Note ---
Date of Service November 14, 2019 Assessment & Plan (1) SBO (small bowel obstruction): Small bowel obstruction resolved Advance to heart healthy diet No peritonitis No evidence for need for surgical intervention at this time. Admission and Anticipated Discharge Date Admission Date: November 10, 2019 Subjective Tolerated full liquid diet Denies abdominal pain Denies nausea and vomiting Feels better without NG tube Having bowel movements and passing flatus Physical Exam Gastrointestinal (Abdomen): Inspection/Auscultation: abdomen not distended Percussion/Palpation: abdomen soft; abdomen nontender Results & Data ([facility]) Vital Signs (Past 12 Hours) Vital Signs Temp Pulse Pulse Resp BP BP Pulse Ox 11/14/19 07:12 36.7 C 98 H 18 165/79 H 97 11/14/19 02:30 36.7 C 80 16 138/71 93 11/14/19 00:08 36.8 C 84 22 186/73 H 96
[2019-11-14] MEDS: MIRTAZAPINE TAB 15 MG TAB PO PRN (20:37)
[2019-11-14] MEDS ORDERED: TAMSULOSIN HCL 0.4 MG CAP PO SCH (21:00)
[2019-11-14] MEDS ORDERED: AMLODIPINE BESYLATE 5 MG TAB PO SCH (21:00)
--- NOTE | 2019-11-14 21:38 | Hospitalist Progress Note ---
Date of Service November 14, 2019 Assessment & Plan (1) SBO (small bowel obstruction): SBO likely due to peritoneal adhesions Patient presents with acute small bowel obstruction. Patient's had prior abdominal surgery including cholecystectomy and appendectomy patient improved with NG tube to low intermittent suction + flatus on 11/11 had a BM after suppository on 11/11 and then several more BM small bowel follow through 11/12 with no signs of obstruction NG tube removed, clear liquids - advanced to low residue diet tolerating diet, moving bowels SBO resolved plan for discharge tomorrow morning after breakfast (2) Cerebrovascular disease: resume Losartan, Norvasc, aspirin now that he can take PO (3) Chronic kidney disease, stage 3 (moderate): Cr is stable, making urine, electrolytes stable resume Losartan check BMP daily (4) H/O aortic valve replacement: (5) HTN (hypertension): resume Norvasc and Losartan BP better with SBP 160's (6) Benign prostatic hyperplasia with urinary obstruction: resume Vesicare and Flomax (7) Ulcerative colitis: stable, in remission resume Budesonide takes Humira outpatient (8) DVT prophylaxis: SCDs for DVT prevention (9) Hypokalemia: 2.9 this morning PO replacement ordered repeat in the morning Admission and Anticipated Discharge Date Admission Date: November 10, 2019 Subjective patient feeling so much better today, no signs of obstruction tolerating diet, NG tube out he has far less anxiety he wants to go home tomorrow to see his , told him he can go home after breakfast he is very, very happy discussed with general surgery, they will sign off, SBO resolved labs show K low at 2.9, PO replacement ordered, CR is stable Review of Systems Review of Systems: All systems reviewed & are unremarkable except as noted in Subjective Constitutional: no fever, no fatigue and no weakness Respiratory: no cough and no dyspnea Cardiovascular: no chest pain and no edema Gastrointestinal: no abdominal pain, no nausea, no vomiting, no constipation and no diarrhea/loose stools Physical Exam Constitutional: WD/WN, vitals as above Eyes: PERRL, conjunctivae normal, anicteric sclerae ENMT: external ear and nose normal, oropharynx normal Neck: trachea midline, no thyromegaly Respiratory: normal respiratory effort, lungs clear to auscultation Cardiovascular: RRR, no murmur, no edema Gastrointestinal (Abdomen): Inspection/Auscultation: abdomen normal to inspection and normal bowel sounds Percussion/Palpation: abdomen soft; abdomen nontender, no guarding, abdomen not rigid, no hernia and no ascites Musculoskeletal: no cyanosis or clubbing, extremities motor strength 5/5 Skin: no rashes, warm and dry Neurologic: patellar DTR's 2+ bilat, sensation intact and PERRL, EOMI, accommodation nl, no face palsy, no dysarthria Psychiatric: Orientation: alert and oriented x 3 Lymphatic: no cervical or axillary lymphadenopathy Results & Data Results & Data ([facility]) Vital Signs (Past 12 Hours) Vital Signs Temp Pulse Resp BP Pulse Ox 11/14/19 15:09 36.7 C 99 H 19 165/74 H 96 Laboratory Results Laboratory Results - last 24 hr 11/14/19 11/14/19 06:20 06:20 WBC 5.65 RBC 4.06 L Hgb 12.7 L Hct 37.4 L MCV 92.1 MCH 31.3 MCHC 34.0 RDW Std Deviation 42.8 RDW Coeff of Tahmina 12.6 Plt Count 131 MPV 8.5 Immature Gran % (Auto) 0.2 Neut % (Auto) 62.3 Lymph % (Auto) 21.2 Wilson % (Auto) 14.0 Eos % (Auto) 1.9 Baso % (Auto) 0.4 Neut # (Auto) 3.52 Lymph # (Auto) 1.20 Wilson # (Auto) 0.79 H Eos # (Auto) 0.11 Baso # (Auto) 0.02 Immature Gran # (Auto) 0.01 Sodium 141 Potassium 2.9 L Chloride 109 H Carbon Dioxide 25 Anion Gap 7.0 BUN 11 Creatinine 0.91 Est Cr Clr Drug Dosing 52.4 Est GFR ( Amer) 88.8 Est GFR (Non-Af Amer) 76.6 BUN/Creatinine Ratio 12.0 Glucose 89 Calcium 8.5 Total Bilirubin 0.9 AST 12 L ALT 11 L Alkaline Phosphatase 46 Total Protein 5.8 L Albumin 2.5 L Globulin 3.3 Albumin/Globulin Ratio 0.8 L Medications Administered Current Inpatient Medications Acetaminophen (Acetaminophen 325 Mg Tab) 650 mg PO Q4H PRN PRN Reason: Headache or Pain Stop: 12/14/19 02:40 Last Admin: 11/14/19 09:10 Dose: 650 mg Documented by: Amlodipine Besylate (Amlodipine Besylate 5 Mg Tab) 7.5 mg PO HS [facility] Stop: 12/14/19 20:59 Last Admin: 11/14/19 20:35 Dose: 7.5 mg Documented by: Aspirin (Aspirin 81 Mg Ectab) 81 mg PO QAM [facility] Stop: 12/14/19 08:59 Last Admin: 11/14/19 07:42 Dose: 81 mg Documented by: Atorvastatin Calcium ([facility]atin 40 Mg Tab) [facility] Stop: 12/14/19 08:59 Last Admin: 11/14/19 07:43 Dose: 40 mg Documented by: Budesonide (Budesonide Ec 3 Mg Cap) [facility] Stop: 12/14/19 08:59 Last Admin: 11/14/19 07:40 Dose: 9 mg Documented by: Famotidine (Famotidine 20 Mg Tab) 20 mg PO BID [facility] Stop: 12/14/19 08:59 Last Admin: 11/14/19 20:37 Dose: 20 mg Documented by: Hydralazine HCl (Hydralazine Hcl 20 Mg/Ml Vial) 10 mg IV Q8 PRN PRN Reason: Blood Pressure - High Stop: 12/10/19 13:48 Last Admin: 11/14/19 00:52 Dose: 10 mg Documented by: Promethazine HCl 12.5 mg/ (Sodium Chloride) 50.5 mls @ 202 mls/hr IV Q6H PRN PRN Reason: Nausea And Vomiting Stop: 12/10/19 13:48 Lidocaine (Lidocaine 5% 1 Patch) 1 patch TD DAILY [facility] Stop: 12/11/19 08:59 Last Admin: 11/14/19 07:43 Dose: 1 patch Documented by: Losartan Potassium (Losartan Potassium 50 Mg Tab) [facility] Stop: 12/14/19 08:59 Last Admin: 11/14/19 07:41 Dose: 100 mg Documented by: Mirtazapine (Mirtazapine Tab 15 Mg Tab) 15 mg PO HS PRN PRN Reason: Insomnia Stop: 12/12/19 20:59 Last Admin: 11/14/19 20:37 Dose: 15 mg Documented by: Miscellaneous (Remove Lidoderm Patch) 1 ea N/A DAILY@2100 [facility] Stop: 12/10/19 20:59 Last Admin: 11/14/19 20:34 Dose: 1 ea Documented by: Miscellaneous (Vesicare- Order Awaiting Action) 1 ea N/A QS [facility] Stop: 12/14/19 00:00 Last Admin: 11/14/19 16:21 Dose: Not Given Documented by: Morphine Sulfate (Morphine Sulfate 2 Mg/Ml Carp) 2 mg IV Q4 PRN PRN Reason: Pain Stop: 11/24/19 13:48 Last Admin: 11/12/19 03:00 Dose: 2 mg Documented by: Morphine Sulfate (Morphine Sulfate 4 Mg/Ml 1 Ml Carp\Vial) 4 mg IV Q4 PRN PRN Reason: Pain Stop: 11/24/19 13:48 Last Admin: 11/13/19 19:07 Dose: 4 mg Documented by: Ondansetron HCl (Ondansetron Inj 2 Mg/Ml 2 Ml Vial) 4 mg IV Q6H PRN PRN Reason: Nausea Stop: 12/10/19 13:48 Pantoprazole Sodium (Pantoprazole 40 Mg Tab) 40 mg PO QAM [facility] Stop: 12/14/19 08:59 Last Admin: 11/14/19 07:41 Dose: 40 mg Documented by: Phenol (Chloraseptic 1.4% Soln 180 Ml Btl) 2 sprays MT Q2HWA PRN PRN Reason: Sore Throat Stop: 12/10/19 20:19 Last Admin: 11/13/19 05:27 Dose: 2 sprays Documented by: Potassium Chloride (Potassium Chloride 20 Meq Tabcr) 20 meq PO TID [facility] Stop: 12/14/19 08:59 Last Admin: 11/14/19 20:34 Dose: 20 meq Documented by: Tamsulosin HCl (Tamsulosin Hcl 0.4 Mg Cap) 0.4 mg PO HS [facility] Stop: 12/14/19 20:59 Last Admin: 11/14/19 20:34 Dose: 0.4 mg Documented by: PG Care Time/CCT Total # of Minutes Spent Total Time Spent with Patient: Total time spent is greater than 50% in coordination of care (as documented) at patient's floor/unit and/or counseling patient: Coding Level of Care Code 26590 Subseq Hosp Care Lvl 2 Diagnoses SBO (small bowel obstruction) K56.609 Cerebrovascular disease I67.9 Chronic kidney disease, stage 3 (moderate) N18.3 H/O aortic valve replacement Z95.2 HTN (hypertension) I10 Hypertension type: essential hypertension Benign prostatic hyperplasia with urinary obstruction N40.1; N13.8 Ulcerative colitis K51.90 Ulcerative colitis location: unspecified ulcerative colitis location Digestive disease complication type: without complication DVT prophylaxis Z29.9 Hypokalemia E87.6 (1) HTN (hypertension) Hypertension type: essential hypertension Qualified Code(s): I10 - Essential (primary) hypertension (2) Ulcerative colitis Ulcerative colitis location: unspecified ulcerative colitis location Digestive disease complication type: without complication Qualified Code(s): K51.90 - Ulcerative colitis, unspecified, without complications
[2019-11-15 06:08] LABS: Basophils # (auto) 0.01 K/uL (0-0.2); Basophils % (auto) 0.2 %; Eosinophils # (auto) 0.09 K/uL (0-0.5); Eosinophils % (auto) 1.7 %; Hematocrit (blood only) 34.7 % (42-52); Hemoglobin 12.1 g/dL (14.0-18.0); Lymphocytes # (auto) 1.35 K/uL (1.2-3.4); Lymphocytes % (auto) 25.6 %; Mean Corpuscular Hgb Conc 34.9 g/dL (32-36); Mean Corpuscular Volume 91.8 fL (80-100); Mean Platelet Volume 8.4 fL (7.4-10.4); Monocytes # (auto) 0.71 K/uL (0.11-0.59); Monocytes % (auto) 13.5 %; Neutrophils # (auto) 3.11 K/uL (1.4-6.5); Platelet Count 121 K/uL (130-400); RDW Coefficient of Variation 12.5 % (11.5-14.5); RDW Standard Deviation 42.3 fL (36.4-46.3); Red Blood Count 3.78 M/uL (4.7-6.1); White Blood Count 5.27 K/uL (4.8-10.8)
[2019-11-15 06:47] LABS: Albumin Level 2.6 gm/dl (3.4-5.0); BUN Creatinine Ratio 10.8 (10-20); Creatinine Clr Calc Pharmacy 32.9 ml/min; Est GFR (African American) 50.5; Est GFR (Non-African American) 43.6; Potassium 3.4 mmol/L (3.5-5.1)
[2019-11-15 06:59] LABS: Albumin Globulin Ratio 0.8 (0.9-2); Bilirubin,Total 0.5 mg/dl (0.2-1); Globulin 3.3 gm/dl (2.5-4.0); Total Protein 5.9 gm/dl (6.4-8.2)
[2019-11-15] MEDS: FAMOTIDINE 20 MG TAB PO SCH (07:54)
[2019-11-15] MEDS: BUDESONIDE EC 3 MG CAP PO SCH (07:54)
[2019-11-15] MEDS: PANTOprazole 40 MG TAB PO SCH (07:54)
[2019-11-15] MEDS: LOSARTAN POTASSIUM 50 MG TAB PO SCH (07:55)
[2019-11-15] MEDS: ASPIRIN 81 MG ECTAB PO SCH (07:55)
[2019-11-15] MEDS: POTASSIUM CHLORIDE 20 MEQ TABCR PO SCH (07:56)
[2019-11-15] MEDS: ATORVASTATIN 40 MG TAB PO SCH (07:56)
[2019-11-15] MEDS: LIDOCAINE 5% 1 PATCH TD SCH (07:56)
--- NOTE | 2019-11-15 08:51 | Discharge Summary ---
Date of Service November 15, 2019 Admission HPI Per Admitting Provider 84-year-old gentleman with a history of heartburn, sacroiliitis, CKD, hyperlipidemia, kidney stones presenting here today stating that his reflux is acting up and is very bad. Patient states that he was up all night with it and has not take anything at home for it. Also reports he is have some abdominal and right lower back pain ( he has chronic back pain usually using hydrocodone and lidoderm) . 2 weeks of constipation. Patient was seen in the Er 11/09/19 for similar complaints of heartburn and back pain although he initially does not remember this. Endorses nausea but denies vomiting. An NG tube was placed in the emergency department and promptly drained almost 800 cc of a liquid looking like pea soup. Patient felt relieved Abdomen exam is nonacute abdomen there is hypoactive bowel sounds is soft and mildly tender Principal Diagnosis Partial small bowel obstruction, suspected to be due to adhesions Discharge Exam Constitutional WD/WN, vitals as above Eyes PERRL, conjunctivae normal, anicteric sclerae ENMT external ear and nose normal, oropharynx normal Neck trachea midline, no thyromegaly Respiratory normal respiratory effort, lungs clear to auscultation Cardiovascular RRR, no murmur, no edema Gastrointestinal (Abdomen) Inspection/Auscultation: abdomen normal to inspection and normal bowel sounds Percussion/Palpation: abdomen soft; abdomen nontender, no guarding, abdomen not rigid, no hernia and no ascites Musculoskeletal no cyanosis or clubbing, extremities motor strength 5/5 Skin no rashes, warm and dry Neurologic patellar DTR's 2+ bilat, sensation intact and PERRL, EOMI, accommodation nl, no face palsy, no dysarthria Psychiatric Orientation: alert and oriented x 3 Lymphatic no cervical or axillary lymphadenopathy Discharge Data Allergies Allergy/AdvReac Type Severity Reaction Status Date / Time No Known Allergies Allergy Verified 11/10/19 08:33 Consultations 11/10/19 11:56 ED Decision to Admit Stat 11/10/19 13:49 Consult Gastroenterology Routine 11/11/19 14:41 Consult General Surgery Routine Ordered Studies 11/10/19 08:12 CT abd pelvis IV con only Stat 11/10/19 08:20 CT head/brain wo con Stat 11/13/19 10:05 FL small bowel follow through Routine Hospital Course (1) SBO (small bowel obstruction): SBO likely due to peritoneal adhesions Patient presents with acute small bowel obstruction. Patient's had prior abdominal surgery including cholecystectomy and appendectomy patient improved with NG tube to low intermittent suction + flatus on 11/11 had a BM after suppository on 11/11 and then several more BM small bowel follow through 11/12 with no signs of obstruction NG tube removed, clear liquids - advanced to low residue diet tolerating diet, moving bowels SBO resolved discharge to home instructed to follow low residue diet for a few weeks can use Miralax or Dulcolax suppository to keep bowels moving follow up with PCP (2) Cerebrovascular disease: resume Losartan, Norvasc, aspirin now that he can take PO (3) Chronic kidney disease, stage 3 (moderate): Cr is stable, making urine, electrolytes stable resume Losartan check BMP daily (4) H/O aortic valve replacement: (5) HTN (hypertension): resume Norvasc and Losartan BP better with SBP 160's (6) Benign prostatic hyperplasia with urinary obstruction: resume Vesicare and Flomax (7) Ulcerative colitis: stable, in remission resume Budesonide takes Humira outpatient Total Time Total Time Spent Total Time Spent (In Minutes): 32 minutes Total Time Includes: Examination of the Patient, Discharge Planning, Medication Reconciliation and Communication With Other Providers (Dr. Farrell) Discharge Plan Discharge Items Patient Disposition: Home - Self-Care Reason For Visit: SMALL BOWEL OBSTRUCTION Discharge Diagnosis: Partial small bowel obstruction, resolved Condition on Discharge: Good Goals: stay well hydrated stay active Activity: Resume your previous activity Driving/Machine Use: Resume 1 day after discharge Weightbearing: Full weightbearing Non-emergency contact: Primary Care Provider Call non-emergency contact if: you have any medication questions and your symptoms worsen Follow-up/Referrals: Rica Chavez DO [Primary Care Provider] - 11/19/19 12:20 pm (one week APPT WITH LEONIDES MENA) Diet: Heart Healthy and Low Fiber Addtl Attending Provider Instructions: Medications: no major changes MIRALAX: obtain over the counter, recommend taking a dose if you go two days without a BM, see below Partial small bowel obstruction, possibly due to adhesions from prior surgery obstruction completely resolved based on small bowel follow through study moving bowels regularly stay well hydrated, continue Metamucil for next two weeks, avoid ruffage such as lettuce, vegetables that are hard to break down continue with Colace, Senokot but you NEED to be sure you take these with a full 8oz glass of water drink water and other fluids throughout the day as poor fluid intake can make stools hard and difficult to pass if you go two days without a BM, I recommend you take Miralax one scoop dissolved in water, take this daily until you have a BM you can also use Dulcolax suppository once daily if the Miralax does not help, suppository worked for you here in the hospital Ulcerative colitis: stable, continue regimen of Humira and Uceris Pending Studies at Discharge: No Stand-Alone Forms: My [facility] [employer], Smoking Cessation Medications and DC Order Prescriptions: Continued Metamucil (sugar) Powder 1 tbs PO DAILY PRN (Reason: Pain) RF: 0 pantoprazole [Protonix] 40 mg tablet,delayed release (DR/EC) 40 mg PO QAM Qty: 90 RF: 1 amlodipine 2.5 mg tablet 7.5 mg PO HS Qty: 90 RF: 5 losartan 100 mg tablet 100 mg PO QAM Qty: 90 RF: 1 hydrocodone-acetaminophen 7.5-325 mg tablet 1 tab PO BID PRN (Reason: Pain) Qty: 30 RF: 0 aspirin [Aspir-81] 81 mg Tablet,Delayed Release (Dr/Ec) 81 mg PO QAM RF: 0 atorvastatin 40 mg tablet 40 mg PO QAM RF: 0 cholecalciferol (vitamin D3) 5,000 unit tablet 5,000 units PO QAM RF: 0 budesonide [Uceris] 9 mg tablet,delayed and ext.release 9 mg PO QAM RF: 0 tamsulosin [Flomax] 0.4 mg capsule 0.4 mg PO HS RF: 0 solifenacin [Vesicare] 5 mg tablet 5 mg PO QAM RF: 0 sennosides [Senokot] 8.6 mg tablet 8.6 mg PO HS Qty: 30 RF: 0 docusate sodium [Colace] 100 mg capsule 100 mg PO BID Qty: 60 RF: 0 lidocaine [Lidoderm] 5 % adhesive patch,medicated 1 patch TOP DAILY Qty: 15 RF: 0 Humira(CF) Pen 40 mg/0.4 mL pen injector kit 0 mg SUBCUT Q14D RF: 0 famotidine [Pepcid] 20 mg tablet 20 mg PO BID 42 Days Qty: 84 RF: 0 Discharge Orders: Discharge Order (Routine); Ordered 11/15/19 Ordered By: Andrew Ho/Other Patient Handouts: Falls Prevent Safe Cane Walker Admission Data Admit Date/Time: 11/10/19 12:28 Attending Provider: Andrew Junior Admit Provider: Vernon Hutchison Primary Care Provider: Rica Chavez Other Providers: Vernon Hutchison ; Baltazar Worthy ; Umm Nair Other Interventions: Discharge Summary Assessment (RN) Last Done: 11/15/19 09:02 Coding Level of Care Code D/C Day Management >30 mins Diagnoses SBO (small bowel obstruction) K56.609 Cerebrovascular disease I67.9 Chronic kidney disease, stage 3 (moderate) N18.3 H/O aortic valve replacement Z95.2 HTN (hypertension) I10 Hypertension type: essential hypertension Benign prostatic hyperplasia with urinary obstruction N40.1; N13.8 Ulcerative colitis K51.90 Digestive disease complication type: without complication Ulcerative colitis location: unspecified ulcerative colitis location
== END 2019-11-15 10:19 | disposition home or self-care (01) | DRG 389 ==
LOC: ED 07:46 → 3E 12:28 → SUATTDRO 12:28 → 3E 13:36

== ENCOUNTER 2024-04-24 08:01 | Inpatient (IN) ==
--- NOTE | 2024-04-24 08:30 | Emergency Department Note ---
Impression & Plan Elevated troponin Admission ED Provider Note HPI: History obtained from patient and bedside RN via EMS report. The patient is a 88-year-old gentleman with history of dementia, hypertension, aortic valve replacement, coronary artery disease, who presents the emergency department with a chief complaint of apparent chest discomfort. Patient states on my assessment that he is having some shortness of breath. He stated earlier in the day he did have some chest discomfort as well. Patient was noted to be slightly hypoxic on arrival at 87% was placed on nasal cannula oxygen with good improvement. On my initial evaluation of the patient, he appears to be in no acute distress. He is otherwise hemodynamically stable on arrival. ROS: - Per HPI Differential Diagnosis: Acute coronary syndrome, acute CHF exacerbation, pneumonia, pleural effusion, pulmonary embolism, aortic dissection, amongst other potential pathologies. *Outpatient medications and allergy history reviewed. PE: General: Alert, frail-appearing, no acute distress HEENT: Normocephalic, trachea midline Eyes: Extraocular eye movement is intact, no scleral erythema Pulmonary: Clear to auscultation bilaterally, no wheezing Cardio: Regular rate and rhythm GI: Abdomen is soft to palpation : No suprapubic tenderness MSK: No evidence of trauma or malformation of the extremities, no edema Skin: No evidence of rash Neuro: Alert, no focal deficits Psychiatric: Cooperative INDEPENDENT INTERPRETATIONS: monitoring manager: (As interpreted by myself): - An order was placed for continuous cardiac monitoring - Patient was noted to be in sinus rhythm with a rate of 95 with frequent PVCs EKG: (As interpreted by myself): Rate: 111 Rhythm: Sinus rhythm with PVCs Intervals: QTc 527 ms, otherwise within normal limits ST changes: No ST elevation Time: 0808 EKG #2: (As interpreted by myself): Rate: 85 Rhythm: Sinus rhythm Intervals: Within normal limits ST changes: No ST elevation Time: 0935 Chest x-ray: (As interpreted by myself): Pulmonary edema pattern Interventions provided in ED: -Patient received aspirin via EMS prior to arrival Medical Decision Making: IV was established and lab work obtained, patient was placed on nuclear monitoring technician. Lab work shows no leukocytosis, hemoglobin is stable at 10.8 which appears to be the near the patient's baseline, platelet count is normal, venous blood gas shows normal pH, pCO2 is normal. CMP does not show any critical findings, creatinine is elevated at 2.25 with unclear baseline as the patient's last creatinine in our system was 1.86 in September 2023, this could possibly be acute kidney injury versus progression of chronic kidney disease. Troponin is elevated at 212. Repeat EKG was obtained that again does not show any acute ischemic changes. Frequent PVCs/ectopy on the monitor seem to improve throughout the patient's stay. He was maintained on nasal cannula oxygen. His chest x-ray does show some pulmonary edema. I discussed the above findings with the on-call hospitalist, Dr. Kovacs, and the patient was placed for admission in stable condition for further care. Will wait on repeat troponin level before making decision on heparin drip as the patient's chest pain is improved on my reassessment. He did receive aspirin prior to arrival. Patient was in agreement for admission and he was placed for admission in stable condition. Consultants/Discussions held with other healthcare providers: -Hospitalist, Dr. Kovacs Disposition discussion held by myself with: -Patient Diagnosis: 1. Elevated high-sensitivity troponin level, acute, nonspecific 2. Dyspnea, acute 3. Chest pain, transient, nonspecific Disposition: Admission Jesse Reza DO Emergency Medicine Past Med/Surg History Problem List (Updated 04/24/24 @ 14:23 by Jesse Reza DO) Elevated troponin (Acute) Acute heart failure with reduced ejection fraction (HFrEF, <= 40%) Hypoxia Flash pulmonary edema Left ureteral calculus Left low back pain Generalized weakness Impacted cerumen of both ears Carotid stenosis Anxiety with depression Urinary urgency Sacroiliitis (Chronic) Cerebrovascular disease (Chronic) Cerebral aneurysm, nonruptured (Chronic) Chronic cerebral ischemia Visual disturbance (Acute) Orthostasis (Acute) Chronic kidney disease, stage 3 (moderate) H/O aortic valve replacement (09/24/15) Transfemoral TAVR Urethral stricture Thrombocytopenia Hearing loss 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, left eye 09/19/18 Vitamin D deficiency Urge incontinence of urine Ulcerative colitis (2004) Secondary hyperparathyroidism Osteoporosis Middle cerebral artery aneurysm Lumbar degenerative disc disease Hypercholesterolemia Dementia (Acute) Coronary artery disease Benign prostatic hyperplasia with urinary obstruction Aortic stenosis Acid reflux HTN (hypertension) Kidney stones (Acute) Medical History (Updated 04/24/24 @ 14:23 by Jesse Reza DO) Hx of thrombocytopenia Sacroiliitis Hx of orthostatic hypotension Hypercholesteremia BPH (benign prostatic hyperplasia) Acute kidney injury superimposed on CKD Chronic kidney disease, stage 3 Hx of aortic valve stenosis Hx of gastroesophageal reflux (GERD) CAD (coronary artery disease) Carotid stenosis Urinary incontinence BPPV (benign paroxysmal positional vertigo) 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) rowan Vitamin D deficiency Lumbar degenerative disc disease Middle cerebral artery aneurysm saw neurosurgeon in past, no surgery indicated Osteoporosis Secondary hyperparathyroidism Alzheimer's dementia daughter/POA Amanda Predix completed PAT interview Cerebrovascular disease Anxiety with depression Left ureteral calculus Ulcerative colitis Hx SBO Renal insufficiency HTN (hypertension) Surgical History History of mandibular surgery due to underbite, > 40 years ago Hx of cardiac catheterization (07/2013) Rowan, no CA- pos stress - 2 stents S/P coronary artery stent placement (07/2013) Mid LAD S/P coronary artery stent placement (06/2013) R PDA History of cholecystectomy History of appendectomy History of cataract surgery (2017) L eye Mar 2017, R eye May 2017 Family History Mother , age 84 of unknown causes No problems noted. Father , age 45 of a stroke Stroke Coronary heart disease Other Breast cancer Hypertension Denies family history of Ovarian cancer Prostate cancer Myocardial infarction Colorectal cancer Social History Smoking Status: Never smoker Tobacco Type: Cigarettes Second Hand Exposure: No; Do You Dip or Chew Tobacco: No; Hx Alcohol Use: No Hx Substance Use: No Preferred Language: Czech Communication Ability: Effective Communication Ability Comment: uses b/l h/a that are being repaired Visual Impairment: No Limitations Hearing Ability: Use of Hearing Aid Telegraph Repeater Mechanic Required: No Beliefs That Will Affect Care: None marital status: Current Living Situation: Personal Care Facility Current Living Situation Comment: [facility] current occupational status: retired 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 [employer] Feels Safe at Home: Yes Diet: regular caffeine: Yes during the past year weight has: remained stable Dental Care, Regularly: Yes Physical Activity Frequency: 1-2 Times per Week Physical Activity Frequency Comment: walk Seatbelt Use: always Sunscreen Use: Yes Assistive Devices: Cane, Glasses, Hearing Aid - Bilateral and Walker Allergies Allergies Allergy/AdvReac Type Severity Reaction Status Date / Time No Known Drug Allergies Allergy nkda Verified 04/24/24 11:08 Home Meds Home Medications Medication Instructions Recorded Confirmed acetaminophen 650 mg 650 mg PO Q8H PRN Pain 02/19/22 04/24/24 tablet,extended release amlodipine 5 mg tablet (Norvasc) 5 mg PO DAILY 02/19/22 04/24/24 aspirin 81 mg chewable tablet 81 mg PO DAILY 02/19/22 04/24/24 cholecalciferol (vitamin D3) 125 125 mcg PO DAILY 02/19/22 04/24/24 mcg (5,000 unit) tablet diphenhydramine HCl 25 mg tablet 25 mg PO .Q24HR PRN .ALLERGY 02/19/22 04/24/24 (Benadryl Allergy) SYMPTOMS docusate sodium 100 mg tablet 100 mg PO BID 02/19/22 04/24/24 ibuprofen 400 mg tablet 400 mg PO Q8 02/19/22 04/24/24 lidocaine 5 % topical patch 1 patch topical DAILY 02/19/22 04/24/24 lorazepam 0.5 mg tablet 0.5 mg PO HS 02/19/22 04/24/24 losartan 100 mg tablet 100 mg PO QAM 02/19/22 04/24/24 melatonin 5 mg tablet 5 mg PO HS 02/19/22 04/24/24 pantoprazole 40 mg tablet,delayed 40 mg PO DAILY 02/19/22 04/24/24 release polyethylene glycol 3350 17 gram 17 g PO DAILY 02/19/22 04/24/24 oral powder packet (Miralax) propylene glycol 0.6 % eye drops 1 drp ophthalmic (eye) DAILY PRN 02/19/22 04/24/24 Dry Eye(S) tamsulosin 0.4 mg capsule 0.4 mg PO DAILY 02/19/22 04/24/24 oxycodone 5 mg tablet 5 mg PO QAM Pain 10/17/23 04/24/24 diclofenac sodium 1 % topical gel 2 g topical Q6H PRN Pain 10/20/23 04/24/24 donepezil 10 mg tablet (Aricept) 10 mg PO DAILY 10/20/23 04/24/24 loratadine 10 mg tablet 10 mg PO DAILY 10/20/23 04/24/24 olanzapine 2.5 mg tablet (Zyprexa) 2.5 mg PO DAILY 10/20/23 04/24/24 olanzapine 5 mg tablet (Zyprexa) 5 mg PO BID 10/20/23 04/24/24 venlafaxine 75 mg capsule,extended 75 mg PO DAILY 10/20/23 04/24/24 release 24 hr (Effexor XR) Milk of Magnesia 30 ml PO DAILY PRN Constipation 04/24/24 04/24/24 acetaminophen 650 mg 650 mg PO Q12H PRN temp>100 04/24/24 04/24/24 tablet,extended release bisacodyl 10 mg rectal suppository 10 mg MS DAILY PRN Constipation 04/24/24 04/24/24 hydrocortisone 1 % topical cream 1 applic topical Q8H PRN 04/24/24 04/24/24 (Preparation H Hydrocortisone) Hemorrhoids Results & Data (ED) Vital Signs Vital Signs - 24 hr 04/24/24 08:21 04/24/24 08:21 04/24/24 08:22 Temperature 36.5 C Temperature Source Oral Pulse Rate 91 H 64 Pulse Rate from SpO2 Sensor Respiratory Rate 18 20 Blood Pressure 107/81 Blood Pressure Mean 89 Pulse Oximetry 95 87 L 94 Oxygen Delivery Method Nasal Cannula Nasal Cannula Nasal Cannula Oxygen Flow Rate 2 0 2 Sepsis New/Unexplained Change in Mental Status No Sepsis Action Taken by Nursing No Action Required Oxygen Flow Rate - Titration 2 Pulse Oximetry Post Tiitration 95 04/24/24 08:39 04/24/24 08:45 04/24/24 08:48 Temperature Temperature Source Pulse Rate 62 89 75 Pulse Rate from SpO2 Sensor 124 H 103 H Respiratory Rate 12 20 Blood Pressure 142/80 H Blood Pressure Mean 100 Pulse Oximetry 97 96 Oxygen Delivery Method Nasal Cannula Oxygen Flow Rate 2 Sepsis New/Unexplained Change in Mental Status Sepsis Action Taken by Nursing Oxygen Flow Rate - Titration Pulse Oximetry Post Tiitration 04/24/24 09:00 04/24/24 09:15 04/24/24 09:30 Temperature Temperature Source Pulse Rate 76 82 96 H Pulse Rate from SpO2 Sensor 81 88 Respiratory Rate 18 12 23 Blood Pressure 148/83 H 140/90 144/85 H Blood Pressure Mean 120 106 104 Pulse Oximetry 97 99 97 Oxygen Delivery Method Oxygen Flow Rate Sepsis New/Unexplained Change in Mental Status Sepsis Action Taken by Nursing Oxygen Flow Rate - Titration Pulse Oximetry Post Tiitration 04/24/24 09:45 04/24/24 10:00 04/24/24 10:00 Temperature Temperature Source Pulse Rate 85 88 93 H Pulse Rate from SpO2 Sensor 85 Respiratory Rate 10 L 21 22 Blood Pressure 146/76 H 140/86 140/86 Blood Pressure Mean 99 118 118 Pulse Oximetry 85 L 94 98 Oxygen Delivery Method Oxygen Flow Rate Sepsis New/Unexplained Change in Mental Status Sepsis Action Taken by Nursing Oxygen Flow Rate - Titration Pulse Oximetry Post Tiitration 04/24/24 10:15 04/24/24 10:18 04/24/24 10:30 Temperature Temperature Source Pulse Rate 83 86 Pulse Rate from SpO2 Sensor 85 Respiratory Rate 22 17 Blood Pressure 142/75 H 139/92 Blood Pressure Mean 87 108 Pulse Oximetry 95 95 Oxygen Delivery Method Oxygen Flow Rate Sepsis New/Unexplained Change in Mental Status Sepsis Action Taken by Nursing Oxygen Flow Rate - Titration Pulse Oximetry Post Tiitration 04/24/24 10:30 04/24/24 10:42 04/24/24 10:45 Temperature Temperature Source Pulse Rate 90 87 Pulse Rate from SpO2 Sensor 93 H 77 Respiratory Rate 20 34 H Blood Pressure 139/92 Blood Pressure Mean 108 Pulse Oximetry 92 91 Oxygen Delivery Method Oxygen Flow Rate Sepsis New/Unexplained Change in Mental Status Sepsis Action Taken by Nursing Oxygen Flow Rate - Titration Pulse Oximetry Post Tiitration 04/24/24 10:58 04/24/24 11:00 04/24/24 11:15 Temperature Temperature Source Pulse Rate Pulse Rate from SpO2 Sensor Respiratory Rate Blood Pressure 133/76 141/83 H Blood Pressure Mean 96 106 Pulse Oximetry 89 L Oxygen Delivery Method Nasal Cannula Oxygen Flow Rate 3 Sepsis New/Unexplained Change in Mental Status Sepsis Action Taken by Nursing Oxygen Flow Rate - Titration 4 Pulse Oximetry Post Tiitration 91 04/24/24 11:15 04/24/24 11:21 04/24/24 11:22 Temperature Temperature Source Pulse Rate 87 78 Pulse Rate from SpO2 Sensor 90 80 Respiratory Rate 21 26 H Blood Pressure Blood Pressure Mean Pulse Oximetry 92 95 89 L Oxygen Delivery Method Oxymask Oxygen Flow Rate 5 Sepsis New/Unexplained Change in Mental Status Sepsis Action Taken by Nursing Oxygen Flow Rate - Titration 8 Pulse Oximetry Post Tiitration 95 04/24/24 12:25 04/24/24 12:48 Temperature Temperature Source Pulse Rate 90 Pulse Rate from SpO2 Sensor Respiratory Rate Blood Pressure Blood Pressure Mean Pulse Oximetry 98 Oxygen Delivery Method Oxymask Oxygen Flow Rate 7 Sepsis New/Unexplained Change in Mental Status Sepsis Action Taken by Nursing Oxygen Flow Rate - Titration 5 Pulse Oximetry Post Tiitration 96 Laboratory Data 04/24/24 08:17 04/24/24 08:17 Lab Results 04/24/24 04/24/24 04/24/24 Range/Units 08:17 08:21 10:10 WBC 4.99 (4.8-10.8) K/ul RBC 3.59 L (4.70-6.10) M/uL Hgb 10.8 L (14.0-18.0) g/dl POC Hgb 10.5 L (14.0-18.0) g/dl Hct 33.2 L (42.0-52.0) % POC Hct 31 L (42-52) % MCV 92.5 (80.0-100.0) fL MCH 30.1 (25.0-34.0) pg MCHC 32.5 (32.0-36.0) g/dL RDW Std Deviation 45.9 (36.4-46.3) fL RDW Coeff of Tahmina 13.7 (11.5-14.5) % Plt Count 137 (130-400) K/uL MPV 10.2 (9.4-12.4) fL Immature Gran % (Auto) 0.4 % Neut % (Auto) 66.8 % Lymph % (Auto) 18.4 % [place] % (Auto) 10.6 % Eos % (Auto) 3.2 % Baso % (Auto) 0.6 % Neut # (Auto) 3.33 (1.40-6.50) K/uL Lymph # (Auto) 0.92 L (1.20-3.40) K/uL [place] # (Auto) 0.53 (0.11-0.59) K/uL Eos # (Auto) 0.16 (0.00-0.50) K/uL Baso # (Auto) 0.03 (0.00-0.20) K/uL Immature Gran # (Auto) 0.02 (0.01-0.20) K/uL PT 11.7 (9.0-12.0) Seconds INR 1.1 (0.9-1.1) APTT (21-31) Seconds PTT Ratio VBG pH (7.36-7.41) VBG pCO2 (38-50) mmHg VBG pO2 mmHg VBG HCO3 mmol/L VBG O2 Saturation % VBG Base Excess mEq/L POC Sodium 142 (135-144) mmol/L Sodium 141 (136-145) mmol/L POC Potassium 3.9 (3.3-5.0) mmol/L Potassium 3.9 (3.5-5.1) mmol/L POC Chloride 110 (101-112) mmol/L Chloride 109 H (98-107) mmol/L Carbon Dioxide 21 (21-32) mmol/L POC Total CO2 19 L (24-31) mmol/L Anion Gap 11 (3-11) POC Anion Gap 17.0 (16-25) mmol/L POC BUN 29 H (7-18) mg/dl BUN 32 H (6-23) mg/dl Creatinine 2.25 H (0.6-1.4) mg/dl POC Creatinine 2.5 H (0.6-1.3) mg/dl Est Cr Clr Drug Dosing 20.1 ml/min eGFR 27.19 BUN/Creatinine Ratio 14.2 (10-20) Glucose 122 H (70-99(Fasting)) mg/dl POC Glucose (other) 125 H (70-99) mg/dl Calcium 9.4 (8.6-10.3) mg/dl POC Ioniz Calcium Navya 1.19 (1.12-1.32) mmol/l Magnesium 1.7 (1.7-2.4) mg/dl Total Bilirubin 0.4 (0.2-1.0) mg/dl AST 18 (13-39) U/L ALT 18 (7-52) U/L Alkaline Phosphatase 69 (34-104) U/L Troponin I High Sens 212.7 H* 217.9 H* (0-20) pg/ml B-Natriuretic Peptide 1460 H (0-100) pg/ml Total Protein 6.4 (6.0-8.3) gm/dl Albumin 3.2 L (3.4-5.0) gm/dl Globulin 3.2 (2.5-4.0) gm/dl Albumin/Globulin Ratio 1.0 (0.9-2) Lipase 4 L (11-82) U/L TSH 4.224 (0.300-4.500) uIu/ml Adenovirus (PCR) (NotDetected) B. pertussis DNA (PCR) (NotDetected) B.parapertussis DNA PCR (NotDetected) C. pneumoniae DNA (PCR) (NotDetected) Coronavirus OC43 (PCR) (NotDetected) Coronavirus HKU1 (PCR) (NotDetected) Coronavirus 229E (PCR) (NotDetected) SARS-CoV-2 (PCR) (NotDetected) Coronavirus NL63 (PCR) (NotDetected) Human Metapneumovir PCR (NotDetected) Influenza Type A (PCR) (NotDetected) Influenza Type B (PCR) (NotDetected) M. pneumoniae (PCR) (NotDetected) Parainfluenza 1 (PCR) (NotDetected) Parainfluenza 2 (PCR) (NotDetected) Parainfluenza 3 (PCR) (NotDetected) Parainfluenza 4 (PCR) (NotDetected) RSV (PCR) (NotDetected) Entero/Rhino (PCR) (NotDetected) 04/24/24 04/24/24 Range/Units 11:00 11:59 WBC (4.8-10.8) K/ul RBC (4.70-6.10) M/uL Hgb (14.0-18.0) g/dl POC Hgb (14.0-18.0) g/dl Hct (42.0-52.0) % POC Hct (42-52) % MCV (80.0-100.0) fL MCH (25.0-34.0) pg MCHC (32.0-36.0) g/dL RDW Std Deviation (36.4-46.3) fL RDW Coeff of Tahmina (11.5-14.5) % Plt Count (130-400) K/uL MPV (9.4-12.4) fL Immature Gran % (Auto) % Neut % (Auto) % Lymph % (Auto) % [place] % (Auto) % Eos % (Auto) % Baso % (Auto) % Neut # (Auto) (1.40-6.50) K/uL Lymph # (Auto) (1.20-3.40) K/uL [place] # (Auto) (0.11-0.59) K/uL Eos # (Auto) (0.00-0.50) K/uL Baso # (Auto) (0.00-0.20) K/uL Immature Gran # (Auto) (0.01-0.20) K/uL PT (9.0-12.0) Seconds INR (0.9-1.1) APTT < 20 L (21-31) Seconds PTT Ratio 0.7 VBG pH 7.36 (7.36-7.41) VBG pCO2 39 (38-50) mmHg VBG pO2 26 mmHg VBG HCO3 22 mmol/L VBG O2 Saturation < 60.0 % VBG Base Excess -3.1 mEq/L POC Sodium (135-144) mmol/L Sodium (136-145) mmol/L POC Potassium (3.3-5.0) mmol/L Potassium (3.5-5.1) mmol/L POC Chloride (101-112) mmol/L Chloride (98-107) mmol/L Carbon Dioxide (21-32) mmol/L POC Total CO2 (24-31) mmol/L Anion Gap (3-11) POC Anion Gap (16-25) mmol/L POC BUN (7-18) mg/dl BUN (6-23) mg/dl Creatinine (0.6-1.4) mg/dl POC Creatinine (0.6-1.3) mg/dl Est Cr Clr Drug Dosing ml/min eGFR BUN/Creatinine Ratio (10-20) Glucose (70-99(Fasting)) mg/dl POC Glucose (other) (70-99) mg/dl Calcium (8.6-10.3) mg/dl POC Ioniz Calcium Navya (1.12-1.32) mmol/l Magnesium (1.7-2.4) mg/dl Total Bilirubin (0.2-1.0) mg/dl AST (13-39) U/L ALT (7-52) U/L Alkaline Phosphatase (34-104) U/L Troponin I High Sens (0-20) pg/ml B-Natriuretic Peptide (0-100) pg/ml Total Protein (6.0-8.3) gm/dl Albumin (3.4-5.0) gm/dl Globulin (2.5-4.0) gm/dl Albumin/Globulin Ratio (0.9-2) Lipase (11-82) U/L TSH (0.300-4.500) uIu/ml Adenovirus (PCR) Not Detected (NotDetected) B. pertussis DNA (PCR) Not Detected (NotDetected) B.parapertussis DNA PCR Not Detected (NotDetected) C. pneumoniae DNA (PCR) Not Detected (NotDetected) Coronavirus OC43 (PCR) Not Detected (NotDetected) Coronavirus HKU1 (PCR) Not Detected (NotDetected) Coronavirus 229E (PCR) Not Detected (NotDetected) SARS-CoV-2 (PCR) Not Detected (NotDetected) Coronavirus NL63 (PCR) Not Detected (NotDetected) Human Metapneumovir PCR Not Detected (NotDetected) Influenza Type A (PCR) Not Detected (NotDetected) Influenza Type B (PCR) Not Detected (NotDetected) M. pneumoniae (PCR) Not Detected (NotDetected) Parainfluenza 1 (PCR) Not Detected (NotDetected) Parainfluenza 2 (PCR) Not Detected (NotDetected) Parainfluenza 3 (PCR) Not Detected (NotDetected) Parainfluenza 4 (PCR) Not Detected (NotDetected) RSV (PCR) Not Detected (NotDetected) Entero/Rhino (PCR) Not Detected (NotDetected) Administered Medications Magnesium Sulfate/Dextrose (Magnesium Sulfate / D5w) 1 gm in 100 mls @ 50 mls/hr IV Q2H [facility] Stop: 04/24/24 15:29 Last Admin: 04/24/24 13:18 Dose: 50 mls/hr Documented By: Infusion: 04/24/24 13:18 Dose: Infused Documented By: Admin: 04/24/24 11:56 Dose: 50 mls/hr Documented By: JUAN Heparin Sodium/Dextrose (Heparin 91106 Unit/500 Ml D5w) 25,000 units in 500 mls @ 24 mls/hr IV .[id number] [facility]; Protocol Stop: 05/24/24 12:29 Last Admin: 04/24/24 12:58 Dose: 1,200 units/hr, 24 mls/hr Documented By: KJ Co-signed By: JACQUIE Discontinued Medications Aspirin (Aspirin Chew 324 Mg) 324 mg PO NOW STA Stop: 04/24/24 09:40 Last Admin: 04/24/24 10:18 Dose: Not Given Documented By: JIGNESH Furosemide (Furosemide 40 Mg/4 Ml Vial) 40 mg IV ONE ONE Stop: 04/24/24 11:11 Last Admin: 04/24/24 11:22 Dose: 40 mg Documented By: JIGNESH Heparin Sodium (Porcine) (Heparin Sod (Porcine) 1000 Unit/Ml) 5,000 units IV NOW ONE Stop: 04/24/24 12:31 Last Admin: 04/24/24 13:00 Dose: 5,000 units Documented By: KJ Co-signed By: JACQUIE Heparin Sodium/Dextrose (Heparin Iv Adult Wt-Based Standard W/ Initial Bolus Protocol) 1 each IV NOW STA; Protocol Stop: 04/24/24 11:43 Last Admin: 04/24/24 13:10 Dose: Not Given Documented By: JIGNESH Nitroglycerin (Nitroglycerin 2% Ointment 30gm Tube) 1 inch EXT NOW STA Stop: 04/24/24 11:15 Last Admin: 04/24/24 11:22 Dose: Not Given Documented By: JIGNESH Nitroglycerin (Nitroglycerin 2% Ointment 30gm Tube) 2 inch EXT NOW STA Stop: 04/24/24 11:19 Last Admin: 04/24/24 11:21 Dose: 2 inch Documented By: JIGNESH Imaging Data Radiologist's Impression: Chest X-Ray 04/24/24 08:22 XR chest 1V portable CLINICAL HISTORY: Chest pain, nonspecific COMPARISON STUDY: Chest radiograph February 19, 2022. FINDINGS: There is a prosthetic aortic valve. The heart is moderately enlarged. Interstitial thickening is present. Small bilateral pleural effusions with associated bibasilar opacities are noted. There is no pneumothorax. IMPRESSION: 1. Cardiomegaly with interstitial pulmonary edema. 2. Small bilateral pleural effusions with associated bibasilar opacities which favor atelectasis. Radiographic follow-up to ensure resolution is recommended. ACT 112: Negative or not required by law. Electronically signed by: Rick Greenwood M.D. 04/24/2024 9:08 AM Chest X-Ray 04/24/24 11:21 XR chest 1V portable CLINICAL HISTORY: Flash pulmonary edema COMPARISON STUDY: Chest radiograph performed earlier today. FINDINGS: Prosthetic aortic valve is again noted. There is no pneumothorax. Small bilateral pleural effusions with associated bibasilar opacities persist. Interstitial thickening and bilateral perihilar opacities have progressed. The heart is moderately enlarged. IMPRESSION: 1. Progression of interstitial and alveolar pulmonary edema since chest radiograph performed earlier today. 2. Small bilateral pleural effusions with associated bibasilar opacities. ACT 112: Negative or not required by law. Electronically signed by: Rick Greenwood M.D. 04/24/2024 11:52 AM Discharge Plan Visit Data Chief Complaint: Chest Pain Stated Complaint: CHEST PAIN, SOB ED Provider: Jesse Reza Discharge Problem: Elevated troponin Forms Stand Alone Forms: My [facility] Prescriptions Prescriptions: No Action oxycodone 5 mg tablet 5 mg PO QAM venlafaxine [Effexor XR] 75 mg capsule,extended release 24hr 75 mg PO DAILY donepezil [Aricept] 10 mg tablet 10 mg PO DAILY olanzapine [Zyprexa] 5 mg tablet 5 mg PO BID olanzapine [Zyprexa] 2.5 mg tablet 2.5 mg PO DAILY loratadine 10 mg tablet 10 mg PO DAILY diclofenac sodium 1 % gel 2 g topical Q6H PRN (Reason: Pain) Rx Instructions: apply to single elbow, wrist or hand; for hand includes palm/fingers/back of hand polyethylene glycol 3350 [Miralax] 17 gram Powder In Packet 17 g PO DAILY amlodipine [Norvasc] 5 mg tablet 5 mg PO DAILY acetaminophen 650 mg Tablet Extended Release 650 mg PO Q8H PRN (Reason: Pain) lorazepam 0.5 mg tablet 0.5 mg PO HS tamsulosin 0.4 mg capsule 0.4 mg PO DAILY pantoprazole 40 mg tablet,delayed release (DR/EC) 40 mg PO DAILY diphenhydramine HCl [Benadryl Allergy] 25 mg Tablet 25 mg PO .Q24HR PRN (Reason: .ALLERGY SYMPTOMS) lidocaine 5 % Adhesive Patch,Medicated 1 patch TOPICAL DAILY Patient Comments: not on today as per daughter Amanda Rx Instructions: leave on most painful area for up to 12 hrs ibuprofen 400 mg tablet 400 mg PO Q8 aspirin 81 mg Tablet,Chewable 81 mg PO DAILY losartan 100 mg tablet 100 mg PO QAM docusate sodium 100 mg Tablet 100 mg PO BID melatonin 5 mg Tablet 5 mg PO HS cholecalciferol (vitamin D3) 125 mcg (5,000 unit) Tablet 125 mcg PO DAILY propylene glycol 0.6 % Drops 1 drp OPHTHALMIC (EYE) DAILY PRN (Reason: Dry Eye(S)) acetaminophen 650 mg Tablet Extended Release 650 mg PO Q12H PRN (Reason: temp>100) hydrocortisone [Preparation H Hydrocortisone] 1 % Cream 1 applic TOPICAL Q8H PRN (Reason: Hemorrhoids) bisacodyl 10 mg Suppository 10 mg MS DAILY PRN (Reason: Constipation) Milk of Magnesia 30 ml PO DAILY PRN (Reason: Constipation) Referrals Referrals: Dayami Padron Edison [Non-Staff] -
[2024-04-24 08:32] LABS: iSTAT Creatinine 2.5 mg/dl (0.6-1.3); iSTAT Hemoglobin 10.5 g/dl (14.0-18.0); iSTAT Ionized Calcium 1.19 mmol/l (1.12-1.32); iSTAT Potassium 3.9 mmol/L (3.3-5.0)
[2024-04-24 08:52] LABS: Basophils # (auto) 0.03 K/uL (0.00-0.20); Basophils % (auto) 0.6 %; Eosinophils # (auto) 0.16 K/uL (0.00-0.50); Eosinophils % (auto) 3.2 %; Hematocrit (blood only) 33.2 % (42.0-52.0); Hemoglobin 10.8 g/dl (14.0-18.0); Immature Granulocytes # (auto) 0.02 K/uL (0.01-0.20); Immature Granulocytes % (auto) 0.4 %; Lymphocytes # (auto) 0.92 K/uL (1.20-3.40); Lymphocytes % (auto) 18.4 %; Mean Corpuscular Hemoglobin 30.1 pg (25.0-34.0); Mean Corpuscular Hgb Conc 32.5 g/dL (32.0-36.0); Mean Corpuscular Volume 92.5 fL (80.0-100.0); Mean Platelet Volume 10.2 fL (9.4-12.4); Monocytes # (auto) 0.53 K/uL (0.11-0.59); Monocytes % (auto) 10.6 %; Neutrophils # (auto) 3.33 K/uL (1.40-6.50); Neutrophils % (auto) 66.8 %; Platelet Count 137 K/uL (130-400); RDW Coefficient of Variation 13.7 % (11.5-14.5); RDW Standard Deviation 45.9 fL (36.4-46.3); Red Blood Count 3.59 M/uL (4.70-6.10); White Blood Count 4.99 K/ul (4.8-10.8)
[2024-04-24 09:02] LABS: Albumin Level 3.2 gm/dl (3.4-5.0); BUN Creatinine Ratio 14.2 (10-20); Bilirubin,Total 0.4 mg/dl (0.2-1.0); Calcium 9.4 mg/dl (8.6-10.3); Creatinine Clr Calc Pharmacy 20.1 ml/min; Globulin 3.2 gm/dl (2.5-4.0); Magnesium 1.7 mg/dl (1.7-2.4); Potassium 3.9 mmol/L (3.5-5.1); Total Protein 6.4 gm/dl (6.0-8.3)
--- NOTE | 2024-04-24 09:10 | XRay Report ---
XR chest 1V portable CLINICAL HISTORY: Chest pain, nonspecific COMPARISON STUDY: Chest radiograph February 19, 2022. FINDINGS: There is a prosthetic aortic valve. The heart is moderately enlarged. Interstitial thickeni ng is present. Small bilateral pleural effusions with associated bibasilar opacities are noted. There is no pneumothorax. IMPRESSION: 1. Cardiomegaly with interstitial pulmonary edema. 2. Small bilateral pleural effusions with associated bibasilar opacities which favor atelectasis. Rad iographic follow-up to ensure resolution is recommended. ACT 112: Negative or not required by law. Electronically signed by: Rick Greenwood M.D. 04/24/2024 9:08 AM
[2024-04-24 09:14] LABS: INR 1.1 (0.9-1.1); Prothrombin Time 11.7 Seconds (9.0-12.0)
[2024-04-24 09:18] LABS: Thyroid Stimulating Hormone 4.224 uIu/ml (0.300-4.500)
[2024-04-24 09:22] LABS: Troponin I High Sensitivity 212.7 pg/ml (0-20)
--- OUTSIDE RECORDS SUMMARY | 2024-04-24 09:42 | External Medical Summary | Continuity of Care Document ---
Author Name Unknown Organization [id number] Address [address] [place] [id number] Care Team Providers Care Stone Belt Sander Name Role Phone Haley Yoon Primary Care Physician [phone] [facility] [id number] Date(s): 04/17/24 - 04/17/24 [facility] [place] [id number] [address] [place] [id number] Encounter Diagnosis Peripheral vascular disease(Discharge Diagnosis) - 04/17/24 Tinea unguium(Discharge Diagnosis) - 04/17/24 Discharge Disposition: Home or Self Care Attending Physician: SHELLY Mtz Christina L Referring Physician: BRITTANY Yoon Jenny L Allergies, Adverse Reactions, Alerts No Known Allergies Assessment and Plan Extracted from: Title:Follow Up Visit Author:SHELLY Mtz, Elvin Leonard Date:04/17/24 1.Peripheral vascular disease 2.Tinea unguium -Patient unable to provide self care to toenails due toPVD - verbal consent obtained for debridement -Recommend toenail debridement -Patient had toenails of bilateral digits 1-5 debrided using nail nippers to tolerance, no bleeding noted -Patient instructed to use emery board to nails once per week -Patient had no ingrown toenails or infection noted -Patient is to follow up in6 months for treatment if needed in the future Immunizations Given and Recorded Vaccine Date Status Refusal Reason SARS-CoV-2 (COVID-19) mRNA-1273 vaccine 1 05/18/20 Recorded SARS-CoV-2 (COVID-19) mRNA-1273 vaccine 2 04/15/20 Recorded pneumococcal 13-valent vaccine 3 01/14/19 Recorded pneumococcal 13-valent vaccine 4 04/19/16 Recorded pneumococcal 23-valent vaccine 5 02/23/12 Recorded pneumococcal 23-valent vaccine 6 12/28/06 Recorded 1Result Comment: 2020-08-17: Historical information-source unspecified 2Result Comment: 2020-08-17: Historical information-source unspecified 3Result Comment: 2020-08-17: Historical information-source unspecified 4Result Comment: 2020-08-17: Historical information-source unspecified 5Result Comment: 2020-08-17: Historical information-source unspecified 6Result Comment: 2020-08-17: Historical information-source unspecified Medications adalimumab 40 mg/0.4 mL subcutaneous kit Start: 07/20/21 2:16:00 PM EDT, 40 mg =, subQ, [id number], Disp# 6 each, Refills: 3 Start Date: 07/20/21 Status: Ordered amLODIPine 2.5 mg oral tablet Start: 01/23/24 2:30:00 PM EST, 1 tab, PO, Daily, Disp# 90 tab, Refills: 3, in addition to 5 mg tabs for 7.5 mg total, Pharmacy: [facility] Start Date: 01/23/24 Status: Ordered amLODIPine 5 mg oral tablet Start: 02/15/21 2:19:00 PM EST, 1 tab, PO, Daily, Disp# 90 tab, Refills: 3, [id number] Start Date: 02/15/21 Status: Ordered aspirin 81 mg oral delayed release tablet Start: 01/01/19 2:47:00 PM EDT, 1 tab, PO, Daily Start Date: 01/01/19 Status: Ordered atorvastatin 40 mg oral tablet Start: 02/12/19 10:19:00 AM EST, See Instructions, Disp# 90 tab, Refills: 3, TAKE ONE TABLET BY MOUTH DAILY, Pharmacy: [facility]/pharmacy #[id number] Start Date: 02/12/19 Status: Ordered Benadryl 25 mg oral tablet Start: 11/02/20 5:30:00 PM EDT, See Instructions, 2 tabs po 1 hour prior to Humira injection. Start Date: 11/02/20 Status: Ordered betamethasone dipropionate, augmented 0.05% topical cream Start: 07/12/18 10:26:00 AM EDT, 1 appl, topical, bid, Disp# 50 g, Refills: 2, apply to arms and hands, Pharmacy: [facility]/pharmacy #[id number] Start Date: 07/12/18 Status: Ordered Colace 100 mg oral capsule Start: 04/09/15 11:13:00 AM EST, 1 cap, PO, bid, Disp# 60 cap, Refills: 11, other Start Date: 04/09/15 Status: Ordered donepezil 10 mg oral tablet Start: 11/01/23 3:07:00 PM EDT Start Date: 11/01/23 Status: Ordered DULoxetine 60 mg oral delayed release capsule Start: 02/15/22 2:16:00 PM EST, 1 cap, PO, Daily Start Date: 02/15/22 Status: Ordered escitalopram Start: 02/14/20 1:45:00 PM EST, 5 mg =, PO, Daily Start Date: 02/14/20 Status: Ordered famotidine 20 mg oral tablet Start: 02/15/21 1:57:00 PM EST, prn Start Date: 02/15/21 Status: Ordered ibuprofen 400 mg oral tablet Start: 02/15/22 2:17:00 PM EST, 1 tab, PO, q8h, PRN: as needed for arthritis Start Date: 02/15/22 Status: Ordered lidocaine 5% patch Start: 02/15/22 2:18:00 PM EST, See Instructions, 1 patch transdermal daily on in am off in pm Start Date: 02/15/22 Status: Ordered LORazepam 0.5 mg oral tablet TAKE 1 TABLET BY MOUTH TWICE A DAY FOR ANXIETY Start Date: 05/04/21 Status: Ordered losartan 100 mg oral tablet Start: 09/06/18 11:36:00 AM EDT, 1 tab, PO, Daily Start Date: 09/06/18 Status: Ordered Melatonin 5 mg oral tablet Start: 02/15/22 2:20:00 PM EST, 1 tab, PO, qhs Start Date: 02/15/22 Status: Ordered memantine 5 mg oral tablet Start: 12/03/19 12:59:00 PM EDT, 2 tab, Daily Start Date: 12/03/19 Status: Ordered OLANZapine 5 mg oral tablet Start: 06/01/22 2:17:00 PM EDT, 1 tab, PO, Daily Start Date: 06/01/22 Status: Ordered pantoprazole 40 mg oral delayed release tablet Start: 09/22/21 1:51:00 PM EDT, 90 each, TAKE 1 TABLET BY MOUTH EVERY DAY Start Date: 09/22/21 Status: Ordered Penlac Nail Lacquer 8% topical solution Start: 08/17/20 3:30:00 PM EDT, 1 appl, topical, Daily, Disp# 3.3 mL, Refills: 3, Pharmacy: [facility]/pharmacy #[id number] Start Date: 08/17/20 Stop Date: 06/20/22 Status: Ordered Protonix 40 mg oral delayed release tablet Start: 04/25/17 11:40:00 AM EST, 1 tab, PO, bid, Disp# 180 tab, Refills: 3, Pharmacy: [facility]/pharmacy #[id number] Start Date: 04/25/17 Status: Ordered Pyridium Start: 11/01/23 3:05:00 PM EDT Start Date: 11/01/23 Status: Ordered sulfamethoxazole-trimethoprim 800 mg-160 mg oral tablet Start: 11/01/23 3:05:00 PM EDT, trimethoprim Start Date: 11/01/23 Status: Ordered Systane Start: 04/10/18 12:57:00 PM EST Start Date: 04/10/18 Status: Ordered tamSULOsin Start: 12/17/14 9:44:00 AM EDT, 0.4 mg =, PO, Daily Start Date: 12/17/14 Status: Ordered traMADol 50 mg oral tablet Start: 11/01/23 3:07:00 PM EDT Start Date: 11/01/23 Status: Ordered Tylenol Extended Release 650 mg oral tablet, extended release Start: 06/01/22 2:14:00 PM EDT, 1 tab, PO, bid Start Date: 06/01/22 Status: Ordered venlafaxine 75 mg oral capsule, extended release Start: 06/01/22 2:17:00 PM EDT, 1 cap, PO, Daily Start Date: 06/01/22 Status: Ordered Vitamin D3 Start: 04/10/18 12:57:00 PM EST, 125 mcg =, PO, Daily Start Date: 04/10/18 Status: Ordered Mental Status 04/17/24 Barriers to Learning one year Cognitive deficit, Hearing deficit Mandatory Health Literacy Documentation Yes Health Literacy Communication Barriers N ever Primary Language [place] Problem List Condition Confirmation Course Effective Dates Status Health St atus Informant AF (amaurosis fugax) Confirmed Active Aortic stenosis Confirmed Active BCC (basal cell carcinoma) Confirmed Active BPH (benign prostatic hypertrophy) Confirmed Active CVA (cerebrovascular accident) Confirmed Active UC (ulcerative colitis) Confirmed Active 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 Active Dysphagia Confirmed Active 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 High cholesterol Confirmed Active Hypertension Confirmed Active Intracranial aneurysm Confirmed Active Colitis Confirmed Active Tinea unguium Confirmed Active Peripheral vascular disease Confirmed Active Herniated disc, cervical Confirmed Active Reflux Confirmed Active Ulcerative colitis Confirmed Active Diagnosis Diagnosis Type Effective Dates Health Status Clinical Service Informant Peripheral vascular disease Discharge Diagnosis 04/17/24 Non-Specified Tinea unguium Discharge Diagnosis 04/17/24 Non-Specified Procedures Procedure Date Related Diagnosis Body Site Status Shave biopsy and cauterizati on of skin 1 05/04/21 Completed KUB X-ray 2 11/10/[address] scan of chest with IV contrast 3 10/03/19 Completed Shave biopsy of skin 06/27/17 Comp leted Cardiac catheterization 03/03/17 C ompleted Upper GI endoscopy 4 11/21/16 Comp leted Colonoscopy 5, 6 04/11/16 Complete d Shave biopsy and cauterizati on of skin 7 12/17/14 Completed Colonoscopy 8, 9 01/15/[address] of abdomen and pelvis 10 04/11/13 Completed X-ray--barium enema 11 10/26/11 Co mpleted Colonoscopy 12 10/16/11 Completed Appendectomy Completed Cataract surgery 13 Compl eted Cholecystectomy Completed Stent 14 Completed 1w/ ED&C 21) INterval resolution of small bowel dilatation. 2) Tip of nasogastric tube projects over the gastroesophageal junction 3) 3 mm left renal calculus. 3Impression: 1. Cardiomegaly. 2. There is no airspace consolidation or pleural effusion. 3. Left sided nephrolithiasis. 4. Acute left anterior rib fractures as above. 5. Additonal findings as above. 4Normal esophagus. Normal stomach. Normal examined duodenum. No specimens collected. 5Pathology results: A) Cecum, biopsy: No diagnostic abnormality B) Colon, ascending, biopsy: 1) mildnonspecific increas in chronic inflammatory cells. 2) No acitve colitis identified. C) Colon, hepatic flexure biopsy: No diagnostic abnormality D) Colon, transverse, biopsy: No dianostic abnormality E) Colon, splenic flexure, biopsy focal nonspecific mild acute and chronic inflammation F) Colon, descending biopy: no diagnostic abnormality G) Colon, sigmoid biopsy: 1) Architectual distortion and mild chronic inflammation 2) No acitve colitis identified. 3) See comment H) Rectum, biopsy: no diagnostic abnormality Comment: The history of ulcerative colitis is noted. The biopsy findings in part G( sigmoid biopsy) are not specific. The could represent an inactive form of ucerative colitis but diverticular disease could show similar findings. No dysplasis is identified in any biopsy 6Stricture in the sigmoid colon. Diverticulosis in the sigmoid colon. The cecum, ascending colon, hepatic flexure, transverse colon, splenic flexure, descending colon, sigmoid colon and retum are all normal. All biopsied. 7right dorsal hand 8Internal hemorrhoids. Noraml mucosa in the entire examined colon. Biopsied. One 6mm polyp in the ascending colon. Resected and retrieved. Pathology results: 1) Colon, cecum: fragments of colonic mucosa show no significatn histopathology 2) colon, ascending: fragments of colon mucosa shows occasional nonspecific lymphoid aggregate in the lamina propria. Nother significan hisopathology seen 3) Colon, transverse: fragments of colonic mucosa shows no significant histopathology 4) colon, descending: fragments of colonic mucosa shows focal acute cryptitis and mild neutrohilic infiltration in the lmaina propria suggestive of focal active colits. Clinical correlation is suggested. 5) rectum: fragmenst of rectal mucosa shows nonspecific lymphoid aggregate in the lamina propria. No other significant histopathology seen 6) colon, ascending: asenomatous polyp seen 9Moderate diverticulosis in the sigmoid colon, in the descending colon, transvers and ascending colon. 1 admenomatous polyp. Repeat in 1 years 10Diverticulosis in the colon. No focal mass, lesion or acute inflammatory process identified. 11Diverticulosis mainly involving the sigmoid colon 12Diverticulosis in the mid sigmoid colon. 13bilateral eyes 05/2017 114381/2014 Social History Social History Type Response Smoking Status Never smoked cigaret kimmie Sex Male Sex Representation Male (finding) Ortho Outpt Note * SHELLY Mtz, Paige Leonard: PERFORM Event Display: Ortho Outpt Note Authored Date: [id number] Chief Complaint nail/callus care Primary Care Provider BRITTANY Yoon Jenny L Subjective Patient is a very pleasant 88-year-old male last seen for care. Patient resides in a nursing facility. -No acute concerns notable today -ABN form discussed and signedby power of city attorney Review of Systems Stent kidney stonescataractsheart disease heart heart attackdementia Objective Physical Exam Problem focused bilateral feet: Dorsalis pedis pulsepalpable 1 out of 4, posterior tibial pulse nonpalpablecapillary refill time less than 3 seconds skin turgor good to all digits of both feet pedal hair was noted to be absentvaricosities present bilateral feet Neurovascular status is intact all digits of both feet. Toenails of digits 1 through 5 of both feet with thickening greater than 1 mm, elongation, dystrophy, discoloration, pain recommend debridement Left hallux toenail with thickening anddiscoloration secondary to onychomycosis continue topical medicine recommend debridement. There is no callus formedopen wound Skin is clean dry and intact without maceration or breakdown. Assessment/Plan 1.Peripheral vascular disease 2.Tinea unguium -Patient unable to provide self care to toenails due toPVD - verbal consent obtained for debridement -Recommend toenail debridement -Patient had toenails of bilateral digits 1-5 debrided using nail nippers to tolerance, no bleedingnoted -Patient instructed to use emery board to nails once per week -Patient had no ingrown toenails or infection noted -Patient is to follow up in6 months for treatment if needed in the future Electronic Signature on File Electronically Reviewed/Signed by: Paige Mtz DPM Author Signature Dt/Tm:04/17/2024 02:17 PM Division of Sports Medicine CLR Patient Care team information Care Team Personnel Name: BRITTANY Yoon Jenny L Position: Referring Member Role: Primary Care Provider Address: [facility] [place] [address] [place] Care Team Related Persons Name: ALIVIA SIMS
[2024-04-24] MEDS: ASPIRIN CHEW 324 MG PO STA (10:18)
--- NOTE | 2024-04-24 10:18 | History & Physical Report ---
Date of Service April 24, 2024 Assessment & Plan (1) Acute heart failure with reduced ejection fraction (HFrEF, <= 40%): (2) Flash pulmonary edema: (3) Hypoxia: Plan Gera is an 88-year-old male with PMH of HTN, dementia, CAD, ulcerative colitis, anxiety, and depression. He presented via EMS on 04/24 after being found down at [facility] complaining of SOB. Per EMS, patient had several runs of V. tach; received aspirin 324 mg en route. Patient is a poor historian at baseline due to his underlying dementia. Upon assessment, patient reports that his shortness of breath is occurring at rest and has gotten worse over the past 20 minutes. He also endorses substernal chest pain, but is unable to rate it or characterize it. # Acute heart failure +2 pitting edema in the lower extremity bilaterally, positive JVP, and worsening of symptoms with fluids given in the ED No prior formal diagnosis of heart failure Echocardiogram ordered, pending BNP elevated at 1460 on arrival (no prior for comparison) Lasix 40 mg IV QAM Daily weights Strict I&O monitoring #Hypoxia Suspect secondary to #1 SpO2 87% on RA on arrival, and increased oxygen demands while in the ED Not on supplemental oxygen at baseline CXR arrival revealed interstitial pulmonary edema and small bilateral pleural effusions BioFire negative Will defer chest CTA in the setting of SAMARA Lower extremity Dopplers ordered, pending Will empirically heparinize patient as PE is within the differential, and patient has developed acute worsening of hypoxia in the ED Titrate supplemental oxygen as needed to maintain SpO2 >94% Continuous pulse oximetry #Flash pulmonary edema NSS 500 mL IV x 1 given on arrival Increased respiratory distress following administration of fluids Lasix 40 mg IV x 1, and Nitro-Bid paste 2 inches applied Repeat CXR ordered to assess for flash pulmonary edema #Chest pain Aspirin 324 mg p.o. given en route Troponin 212-->217, repeat pending; trend to peak Will initially complaining of substernal chest pain on admission, patient reports this is resolved ? Demand ischemia in the setting of new onset heart failure EKG revealed undetermined rhythm at 111 bpm; QTc 5.27 Continuous telemetry monitoring #SAMARA BUN 32, creatinine 2.25 (baseline around 1.8) Avoid nephrotoxic agents for possible Hold losartan Trend BMP #History of CAD Noted; TAVR 09/2015, cardiac cath 02/2017 Continue aspirin, atorvastatin #Anemia Chronic; Hgb 10.8 on arrival No signs of active bleeding on physical exam Trend CBC #Nonsustained ventricular tachycardia Reported per EMS #Dementia Continue donepezil, olanzapine Disposition: Admit to PCU telemetry DNR/DNI Heart healthy, low-sodium diet VTE PPx: Heparin IV History of Present Illness Chief Complaint: Chest pain, SOB Primary Care Provider: MEGAN Boss is an 88-year-old male with PMH of HTN, dementia, CAD, ulcerative colitis, anxiety, and depression. He presented via EMS on 04/24 after being found down at [facility] complaining of SOB. Per EMS, patient had several runs of [employer] tach; received aspirin 324 mg en route. Patient is a poor historian at baseline due to his underlying dementia. Upon assessment, patient reports that his shortness of breath is occurring at rest and has gotten worse over the past 20 minutes. He also endorses substernal chest pain, but is unable to rate it or characterize it. He denies radiation to the arms, shoulders, jaw, or back (between the shoulder blades). He reports that this chest pain started to get worse approximately 15 minutes ago, but reports that may be due to stress. While he denies heart stents/cardiac history, he does follow with cardiology and has extensive history of CAD/TAVR/perivalvular leak. He denies prior episodes of MIs or DVT/PE. He does report he had rheumatic fever when he was younger. He denies supplemental oxygen at baseline or CPAP at night. No sick contacts to his knowledge. He denies smoking or recent tobacco use. Patient's SpO2 was 87% on RA on arrival; SpO2 94% on 2L NC; vitals otherwise stable at time of admission. ED course: Aspirin 324 mg p.o. (en route) ROS: Patient endorses substernal chest pain, SOB at rest, headache, wheezing, and pleuritic CP. Patient denies fever, chills, dizziness, lightheadedness, chest palpitations, cough, hemoptysis, abdominal pain, N/V/D, changes in urinary habits, or blood in the urine/stool. Per nursing staff: While there is no formal order in for fluids, nursing staff reports reports patient received NSS 500 mL IV upon arrival, and shortly afterwards, patient's respiratory distress increased. Spoke with patient's daughter/medical POA (Amanda) on the phone and provided update regarding labs/imaging/admission status. Daughter is a nurse. She went to a PCP appointment with the patient on Monday, and expressed some early concerns for new onset of heart failure. In regard to blood thinners, patient's daughter does not believe there is a reason he could not be on blood thinners. He does have a history of TIAs, as well as a brain aneurysm, but has no history of bleeding disorders. She confirms that he does have a stent that was placed around 10 years ago. Daughter confirms that the patient is a DNR/DNI. While comfort measures only is listed on patient's POLST form, daughter desires to have the patient brought into the hospital, as his current symptoms are in alignment with a reversible condition (acute heart failure/pulmonary edema). Allergies Allergy/AdvReac Type Severity Reaction Status Date / Time No Known Drug Allergies Allergy nkda Verified 04/24/24 11:08 Home Medications Medication Instructions Recorded Confirmed Type acetaminophen 650 mg 650 mg PO Q8H PRN Pain 02/19/22 04/24/24 History tablet,extended release amlodipine 5 mg tablet (Norvasc) 5 mg PO DAILY 02/19/22 04/24/24 History aspirin 81 mg chewable tablet 81 mg PO DAILY 02/19/22 04/24/24 History cholecalciferol (vitamin D3) 125 125 mcg PO DAILY 02/19/22 04/24/24 History mcg (5,000 unit) tablet diphenhydramine HCl 25 mg tablet 25 mg PO .Q24HR PRN .ALLERGY 02/19/22 04/24/24 History (Benadryl Allergy) SYMPTOMS docusate sodium 100 mg tablet 100 mg PO BID 02/19/22 04/24/24 History ibuprofen 400 mg tablet 400 mg PO Q8 02/19/22 04/24/24 History lidocaine 5 % topical patch 1 patch topical DAILY 02/19/22 04/24/24 History lorazepam 0.5 mg tablet 0.5 mg PO HS 02/19/22 04/24/24 History losartan 100 mg tablet 100 mg PO QAM 02/19/22 04/24/24 History melatonin 5 mg tablet 5 mg PO HS 02/19/22 04/24/24 History pantoprazole 40 mg tablet,delayed 40 mg PO DAILY 02/19/22 04/24/24 History release polyethylene glycol 3350 17 gram 17 g PO DAILY 02/19/22 04/24/24 History oral powder packet (Miralax) propylene glycol 0.6 % eye drops 1 drp ophthalmic (eye) DAILY PRN 02/19/22 04/24/24 History Dry Eye(S) tamsulosin 0.4 mg capsule 0.4 mg PO DAILY 02/19/22 04/24/24 History oxycodone 5 mg tablet 5 mg PO QAM Pain 10/17/23 04/24/24 History diclofenac sodium 1 % topical gel 2 g topical Q6H PRN Pain 10/20/23 04/24/24 History donepezil 10 mg tablet (Aricept) 10 mg PO DAILY 10/20/23 04/24/24 History loratadine 10 mg tablet 10 mg PO DAILY 10/20/23 04/24/24 History olanzapine 2.5 mg tablet (Zyprexa) 2.5 mg PO DAILY 10/20/23 04/24/24 History olanzapine 5 mg tablet (Zyprexa) 5 mg PO BID 10/20/23 04/24/24 History venlafaxine 75 mg capsule,extended 75 mg PO DAILY 10/20/23 04/24/24 History release 24 hr (Effexor XR) Milk of Magnesia 30 ml PO DAILY PRN Constipation 04/24/24 04/24/24 History acetaminophen 650 mg 650 mg PO Q12H PRN temp>100 04/24/24 04/24/24 History tablet,extended release bisacodyl 10 mg rectal suppository 10 mg WI DAILY PRN Constipation 04/24/24 04/24/24 History hydrocortisone 1 % topical cream 1 applic topical Q8H PRN 04/24/24 04/24/24 History (Preparation H Hydrocortisone) Hemorrhoids Past Med/Surg History Problem List (Updated 04/24/24 @ 12:09 by Amauri Ramos PA-C) Acute heart failure with reduced ejection fraction (HFrEF, <= 40%) Hypoxia Flash pulmonary edema Left ureteral calculus Left low back pain Generalized weakness Impacted cerumen of both ears Carotid stenosis Anxiety with depression Urinary urgency Sacroiliitis (Chronic) Cerebrovascular disease (Chronic) Cerebral aneurysm, nonruptured (Chronic) Chronic cerebral ischemia Visual disturbance (Acute) Orthostasis (Acute) Chronic kidney disease, stage 3 (moderate) H/O aortic valve replacement (09/24/15) Transfemoral TAVR Urethral stricture Thrombocytopenia Hearing loss 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, left eye 09/19/18 Vitamin D deficiency Urge incontinence of urine Ulcerative colitis (2004) Secondary hyperparathyroidism Osteoporosis Middle cerebral artery aneurysm Lumbar degenerative disc disease Hypercholesterolemia Dementia (Acute) Coronary artery disease Benign prostatic hyperplasia with urinary obstruction Aortic stenosis Acid reflux HTN (hypertension) Kidney stones (Acute) Medical History (Updated 04/24/24 @ 12:09 by Amauri Ramos PA-C) Hx of thrombocytopenia Sacroiliitis Hx of orthostatic hypotension Hypercholesteremia BPH (benign prostatic hyperplasia) Acute kidney injury superimposed on CKD Chronic kidney disease, stage 3 Hx of aortic valve stenosis Hx of gastroesophageal reflux (GERD) CAD (coronary artery disease) Carotid stenosis Urinary incontinence BPPV (benign paroxysmal positional vertigo) 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) rowan Vitamin D deficiency Lumbar degenerative disc disease Middle cerebral artery aneurysm saw neurosurgeon in past, no surgery indicated Osteoporosis Secondary hyperparathyroidism Alzheimer's dementia daughter/POA Amanda [employer] completed PAT interview Cerebrovascular disease Anxiety with depression Left ureteral calculus Ulcerative colitis Hx SBO Renal insufficiency HTN (hypertension) Surgical History History of mandibular surgery due to underbite, > 40 years ago Hx of cardiac catheterization (07/2013) [place], no MT- pos stress - 2 stents S/P coronary artery stent placement (07/2013) Mid LAD S/P coronary artery stent placement (06/2013) R PDA History of cholecystectomy History of appendectomy History of cataract surgery (2017) L eye Mar 2017, R eye May 2017 Family History Mother , age 84 of unknown causes No problems noted. Father , age 45 of a stroke Stroke Coronary heart disease Other Breast cancer Hypertension Denies family history of Ovarian cancer Prostate cancer Myocardial infarction Colorectal cancer Social History Smoking Status: Never smoker Tobacco Type: Cigarettes Second Hand Exposure: No; Do You Dip or Chew Tobacco: No; Hx Alcohol Use: No Hx Substance Use: No Preferred Language: Hungarian Communication Ability: Effective Communication Ability Comment: uses b/l h/a that are being repaired Visual Impairment: No Limitations Hearing Ability: Use of Hearing Aid Barrel Plater Required: No Beliefs That Will Affect Care: None marital status: Current Living Situation: Personal Care Facility Current Living Situation Comment: [facility] current occupational status: retired 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[place] [employer] Feels Safe at Home: Yes Diet: regular caffeine: Yes during the past year weight has: remained stable Dental Care, Regularly: Yes Physical Activity Frequency: 1-2 Times per Week Physical Activity Frequency Comment: walk Seatbelt Use: always Sunscreen Use: Yes Assistive Devices: Cane, Glasses, Hearing Aid - Bilateral and Walker Review of Systems Review of Systems: See HPI above Physical Exam Physical Exam: General: Mild respiratory distress; anxious; non-toxic appearing; frail appearing; cooperative; SpO2 91% on 2L NC HEENT: normocephalic, atraumatic; no scleral icterus; PERRLA w/ EOMs intact; vision intact; hard of hearing Neck: supple; positive JVP; no lymphadenopathy; trachea midline Skin: warm, dry without signs of tenting; no cyanosis; no rashes, bruising, lesions, or erythema noted CV: chest wall NTP; RRR; S1/S2 normal; no murmurs/rubs/gallops; pulses intact and symmetric at radial, DP, and PT Lungs: Mild respiratory distress; wheezing; conversational dyspnea; symmetrical chest wall expansion; diminished breath sounds across all lung tellez ABD: Soft, NTP; BS present; no rebound/guarding; no distention MSK: no tics or fasciculations; +2 pitting edema in the lower extremities bilaterally, nonerythematous Neuro: Oriented to name and date of ; not oriented to location or month of the year; fluent speech, but slow to respond to questioning and mainly responds in one-word answers; no focal deficits appreciated; patient reports sensation is intact and symmetric in lower extremities bilaterally Trialed patient off of supplemental oxygen and his SpO2 dropped to 88/89% on RA Results & Data Results & Data Vital Signs (Past 12 Hours) Vital Signs Temp Pulse Resp BP Pulse Ox O2 Del Method O2 Flow Rate 04/24/24 08:48 75 04/24/24 08:22 64 20 94 Nasal Cannula 2 04/24/24 08:21 87 L Nasal Cannula 0 04/24/24 08:21 36.5 C 91 H 18 107/81 95 Nasal Cannula 2 Laboratory Results Abnormal lab results 04/24/24 04/24/24 Range/Units 08:17 08:21 RBC 3.59 L (4.70-6.10) M/uL Hgb 10.8 L (14.0-18.0) g/dl POC Hgb 10.5 L (14.0-18.0) g/dl Hct 33.2 L (42.0-52.0) % POC Hct 31 L (42-52) % Lymph # (Auto) 0.92 L (1.20-3.40) K/uL Chloride 109 H (98-107) mmol/L POC Total CO2 19 L (24-31) mmol/L POC BUN 29 H (7-18) mg/dl BUN 32 H (6-23) mg/dl Creatinine 2.25 H (0.6-1.4) mg/dl POC Creatinine 2.5 H (0.6-1.3) mg/dl Glucose 122 H (70-99(Fasting)) mg/dl POC Glucose (other) 125 H (70-99) mg/dl Troponin I High Sens 212.7 H* (0-20) pg/ml Albumin 3.2 L (3.4-5.0) gm/dl Lipase 4 L (11-82) U/L Diagnostic Findings Chest X-Ray 04/24/24 08:22 XR chest 1V portable CLINICAL HISTORY: Chest pain, nonspecific COMPARISON STUDY: Chest radiograph February 19, 2022. FINDINGS: There is a prosthetic aortic valve. The heart is moderately enlarged. Interstitial thickening is present. Small bilateral pleural effusions with associated bibasilar opacities are noted. There is no pneumothorax. IMPRESSION: 1. Cardiomegaly with interstitial pulmonary edema. 2. Small bilateral pleural effusions with associated bibasilar opacities which favor atelectasis. Radiographic follow-up to ensure resolution is recommended. ACT 112: Negative or not required by law. Electronically signed by: Rick Greenwood M.D. 04/24/2024 9:08 AM ECG Additional Comments: ECG revealed undetermined rhythm at 111 bpm; QTc 5.27 (caution use of QT prolonging agents) Code Status & VTE Plan Code Status Per POLST form provided at bedside (DNR/DNI, comfort measures only) - signed on 06/08/2022 Reconfirm with patient's daughter/medical POA over the phone VTE Prophylaxis Plan VTE Prophylaxis will be ordered: Yes Supervising Physician Co-Signing Physician Notes Patient seen and examined, chart reviewed, case discussed with Amauri Ramos PA-C and I agree with the assessment and plan as above except as otherwise noted Labs and images reviewed 88-year-old male who presents with chest pain, shortness of breath, and hypoxia. History is somewhat limited by dementia. Does endorse some pleuritic pain prior to admission, and substernal chest pain. Patient has no pain at time of bedside assessment. On deep breathing denies pleuritic pain at time of assessment. Bilateral leg edema is pleasant. Bibasilar crackles are present. Following 500 cc of fluid patient did have worsened shortness of breath and hypoxia requiring 5-7 L of supplemental oxygen. Suspect CHF with additional flash edema following fluids. Given pleuritic pain and disproportionate hypoxia and leg swelling PE is within the differential although less likely, and patient is not tachycardic. He has an uptrending troponin. Patient has been heparinized both for NSTEMI and would cover for PE. CT is currently precluded by renal dysfunction. Subsequent echo shows new reduced ejection fraction compared to prior. RV not well-visualized however at bedside no obvious D-shaped septum/dilation. Heparinization continued for NSTEMI with new heart failure. Diuresis and nitro continued. If worsening hypoxia can progress to BiPAP. Case was discussed in detail with patient's daughter and POA who agrees with hospitalization and current treatment plan. BioFire is negative. Patient did have some scattered expiratory wheezes in addition to basilar rales however due to ventricular dysrhythmia and relatively minimal wheezing will def er nebs. Patient has had NSVT and intermittent trigeminy. Continue troponin trend, heparinization and optimize magnesium to goal 2.0 potassium goal 4.0. Cardiology consulted. Agree with above PG Care Time/CCT Total # of Minutes Spent Total Time Spent with Patient: Total time spent is greater than 50% in coordination of care (as documented) at patient's floor/unit and/or counseling patient: Coding [place] [address] INT INP/OBS CARE 3/75MIN Patient Type Established Medical Decision Making High Complexity Diagnoses Acute heart failure with reduced ejection fraction (HFrEF, <= 40%) I50.21 Flash pulmonary edema J81.0 Hypoxia R09.02
[2024-04-24] MEDS: NITROGLYCERIN 2% OINTMENT 30GM TUBE EXT STA ×2 (11:21→11:22)
[2024-04-24] MEDS: FUROSEMIDE 40 MG/4 ML VIAL IV ONE ×2 (11:22→20:34)
--- NOTE | 2024-04-24 11:53 | XRay Report ---
XR chest 1V portable CLINICAL HISTORY: Flash pulmonary edema COMPARISON STUDY: Chest radiograph performed earlier today. FINDINGS: Prosthetic aortic valve is again noted. There is no pneumothorax. Small bilateral pleural e ffusions with associated bibasilar opacities persist. Interstitial thickening and bilateral perihilar opacities have progressed. The heart is moderately enlarged. IMPRESSION: 1. Progression of interstitial and alveolar pulmonary edema since chest radiograph performed earlier today. 2. Small bilateral pleural effusions with associated bibasilar opacities. ACT 112: Negative or not required by law. Electronically signed by: Rick Greenwood M.D. 04/24/2024 11:52 AM
[2024-04-24 11:55] LABS: Adenovirus PCR Not Detected (NotDetected); Bordetella parapertussis PCR Not Detected (NotDetected); Bordetella pertussis PCR Not Detected (NotDetected); Chlamydia pneumoniae PCR Not Detected (NotDetected); Coronavirus 229E PCR Not Detected (NotDetected); Coronavirus CoV-2 (COVID19)PCR Not Detected (NotDetected); Coronavirus HKU1 PCR Not Detected (NotDetected); Coronavirus NL63 PCR Not Detected (NotDetected); Coronavirus OC43PCR Not Detected (NotDetected); Human Metapneumovirus PCR Not Detected (NotDetected); Influenza A PCR Not Detected (NotDetected); Influenza B PCR Not Detected (NotDetected); Mycoplasma pneumoniae PCR Not Detected (NotDetected); Parainfluenza Virus 1 PCR Not Detected (NotDetected); Parainfluenza Virus 2 PCR Not Detected (NotDetected); Parainfluenza Virus 3 PCR Not Detected (NotDetected); Parainfluenza Virus 4 PCR Not Detected (NotDetected); Respiratory Syncytial VirusPCR Not Detected (NotDetected); Rhinovirus/Enterovirus PCR Not Detected (NotDetected)
[2024-04-24] MEDS: MAGNESIUM SULFATE / D5W 1 GM/100 ML BAG IV SCH (11:56)
--- NOTE | 2024-04-24 11:58 | XCELERA ---
[id number]
[2024-04-24 12:21] LABS: Base Excess VBG -3.1 mEq/L; HCO3 VBG 22 mmol/L; Oxygen Saturation VBG < 60.0 %; PCO2 VBG 39 mmHg (38-50); PO2 VBG 26 mmHg; pH VBG 7.36 (7.36-7.41)
--- NOTE | 2024-04-24 12:54 | Electrocardiogram Report ---
Test Reason : Blood Pressure : */* mmHG Vent. Rate : 111 BPM Atrial Rate : 57 BPM P-R Int : * ms QRS Dur : 104 ms QT Int : 388 ms P-R-T Axes : * 23 20 degrees QTcB Int : 527 ms Sinus rhythm with frequent , and consecutive Premature ventricular complexes Inferior infarct , age undetermined Anterior infarct , age undetermined Prolonged QT Abnormal ECG When compared with ECG of 08-Oct-2023 15:38, Significant changes have occurred Confirmed by Dickson Zapien ([id number]) on 04/24/2024 12:54:11 PM Referred By: Confirmed By: Dickson Zapien
[2024-04-24] MEDS: HEPARIN 25000 UNIT/500 ML D5W 25,000 UNITS/500 ML BAG IV SCH (12:58)
[2024-04-24] MEDS: HEPARIN SOD (PORCINE) 1000 UNIT/ML IV ONE (13:00)
[2024-04-24] MEDS: Heparin IV Adult Wt-Based Standard w/ INITIAL Bolus Protocol IV STA (13:10)
[2024-04-24 13:29] LABS: Partial Thromboplastin Ratio 0.7; Partial Thromboplastin Time < 20 Seconds (21-31)
[2024-04-24 19:36] LABS: ANTI-Xa, UFH(UnfractionatedHep 0.62 IU/ml (0.3-0.7)
[2024-04-24] MEDS: METOPROLOL TARTRATE 1 MG/ML VIAL IV STA (19:50)
[2024-04-24] MEDS: METOPROLOL TARTRATE 1 MG/ML VIAL IV ONE (19:55)
[2024-04-24] MEDS: LORazepam 2 MG/1 ML VIAL IV STA (19:58)
[2024-04-24] MEDS: MAGNESIUM SULFATE / D5W 1 GM/100 ML BAG IV ONE (20:34)
[2024-04-24] MEDS: OLANZapine 5 MG TABLET PO SCH (20:39)
[2024-04-24] MEDS: MELATONIN 3 MG TAB PO SCH (20:41)
[2024-04-24] MEDS: DOCUSATE SODIUM 100 MG CAP PO SCH (20:41)
[2024-04-24 21:00] LABS: BUN Creatinine Ratio 13.9 (10-20); Calcium 9.3 mg/dl (8.6-10.3); Creatinine Clr Calc Pharmacy 20.9 ml/min; Potassium 3.8 mmol/L (3.5-5.1)
--- NOTE | 2024-04-24 21:01 | XRay Report ---
Exam(s): XR CXR 1 VIEW EXAM: XR Chest, 1 View CLINICAL HISTORY: Reason for exam: assess fluid overload. TECHNIQUE: Frontal view of the chest. COMPARISON: 04/24/24 FINDINGS/IMPRESSION: Cardiomegaly. Aortic valve replacement. Pulmonary vascular congestion and interstitial edema, mildly improved from prior. Small pleural effusions. No pneumothorax. Stable skeleton. Electronically signed by: Nikunj Bourgeois M.D. 04/24/24 21:00 PM
[2024-04-24] MEDS: METOPROLOL TARTRATE 25 MG TAB PO SCH (22:27)
[2024-04-24] MEDS: METOPROLOL TARTRATE 25 MG TAB PO STA (22:49)
--- NOTE | 2024-04-25 01:10 | Ultrasound Report ---
EXAM: US venous doppler LE BI CLINICAL HISTORY: DVT/ r/o. TECHNIQUE: Ultrasound examination of bilateral lower extremity veins was performed in real-time and duplex. One or more of the following were performed- spectral analysis, resistive index, waveform analysis, and pulsed Doppler. COMPARISON: None. FINDINGS: Normal phasic, non-pulsatile, and spontaneous flow is noted in bilateral GSV/CFV, common femoral, superficial femoral, popliteal, anterior and posterior tibial, and peroneal veins. Visualized veins of both lower extremities demonstrate normal compressibility. No sonographic evidence of acute deep vein thrombosis (DVT) is detected in the visualized veins of both lower extremities. Compression and Augmentation: All evaluated veins compress fully with applied transducer pressure. Augmentation of venous flow is noted with distal compression. Additional Findings: No evidence of intraluminal thrombus. A fluid collection noted in the right popliteal fossa measures 3.55 x 1.45 x 2.02 cm. This could be Payne's cyst. IMPRESSION: 1. No sonographic evidence of acute DVT is detected in bilateral lower extremities. 2. A fluid collection noted in the right popliteal fossa measures 3.55 x 1.45 x 2.02 cm. This could be Payne's cyst. Disclaimer: DVT could be missed early in the disease when clot burden is minimal. For patients with moderate and high pretest probability of DVT and negative ultrasound, the [employer] clinical guidelines recommend testing with a D-dimer assay or repeat ultrasound in 5-7 days. If symptoms worsen, the Society of radiologists in ultrasound recommends repeating ultrasound even earlier. Electronically signed by Ck Escudero 04-25-2024 01:09 AM
[2024-04-25 07:42] LABS: Basophils # (auto) 0.03 K/uL (0.00-0.20); Basophils % (auto) 0.6 %; Eosinophils # (auto) 0.14 K/uL (0.00-0.50); Eosinophils % (auto) 2.7 %; Hematocrit (blood only) 35.1 % (42.0-52.0); Hemoglobin 11.6 g/dl (14.0-18.0); Immature Granulocytes # (auto) 0.01 K/uL (0.01-0.20); Immature Granulocytes % (auto) 0.2 %; Lymphocytes # (auto) 0.91 K/uL (1.20-3.40); Lymphocytes % (auto) 17.7 %; Mean Corpuscular Hemoglobin 30.2 pg (25.0-34.0); Mean Corpuscular Volume 91.4 fL (80.0-100.0); Mean Platelet Volume 10.1 fL (9.4-12.4); Monocytes # (auto) 0.56 K/uL (0.11-0.59); Monocytes % (auto) 10.9 %; Neutrophils % (auto) 67.9 %; Platelet Count 146 K/uL (130-400); RDW Coefficient of Variation 13.8 % (11.5-14.5); RDW Standard Deviation 46.1 fL (36.4-46.3); Red Blood Count 3.84 M/uL (4.70-6.10); White Blood Count 5.15 K/ul (4.8-10.8)
[2024-04-25 08:04] LABS: BUN Creatinine Ratio 14.9 (10-20); Calcium 9.2 mg/dl (8.6-10.3); Creatinine Clr Calc Pharmacy 20.3 ml/min; Potassium 3.9 mmol/L (3.5-5.1)
[2024-04-25 08:06] LABS: ANTI-Xa, UFH(UnfractionatedHep 0.57 IU/ml (0.3-0.7)
[2024-04-25] MEDS: OLANZAPINE 2.5 MG TAB PO SCH (08:55)
[2024-04-25] MEDS: DONEPEZIL HCL 10 MG TAB PO SCH (08:56)
[2024-04-25] MEDS: LORATADINE 10 MG TAB PO SCH (08:56)
[2024-04-25] MEDS: VENLAFAXINE HCL XR 75 MG CAPXR PO SCH (08:57)
[2024-04-25] MEDS: TAMSULOSIN HCL 0.4 MG CAP PO SCH (08:57)
[2024-04-25] MEDS: PANTOprazole 40 MG TAB PO SCH (08:57)
[2024-04-25] MEDS: ASPIRIN 81 MG CHEW PO SCH (08:59)
[2024-04-25] MEDS: FUROSEMIDE 40 MG/4 ML VIAL IV SCH (08:59)
[2024-04-25] MEDS: POLYETHYLENE (MIRALAX) 17 GM PACK PO SCH (08:59)
[2024-04-25] MEDS ORDERED: FUROSEMIDE 40 MG/4 ML VIAL IV SCH (09:00)
--- NOTE | 2024-04-25 10:19 | Hospitalist Progress Note ---
Date of Service April 25, 2024 Assessment & Plan (1) Acute heart failure with reduced ejection fraction (HFrEF, <= 40%): Plan: Lasix 40 mg IV BID Daily weights Strict I&O monitoring Echo results pending Cardiology consulted (2) Flash pulmonary edema: Plan: elevated troponin 217 now 464 heparin drip asa cardiology consulted Plan #SAMARA BUN 32, creatinine 2.25 (baseline around 1.8) Avoid nephrotoxic agents for possible Hold losartan Trend BMP #History of CAD Noted; TAVR 09/2015, cardiac cath 02/2017 Continue aspirin, atorvastatin #Anemia Chronic; Hgb 10.8 on arrival No signs of active bleeding on physical exam Trend CBC #Dementia Continue donepezil, olanzapine Admission and Anticipated Discharge Date Admission Date: April 24, 2024 Subjective Pt resting comfortably in bed. He denies and chest pain or SOB. Review of Systems Review of Systems: CONST: Negative for fever, body aches and chills. HENT: Negative for neck pain/stiffness, headache, congestion, sore throat, swelling. EYES: Negative for discharge/pain or vision changes. RESP: Negative for cough/hemoptysis and shortness of breath. CV: Negative chest pain, difficulty breathing, palpitations. ABD: Negative pain, nausea, vomiting. : Negative increase frequency, dysuria, blood in urine or stool. MUSC: Negative for muscle aches, edema. SKIN: Negative rash, lesions/sores. NEURO: Negative headache, dizziness, weakness. Physical Exam Physical Exam: GENERAL APPEARANCE NAD, activity normal for age, well developed/ well nourished, no cyanosis, pallor, or diaphoresis. EYES lids/conjunctiva normal. EARS/NOSE/THROAT Mucous membranes moist, nares normal, lips/teeth normal uvula midline without oral pharyngeal erythema, exudate or swelling TMs normal bilaterally. No lymphangitis/lymphedema. HEAD/NECK normocephalic atraumatic, no facial trauma, neck is supple. RESPIRATORY respiratory effort normal, speaks in full sentences, no tripod position, no accessory muscle use. Lungs clear to auscultation without rhonchi, wheezes, rales CARDIAC Regular rate and rhythm, no edema. ABDOMINAL Soft, ND/NT. No evidence of fluid wave. No pulsatile masses on exam, rebound tenderness, Cole sign or pain over Mcburney's point. MUSCLES/EXTREMITIES No abnormal range of motion, no swelling. SKIN Warm, pink and dry. No rashes, dermatoses, petechiae or lesions. NEUROLOGICAL Speech is clear and appropriate. Normal level of consciousness. Gait and coordination are normal. 5/5 strength in all extremities. PSYCH Normal mood and affect. Judgement/competence is appropriate Results & Data Results & Data Vital Signs (Past 12 Hours) Vital Signs Temp Pulse Pulse Resp BP Pulse Ox O2 Del Method 04/25/24 09:04 Nasal Cannula 04/25/24 07:16 36.4 C L 79 16 159/96 H 97 Nasal Cannula 04/25/24 02:27 36.6 C 65 18 137/75 94 Nasal Cannula 04/24/24 23:36 66 04/24/24 22:46 74 18 132/81 95 Nasal Cannula O2 Flow Rate 04/25/24 09:04 4 04/25/24 07:16 4 04/25/24 02:27 4 04/24/24 23:36 04/24/24 22:46 4 PG Care Time/CCT Total # of Minutes Spent Total Time Spent with Patient: Total time spent is greater than 50% in coordination of care (as documented) at patient's floor/unit and/or counseling patient: Coding Level of Care Code 22421 SUB INP/OBS CARE 2/35MIN Diagnoses Acute heart failure with reduced ejection fraction (HFrEF, <= 40%) I50.21 Flash pulmonary edema J81.0
[2024-04-25] MEDS: LORazepam 0.5 MG TAB PO STA (11:32)
--- NOTE | 2024-04-25 11:34 | Cardiology Consultation ---
Date of Consultation April 25, 2024 Assessment & Plan (1) Acute heart failure with reduced ejection fraction (HFrEF, <= 40%): -Etiology uncertain. -Agree with intravenous diuretics. -Would continue diuretics until the BUN and creatinine increase. -Continue losartan. -Agree with beta-yoshi therapy, can convert to long-acting at the time of discharge. -Favor conservative medical management over a.m. implantable defibrillator. (2) Elevated troponin: -Likely secondary to his decompensated CHF. -Do not feel this represents an acute coronary syndrome. (3) Nonsustained ventricular tachycardia: -Numerous episodes seen on the monitor last evening from 1830 to 1945. -Consider amiodarone therapy. -Favor conservative strategies realizing his dementia, advanced age, and numerous comorbidities. (4) Coronary artery disease: -s/p stents in the PDA and LAD, July 2013 -Patent stents in February 2017. -Continue medical management. (5) H/O aortic valve replacement: -Proper function on current echocardiogram. History of Present Illness Attending Physician: Valente Gordon MD History of Present Illness Mr. Wilde is an 88-year-old male admitted yesterday with acute systolic CHF and nonsustained ventricular tachycardia. This consultation was ordered to assist in his cardiac management. Of note, I did care for the patient many years ago. The patient was in his usual state of health until the day of presentation. He was found on the floor at [facility] complaining of chest pain and shortness of breath. While being transported to the hospital by EMS, numerous episodes of nonsustained ventricular tachycardia were identified. He was initially given 500 cc of normal saline and his dyspnea became profound. He responded well to intravenous diuretics. An echocardiogram performed while in the emergency room noted moderate to severe left ventricular dysfunction with ejection fraction of 30 to 35%. There was a properly functioning TAVR and moderate mitral regurgitation. Compared with the study performed in October 2018, left ventricular systolic function now reduced. History is difficult due to the patient's dementia. No family is at the bedside. He does carry a history of coronary artery disease having undergone stent placement in the right PDA in the mid LAD and July 2013. A cardiac catheterization performed in February 2017 noted patent stents. He underwent a TAVR in September 2015. Currently, patient is resting comfortably in bed and without complaints. Past medical and surgical history 1. Coronary artery diseasesee above 2. Right PDA stentMay 2013 3. Mid LAD stentMay 2013 4. TAVRJuly 2015 5. Hypertension 6. Hypercholesterolemia 7. CVADecember 2016 8. Chronic renal failure 9. GERD 10. Vitamin D deficiency 11. Ulcerative colitis 12. Generalized peripheral neuropathy 13. Dementia 14. Anxiety/depression 15. BPH 16. Nephrolithiasis 17. LithotripsyAugust 2023 18. Appendectomy 19. Cholecystectomy 20. Intraocular lens implants Social history , currently lives in the memory unit at [facility] No tobacco or alcohol Family history Noncontributory Review of systems Difficult due to dementia. Allergies Allergy/AdvReac Type Severity Reaction Status Date / Time No Known Drug Allergies Allergy nkda Verified 04/24/24 11:08 Home Medications Medication Instructions Recorded Confirmed Type acetaminophen 650 mg 650 mg PO Q8H PRN Pain 02/19/22 04/24/24 History tablet,extended release amlodipine 5 mg tablet (Norvasc) 5 mg PO DAILY 02/19/22 04/24/24 History aspirin 81 mg chewable tablet 81 mg PO DAILY 02/19/22 04/24/24 History cholecalciferol (vitamin D3) 125 125 mcg PO DAILY 02/19/22 04/24/24 History mcg (5,000 unit) tablet diphenhydramine HCl 25 mg tablet 25 mg PO .Q24HR PRN .ALLERGY 02/19/22 04/24/24 History (Benadryl Allergy) SYMPTOMS docusate sodium 100 mg tablet 100 mg PO BID 02/19/22 04/24/24 History ibuprofen 400 mg tablet 400 mg PO Q8 02/19/22 04/24/24 History lidocaine 5 % topical patch 1 patch topical DAILY 02/19/22 04/24/24 History lorazepam 0.5 mg tablet 0.5 mg PO HS 02/19/22 04/24/24 History losartan 100 mg tablet 100 mg PO QAM 02/19/22 04/24/24 History melatonin 5 mg tablet 5 mg PO HS 02/19/22 04/24/24 History pantoprazole 40 mg tablet,delayed 40 mg PO DAILY 02/19/22 04/24/24 History release polyethylene glycol 3350 17 gram 17 g PO DAILY 02/19/22 04/24/24 History oral powder packet (Miralax) propylene glycol 0.6 % eye drops 1 drp ophthalmic (eye) DAILY PRN 02/19/22 04/24/24 History Dry Eye(S) tamsulosin 0.4 mg capsule 0.4 mg PO DAILY 02/19/22 04/24/24 History oxycodone 5 mg tablet 5 mg PO QAM Pain 10/17/23 04/24/24 History diclofenac sodium 1 % topical gel 2 g topical Q6H PRN Pain 10/20/23 04/24/24 History donepezil 10 mg tablet (Aricept) 10 mg PO DAILY 10/20/23 04/24/24 History loratadine 10 mg tablet 10 mg PO DAILY 10/20/23 04/24/24 History olanzapine 2.5 mg tablet (Zyprexa) 2.5 mg PO DAILY 10/20/23 04/24/24 History olanzapine 5 mg tablet (Zyprexa) 5 mg PO BID 10/20/23 04/24/24 History venlafaxine 75 mg capsule,extended 75 mg PO DAILY 10/20/23 04/24/24 History release 24 hr (Effexor XR) Milk of Magnesia 30 ml PO DAILY PRN Constipation 04/24/24 04/24/24 History acetaminophen 650 mg 650 mg PO Q12H PRN temp>100 04/24/24 04/24/24 History tablet,extended release bisacodyl 10 mg rectal suppository 10 mg TN DAILY PRN Constipation 04/24/24 04/24/24 History hydrocortisone 1 % topical cream 1 applic topical Q8H PRN 04/24/24 04/24/24 History (Preparation H Hydrocortisone) Hemorrhoids Patient History Medical History (Updated 04/25/24 @ 11:51 by Dickson Zapien MD) Hx of thrombocytopenia Sacroiliitis Hx of orthostatic hypotension Hypercholesteremia BPH (benign prostatic hyperplasia) Acute kidney injury superimposed on CKD Chronic kidney disease, stage 3 Hx of aortic valve stenosis Hx of gastroesophageal reflux (GERD) CAD (coronary artery disease) Carotid stenosis Urinary incontinence BPPV (benign paroxysmal positional vertigo) 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) [place] Vitamin D deficiency Lumbar degenerative disc disease Middle cerebral artery aneurysm saw neurosurgeon in past, no surgery indicated Osteoporosis Secondary hyperparathyroidism Alzheimer's dementia daughter/POA Amanda [employer] completed PAT interview Cerebrovascular disease Anxiety with depression Left ureteral calculus Ulcerative colitis Hx SBO Renal insufficiency HTN (hypertension) Surgical History History of mandibular surgery due to underbite, > 40 years ago Hx of cardiac catheterization (07/2013) [place], no DE- pos stress - 2 stents S/P coronary artery stent placement (07/2013) Mid LAD S/P coronary artery stent placement (06/2013) R PDA History of cholecystectomy History of appendectomy History of cataract surgery (2017) L eye Mar 2017, R eye May 2017 Family History Mother , age 84 of unknown causes No problems noted. Father , age 45 of a stroke Stroke Coronary heart disease Other Breast cancer Hypertension Denies family history of Ovarian cancer Prostate cancer Myocardial infarction Colorectal cancer Social History Smoking Status: Never smoker Tobacco Type: Cigarettes Second Hand Exposure: No; Do You Dip or Chew Tobacco: No; Hx Alcohol Use: No Hx Substance Use: No Preferred Language: Tongan Communication Ability: Effective Communication Ability Comment: uses b/l h/a that are being repaired Visual Impairment: No Limitations Hearing Ability: Use of Hearing Aid Machine Precision Etcher Required: No Beliefs That Will Affect Care: None marital status: Current Living Situation: [facility] Current Living Situation Comment: 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 HEENT exam is negative. Neck is supple with full carotid upstrokes. No obvious bruits. Jugular venous pressure is flat at 90 degrees. Cardiovascular exam reveals a regular rhythm with distant heart sounds. No obvious murmurs. No S3. Lungs noted decreased breath sounds at the bases but no rales, rhonchi, or wheezes. Abdomen is soft without bruits. Extremities reveal intact radial artery pulses bilaterally. 1+ pretibial edema is noted. Results & Data Vital Signs (Past 12 Hours) Vital Signs Temp Pulse Pulse Resp BP Pulse Ox O2 Del Method 04/25/24 10:44 36.2 C L 75 17 131/81 95 Nasal Cannula 04/25/24 09:04 Nasal Cannula 04/25/24 07:16 36.4 C L 79 16 159/96 H 97 Nasal Cannula 04/25/24 02:27 36.6 C 65 18 137/75 94 Nasal Cannula 04/24/24 23:36 66 O2 Flow Rate 04/25/24 10:44 4 04/25/24 09:04 4 04/25/24 07:16 4 04/25/24 02:27 4 04/24/24 23:36 Laboratory Results CBC notes hemoglobin of 11.6, hematocrit 35.1, white count 5.2, and platelet count 146,000. Electrolytes notes a sodium of 140, potassium 3.9, chloride 105, bicarb 29, BUN 31, creatinine 2.08, and a glucose of 104. High-sensitivity troponin on presentation was 212 and has increased to 464. BNP elevated at 1460. TSH normal at 4.22. Diagnostic Findings EKG notes sinus rhythm with PVCs and left ventricular pressure free with repolarization changes. nurse monitoring notes numerous episodes of nonsustain ed ventricular tachycardia. Chest x-ray notes cardiomegaly with bilateral pleural effusions and interstitial edema. PG Care Time/CCT Total # of Minutes Spent Total Time Spent with Patient: Total time spent is greater than 50% in coordination of care (as documented) at patient's floor/unit and/or counseling patient: Coding Level of Care Code 42073 INT INP/OBS CARE MIN Diagnoses Acute heart failure with reduced ejection fraction (HFrEF, <= 40%) I50.21 Elevated troponin R79.89 Nonsustained ventricular tachycardia I47.29 Coronary artery disease involving [place] coronary artery of [place] heart without angina pectoris I25.10 Coronary Disease-Associated Artery/Lesion type: [place] artery [place] vs. transplanted heart: [place] heart Associated angina: without angina H/O aortic valve replacement Z95.2 (4) Coronary artery disease Coronary Disease-Associated Artery/Lesion type: [place] artery [place] vs. transplanted heart: [place] heart Associated angina: without angina Qualified Code(s): I25.10 - Atherosclerotic heart disease of [place] coronary artery without angina pectoris
--- NOTE | 2024-04-25 14:47 | Electrocardiogram Report ---
Test Reason : Blood Pressure : */* mmHG Vent. Rate : 85 BPM Atrial Rate : 85 BPM P-R Int : 152 ms QRS Dur : 96 ms QT Int : 410 ms P-R-T Axes : 34 62 -58 degrees QTcB Int : 487 ms Sinus rhythm with Premature atrial complexes Inferior infarct (cited on or before 24-Apr-2024) Anterior infarct (cited on or before 24-Apr-2024) Abnormal ECG When compared with ECG of 24-Apr-2024 08:08, No significant change Confirmed by Dickson Zapien ([id number]) on 04/25/2024 2:46:37 PM Referred By: Dayami winchester [facility] Confirmed By: Dickson Zapien
--- NOTE | 2024-04-25 15:21 | Electrocardiogram Report ---
Test Reason : Blood Pressure : */* mmHG Vent. Rate : 69 BPM Atrial Rate : 69 BPM P-R Int : 166 ms QRS Dur : 104 ms QT Int : 446 ms P-R-T Axes : 35 55 265 degrees QTcB Int : 477 ms Sinus rhythm with Premature ventricular complexes Left ventricular hypertrophy with repolarization abnormality Nonspecific ST abnormality Abnormal ECG When compared with ECG of 24-Apr-2024 09:35, (unconfirmed) T wave inversion now evident in Lateral leads Confirmed by Dickson Zapien ([id number]) on 04/25/2024 3:20:57 PM [facility] Confirmed By: Dickson Zapien
[2024-04-25] MEDS: LORazepam 0.5 MG TAB PO PRN (20:49)
[2024-04-26] MEDS: MAGNESIUM SULFATE / D5W 1 GM/100 ML BAG IV ONE ×2 (01:46→20:29)
[2024-04-26 03:06] LABS: BUN Creatinine Ratio 13.9 (10-20); Calcium 8.9 mg/dl (8.6-10.3); Creatinine Clr Calc Pharmacy 18.4 ml/min; Magnesium 1.8 mg/dl (1.7-2.4); Potassium 3.2 mmol/L (3.5-5.1)
[2024-04-26 03:12] LABS: ANTI-Xa, UFH(UnfractionatedHep 0.44 IU/ml (0.3-0.7)
--- NOTE | 2024-04-26 04:07 | Communication Note ---
Date of Service: April 26, 2024 RN notified that patient was having increased freq and duration of NSVT runs early in the night. Patient asymptomatic. Soft BPs limited additional beta yoshi use. EKG noted prolonged QTc - ?accuracy of interval estimation d/t high PVC burden - as a precaution, Zyprexa put on hold. Repeat BMP - mag WNL, K+ 3.2 - repleted Cardiac rhythm improved, no additional rate or rhythm control agents given.
[2024-04-26] MEDS: POTASSIUM CHLORIDE / WTR 10 MEQ/100 ML PLCT IV ONE (04:18)
[2024-04-26] MEDS: POTASSIUM CHLORIDE CRTAB 20 MEQ TABCR PO STA (04:49)
[2024-04-26] MEDS: POTASSIUM CHLORIDE / WTR 10 MEQ/100 ML PLCT IV SCH (09:38)
--- NOTE | 2024-04-26 09:52 | Hospitalist Progress Note ---
Date of Service April 26, 2024 Assessment & Plan (1) Acute heart failure with reduced ejection fraction (HFrEF, <= 40%): Plan: Lasix 40 mg IV BID Daily weights Strict I&O monitoring Echo results pending Cardiology consult appreciated Con't diuresis (2) Flash pulmonary edema: Plan: elevated troponin 217 now 464 heparin drip d/c'd asa cardiology states elevation is 2nd to demand ischemia. Plan #SAMARA BUN 32, creatinine 2.25 (baseline around 1.8) Avoid nephrotoxic agents for possible Hold losartan Trend BMP #History of CAD Noted; TAVR 09/2015, cardiac cath 02/2017 Continue aspirin, atorvastatin #Anemia Chronic; Hgb 10.8 on arrival No signs of active bleeding on physical exam Trend CBC #Dementia Continue donepezil, olanzapine Admission and Anticipated Discharge Date Admission Date: April 24, 2024 Subjective Pt resting comfortably in bed. He denies and chest pain or SOB. Review of Systems Review of Systems: CONST: Negative for fever, body aches and chills. HENT: Negative for neck pain/stiffness, headache, congestion, sore throat, swelling. EYES: Negative for discharge/pain or vision changes. RESP: Negative for cough/hemoptysis and shortness of breath. CV: Negative chest pain, difficulty breathing, palpitations. ABD: Negative pain, nausea, vomiting. : Negative increase frequency, dysuria, blood in urine or stool. MUSC: Negative for muscle aches, edema. SKIN: Negative rash, lesions/sores. NEURO: Negative headache, dizziness, weakness. Physical Exam Physical Exam: GENERAL APPEARANCE NAD, activity normal for age, well developed/ well nourished, no cyanosis, pallor, or diaphoresis. EYES lids/conjunctiva normal. EARS/NOSE/THROAT Mucous membranes moist, nares normal, lips/teeth normal uvula midline without oral pharyngeal erythema, exudate or swelling TMs normal bilaterally. No lymphangitis/lymphedema. HEAD/NECK normocephalic atraumatic, no facial trauma, neck is supple. RESPIRATORY respiratory effort normal, speaks in full sentences, no tripod position, no accessory muscle use. Lungs clear to auscultation without rhonchi, wheezes, rales CARDIAC Regular rate and rhythm, no edema. ABDOMINAL Soft, ND/NT. No evidence of fluid wave. No pulsatile masses on exam, rebound tenderness, Cole sign or pain over Mcburney's point. MUSCLES/EXTREMITIES No abnormal range of motion, no swelling. SKIN Warm, pink and dry. No rashes, dermatoses, petechiae or lesions. NEUROLOGICAL Speech is clear and appropriate. Normal level of consciousness. Gait and coordination are normal. 5/5 strength in all extremities. PSYCH Normal mood and affect. Judgement/competence is appropriate Results & Data Results & Data Vital Signs (Past 12 Hours) Vital Signs Temp Pulse Pulse Resp BP Pulse Ox O2 Del Method 04/26/24 09:47 36.8 C 80 20 135/84 97 Nasal Cannula 04/26/24 03:20 36.7 C 53 L 18 126/64 97 Nasal Cannula 04/26/24 01:34 98/74 L 04/25/24 23:39 36.8 C 81 18 134/81 94 Nasal Cannula 04/25/24 23:11 73 04/25/24 22:11 Nasal Cannula O2 Flow Rate 04/26/24 09:47 3 04/26/24 03:20 2 04/26/24 01:34 04/25/24 23:39 2 04/25/24 23:11 04/25/24 22:11 2 PG Care Time/CCT Total # of Minutes Spent Total Time Spent with Patient: Total time spent is greater than 50% in coordination of care (as documented) at patient's floor/unit and/or counseling patient: Coding Level of Care Code 84831 SUB INP/OBS CARE 2/35MIN Diagnoses Acute heart failure with reduced ejection fraction (HFrEF, <= 40%) I50.21 Flash pulmonary edema J81.0
--- NOTE | 2024-04-26 12:43 | Electrocardiogram Report ---
Test Reason : Blood Pressure : */* mmHG Vent. Rate : 85 BPM Atrial Rate : 85 BPM P-R Int : 148 ms QRS Dur : 106 ms QT Int : 450 ms P-R-T Axes : 28 51 270 degrees QTcB Int : 535 ms Sinus rhythm with frequent , and consecutive Premature ventricular complexes Anterior infarct , age undetermined Prolonged QT Abnormal ECG When compared with ECG of 25-Apr-2024 02:01, Premature ventricular complexes are now Present Aberrant conduction is no longer Present QT has lengthened Confirmed by Dickson Zapien ([id number]) on 04/26/2024 12:43:12 PM Referred By: Dayami winchester [facility] Confirmed By: Dickson Zapien
[2024-04-26] MEDS ORDERED: 0.2 MICRON FILTER SET 1 EACH IV ONE (15:45)
[2024-04-26] MEDS: AMIODARONE / D5W 150 MG/100 ML BAG IV STA (15:58)
[2024-04-26] MEDS: AMIODARONE 150MG / 100ML D5W IV ONE (16:01)
[2024-04-26 16:29] LABS: Calcium 9.1 mg/dl (8.6-10.3); Creatinine Clr Calc Pharmacy 18.8 ml/min; Magnesium 1.8 mg/dl (1.7-2.4)
[2024-04-26 16:46] LABS: Troponin I High Sensitivity 265.6 pg/ml (0-20)
[2024-04-26] MEDS: AMIODARONE 360MG / 200ML D5W IV ONE (17:04)
[2024-04-26] MEDS ORDERED: AMIODARONE 200 MG TAB PO SCH ×2 (20:10→20:20)
[2024-04-26] MEDS: AMIODARONE 200 MG TAB PO SCH (21:52)
[2024-04-26] MEDS: POTASSIUM CHLORIDE PWD 20 MEQ PACK PO ONE (21:52)
--- NOTE | 2024-04-27 07:13 | Electrocardiogram Report ---
Test Reason : Blood Pressure : */* mmHG Vent. Rate : 104 BPM Atrial Rate : 81 BPM P-R Int : 156 ms QRS Dur : 104 ms QT Int : 392 ms P-R-T Axes : 0 20 235 degrees QTcB Int : 515 ms Sinus rhythm with frequent , and consecutive Premature ventricular complexes ppossible Inferior infarct , age undetermined Prolonged QT Abnormal ECG When compared with ECG of 26-Apr-2024 01:04, No significant change was found Confirmed by Alessandro Landa ([id number]) on 04/27/2024 7:13:15 AM Referred By: Dayami winchester [facility] Confirmed By: Alessandro Landa
[2024-04-27] MEDS ORDERED: AMIODARONE 200 MG TAB PO SCH (08:00)
--- NOTE | 2024-04-27 09:07 | Cardiology Progress Note ---
Date of Service April 27, 2024 Assessment & Plan (1) Acute heart failure with reduced ejection fraction (HFrEF, <= 40%): Plan: He seems to be affecting a good diuresis. No significant change in renal function. I think we can continue the current rate of diuresis. I will order a BNP for tomorrow morning which we can compare to his admission result. He will continue metoprolol tartrate for the time being and we will convert this to metoprolol succinate at the time of discharge. He is a poor candidate for more intensive therapy due to his renal dysfunction. Unlikely to benefit from an SGLT2 inhibitor and other medications relatively contraindicated due to his poor GFR. (2) Elevated troponin: Plan: -Likely secondary to his decompensated CHF. -Do not feel this represents an acute coronary syndrome. (3) Nonsustained ventricular tachycardia: Plan: He continues to have frequent ventricular ectopy at times. Hopefully with more regular beta-yoshi use and continued amiodarone we will see less of this. I think we can supplement his magnesium. Potassium looks good. 3 we can increase his amiodarone temporarily to 400 mg twice daily for a week and then reduce it to 400 mg daily. (4) Coronary artery disease: Plan: -s/p stents in the PDA and LAD, July 2013 -Patent stents in February 2017. On aspirin. Not on statin therapy for unclear reasons. However, likely limited benefit given his other comorbidities. (5) H/O aortic valve replacement: Plan: -Proper function on current echocardiogram. Admission and Anticipated Discharge Date Admission Date: April 24, 2024 Subjective This morning patient had no specific complaints. I asked her about breathing difficulty, chest pain, dizziness or sense of palpitation. He did not endorse symptoms of any kind. According to the nursing staff he has been ambulatory and required a sitter at 1 point due to agitation. Review of Systems Review of Systems: Unreliable due to cognitive status. Physical Exam Physical Exam: The patient is alert and oriented to person only. Mood and affect appeared normal. He answered all questions appropriately. HEENT: Pupils are equal and reactive to light and accommodation. Extraocular movements are intact. The sclerae are anicteric. Neuro: Cranial nerves intact Lungs: Clear to auscultation bilaterally. He has good air movement without use of accessory muscles. No rales wheezes or rhonchi. Cardiac: Regular rhythm with occasional ectopy. No murmurs on examination. Extremities: There was no evidence of hypoperfusion. There is no cyanosis or clubbing. Skin: I did not appreciate any rashes on examination today. Results & Data Vital Signs (Past 12 Hours) Vital Signs Temp Pulse Pulse Resp BP BP Pulse Ox 04/27/24 08:10 37.0 C 74 18 123/66 99 04/26/24 22:45 36.3 C L 78 20 99/65 L 93 04/26/24 22:00 73 04/26/24 21:50 67 119/56 L O2 Del Method O2 Flow Rate 04/27/24 08:10 Nasal Cannula 4.0 04/26/24 22:45 Nasal Cannula 4 04/26/24 22:00 04/26/24 21:50 Laboratory Results Abnormal Lab Results 04/26/24 04/27/24 04/27/24 15:53 00:28 07:42 Sodium 137 Potassium 4.0 D Chloride 101 Carbon Dioxide 28 Anion Gap 8 BUN 32 H Creatinine 2.29 H Est Cr Clr Drug Dosing 18.8 eGFR 26.62 BUN/Creatinine Ratio 14.0 Glucose 118 H Calcium 9.1 Magnesium 1.8 Troponin I High Sens 265.6 H* D 244.5 H* 226.0 H* PG Care Time/CCT Total # of Minutes Spent Total Time Spent with Patient: Total time spent is greater than 50% in coordination of care (as documented) at patient's floor/unit and/or counseling patient: Coding Level of Care Code 99827 SUB INP/OBS CARE 2/35MIN Diagnoses Acute heart failure with reduced ejection fraction (HFrEF, <= 40%) I50.21 Elevated troponin R79.89 Nonsustained ventricular tachycardia I47.29 Coronary artery disease involving [place] coronary artery of [place] heart without angina pectoris I25.10 Associated angina: without angina Coronary Disease-Associated Artery/Lesion type: [place] artery [place] vs. transplanted heart: [place] heart H/O aortic valve replacement Z95.2 (4) Coronary artery disease Associated angina: without angina Coronary Disease-Associated Artery/Lesion type: [place] artery [place] vs. transplanted heart: [place] heart Qualified Code(s): I25.10 - Atherosclerotic heart disease of [place] coronary artery without angina pectoris
--- NOTE | 2024-04-27 10:25 | Hospitalist Progress Note ---
Date of Service April 27, 2024 Assessment & Plan (1) Acute heart failure with reduced ejection fraction (HFrEF, <= 40%): Plan: Lasix 40 mg IV BID Daily weights Strict I&O monitoring Echo results pending Cardiology consult appreciated Con't diuresis (2) Flash pulmonary edema: Plan: elevated troponin 217 now 464 heparin drip d/c'd asa cardiology states elevation is 2nd to demand ischemia. (3) Ventricular tachycardia, non-sustained: Plan: -amiodarone added -con't metoprolol -electrolytes WNL Plan #SAMARA BUN 32, creatinine 2.25 (baseline around 1.8) Avoid nephrotoxic agents for possible Hold losartan Trend BMP #History of CAD Noted; TAVR 09/2015, cardiac cath 02/2017 Continue aspirin, atorvastatin #Anemia Chronic; Hgb 10.8 on arrival No signs of active bleeding on physical exam Trend CBC #Dementia Continue donepezil, olanzapine Admission and Anticipated Discharge Date Admission Date: April 24, 2024 Subjective Pt has episodes on non sustained V-tach yesterday. He comfortable in bed today, no events or issues. Review of Systems Review of Systems: CONST: Negative for fever, body aches and chills. HENT: Negative for neck pain/stiffness, headache, congestion, sore throat, swelling. EYES: Negative for discharge/pain or vision changes. RESP: Negative for cough/hemoptysis and shortness of breath. CV: Negative chest pain, difficulty breathing, palpitations. ABD: Negative pain, nausea, vomiting. : Negative increase frequency, dysuria, blood in urine or stool. MUSC: Negative for muscle aches, edema. SKIN: Negative rash, lesions/sores. NEURO: Negative headache, dizziness, weakness. Physical Exam Physical Exam: GENERAL APPEARANCE NAD, activity normal for age, well developed/ well nourished, no cyanosis, pallor, or diaphoresis. EYES lids/conjunctiva normal. EARS/NOSE/THROAT Mucous membranes moist, nares normal, lips/teeth normal uvula midline without oral pharyngeal erythema, exudate or swelling TMs normal bilaterally. No lymphangitis/lymphedema. HEAD/NECK normocephalic atraumatic, no facial trauma, neck is supple. RESPIRATORY respiratory effort normal, speaks in full sentences, no tripod position, no accessory muscle use. Lungs clear to auscultation without rhonchi, wheezes, rales CARDIAC Regular rate and rhythm, no edema. ABDOMINAL Soft, ND/NT. No evidence of fluid wave. No pulsatile masses on exam, rebound tenderness, Cole sign or pain over Mcburney's point. MUSCLES/EXTREMITIES No abnormal range of motion, no swelling. SKIN Warm, pink and dry. No rashes, dermatoses, petechiae or lesions. NEUROLOGICAL Speech is clear and appropriate. Normal level of consciousness. Gait and coordination are normal. 5/5 strength in all extremities. PSYCH Normal mood and affect. Judgement/competence is appropriate Results & Data Results & Data Vital Signs (Past 12 Hours) Vital Signs Temp Pulse Resp BP BP Pulse Ox O2 Del Method 04/27/24 08:10 37.0 C 74 18 123/66 99 Nasal Cannula 04/26/24 22:45 36.3 C L 78 20 99/65 L 93 Nasal Cannula O2 Flow Rate 04/27/24 08:10 4.0 04/26/24 22:45 4 PG Care Time/CCT Total # of Minutes Spent Total Time Spent with Patient: Total time spent is greater than 50% in coordination of care (as documented) at patient's floor/unit and/or counseling patient: Coding Level of Care Code 59161 SUB INP/OBS CARE 2/35MIN Diagnoses Acute heart failure with reduced ejection fraction (HFrEF, <= 40%) I50.21 Flash pulmonary edema J81.0 Ventricular tachycardia, non-sustained I47.29
[2024-04-27] MEDS: MAGNESIUM SULFATE / D5W 1 GM/100 ML BAG IV ONE (10:52)
[2024-04-27] MEDS: ACETAMINOPHEN 325 MG TAB PO PRN (10:53)
[2024-04-27] MEDS: LORazepam 0.5 MG TAB PO PRN (14:06)
[2024-04-27] MEDS: AMIODARONE 200 MG TAB PO SCH (17:28)
[2024-04-28 07:54] LABS: Hematocrit (blood only) 33.1 % (42.0-52.0); Mean Corpuscular Hemoglobin 30.5 pg (25.0-34.0); Mean Corpuscular Hgb Conc 33.2 g/dL (32.0-36.0); Mean Corpuscular Volume 91.7 fL (80.0-100.0); Mean Platelet Volume 10.3 fL (9.4-12.4); Platelet Count 144 K/uL (130-400); RDW Coefficient of Variation 13.3 % (11.5-14.5); RDW Standard Deviation 45.4 fL (36.4-46.3); Red Blood Count 3.61 M/uL (4.70-6.10); White Blood Count 6.81 K/ul (4.8-10.8)
[2024-04-28 08:19] LABS: BUN Creatinine Ratio 22.2 (10-20); Calcium 9.3 mg/dl (8.6-10.3); Creatinine Clr Calc Pharmacy 19.7 ml/min; Potassium 4.2 mmol/L (3.5-5.1)
--- NOTE | 2024-04-28 09:55 | Cardiology Progress Note ---
Date of Service April 28, 2024 Assessment & Plan (1) Acute heart failure with reduced ejection fraction (HFrEF, <= 40%): Plan: Doing well. Again, affected good diuresis. I think we could de-escalate his diuretic regimen. I think a daily dose of intravenous diuretic or even a switch to an oral regimen would be reasonable in anticipation for discharge. I will change his metoprolol to tartrate to metoprolol succinate starting tomorrow morning. Not a good candidate for more aggressive therapy. (2) Elevated troponin: Plan: He has had 10 troponin evaluations since admission. As noted previously this likely represents demand ischemia. No plan for an ischemic evaluation. (3) Nonsustained ventricular tachycardia: Plan: Improved. Continue metoprolol and amiodarone. I think amiodarone can be continued at 400 mg twice daily for another 5 days and then reduce to 500 mg daily. (4) Coronary artery disease: Plan: -s/p stents in the PDA and LAD, July 2013 -Patent stents in February 2017. On aspirin. Not on statin therapy for unclear reasons. However, likely limited benefit given his other comorbidities. (5) H/O aortic valve replacement: Plan: -Proper function on current echocardiogram. Admission and Anticipated Discharge Date Admission Date: April 24, 2024 Subjective This morning patient had no specific complaints. He specifically denied chest pain, palpitations, breathing trouble or dizziness. Unclear if he was ambulatory yesterday. Review of Systems Review of Systems: Unobtainable due to cognitive status Physical Exam Physical Exam: The patient is alert and oriented to person only. Mood and affect appeared normal. He answered all questions appropriately. HEENT: Pupils are equal and reactive to light and accommodation. Extraocular movements are intact. The sclerae are anicteric. Neuro: Cranial nerves intact Lungs: Clear to auscultation bilaterally. He has good air movement without use of accessory muscles. No rales wheezes or rhonchi. Cardiac: Regular rhythm without ectopy. No murmurs on examination. Extremities: There was no evidence of hypoperfusion. There is no cyanosis or clubbing. Skin: I did not appreciate any rashes on examination today. Results & Data Vital Signs (Past 12 Hours) Vital Signs Temp Pulse Pulse Resp BP Pulse Ox O2 Del Method 04/28/24 08:16 36.4 C L 72 16 113/72 98 Nasal Cannula 04/28/24 03:06 36.3 C L 67 18 104/66 98 Nasal Cannula 04/28/24 00:00 36.6 C 70 16 105/61 94 Nasal Cannula 04/27/24 22:00 69 O2 Flow Rate 04/28/24 08:16 2.0 04/28/24 03:06 2 04/28/24 00:00 3 04/27/24 22:00 Laboratory Results Abnormal Lab Results 04/27/24 04/28/24 15:57 07:29 WBC 6.81 RBC 3.61 L Hgb 11.0 L Hct 33.1 L MCV 91.7 MCH 30.5 MCHC 33.2 RDW Std Deviation 45.4 RDW Coeff of [place] 13.3 Plt Count 144 MPV 10.3 Sodium 135 L Potassium 4.2 Chloride 97 L Carbon Dioxide 33 H Anion Gap 5 BUN 48 H Creatinine 2.16 H Est Cr Clr Drug Dosing 19.7 eGFR 28.55 BUN/Creatinine Ratio 22.2 H Glucose 103 H Calcium 9.3 Troponin I High Sens 188.5 H* PG Care Time/CCT Total # of Minutes Spent Total Time Spent with Patient: Total time spent is greater than 50% in coordination of care (as documented) at patient's floor/unit and/or counseling patient: Coding Level of Care Code 31143 SUB INP/OBS CARE 2/35MIN Diagnoses Acute heart failure with reduced ejection fraction (HFrEF, <= 40%) I50.21 Elevated troponin R79.89 Nonsustained ventricular tachycardia I47.29 Coronary artery disease involving [place] coronary artery of [place] heart without angina pectoris I25.10 Coronary Disease-Associated Artery/Lesion type: [place] artery [place] vs. transplanted heart: [place] heart Associated angina: without angina H/O aortic valve replacement Z95.2 (4) Coronary artery disease Coronary Disease-Associated Artery/Lesion type: [place] artery [place] vs. transplanted heart: [place] heart Associated angina: without angina Qualified Code(s): I25.10 - Atherosclerotic heart disease of [place] coronary artery without angina pectoris
--- NOTE | 2024-04-28 11:05 | Hospitalist Progress Note ---
Date of Service April 28, 2024 Assessment & Plan (1) Acute heart failure with reduced ejection fraction (HFrEF, <= 40%): Plan: Lasix 40 mg IV BID Daily weights Strict I&O monitoring Echo results pending Cardiology consult appreciated decreasing diuresis today as per cardiology (2) Flash pulmonary edema: Plan: elevated troponin 217 now 464 heparin drip d/c'd asa cardiology states elevation is 2nd to demand ischemia. (3) Ventricular tachycardia, non-sustained: Plan: -amiodarone added -con't metoprolol -electrolytes WNL Plan #SAMARA BUN 32, creatinine 2.25 (baseline around 1.8) Avoid nephrotoxic agents for possible Hold losartan Trend BMP #History of CAD Noted; TAVR 09/2015, cardiac cath 02/2017 Continue aspirin, atorvastatin #Anemia Chronic; Hgb 10.8 on arrival No signs of active bleeding on physical exam Trend CBC #Dementia Continue donepezil, olanzapine Plan for d/c possibly 04/29 Admission and Anticipated Discharge Date Admission Date: April 24, 2024 Subjective Pt resting comfortably in chair this am. Review of Systems Review of Systems: CONST: Negative for fever, body aches and chills. HENT: Negative for neck pain/stiffness, headache, congestion, sore throat, swelling. EYES: Negative for discharge/pain or vision changes. RESP: Negative for cough/hemoptysis and shortness of breath. CV: Negative chest pain, difficulty breathing, palpitations. ABD: Negative pain, nausea, vomiting. : Negative increase frequency, dysuria, blood in urine or stool. MUSC: Negative for muscle aches, edema. SKIN: Negative rash, lesions/sores. NEURO: Negative headache, dizziness, weakness. Physical Exam Physical Exam: GENERAL APPEARANCE NAD, activity normal for age, well developed/ well nourished, no cyanosis, pallor, or diaphoresis. EYES lids/conjunctiva normal. EARS/NOSE/THROAT Mucous membranes moist, nares normal, lips/teeth normal uvula midline without oral pharyngeal erythema, exudate or swelling TMs normal bilaterally. No lymphangitis/lymphedema. HEAD/NECK normocephalic atraumatic, no facial trauma, neck is supple. RESPIRATORY respiratory effort normal, speaks in full sentences, no tripod position, no accessory muscle use. Lungs clear to auscultation without rhonchi, wheezes, rales CARDIAC Regular rate and rhythm, no edema. ABDOMINAL Soft, ND/NT. No evidence of fluid wave. No pulsatile masses on exam, rebound tenderness, Cole sign or pain over Mcburney's point. MUSCLES/EXTREMITIES No abnormal range of motion, no swelling. SKIN Warm, pink and dry. No rashes, dermatoses, petechiae or lesions. NEUROLOGICAL Speech is clear and appropriate. Normal level of consciousness. Gait and coordination are normal. 5/5 strength in all extremities. PSYCH Normal mood and affect. Judgement/competence is appropriate Results & Data Results & Data Vital Signs (Past 12 Hours) Vital Signs Temp Pulse Resp BP Pulse Ox O2 Del Method O2 Flow Rate 04/28/24 08:16 36.4 C L 72 16 113/72 98 Nasal Cannula 2.0 04/28/24 03:06 36.3 C L 67 18 104/66 98 Nasal Cannula 2 04/28/24 00:00 36.6 C 70 16 105/61 94 Nasal Cannula 3 PG Care Time/CCT Total # of Minutes Spent Total Time Spent with Patient: Total time spent is greater than 50% in coordination of care (as documented) at patient's floor/unit and/or counseling patient: Coding Level of Care Code 19794 SUB INP/OBS CARE 2/35MIN Diagnoses Acute heart failure with reduced ejection fraction (HFrEF, <= 40%) I50.21 Flash pulmonary edema J81.0 Ventricular tachycardia, non-sustained I47.29
[2024-04-29 07:59] LABS: Hemoglobin 11.3 g/dl (14.0-18.0); Mean Corpuscular Hemoglobin 30.5 pg (25.0-34.0); Mean Corpuscular Hgb Conc 33.2 g/dL (32.0-36.0); Mean Corpuscular Volume 91.6 fL (80.0-100.0); Mean Platelet Volume 10.2 fL (9.4-12.4); Platelet Count 142 K/uL (130-400); RDW Coefficient of Variation 13.3 % (11.5-14.5); RDW Standard Deviation 44.3 fL (36.4-46.3); Red Blood Count 3.71 M/uL (4.70-6.10); White Blood Count 6.66 K/ul (4.8-10.8)
[2024-04-29] MEDS: METOPROLOL SUCC 25MG EXT REL TAB PO SCH (08:02)
[2024-04-29 08:19] LABS: BUN Creatinine Ratio 24.1 (10-20); Calcium 9.5 mg/dl (8.6-10.3); Creatinine Clr Calc Pharmacy 18.3 ml/min; Potassium 4.3 mmol/L (3.5-5.1)
--- NOTE | 2024-04-29 09:45 | Discharge Summary ---
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 He presented via EMS on 04/24 after being found down at [facility] complaining of SOB. Per EMS, patient had several runs of V. tach; received aspirin 324 mg en route. Patient is a poor historian at baseline due to his underlying dementia. Upon assessment, patient reports that his shortness of breath is occurring at rest and has gotten worse over the past 20 minutes. He also endorses substernal chest pain, but is unable to rate it or characterize it. He denies radiation to the arms, shoulders, jaw, or back (between the shoulder blades). He reports that this chest pain started to get worse approximately 15 minutes ago, but reports that may be due to stress. While he denies heart stents/cardiac history, he does follow with cardiology and has extensive history of CAD/TAVR/perivalvular leak. He denies prior episodes of MIs or DVT/PE. He does report he had rheumatic fever when he was younger. He denies supplemental oxygen at baseline or CPAP at night. No sick contacts to his knowledge. He denies smoking or recent tobacco use. Patient's SpO2 was 87% on RA on arrival; SpO2 94% on 2L NC; vitals otherwise stable at time of admission. ED course: Aspirin 324 mg p.o. (en route) ROS: Patient endorses substernal chest pain, SOB at rest, headache, wheezing, and pleuritic CP. Patient denies fever, chills, dizziness, lightheadedness, chest palpitations, cough, hemoptysis, abdominal pain, N/V/D, changes in urinary habits, or blood in the urine/stool. Per nursing staff: While there is no formal order in for fluids, nursing staff reports reports patient received NSS 500 mL IV upon arrival, and shortly afterwards, patient's respiratory distress increased. Spoke with patient's daughter/medical POA (Amanda) on the phone and provided update regarding labs/imaging/admission status. Daughter is a nurse. She went to a PCP appointment with the patient on Monday, and expressed some early concerns for new onset of heart failure. In regard to blood thinners, patient's daughter does not believe there is a reason he could not be on blood thinners. He does have a history of TIAs, as well as a brain aneurysm, but has no history of bleeding disorders. She confirms that he does have a stent that was placed around 10 years ago. Daughter confirms that the patient is a DNR/DNI. While comfort measures only is listed on patient's POLST form, daughter desires to have the patient brought into the hospital, as his current symptoms are in alignment with a reversible condition (acute heart failure/pulmonary edema). Discharge Exam GENERAL APPEARANCE NAD, activity normal for age, well developed/ well nourished, no cyanosis, pallor, or diaphoresis. EYES lids/conjunctiva normal. EARS/NOSE/THROAT Mucous membranes moist, nares normal, lips/teeth normal uvula midline without oral pharyngeal erythema, exudate or swelling TMs normal bilaterally. No lymphangitis/lymphedema. HEAD/NECK normocephalic atraumatic, no facial trauma, neck is supple. RESPIRATORY respiratory effort normal, speaks in full sentences, no tripod position, no accessory muscle use. Lungs clear to auscultation without rhonchi, wheezes, rales CARDIAC Regular rate and rhythm, no edema. ABDOMINAL Soft, ND/NT. No evidence of fluid wave. No pulsatile masses on exam, rebound tenderness, Cole sign or pain over Mcburney's point. MUSCLES/EXTREMITIES No abnormal range of motion, no swelling. SKIN Warm, pink and dry. No rashes, dermatoses, petechiae or lesions. NEUROLOGICAL Speech is clear and appropriate. Normal level of consciousness. Gait and coordination are normal. 5/5 strength in all extremities. PSYCH Normal mood and affect. Judgement/competence is appropriate Discharge Plan Discharge Items Patient Disposition: Transfer Inpatient Rehab Fac Reason For Visit: CHEST PAIN, SOB Discharge Diagnosis: CHF Activity: Resume your previous activity Non-emergency contact: Primary Care Provider Call non-emergency contact if: you have any medication questions Follow-up/Referrals: Haley Yoon CRNP [Primary Care Provider] - Diet: Regular Addtl Attending Provider Instructions: Follow up with PMD in 2 weeks Pending Studies at Discharge: No Stand-Alone Forms: My [facility] Skilled Items Patient informed of condition?: Yes DNR: No Discharge Level of Care: Acute rehab Communicable Disease: No Discharge Prognosis: Stable Lines: None Urinary Catheter: No Medications and DC Order Prescriptions: New furosemide 40 mg Tablet 40 mg PO QAM Qty: 30 0RF amiodarone 200 mg Tablet 400 mg PO BIDM Qty: 14 0RF metoprolol succinate 25 mg Tablet Extended Release 24 Hr 25 mg PO QAM Qty: 30 0RF Continued oxycodone 5 mg tablet 5 mg PO QAM venlafaxine [Effexor XR] 75 mg capsule,extended release 24hr 75 mg PO DAILY donepezil [Aricept] 10 mg tablet 10 mg PO DAILY olanzapine [Zyprexa] 5 mg tablet 5 mg PO BID olanzapine [Zyprexa] 2.5 mg tablet 2.5 mg PO DAILY loratadine 10 mg tablet 10 mg PO DAILY diclofenac sodium 1 % gel 2 g topical Q6H PRN (Reason: Pain) Rx Instructions: apply to single elbow, wrist or hand; for hand includes palm/fingers/back of hand polyethylene glycol 3350 [Miralax] 17 gram Powder In Packet 17 g PO DAILY amlodipine [Norvasc] 5 mg tablet 5 mg PO DAILY acetaminophen 650 mg Tablet Extended Release 650 mg PO Q8H PRN (Reason: Pain) lorazepam 0.5 mg tablet 0.5 mg PO HS tamsulosin 0.4 mg capsule 0.4 mg PO DAILY pantoprazole 40 mg tablet,delayed release (DR/EC) 40 mg PO DAILY diphenhydramine HCl [Benadryl Allergy] 25 mg Tablet 25 mg PO .Q24HR PRN (Reason: .ALLERGY SYMPTOMS) lidocaine 5 % Adhesive Patch,Medicated 1 patch TOPICAL DAILY Patient Comments: not on today as per daughter Amanda Rx Instructions: leave on most painful area for up to 12 hrs ibuprofen 400 mg tablet 400 mg PO Q8 aspirin 81 mg Tablet,Chewable 81 mg PO DAILY losartan 100 mg tablet 100 mg PO QAM docusate sodium 100 mg Tablet 100 mg PO BID melatonin 5 mg Tablet 5 mg PO HS cholecalciferol (vitamin D3) 125 mcg (5,000 unit) Tablet 125 mcg PO DAILY propylene glycol 0.6 % Drops 1 drp OPHTHALMIC (EYE) DAILY PRN (Reason: Dry Eye(S)) acetaminophen 650 mg Tablet Extended Release 650 mg PO Q12H PRN (Reason: temp>100) hydrocortisone [Preparation H Hydrocortisone] 1 % Cream 1 applic TOPICAL Q8H PRN (Reason: Hemorrhoids) bisacodyl 10 mg Suppository 10 mg SC DAILY PRN (Reason: Constipation) Milk of Magnesia 30 ml PO DAILY PRN (Reason: Constipation) Discharge Orders: Discharge Order (Routine); Ordered 04/29/24 Ordered By: Valente Gordon Admission Data Admit Date/Time: 04/24/24 12:00 Attending Provider: Valente Gordon Admit Provider: Vikram Kovacs Primary Care Provider: Haley Yoon Other Providers: Vikram Kovacs; Dickson Zapien; Dayami Padron [facility] Stay Data Consultations 04/24/24 10:15 ED Decision to Admit Stat 04/24/24 14:41 Consult Cardiology Routine Diagnostic Imagining Performed 04/24/24 11:31 US venous doppler LE BI Stat Pending Results Patient Have Any Pending Studies at Discharge: No Discharge Instructions Given to Patient (Per Discharging Provider) Follow up with PMD in 2 weeks Home Health Attestation I certify that this patient is under my care and that I, or a physicians insurance administrative assistant working with me, had a face to-face encounter that meets the home health [id number] encounter requirements with this patient. The encounter with the patient was in whole, or in part, for the following medical condition, which is the primary reason for home health care (list medical condition): I certify that, based on my findings, the following services are medically necessary home health services: My clinical findings support the need for the above services because: Further, I certify that my clinical findings support that this patient is homebound (i.e. absences from home require considerable and taxing effort and are for medical reasons or jew services or infrequently or of short duration when for other reasons) because: Certification for Home Health Services: Based on the above findings, I certify that this patient is confined to the home and needs intermittent retirement care, physical therapy and/or speech therapy or continues to need occupational therapy. The patient is under my care, and I have initiated the establishment of the plan of care. This patient will be followed by a physician who will periodically review the plan of care. Total Time Total Time Spent Total Time Spent (In Minutes): 50 Coding Level of Care Code 61863 INP/OBS DISCH >30 MIN Diagnoses Acute heart failure with reduced ejection fraction (HFrEF, <= 40%) I50.21 Flash pulmonary edema J81.0 Ventricular tachycardia, non-sustained I47.29
[2024-04-30] MEDS: DICLOFENAC SOD 1% GEL 100 GM TUBE EXT PRN (00:10)
[2024-04-30 07:06] LABS: BUN Creatinine Ratio 23.7 (10-20); Calcium 9.8 mg/dl (8.6-10.3); Potassium 4.7 mmol/L (3.5-5.1)
[2024-04-30 07:43] LABS: Hematocrit (blood only) 31.5 % (42.0-52.0); Hemoglobin 10.7 g/dl (14.0-18.0); Mean Corpuscular Hemoglobin 30.7 pg (25.0-34.0); Mean Corpuscular Volume 90.5 fL (80.0-100.0); Mean Platelet Volume 10.3 fL (9.4-12.4); Platelet Count 144 K/uL (130-400); RDW Coefficient of Variation 13.2 % (11.5-14.5); RDW Standard Deviation 43.6 fL (36.4-46.3); Red Blood Count 3.48 M/uL (4.70-6.10); White Blood Count 7.13 K/ul (4.8-10.8)
[2024-04-30] MEDS: FUROSEMIDE 40 MG TAB PO SCH (08:45)
--- NOTE | 2024-04-30 09:48 | Hospitalist Progress Note ---
Date of Service April 30, 2024 Assessment & Plan (1) Acute heart failure with reduced ejection fraction (HFrEF, <= 40%): Plan: Lasix 40 mg IV BID Daily weights Strict I&O monitoring Echo results pending Cardiology consult appreciated decreasing diuresis today as per cardiology ok to go on po lasix (2) Flash pulmonary edema: Plan: elevated troponin 217 now 464 heparin drip d/c'd asa cardiology states elevation is 2nd to demand ischemia. 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 Admission and Anticipated Discharge Date Admission Date: April 24, 2024 Subjective Pt resting comfortably in chair this am. Review of Systems Review of Systems: CONST: Negative for fever, body aches and chills. HENT: Negative for neck pain/stiffness, headache, congestion, sore throat, swelling. EYES: Negative for discharge/pain or vision changes. RESP: Negative for cough/hemoptysis and shortness of breath. CV: Negative chest pain, difficulty breathing, palpitations. ABD: Negative pain, nausea, vomiting. : Negative increase frequency, dysuria, blood in urine or stool. MUSC: Negative for muscle aches, edema. SKIN: Negative rash, lesions/sores. NEURO: Negative headache, dizziness, weakness. Physical Exam Physical Exam: GENERAL APPEARANCE NAD, activity normal for age, well developed/ well nourished, no cyanosis, pallor, or diaphoresis. EYES lids/conjunctiva normal. EARS/NOSE/THROAT Mucous membranes moist, nares normal, lips/teeth normal uvula midline without oral pharyngeal erythema, exudate or swelling TMs normal bilaterally. No lymphangitis/lymphedema. HEAD/NECK normocephalic atraumatic, no facial trauma, neck is supple. RESPIRATORY respiratory effort normal, speaks in full sentences, no tripod position, no accessory muscle use. Lungs clear to auscultation without rhonchi, wheezes, rales CARDIAC Regular rate and rhythm, no edema. ABDOMINAL Soft, ND/NT. No evidence of fluid wave. No pulsatile masses on exam, rebound tenderness, Cole sign or pain over Mcburney's point. MUSCLES/EXTREMITIES No abnormal range of motion, no swelling. SKIN Warm, pink and dry. No rashes, dermatoses, petechiae or lesions. NEUROLOGICAL Speech is clear and appropriate. Normal level of consciousness. Gait and coordination are normal. 5/5 strength in all extremities. PSYCH Normal mood and affect. Judgement/competence is appropriate Results & Data Results & Data Vital Signs (Past 12 Hours) Vital Signs Temp Pulse Pulse Resp BP BP Pulse Ox 04/30/24 07:06 36.4 C L 70 18 137/78 94 04/30/24 04:12 36.3 C L 66 16 137/82 96 04/30/24 00:00 59 L 04/29/24 22:40 36.4 C L 60 16 109/67 100 O2 Del Method O2 Flow Rate 04/30/24 07:06 Room Air 04/30/24 04:12 Room Air 04/30/24 00:00 04/29/24 22:40 Nasal Cannula 2 PG Care Time/CCT Total # of Minutes Spent Total Time Spent with Patient: Total time spent is greater than 50% in coordination of care (as documented) at patient's floor/unit and/or counseling patient: Coding Level of Care Code 91331 SUB INP/OBS CARE 2/35MIN Diagnoses Acute heart failure with reduced ejection fraction (HFrEF, <= 40%) I50.21 Flash pulmonary edema J81.0 Ventricular tachycardia, non-sustained I47.29
[2024-04-30 10:45] VITALS: O2SAT 99
[2024-04-30 14:59] VITALS: BP 115/57; RESP 18; TEMP 96.8
[2024-04-30 15:28] VITALS: PULSE 73
== END 2024-04-30 17:57 | DRG 291 ==
LOC: ED 08:01 → EDINP 12:00 → SUATTDRO 12:00 → 2S 16:31